=== PATIENT | female | born 1950 | race Caucasian/White ===

== ENCOUNTER 2018-01-18 18:12 | Inpatient (IN) | payer MEDICARE, OTHER, SELFPAY ==
[2018-01-18 18:14] VITALS: BP 164/97; PULSE 95; RESP 18; TEMP 37.1; O2SAT 92; BMI 37.3
--- NOTE | 2018-01-18 18:33 | RAD_ITS ---
STUDY: X-RAY - LEFT FOOT CLINICAL: Female, 67 years old. Infection TECHNIQUE: 3 view(s) of the foot. COMPARISON: None. FINDINGS: Normal talus, calcaneus, and tarsal bones. Flattening of the normal plantar arch. The mineralization of the osseous structures. There is degenerative arthrosis of the metatarsophalangeal joint of the hallux with a hallux valgus deformity. Normal tibial and fibular sesamoid bones. Normal interphalangeal joint of the great toe. Normal phalanges of the great toe. Hyperextension of the second third and fourth metatarsal phalangeal joints. Normal interphalangeal joints and phalanges of the lesser toes. The soft tissue structures are unremarkable. RAD/Foot min 3 Views IMPRESSION: Degenerative changes. Hallux valgus deformity. Demineralization. Pes planus deformity. Electronically Signed: Jayy Swanson DO at 19:32 EDT , Service support ,
--- NOTE | 2018-01-18 18:34 | ED.VISSUMM ---
- ER Visit Summary Date of Service: 01/18/18 Chief Complaint: Left foot infection History of Present Illness: The patient is a 67 F presenting with left foot infection. Patient states that she has had an ulcer on her foot for several months. She states over the last week or so it has worsened and become increasingly painful and now appears infected. She discussed with Dr. Chavez and he advised her to come to the ED for further evaluation. She denies fever. Denies recent injury. She states that it intermittently bleeds. Denies other complaints. Physical Examination: Vitals are stable. Patient is afebrile. Alert no acute distress. HEENT exam is unremarkable. Neck is supple. Lungs are clear and equal bilaterally. Heart is regular rate and rhythm. Extremities necrotic ulcer plantar surface of foot, proximal to the first proximal phalanx with foul odor. Normal DP pulse Skin is warm and dry. No focal neurologic deficit. Remainder of exam is unremarkable. Emergency Department Course and Treatment: CBC is unremarkable. Chemistries show BUN of 29. ESR 51, CRP 6.9. Blood cultures sent. X-ray left foot shows degenerative changes. She was given Ancef IV. Discussed with the hospitalist for admission. Disposition: Admission Impression: Left foot infection This note was generated with [employer] dictation software. It may contain incorrect words, spelling, and punctuation that were not noted in review of the chart prior to signing ED Disposition - Plan for ED Patient: Chief Complaint: Wound Referrals: Faraz Junior MD [Primary Care Provider] -
[2018-01-18 18:48] LABS: Absolute Lymphocyte Count 1.38 X10^3/ul (0.83-4.51); Basophil# 0.02 X10^3/uL; Basophil% 0.2 % (0-1); Eosinophil# 0.35 X10^3/uL; Eosinophils% 4.1 % (0-5); Hematocrit 42.2 % (37-47); Hemoglobin 13.6 g/dl (12.0-15.0); Lymphocyte # 1.38 X10^3/ul (4.0); Lymphocyte % 16.1 % (19-41); Mean Corp Hgb Conc 32.2 g/gl (32-36); Mean Corpuscular Hgb 28.5 pg (27.0-32.0); Mean Corpuscular Volume 88.5 fL (81-99); Mean Platelet Vol. 9.3 fl (6.2-12.0); Monocyte# 0.86 X10^3/uL; Neutrophil # 5.96 X10^3/uL (2.7-7.7); Neutrophil % 69.5 % (47-70); POSITIVE COUNT NO; POSITIVE DIFFERENTIAL NO; POSITIVE MORPHOLOGY NO; Platelet Count 323 K/mm3 (150-450); RBC Distribution Width SD 60.9 fl (35.1-43.9); Red Blood Count 4.77 M/mm3 (4.2-5.4); White Blood Count 8.6 K/mm3 (4.4-11.0)
[2018-01-18 18:57] LABS: Erythrocyte Sedimentation Rate 51 mm/hr (0-30)
[2018-01-18 19:07] LABS: Anion Gap 9 (5-15); BUN 29 mg/dL (7-18); CRP 6.92 mg/L (0.0-3.0); Calcium,Total 8.8 mg/dL (8.5-10.1); Chloride 109 mmol/L (98-107); Creatinine, Serum 0.62 mg/dL (0.55-1.02); EST Glomerular Filtration Rate 103 mL/min (>60); Est Glom Filt Rate - Afr Amer 124 mL/min (>60); Estimated Creatinine Clearance 59.84 ml/min; Glucose 99 mg/dL (74-106); Potassium 3.9 mmol/L (3.5-5.1); Sodium Level 143 mmol/L (136-145)
[2018-01-18 19:38] VITALS: BMI 37.3
[2018-01-18] MEDS: Cefazolin 1 GM/50 ML BAG IV (21:16)
--- NOTE | 2018-01-18 21:22 | ED.RN ---
TWO SETS OF BLOOD CULTURES SEND DOWN PRIOR TO STARTING ATB'S. THEY ARE NOT ORDERED YET.
[2018-01-18 21:25] VITALS: BP 154/72; PULSE 92; PULSE 95; RESP 22; TEMP 36.8; O2SAT 93; O2SAT 95
[2018-01-18 23:56] VITALS: BP 151/90; PULSE 83; RESP 16; TEMP 36.9; O2SAT 92; BMI 37.3
--- NOTE | 2018-01-18 23:59 | HP.PCM_ITS ---
Problem List (1) Left foot infection Status: Acute (2) Benign essential hypertension Status: Chronic History of Present Illness Date of Admission: 01/18/18 Chief Complaint: Left foot pain with bloody drainage The patient is a 67 year old F with a significant history of hypertension, atrial fibrillation arthritis and left foot ulcer who presented because of increasing pain and increasing bloody drainage from her left foot for 1 week. She has seen multiple podiatrists in the past. She was supposed to see Dr. Arvin Chavez [facility], for the first time. However because of her symptoms she was instructed by Dr. Chavez to come to the emergency department. Patient reports receiving frequent debridement of the left foot also from [facility]. In the past, merchant [facility] instructed her to weigh surgical boots but because of her arthritis she could know wear the surgical boots. The ulcer in the left feet started about 3 months ago. Past Medical History Past Medical History (Chronic Problems): Chronic Problems Obesity (Chronic) Depression (Chronic) Benign essential hypertension (Chronic) Allergies nifedipine [From Procardia] Adverse Reaction (Verified 01/18/18 18:14) Pain in joints Home Medications: Ambulatory Orders Medication Instructions Recorded Amlodipine [Norvasc] 5 mg PO DAILY 04/09/13 Carvedilol [Coreg (Beta [place])] 25 mg PO BID 04/09/13 Lisinopril [Zestril] 20 mg PO BID 04/09/13 Multivitamins,Therapeutic 1 tablet PO DAILY 04/09/13 [Multivitamin] Vitamin B Complex 1 each PO DAILY 04/09/13 Esomeprazole Mag Trihydrate 40 mg PO DAILY 02/06/14 [Nexium] Apixaban [Eliquis] 5 mg PO BID 01/18/18 Celecoxib [Celebrex] 200 mg PO BID 01/18/18 Duloxetine HCl 60 mg PO DAILY 01/18/18 Flecainide [Tambocor] 100 mg PO BID 01/18/18 Rosuvastatin Calcium [Rosuvastatin 5 mg PO DAILY 01/18/18 Calcium] Surgical History: appendectomy, hysterectomy, - - 2 surgeries to the foot Psychiatric History: No pertinent psych hx, Depression 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 Smoking Status: Never smoker Tobacco Use: Non-smoker Alcohol: None - *Family History Paternal History Items: No pertinent history Maternal History Items: No pertinent history Review of Systems Constitutional: Denies: Chills, Fever, Weight Change Eyes: Reports: Blurred vision, Pain HEENT: Denies: Head Aches, Sinus Congestion, Sinus Drainage Cardiovascular: Denies: Chest Pain, Palpitations Respiratory: Denies: Cough, Shortness of breath at rest, Sputum production Gastrointestinal: Denies: Abdominal Pain, Nausea, Vomiting Genitourinary: Denies: Dysuria Musculoskeletal: Reports: - - Left foot pain Skin: Denies: Rash, Wounds Neurological: Denies: Numbness, Tingling, Focal weakness Hematologic/ Lymphatic: Denies: Easy Bruising, Easy Bleeding VTE Information - Inpt Only VTE Present on Admission: No VTE Mechan Device Prophylaxis: None VTE Pharm Prophylaxis ordered?: No Reason prophylaxis not ordered:: Medical Contraindication Patient Problems: Active and Suspected Problems Left foot infection (Acute) - Physical Exam General: Alert, Oriented x3, Cooperative HEENT: Atraumatic, PERRLA, EOMI, Normocephalic Neck: Supple, No JVD, Negative Carotid Bruits Lungs: Clear to auscultation, Normal air movement Cardiovascular: Regular rate, No murmurs Abdomen: Bowel Sounds Present, Soft, Non Tender Extremities: - - Necrotic area of plantar side of the left foot. Pulses are intact in bilateral feet. Skin: - - Bilateral feet desquamation. Musculoskeletal: No Tenderness to Palpation of Joints or Extremities Lymphatic: No Cervical, Supraclavicular, or Inguinal Adenopathy Neurological: Cranial nerves II-XII grossly intact Psych/Mental Status: Normal Affect, Appropriate Vital Signs Temp Pulse Resp BP Pulse Ox 98.3 F 92 22 H 154/72 H 95 01/18/18 21:25 01/18/18 21:25 01/18/18 21:25 01/18/18 21:25 01/18/18 21:25 Assessment/Plan All Active Problems Left foot infection (Acute) Epistaxis (Acute) Hyperleukocytosis (Acute) Hyperlipemia (Acute) Atrial fibrillation (Acute) The patient is a 67 year old F with a significant history of hypertension, atrial fibrillation, arthritis and left foot ulcer who presented because of increasing pain and increasing bloody drainage from her left foot for 1 week and with elevated serum markers of inflammation concerning for infection of left foot ulcer. Infection of left foot ulcer Foot x-ray unremarkable ESR elevated at 51 CRP elevated at 6.92 The patient received Ancef at emergency department Because of risk of MRSA vancomycin ordered. Because of a risk of Pseudomonas with frequent debridement Zosyn ordered. MRI to rule out osteomyelitis. Morphine and oxycodone prn for pain Podiatry consult. History of A. fib Continue home Eliquis. Flecainade continued Hypertension Lisinopril and amlodipine continued DVT prophylaxis On therapeutic anticoagulation with Eliquis. Code Visit Inpatient E&M: 51288 Init Hosp L2
[2018-01-19 03:12] VITALS: BP 156/88; PULSE 87; RESP 16; TEMP 36.9; O2SAT 94
--- NOTE | 2018-01-19 03:19 | PCM.RX.CS ---
Consult Pharmacy has been consulted to manage selected antiobiotic: Vancomycin Type of Consult: New start Suspected Infection: Skin/Soft tissue Prior Doses of Antibiotics Received/Current Regimen: Medications Piperacillin Sod/Tazobactam Sod (Zosyn) 3.375 gm in 50 mls @ 12.5 mls/hr IV Q8 KORTNEY Discontinued Medications Vancomycin HCl 1,750 mg/ (Sodium Chloride) 535 mls @ 260 mls/hr IV X1 ONE Stop: 01/19/18 02:33 Last Admin: 01/19/18 00:39 Dose: 260 mls/hr Labs: Sodium 143 mmol/L (136-145) 01/18/18 18:41 Potassium 3.9 mmol/L (3.5-5.1) 01/18/18 18:41 Chloride 109 mmol/L (98-107) H 01/18/18 18:41 Carbon Dioxide 25.0 mmol/L (21.0-32.0) 01/18/18 18:41 Anion Gap 9 (5-15) 01/18/18 18:41 BUN 29 mg/dL (7-18) H 01/18/18 18:41 Creatinine 0.62 mg/dL (0.55-1.02) 01/18/18 18:41 Est GFR (MDRD) Af Amer 124 mL/min (>60) 01/18/18 18:41 Est GFR (MDRD) Non-Af 103 mL/min (>60) 01/18/18 18:41 BUN/Creatinine Ratio 47.0 RATIO (10-20) H 01/18/18 18:41 Glucose 99 mg/dL (74-106) 01/18/18 18:41 Weight used for dosin.9 kg Estimated Creatinine Clearance: 59.84 Goal Trough: 10-15 mcg/mL Pharmacy Plan for Drug Dosing: Pharmacy Service will continue to monitor and adjust dosing as required. Follow-Up Labs: Trough Vancomycin Labs to be done on [date and time ordered]: 11/20 @ 1230
[2018-01-19] MEDS: Nystatin Powder 15gm Bottle 1 APPLIC TOPICAL ×3 (05:35→21:50)
[2018-01-19] MEDS: Piperacil/Tazobactam 3.375 GM/50 ML ML IV (05:35)
--- NOTE | 2018-01-19 06:30 | MRI_ITS ---
STUDY: MRI LEFT FOREFOOT WITH AND WITHOUT CONTRAST REASON FOR EXAM: Open wound left foot, evaluate for osteomyelitis. TECHNIQUE: Standardized fat and water weighted pulse sequences were obtained in all 3 orthogonal planes, post contrast administration. 12 ml of Gadavist contrast material was administered intravenously for the contrast portion of the examination. COMPARISON: Radiographs 01/18/2018. FINDINGS: There is chondral thinning of the metatarsophalangeal joint of the hallux (T1 sagittal image 19) with a small subchondral cyst in the first metatarsal head. There is hallux valgus deformity. There is chondral thinning of the sesamoids-first metatarsal articulations (T2 coronal series 5 images 20, 21) and subchondral cystic change of the tibial sesamoid (inversion recovery sagittal image 20). Normal interphalangeal joint of the hallux. Normal proximal and distal phalanges of the great toe. There is chondral thinning and dorsal subluxations of the second and third metatarsophalangeal joint (T1 sagittal images 10-14). Normal interphalangeal joints of the second through fifth toes. Normal proximal, middle and distal phalanges of the second through fifth toes. Normal first through fourth intermetatarsal spaces. There is no bone edema of the metatarsals. There is chondral thinning and subchondral cystic change adjacent to the navicular-cuneiform articulations (inversion recovery sagittal images 20, 21). There is a small effusion of the talonavicular joint (inversion recovery sagittal image 19). There is a tibiotalar joint effusion (inversion recovery sagittal image 18). There is atrophy of the intrinsic muscles of the foot with fat replacement (T1 sagittal images 6-21). There is edema in the plantar/medial subcutis adipose space at the first metatarsophalangeal joint with contrast enhancement (postcontrast T1 sagittal images 18-23) suggestive of cellulitis. There is no discrete fluid collection to indicate soft tissue abscess. MRI/Lower Ext No Joint W/WO Cont IMPRESSION: Cellulitis adjacent to the first metatarsophalangeal joint without demonstrated osteomyelitis. Arthrosis of the first through third metatarsophalangeal joints with dorsal subluxations of the second and third metatarsophalangeal joints. Arthrosis of the first metatarsal-sesamoids articulations. Arthrosis of the navicular-cuneiform articulations. Tibiotalar and talonavicular joint effusions. Atrophy of the intrinsic muscles of the foot suggestive of peripheral neuropathy. Electronically Signed: Shahbaz Thomson MD at 12:30 EDT Tel , Service support ,
--- NOTE | 2018-01-19 06:30 | PCM.PROGNOTE ---
Patient Problems: Active and Suspected Problems Cellulitis of foot, left (Acute) Subjective: Mrs Wolff is a 67-year-old female with a past medical history of hypertension, atrial fibrillation, chronic anticoagulation with apixaban, hyperlipidemia, osteoarthritis and a chronic left foot ulcer (present for 3 months) who presented to the emergency department at [facility] on 01/18/2018 complaining of left foot pain with increased drainage. She has seen multiple podiatrists in the past and the wound remains unhealed. She has not been able to wear a off loading boot due to increased arthritic pain. Vital signs at presentation to the emergency room were temp 98.7, pulse rate 95, blood pressure 164/97, respiratory rate 18 and she was 92-94% saturated on room air. White blood cell count was 8.6 with an unremarkable differential. Hemoglobin and platelets were within normal limits. Electrolytes were unremarkable and the BUN was increased at 29 with a creatinine of 0.62. ESR was 51 and the CRP was 6.92. Plain x-ray of the foot showed no fractures, dislocations or bone destruction. She was admitted to the hospital and started on vancomycin and Zosyn. MRI was ordered to rule out osteomyelitis and Dr. Arvin Chavez was consulted for podiatric care. She has been afebrile since admission. Blood pressures are elevated and have ranged from 154/72-160 4/97. The heart rate is ranged from 83-95. - Physical Exam General: Alert, Oriented x3, Cooperative, No apparent distress HEENT: Atraumatic Oral: Moist Mucosa, No Gingival or Mucosal Lesions/ Ulcerations Neck: Supple, Trachea Midline Lungs: Clear to auscultation Cardiovascular: Regular rate, Regular Rhythm, Normal S1, Normal S2, No rub noted, No Gallop Abdomen: Bowel Sounds Present, Soft, Non Tender, Non-Distended, Obese Extremities: No clubbing, No cyanosis, Capillary Refill Less than 3 Seconds, No Calf Tenderness, Edema Skin: No rashes, Ulcer/ Wound - the ulcer is on the plantar surface of the left foot over the first metatarsal head. There is a thick eschar. No odor. no significant jason-wound erythema, no purulent discharge, no increased warmth to touch. Psych/Mental Status: Normal Affect Vital Signs Temp Pulse Resp BP Pulse Ox 98.4 F 87 16 156/88 H 94 01/19/18 03:12 01/19/18 03:12 01/19/18 03:12 01/19/18 03:12 01/19/18 03:12 Oxygen Delivery Method Room Air Weight: 259 lb 14.8 oz Body Mass Index (BMI) 37.3 Intake and Output for Last 24 Hours 01/17/18 01/18/18 01/19/18 23:59 23:59 23:59 Intake Total 1322 / 1322 Balance 1322 / 1322 Medical Necessity - Tobacco Use Smoking Status: Never smoker Tobacco Use: Non-smoker Assessment/Plan All Active Problems Cellulitis of foot, left (Acute) Atrial fibrillation (Resolved) Epistaxis (Resolved) Impressions 1. ulceration of the left foot - chronic. Await Dr. Tierney to determine the depth and if it tracks to fascia or bone. The MRI of the left foot shows no evidence of osteomyelitis but does show cellulitis adjacent to the first metatarsal phalangeal joint. 2. Left foot cellulitis 3. Onychomycosis 4. Hypertension 5. Proximal is more atrial fibrillation 6. Chronic anticoagulation with apixaban 7. Hyperlipidemia 8. Osteoarthritis 9. Obesity Change the antibiotics to Rocephin and Flagyl........ infection is present but it is mild and she has no history of a MRSA infection. She is afebrile with a normal white blood cell count and differential. Await consult by Dr. Tierney. Needs nail debridement on both feet all 10 toes Encouraged her to follow-up every 3 months with podiatry for nail debridement She is unable to tolerate offloading shoes or braces secondary to severe arthritis in her knees and hips. She is also unable to wash or moisturize her feet Will get [facility] [place] to help with wound dressing and foot care Code Visit Inpatient E&M: 56062 Subs Hosp L2
--- NOTE | 2018-01-19 06:39 | PN_ITS ---
Patient Problems: Active and Suspected Problems Cellulitis of foot, left (Acute) Subjective: Mrs Wolff is a 67-year-old female with a past medical history of hypertension, atrial fibrillation, chronic anticoagulation with apixaban, hyperlipidemia, osteoarthritis and a chronic left foot ulcer (present for 3 months) who presented to the emergency department at [facility] on 2017 complaining of left foot pain with increased drainage. She has seen multiple podiatrists in the past and the wound remains unhealed. She has not been able to wear a off loading boot due to increased arthritic pain. Vital signs at presentation to the emergency room were temp 98.7, pulse rate 95, blood pressure 164/97, respiratory rate 18 and she was 92-94% saturated on room air. White blood cell count was 8.6 with an unremarkable differential. Hemoglobin and platelets were within normal limits. Electrolytes were unremarkable and the BUN was increased at 29 with a creatinine of 0.62. ESR was 51 and the CRP was 6.92. Plain x-ray of the foot showed no fractures, dislocations or bone destruction. She was admitted to the hospital and started on vancomycin and Zosyn. MRI was ordered to rule out osteomyelitis and Dr. Arvin Chavez was consulted for podiatric care. She has been afebrile since admission. Blood pressures are elevated and have ranged from 154/72-160 4/97. The heart rate is ranged from 83-95. - Physical Exam General: Alert, Oriented x3, Cooperative, No apparent distress HEENT: Atraumatic Oral: Moist Mucosa, No Gingival or Mucosal Lesions/ Ulcerations Neck: Supple, Trachea Midline Lungs: Clear to auscultation Cardiovascular: Regular rate, Regular Rhythm, Normal S1, Normal S2, No rub noted , No Gallop Abdomen: Bowel Sounds Present, Soft, Non Tender, Non-Distended, Obese Extremities: No clubbing, No cyanosis, Capillary Refill Less than 3 Seconds, No Calf Tenderness, Edema Skin: No rashes, Ulcer/ Wound - the ulcer is on the plantar surface of the left foot over the first metatarsal head. There is a thick eschar. No odor. no significant jason-wound erythema, no purulent discharge, no increased warmth to touch. Psych/Mental Status: Normal Affect Vital Signs Temp Pulse Resp BP Pulse Ox 98.4 F 87 16 156/88 H 94 01/19/18 03:12 01/19/18 03:12 01/19/18 03:12 01/19/18 03:12 01/19/18 03:12 Oxygen Delivery Method Room Air Weight: 259 lb 14.8 oz Body Mass Index (BMI) 37.3 Intake and Output for Last 24 Hours 01/17/18 01/18/18 01/19/18 23:59 23:59 23:59 Intake Total 1322 / 1322 Balance 1322 / 1322 Medical Necessity - Tobacco Use Smoking Status: Never smoker Tobacco Use: Non-smoker Assessment/Plan All Active Problems Cellulitis of foot, left (Acute) Atrial fibrillation (Resolved) Epistaxis (Resolved) Impressions 1. ulceration of the left foot - chronic. Await Dr. Tierney to determine the depth and if it tracks to fascia or bone. The MRI of the left foot shows no evidence of osteomyelitis but does show cellulitis adjacent to the first metatarsal phalangeal joint. 2. Left foot cellulitis 3. Onychomycosis 4. Hypertension 5. Proximal is more atrial fibrillation 6. Chronic anticoagulation with apixaban 7. Hyperlipidemia 8. Osteoarthritis 9. Obesity Change the antibiotics to Rocephin and Flagyl........ infection is present but it is mild and she has no history of a MRSA infection. She is afebrile with a normal white blood cell count and differential. Await consult by Dr. Tierney. Needs nail debridement on both feet all 10 toes Encouraged her to follow-up every 3 months with podiatry for nail debridement She is unable to tolerate offloading shoes or braces secondary to severe arthritis in her knees and hips. She is also unable to wash or moisturize her feet Will get [facility] [place] to help with wound dressing and foot care Code Visit Inpatient E&M: 12920 Subs Hosp L2
[2018-01-19 06:57] LABS: Absolute Lymphocyte Count 1.58 X10^3/ul (0.83-4.51); Absolute Neutrophil Count 4.9 X10^3/uL (2.0-7.7); Basophil# 0.02 X10^3/uL; Basophil% 0.3 % (0-1); Eosinophil# 0.36 X10^3/uL; Eosinophils% 4.7 % (0-5); Hematocrit 41.9 % (37-47); Hemoglobin 13.5 g/dl (12.0-15.0); Lymphocyte # 1.58 X10^3/ul (4.0); Lymphocyte % 20.7 % (19-41); Mean Corp Hgb Conc 32.2 g/gl (32-36); Mean Corpuscular Hgb 28.8 pg (27.0-32.0); Mean Corpuscular Volume 89.5 fL (81-99); Mean Platelet Vol. 9.8 fl (6.2-12.0); Monocyte# 0.76 X10^3/uL; Monocyte% 9.9 % (0-10); Neutrophil # 4.92 X10^3/uL (2.7-7.7); Neutrophil % 64.3 % (47-70); Platelet Count 320 K/mm3 (150-450); RBC Distribution Width CV 18.9 % (11.6-14.6); RBC Distribution Width SD 61.3 fl (35.1-43.9); Red Blood Count 4.68 M/mm3 (4.2-5.4); White Blood Count 7.7 K/mm3 (4.4-11.0)
[2018-01-19 07:09] LABS: POSITIVE COUNT NO; POSITIVE DIFFERENTIAL NO; POSITIVE MORPHOLOGY NO
[2018-01-19 07:12] LABS: Anion Gap 9 (5-15); BUN 20 mg/dL (7-18); BUN/Creat Ratio 30.3 RATIO (10-20); Calcium,Total 8.7 mg/dL (8.5-10.1); Chloride 107 mmol/L (98-107); Creatinine, Serum 0.66 mg/dL (0.55-1.02); EST Glomerular Filtration Rate 95 mL/min (>60); Est Glom Filt Rate - Afr Amer 115 mL/min (>60); Estimated Creatinine Clearance 59.84 ml/min; Glucose 115 mg/dL (74-106); Potassium 3.9 mmol/L (3.5-5.1); Sodium Level 140 mmol/L (136-145)
[2018-01-19 07:38] VITALS: BP 153/83; PULSE 92; RESP 18; TEMP 36.8; O2SAT 92
--- NOTE | 2018-01-19 07:58 | NURSING ---
PT REFUSES ENSURE- THIS RN OFFERED CLEAR ENSURE PT STATES SHE DOES NOT WANT EITHER. ASKED IF SHE MIGHT WANT SOME LATER- SHE STATES, NO.
[2018-01-19] MEDS: DULoxetine Hcl 60 MG Capsule PO (09:05)
[2018-01-19] MEDS: Carvedilol 25 MG Tablet PO ×2 (09:05→21:50)
[2018-01-19] MEDS: Celecoxib 200 MG Capsule PO ×2 (09:05→21:50)
[2018-01-19] MEDS: Multivitamins,Therapeutic Tablet 1 TABLET PO (09:05)
[2018-01-19] MEDS: Vitamin B Comp W-C Capsule 1 CAP PO (09:05)
[2018-01-19 09:06] LABS: Bedside Glucose 111 mg/dL (70-110)
[2018-01-19] MEDS: Pantoprazole Sodium 40 MG Tablet PO (09:06)
[2018-01-19] MEDS: APIXABAN 5 MG TABLET PO ×2 (09:06→21:50)
[2018-01-19] MEDS: Lisinopril 20 MG Tablet PO ×2 (09:06→21:50)
[2018-01-19] MEDS: Flecainide 100 MG Tablet PO ×2 (09:06→21:49)
[2018-01-19] MEDS: amLODIPine 5 MG Tablet PO (09:06)
[2018-01-19 09:30] VITALS: O2SAT 93
--- NOTE | 2018-01-19 10:28 | NURSING ---
pt taken off unit for MRI at this time.
[2018-01-19] MEDS: oxyCODONE 5 MG Tablet PO ×2 (12:35→18:12)
[2018-01-19] MEDS: 0.9% NaCl Peripheral Flush Adult/Peds IV (12:35)
--- NOTE | 2018-01-19 12:35 | PCM.HP.STD ---
Problem List (1) Chronic ulcer of left foot with fat layer exposed Status: Chronic (2) Cellulitis of foot, left Status: Acute (3) Left foot infection Status: Acute History of Present Illness Date of Admission: 01/19/18 Chief Complaint: Left foot wound This 67-year-old female with significant past medical history of obesity, depression, hypercholesteremia, hypertension was seen bedside this morning for chronic left foot ulcer. She reports she saw Dr. Anderson for this condition this past June or July and it has continually drained and formed callus. She had increased drainage and odor noted and presented to the emergency room. She has been started on IV antibiotics and workup for deeper tissue infection has been initiated. She just returned from getting her MRI of the foot. She denies significant pain to the foot. She denies current fever, chill, nausea, vomiting. She denies recent trauma to this area. She tried to initially wear surgical shoe but was unable to tolerate it due to her chronic low back pain and other hip and knee pain. She did not return her medical records custodian for follow-up. She also asked for help trimming her long thick toenails that she does not feel safe performing on her own. She relates she does have a appointment scheduled with Dr. Chavez tomorrow at the [facility]. Past Medical History Past Medical History (Chronic Problems): Chronic Problems Chronic ulcer of left foot with fat layer exposed (Chronic) Obesity (Chronic) Depression (Chronic) Benign essential hypertension (Chronic) Allergies nifedipine [From Procardia] Adverse Reaction (Verified 01/18/18 18:14) Pain in joints Home Medications: Ambulatory Orders Medication Instructions Recorded Amlodipine [Norvasc] 5 mg PO DAILY 04/09/13 Carvedilol [Coreg (Beta [place])] 25 mg PO BID 04/09/13 Lisinopril [Zestril] 20 mg PO BID 04/09/13 Multivitamins,Therapeutic 1 tablet PO DAILY 04/09/13 [Multivitamin] Vitamin B Complex 1 each PO DAILY 04/09/13 Esomeprazole Mag Trihydrate 40 mg PO DAILY 02/06/14 [Nexium] Apixaban [Eliquis] 5 mg PO BID 01/18/18 Celecoxib [Celebrex] 200 mg PO BID 01/18/18 Duloxetine HCl 60 mg PO DAILY 01/18/18 Flecainide [Tambocor] 100 mg PO BID 01/18/18 Rosuvastatin Calcium [Rosuvastatin 5 mg PO DAILY 01/18/18 Calcium] Surgical History: appendectomy, hysterectomy, - - 2 surgeries to the foot Psychiatric History: No pertinent psych hx, 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 Denies: Claudication Gastrointestinal: Denies: Diarrhea, Nausea, Vomiting Musculoskeletal: Denies: Foot Pain, Leg Pain Skin: Reports: Skin Changes, Wounds Neurological: Denies: Numbness Psychiatric: Reports: Depression VTE Information - Inpt Only VTE Present on Admission: No Patient Problems: Active and Suspected Problems Left foot infection (Acute) Cellulitis of foot, left (Acute) - Physical Exam General: Alert, Oriented x3, Cooperative HEENT: Atraumatic Extremities: No cyanosis, Capillary Refill Less than 3 Seconds - Brisk to all digits of bilateral foot, No Calf Tenderness - Negative Ana and León sign bilateral, Peripheral Pulses Normal - 2 out of 4 PT and DP pulses left, - - Telangiectasias bilateral lower extremities Skin: Ulcer/ Wound - There is a large callus with dried hematogenous drainage located sub-first metatarsal head left foot. Upon debridement there is a granular base exposed stellate shaped wound that measures approximately 1.8 cm x 1.2 cm x 0.1 cm. There is spares fibrous tissue noted. There is no necrosis or positive probe to bone or capsule. There is a mild odor and biofilm is suspected., - - There is no interdigital maceration bilateral and bilateral foot skin is hairless and atrophic. Toenails are long thick dystrophic with subungual debris ?10 Musculoskeletal: No Tenderness to Palpation of Joints or Extremities, Muscle Wasting Neurological: Sensory exam intact to light touch and pain Psych/Mental Status: Normal Affect, Appropriate Vital Signs Temp Pulse Resp BP Pulse Ox 98.3 F 92 18 153/83 H 93 01/19/18 07:38 01/19/18 07:38 01/19/18 07:38 01/19/18 07:38 01/19/18 09:30 Oxygen Delivery Method Room Air Weight: 117.9 kg Body Mass Index (BMI) 37.3 Intake and Output for Last 24 Hours 01/17/18 01/18/18 01/19/18 23:59 23:59 23:59 Intake Total 1322 / 1322 Balance 1322 / 1322 Laboratory Tests Past 24 Hrs 01/19/18 01/19/18 06:35 06:35 WBC 7.7 RBC 4.68 Hgb 13.5 Hct 41.9 MCV 89.5 MCH 28.8 MCHC 32.2 RDW 18.9 H RDW Differential 61.3 H Plt Count 320 MPV 9.8 Immature Gran % (Auto) 0.100 Neut % (Auto) 64.3 Lymph % (Auto) 20.7 [place] % (Auto) 9.9 Eos % (Auto) 4.7 Baso % (Auto) 0.3 Absolute Neuts (auto) 4.9 Absolute Lymphs (auto) 1.58 Total Counted Not Reportable Sodium 140 Potassium 3.9 Chloride 107 Carbon Dioxide 24.0 Anion Gap 9 BUN 20 H Creatinine 0.66 Estim Creat Clear Calc 59.84 Est GFR (MDRD) Af Amer 115 Est GFR (MDRD) Non-Af 95 BUN/Creatinine Ratio 30.3 H Glucose 115 H Calcium 8.7 POC Glucose 01/19/18 07:46 POC Glucose 111 H Assessment/Plan All Active Problems Left foot infection (Acute) Cellulitis of foot, left (Acute) Epistaxis (Acute) Hyperleukocytosis (Acute) Hyperlipemia (Acute) Atrial fibrillation (Acute) Left foot ulcer with fat layer exposed chronic Delayed healing Mild cellulitis of left foot; osteomyelitis has been ruled out Malnutrition suspected Lower extremity edema Hammertoes and bunion foot deformities bilateral Onychomycosis versus onychauxis with discomfort I reviewed and discussed her case today. Her diagnostic data was reviewed. It is noted she does not have leukocytosis, her ESR is 51 C-reactive protein 6.2. Her foot x-rays on the left lower extremity were reviewed without acute fracture dislocation, soft tissue emphysema, foreign body, or osseous destruction. Her foot deformities are noted with bunion and dorsal contraction of lesser toes consistent with hammertoes. Her left foot MRI was also reviewed without abscess or evidence of osteomyelitis. She does have a faint odor and I do recommend treating her with oral antibiotic transition for mild foot cellulitis. A formal wound care plan will also be initiated at this time. A 15 blade was utilized to perform sharp excisional debridement with a post debridement measurement of 1.9 x 1.3 x 0.1 cm. Verbal consent was obtained and she tolerated this well without pain. Pressure was applied to maintain hemostasis. I recommend changing the wound dressing daily with Aquacel AG and gauze. Offloading importance was discussed. It is noted she is not able to tolerate wearing a surgical shoe due to back discomfort. We talked about several options and she is amenable to try to go nonweightbearing or heel touch with walker use. She reports she already has a walker at home. To optimize healing with nutritional supplement; I recommend Familia. I recommend she follows up at the foot and ankle center for toenail debridement as scheduled. She can also follow-up at the foot and ankle center or the wound care center for ongoing wound care within the next week with Dr. Tierney or Dr. Chavez. If she is still in house over the weekend I will bring the appropriate instrumentation to debride her nails. She understands she is at risk for limb loss and continued infection due to her chronic wound. I answered all of her questions. Thank you very much for the consultation. It is okay to discharge from a podiatric standpoint at this time. Medical management DVT prophylaxis per primary team is appreciated. Maria Ines Tierney DPM, [facility] [phone]
--- NOTE | 2018-01-19 13:00 | CASEMGMT ---
See ABBY BRAVO Assess link: ABBY BRAVO Face to Face with patient for initial transition planning/care coordination assessment. ABBY BRAVO introduced self and role at [facility]. Patient resting in bed, alert and oriented. Patient willing to participate in assessment and is able to answer all questions appropriately. Care providers, pharmacy, and demographics verified. Pt wishes to discharge home. HHC to be determined by course of treatment. Pt agreeable to [facility]HC upon discharge, if services needed. Pt states would like info on Advanced Directives and states having some difficulty with finances to pay for prescriptions. JUVENAL Rivers notified by ABBY BRAVO. CM to follow for discharge planning needs that may arise. Disposition Plan: Discharge Home with probable HHC. Pt agreeable to [facility]HC if services needed. Vidya RAYMUNDO RN, CM
[2018-01-19 13:40] VITALS: BP 120/69; PULSE 82; RESP 18; TEMP 37.1; O2SAT 92
[2018-01-19] MEDS: metroNIDAZOLE 500 MG Tablet PO ×2 (14:06→21:50)
[2018-01-19 14:21] LABS: Bedside Glucose 108 mg/dL (70-110)
--- NOTE | 2018-01-19 14:24 | DCINST_ITS ---
Weight Bearing Status: No weight bearing - walker use. Ok to heel touch if needed. Keep extremity elevated above heart level: Left Leg Call your doctor if your incision/area has: Continuous Slow Oozing, Sudden Increased Bleeding, Increased Pain/ Swelling, Increased Redness, Foul Smelling Discharge, Swelling at the incision site Call your doctor if you observe: Fever of 101 or Higher, Calf discomfort, Uncontrolled pain Cleanse incision/area with: Soap & Water, - - aquacel ag and gauze. Do not soak the foot Allergies/Adverse Reactions: Allergies nifedipine [From Procardia] Adverse Reaction (Verified 01/18/18 18:14) Pain in joints Medications to take at Discharge Amlodipine [Norvasc] 5 mg PO DAILY 04/09/13 Carvedilol [Coreg (Beta [place])] 25 mg PO BID 04/09/13 Lisinopril [Zestril] 20 mg PO BID 04/09/13 Multivitamins,Therapeutic [Multivitamin] 1 tablet PO DAILY 04/09/13 Vitamin B Complex 1 each PO DAILY 04/09/13 Esomeprazole Mag Trihydrate [Nexium] 40 mg PO DAILY 02/06/14 Apixaban [Eliquis] 5 mg PO BID 01/18/18 Celecoxib [Celebrex] 200 mg PO BID 01/18/18 Duloxetine HCl 60 mg PO DAILY 01/18/18 Flecainide [Tambocor] 100 mg PO BID 01/18/18 Rosuvastatin Calcium [Rosuvastatin Calcium] 5 mg PO DAILY 01/18/18 Primary Care Physician: Faraz Junior MD [Primary Care Provider] - Test Results: Test results from this visit will be discussed in further detail at your follow- up appointment, if applicable. Please Follow Up With: Arvin Chavez DPM When: [facility] as scheduled and if discharged today Please Follow Up With: Wound healing center - in one week Proposed Discharge Date: 01/19/18
--- NOTE | 2018-01-19 15:19 | NURSING ---
wound photo: left foot
--- NOTE | 2018-01-19 15:22 | CHAPLAIN ---
Type of Pastoral Visit _x__ Initial Visit ___ Follow-up Visit ___ On-call Visit ___ General Patient Visit ___ Spiritual Assessment ___ Family Conference ___ Bereavement ___ Rapid Response ___ Code Blue ___ Other (describe below) Pastoral Care Referral From _x__ Patient ___ Family ___ Nurse ___ Physician ___ Patternmaker Sample ___ Construction Driller ___ Other (describe below) Sacrament/Intervention _x__ Active listening ___ Anointing ___ Samaritan ___ Bereavement ___ Communion _x__ Elaina exploration ___ _x__ Life review _x__ Prayer ___ Reconciliation ___ Sacrament of Sick _x__ Supportive presence ___ Wedding ___ Other (describe below) Pastoral Comments nursing care is being completed as I come to see the patient; pt requests that client customer manager stays to make the visit as nurses are finishing; pt discloses that she is now glad that she came to hospital as need was larger than she expected; pt explains that she has more health issues and has had difficulty 'deciding which one to address first'; pt has no relatives in the area; pt has a twin brother in [place] that she talks to every day; pt also reports many friends in this area; pt has a evangelical connection locally; pt is recently retired and admits that this is also a 'real adjustment for me'; looked into where pt can have good consultation for decisions and role of elaina in her life;
--- NOTE | 2018-01-19 15:36 | NURSING ---
Spoke with Linda in micro. she states that mrsa culture will have to be recollected because the cultures have already taken place- they would have completed MRSA test first before culturing. Also, called Eli wound RN and notified her of new order and of changed in order to aquacel. This RN to collecte sample and do dressing changed at this time
--- NOTE | 2018-01-19 16:03 | CASEMGMT ---
Social Work Note RN SHELLY Burroughs updated this worker that pt would like prescription assistance and is interested in Advanced Directives. JUVENAL met with pt. SW introduced self and role at [facility]. Pt is alert and orientated x4. Pt confirms that she is interested in information about Advanced Directives. SW provided pt with Advanced Directives booklet and informed her that if she would like to completed Advanced Directives then the SW tomorrow on the floor can assist her with completing documents. SW asked pt about being able to afford prescriptions. Pt confirms that some of her prescriptions are expensive. SW asked pt if she has part D plan on her Medicare. Pt states that she has silver scripts. SW provided pt with prescription assistance resources and encouraged pt to look into prescription assistance resources to determine if she is eligible for assistance. Pt states understanding, denied additional needs or concerns at this time and thanked this SW. JUVENAL will update Care TONGUE LINING STITCHER-S. Plan: Pt to return home at discharge Jaimee Ricci PRODUCT SAFETY TESTER, MACHINIST WOOD
[2018-01-19 16:46] LABS: Bedside Glucose 142 mg/dL (70-110)
[2018-01-19 18:05] LABS: M R Staph aureus DNA By PCR Negative (Negative); Probe Check PASS; Specimen Processing Control PASS; Staph aureus DNA By PCR NEGATIVE (Negative)
[2018-01-19 19:40] VITALS: BP 167/79; PULSE 86; RESP 18; TEMP 36.7; O2SAT 93
[2018-01-19] MEDS: Atorvastatin Calcium 10 MG Tablet PO (21:50)
[2018-01-19 22:11] LABS: Bedside Glucose 121 mg/dL (70-110)
[2018-01-20] MEDS: Nystatin Powder 15gm Bottle 1 APPLIC TOPICAL ×2 (06:02→13:33)
[2018-01-20] MEDS: metroNIDAZOLE 500 MG Tablet PO ×2 (06:03→13:33)
[2018-01-20 06:08] VITALS: BP 156/85; PULSE 80; RESP 18; TEMP 36.4; O2SAT 95
[2018-01-20 07:26] VITALS: O2SAT 95
[2018-01-20 08:01] VITALS: BP 142/70; PULSE 75; RESP 18; TEMP 36.6; O2SAT 93
[2018-01-20] MEDS: Celecoxib 200 MG Capsule PO (08:04)
[2018-01-20] MEDS: Vitamin B Comp W-C Capsule 1 CAP PO (08:04)
[2018-01-20] MEDS: Multivitamins,Therapeutic Tablet 1 TABLET PO (08:04)
[2018-01-20] MEDS: Pantoprazole Sodium 40 MG Tablet PO (08:05)
[2018-01-20] MEDS: Carvedilol 25 MG Tablet PO (08:05)
[2018-01-20] MEDS: Lisinopril 20 MG Tablet PO (08:05)
[2018-01-20] MEDS: Flecainide 100 MG Tablet PO (08:05)
[2018-01-20] MEDS: amLODIPine 5 MG Tablet PO (08:05)
[2018-01-20] MEDS: DULoxetine Hcl 60 MG Capsule PO (08:05)
[2018-01-20] MEDS: APIXABAN 5 MG TABLET PO (09:28)
[2018-01-20] MEDS: 0.9% NaCl Peripheral Flush Adult/Peds IV (09:31)
--- NOTE | 2018-01-20 10:11 | CASEMGMT ---
SW and CM met w/pt in regard to scripts, SNF vs home care, and meals at home. Pt is agreeable to home health for dressing changes. CM explained to pt that the home care cannot come in daily. Pt does report has friends who can assist if daily dressing changes are needed. SW explained that home care will train her friend as to how to do the dressing changes, should daily changes be required. Pt states understanding. SNF was offered, pt declined. SW inquired about heel touch weight bearing, pt states she can maintain this and can manage at home. Also, As per admitting RN, pt came in w/unfilled paper scripts. CM asked pt about it, she states she had some duplicate scripts and only fills scripts when needed. 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 Pt states also that her Celexa had been on backorder. Otherwise, pt reports no issues w/scripts or getting coverage for scripts. SW also inquired about meals, as pt had reported to CM her friends make her meals. Pt reports she can make simple meals, her friends shop for her and will get her things from the grocery store that are easy to prepare. SW offered [facility], pt declined. No further social service needs, pt declined SNF, CM following for home health. HARMAN Benton, ALL AROUND GEAR MACHINE OPERATOR
--- NOTE | 2018-01-20 13:00 | CASEMGMT ---
RN CM NOTE: NIRANJAN Alfaro, @ [facility] notified of referral for [facility] for: RN & PT/OT and that pt will need dressing changes to foot. Also notified that plan for discharge is today with start of care being tomorrow 01/21/18. Vidya RAYMUNDO RN CM
[2018-01-20 13:29] VITALS: BP 146/78; PULSE 78; RESP 18; TEMP 36.8; O2SAT 94
--- NOTE | 2018-01-20 14:15 | DCINST_ITS ---
- Discharge Diagnoses Current Active Problems: Current Active and Chronic Problems Left foot infection (Acute) Chronic ulcer of left foot with fat layer exposed (Chronic) Cellulitis of foot, left (Acute) You will use the following diet at home:: Other - Resume previous diet Your food should be the consistency of: Regular Your liquids should be the consistency of: Regular/Thin Discharge Activity: - - non-weight bearing on the Left foot OR heel walking only on the Left foot Weight Bearing Status: No weight bearing - walker use. Ok to heel touch if needed. Keep extremity elevated above heart level: Left Leg Call your doctor if your incision/area has: Continuous Slow Oozing, Sudden Increased Bleeding, Increased Pain/ Swelling, Increased Redness, Foul Smelling Discharge, Swelling at the incision site Call your doctor if you observe: Fever of 101 or Higher, Calf discomfort, Uncontrolled pain Cleanse incision/area with: Soap & Water, - - aquacel ag and gauze. Do not soak the foot Additional Instructions: I have given you a prescription for a wlaker to help you to get around without putting any weight on the L forefoot. I am sending you home on 2 different antibiotics. Take both of them until they are all gone. If you develop diarrhea with more than 3 stools a day call your PCP. Pending Tests on Discharge: final wound culture Allergies/Adverse Reactions: Allergies nifedipine [From Procardia] Adverse Reaction (Verified 01/18/18 18:14) Pain in joints Medications to take at Discharge Amlodipine [Norvasc] 5 mg PO DAILY 04/09/13 Carvedilol [Coreg (Beta [place])] 25 mg PO BID 04/09/13 Lisinopril [Zestril] 20 mg PO BID 04/09/13 Multivitamins,Therapeutic [Multivitamin] 1 tablet PO DAILY 04/09/13 Vitamin B Complex 1 each PO DAILY 04/09/13 Esomeprazole Mag Trihydrate [Nexium] 40 mg PO DAILY 02/06/14 Apixaban [Eliquis] 5 mg PO BID 01/18/18 Celecoxib [Celebrex] 200 mg PO BID 01/18/18 Duloxetine HCl 60 mg PO DAILY 01/18/18 Flecainide [Tambocor] 100 mg PO BID 01/18/18 Rosuvastatin Calcium 5 mg PO DAILY 01/18/18 Levofloxacin [Levaquin] 500 mg PO DAILY #8 tab 01/20/18 Metronidazole [Flagyl] 500 mg PO TID #24 tab 01/20/18 The following prescriptions were given: Levofloxacin [Levaquin] 500 mg PO DAILY #8 tab Metronidazole [Flagyl] 500 mg PO TID #24 tab Primary Care Physician: Faraz Junior MD [Primary Care Provider] - Please follow up with your Primary Care Physician in: 10-14 days Test Results: Test results from this visit will be discussed in further detail at your follow- up appointment, if applicable. Please Follow Up With: Arvin Chavez DPM When: [facility] - next week Please Follow Up With: Wound healing center Proposed Discharge Date: 01/20/18
--- NOTE | 2018-01-20 14:25 | PCM.DC.SUM ---
Discharge Date and Diagnosis - Problem List Patient Problems: Active and Suspected Problems Cellulitis of foot, left (Acute) Date of Admission: 01/19/18 Date of Discharge: 01/20/18 - Primary Discharge Diagnosis Active and Suspected Problems Cellulitis of foot, left (Acute) Left foot ulcer with fat layer exposed - Secondary Discharge Diagnosis Chronic Problems Peripheral neuropathy (Chronic) Osteoarthritis (Chronic) Chronic anticoagulation (Chronic) PAF (paroxysmal atrial fibrillation) (Chronic) Chronic ulcer of left foot with fat layer exposed (Chronic) Hyperlipemia (Chronic) Obesity (Chronic) Depression (Chronic) Benign essential hypertension (Chronic) Hospital Course and Treatment Imaging Results: Clinical Impression(s) from Imaging Studies Foot X-Ray 01/18/18 18:33 IMPRESSION: Degenerative changes. Hallux valgus deformity. Demineralization. Pes planus deformity. Electronically Signed: Jayy Swanson DO at 19:32 EDT , Service support , Lower Extremity MRI 01/19/18 06:30 IMPRESSION: Cellulitis adjacent to the first metatarsophalangeal joint without demonstrated osteomyelitis. Arthrosis of the first through third metatarsophalangeal joints with dorsal subluxations of the second and third metatarsophalangeal joints. Arthrosis of the first metatarsal-sesamoids articulations. Arthrosis of the navicular-cuneiform articulations. Tibiotalar and talonavicular joint effusions. Atrophy of the intrinsic muscles of the foot suggestive of peripheral neuropathy. Electronically Signed: Shahbaz Thomson MD at 12:30 EDT Tel , Service support , Microbiology 01/19/18 12:35 Wound - Other Gram Stain - Final 01/19/18 12:35 Wound - Other Wound Culture - Preliminary Gram negative fredis Gram negative fredis#2 Laboratory Results - last 24 hr 01/19/18 01/19/18 01/19/18 15:59 16:00 21:45 S.aureus Protein A PCR NEGATIVE MRSA (PCR) Negative POC Glucose 142 H 121 H Consultations 01/18/18 23:45 Consult: Onc/Wound/monument stonecutter Routine Comment: Reason for Consult:: left foot infection Operations: None Procedures: - - excisional debridement of left foot ulcer by Dr. Tierney Summary of Care Provided: Mrs Wolff is a 67-year-old female with a past medical history of hypertension, atrial fibrillation, chronic anticoagulation with apixaban, hyperlipidemia, osteoarthritis and a chronic left foot ulcer (present for 3 months) who presented to the emergency department at [facility] on 01/18/2018 complaining of left foot pain with increased drainage. She had seen multiple podiatrists in the past but lost her insurance 1 year ago had not followed up in 1 year. She has not been able to wear an off loading boot due to increased arthritic pain. Vital signs at presentation to the emergency room were temp 98.7, pulse rate 95, blood pressure 164/97, respiratory rate 18 and she was 92-94% saturated on room air. White blood cell count was 8.6 with an unremarkable differential. Hemoglobin and platelets were within normal limits. Electrolytes were unremarkable and the BUN was increased at 29 with a creatinine of 0.62. ESR was 51 and the CRP was 6.92. Plain x-ray of the foot showed no fractures, dislocations or bone destruction. She was admitted to the hospital and started on vancomycin and Zosyn which was changed to Rocephin and Flagyl since she was afebrile with a normal white blood cell count and differential with no evidence of severe cellulitis on physical examination. He was seen in consultation by Dr. Tierney who performed bedside debridement of an ulcer on the plantar surface of the left foot. A PCR was sent and was negative for staph aureus and MRSA. The preliminary culture on the foot wound is 2 GM negative rods...there were no white blood cells on the GM stain. On 01/20/2018 she was afebrile with stable vital signs. She was discharged home with a prescription for Levaquin 500 mg daily for 8 days and Flagyl 500 mg 3 times daily ?8 days. She is going to follow-up with Dr. Arvin Chavez in the office next week for nail debridement and recheck on the ulcer. She was given a prescription for a front wheeled walker to assist her in nonweightbearing on the left foot with heel walking only. Home health care was arranged to assist with dressing changes. She will follow-up with Dr. Junior in 10-14 days. Discharge Activity: - - non-weight bearing on the Left foot OR heel walking only on the Left foot Weight Bearing Status: No weight bearing - walker use. Ok to heel touch if needed. Keep extremity elevated above heart level: Left Leg Call your doctor if your incision/area has: Continuous Slow Oozing, Sudden Increased Bleeding, Increased Pain/ Swelling, Increased Redness, Foul Smelling Discharge, Swelling at the incision site Call your doctor if you observe: Fever of 101 or Higher, Calf discomfort, Uncontrolled pain Cleanse incision/area with: Soap & Water, - - aquacel ag and gauze. Do not soak the foot Home Medications: Medications to take at Discharge Amlodipine [Norvasc] 5 mg PO DAILY 04/09/13 Carvedilol [Coreg (Beta [place])] 25 mg PO BID 04/09/13 Lisinopril [Zestril] 20 mg PO BID 04/09/13 Multivitamins,Therapeutic [Multivitamin] 1 tablet PO DAILY 04/09/13 Vitamin B Complex 1 each PO DAILY 04/09/13 Esomeprazole Mag Trihydrate [Nexium] 40 mg PO DAILY 02/06/14 Apixaban [Eliquis] 5 mg PO BID 01/18/18 Celecoxib [Celebrex] 200 mg PO BID 01/18/18 Duloxetine HCl 60 mg PO DAILY 01/18/18 Flecainide [Tambocor] 100 mg PO BID 01/18/18 Rosuvastatin Calcium 5 mg PO DAILY 01/18/18 Levofloxacin [Levaquin] 500 mg PO DAILY #8 tab 01/20/18 Metronidazole [Flagyl] 500 mg PO TID #24 tab 01/20/18 Following Prescrptions Were Given to Patient: Levofloxacin [Levaquin] 500 mg PO DAILY #8 tab Metronidazole [Flagyl] 500 mg PO TID #24 tab Primary Care Physician: Faraz Junior MD [Primary Care Provider] - Please follow up with your Primary Care Physician in: 10-14 days Please Follow Up With: Arvin Chavez DPM When: [facility] [place] - next week Please Follow Up With: [facility] Minutes spent on discharge:: 30 Patient Condition:: Good Medical Necessity - Tobacco Use Smoking Status: Never smoker Tobacco Use: Non-smoker Meaningful Use Info Meaningful Use Diagnoses (Choose all that apply): None applicable Code Visit Inpatient E&M: 57671 Disch Hosp
--- NOTE | 2018-01-20 14:34 | DS.PCM_ITS ---
Discharge Date and Diagnosis - Problem List Patient Problems: Active and Suspected Problems Cellulitis of foot, left (Acute) Date of Admission: 01/19/18 Date of Discharge: 01/20/18 - Primary Discharge Diagnosis Active and Suspected Problems Cellulitis of foot, left (Acute) Left foot ulcer with fat layer exposed - Secondary Discharge Diagnosis Chronic Problems Peripheral neuropathy (Chronic) Osteoarthritis (Chronic) Chronic anticoagulation (Chronic) PAF (paroxysmal atrial fibrillation) (Chronic) Chronic ulcer of left foot with fat layer exposed (Chronic) Hyperlipemia (Chronic) Obesity (Chronic) Depression (Chronic) Benign essential hypertension (Chronic) Hospital Course and Treatment Imaging Results: Clinical Impression(s) from Imaging Studies Foot X-Ray 01/18/18 18:33 IMPRESSION: Degenerative changes. Hallux valgus deformity. Demineralization. Pes planus deformity. Electronically Signed: Jayy Swanson DO at 19:32 EDT , Service support , Lower Extremity MRI 01/19/18 06:30 IMPRESSION: Cellulitis adjacent to the first metatarsophalangeal joint without demonstrated osteomyelitis. Arthrosis of the first through third metatarsophalangeal joints with dorsal subluxations of the second and third metatarsophalangeal joints. Arthrosis of the first metatarsal-sesamoids articulations. Arthrosis of the navicular-cuneiform articulations. Tibiotalar and talonavicular joint effusions. Atrophy of the intrinsic muscles of the foot suggestive of peripheral neuropathy. Electronically Signed: Shahbaz Thomson MD at 12:30 EDT Tel , Service support , Microbiology 01/19/18 12:35 Wound - Other Gram Stain - Final 01/19/18 12:35 Wound - Other Wound Culture - Preliminary Gram negative fredis Gram negative fredis#2 Laboratory Results - last 24 hr 01/19/18 01/19/18 01/19/18 15:59 16:00 21:45 S.aureus Protein A PCR NEGATIVE MRSA (PCR) Negative POC Glucose 142 H 121 H Consultations 01/18/18 23:45 Consult: Onc/Wound/marketing summer intern Routine Comment: Reason for Consult:: left foot infection Operations: None Procedures: - - excisional debridement of left foot ulcer by Dr. Tierney Summary of Care Provided: Mrs Wolff is a 67-year-old female with a past medical history of hypertension, atrial fibrillation, chronic anticoagulation with apixaban, hyperlipidemia, osteoarthritis and a chronic left foot ulcer (present for 3 months) who presented to the emergency department at [facility] on 01/18/2018 complaining of left foot pain with increased drainage. She had seen multiple podiatrists in the past but lost her insurance 1 year ago had not followed up in 1 year. She has not been able to wear an off loading boot due to increased arthritic pain. Vital signs at presentation to the emergency room were temp 98.7, pulse rate 95, blood pressure 164/97, respiratory rate 18 and she was 92-94% saturated on room air. White blood cell count was 8.6 with an unremarkable differential. Hemoglobin and platelets were within normal limits. Electrolytes were unremarkable and the BUN was increased at 29 with a creatinine of 0.62. ESR was 51 and the CRP was 6.92. Plain x-ray of the foot showed no fractures, dislocations or bone destruction. She was admitted to the hospital and started on vancomycin and Zosyn which was changed to Rocephin and Flagyl since she was afebrile with a normal white blood cell count and differential with no evidence of severe cellulitis on physical examination. He was seen in consultation by Dr. Tierney who performed bedside debridement of an ulcer on the plantar surface of the left foot. A PCR was sent and was negative for staph aureus and MRSA. The preliminary culture on the foot wound is 2 GM negative rods...there were no white blood cells on the GM stain. On she was afebrile with stable vital signs. She was discharged home with a prescription for Levaquin 500 mg daily for 8 days and Flagyl 500 mg 3 times daily ?8 days. She is going to follow-up with Dr. Arvin Chavez in the office next week for nail debridement and recheck on the ulcer. She was given a prescription for a front wheeled walker to assist her in nonweightbearing on the left foot with heel walking only. Home health care was arranged to assist with dressing changes. She will follow-up with Dr. Junior in 10-14 days. Discharge Activity: - - non-weight bearing on the Left foot OR heel walking only on the Left foot Weight Bearing Status: No weight bearing - walker use. Ok to heel touch if needed. Keep extremity elevated above heart level: Left Leg Call your doctor if your incision/area has: Continuous Slow Oozing, Sudden Increased Bleeding, Increased Pain/ Swelling, Increased Redness, Foul Smelling Discharge, Swelling at the incision site Call your doctor if you observe: Fever of 101 or Higher, Calf discomfort, Uncontrolled pain Cleanse incision/area with: Soap & Water, - - aquacel ag and gauze. Do not soak the foot Home Medications: Medications to take at Discharge Amlodipine [Norvasc] 5 mg PO DAILY 04/09/13 Carvedilol [Coreg (Beta [place])] 25 mg PO BID 04/09/13 Lisinopril [Zestril] 20 mg PO BID 04/09/13 Multivitamins,Therapeutic [Multivitamin] 1 tablet PO DAILY 04/09/13 Vitamin B Complex 1 each PO DAILY 04/09/13 Esomeprazole Mag Trihydrate [Nexium] 40 mg PO DAILY 02/06/14 Apixaban [Eliquis] 5 mg PO BID 01/18/18 Celecoxib [Celebrex] 200 mg PO BID 01/18/18 Duloxetine HCl 60 mg PO DAILY 01/18/18 Flecainide [Tambocor] 100 mg PO BID 01/18/18 Rosuvastatin Calcium 5 mg PO DAILY 01/18/18 Levofloxacin [Levaquin] 500 mg PO DAILY #8 tab 01/20/18 Metronidazole [Flagyl] 500 mg PO TID #24 tab 01/20/18 Following Prescrptions Were Given to Patient: Levofloxacin [Levaquin] 500 mg PO DAILY #8 tab Metronidazole [Flagyl] 500 mg PO TID #24 tab Primary Care Physician: Faraz Junior MD [Primary Care Provider] - Please follow up with your Primary Care Physician in: 10-14 days Please Follow Up With: Arvin Chavez DPM When: [facility] [place] - next week Please Follow Up With: [facility] Minutes spent on discharge:: 30 Patient Condition:: Good Medical Necessity - Tobacco Use Smoking Status: Never smoker Tobacco Use: Non-smoker Meaningful Use Info Meaningful Use Diagnoses (Choose all that apply): None applicable Code Visit Inpatient E&M: 95609 Disch Hosp
--- NOTE | 2018-01-23 18:07 | CASEMGMT ---
ABBY BRAVO Discharge Follow-Up Phone Call: SHAYNE ARAIZA 4 Discharge Date: 01-20-18 Admission Dx: Cellulitis left foot ABBY BRAVO spoke with pt re: how she has been feeling since she left the hospital. Pt reports she has been feeling really good, a lot better. She reports she was able to pick up man both of her prescriptions for antibiotics and that she has started taking them. Denies having any questions about these medications. Pt reports she has an [facility] and that she wanted to wait until after that appt before she schedules an appt [facility]. Pt also reports that [facility] has been out to see her Sat, Sun, and today and that PT will be out to see her tomorrow. Pt denies any needs at this time. ABBY BRAVO thanked pt for choosing [facility]. Vidya RAYMUNDO RN, CM
== END 2018-01-20 18:10 | disposition home health service (06) | DRG 623 ==
LOC: ED 19:01 → MS2 23:12
PROVIDERS: Podiatrist; Admitting Provider Hospitalist; Emergency Provider Emergency Medicine; Family Provider Family Medicine; PCP Family Medicine; Visit Provider Internal Medicine
DX: E11.621 Type 2 diabetes mellitus with foot ulcer (principal); L03.116 Cellulitis of left lower limb; L97.522 Non-pressure chronic ulcer of other part of left foot with fat layer exposed; E66.9 Obesity, unspecified; F32.9 Major depressive disorder, single episode, unspecified; I10 Essential (primary) hypertension; E78.00 Pure hypercholesterolemia, unspecified; M19.90 Unspecified osteoarthritis, unspecified site; M20.42 Other hammer toe(s) (acquired), left foot; M20.41 Other hammer toe(s) (acquired), right foot; M21.612 Bunion of left foot; M21.611 Bunion of right foot; Z79.01 Long term (current) use of anticoagulants; B35.1 Tinea unguium; E78.5 Hyperlipidemia, unspecified; I48.0 Paroxysmal atrial fibrillation; G62.9 Polyneuropathy, unspecified; Z68.37 Body mass index [BMI] 37.0-37.9, adult
CPT/HCPCS: 36415; 73630; 73720; 80048; 82962; 85025; 85652; 86140; 87040; 87070; 87075; 87077; 87186; 87205; 87640; 97110; 97116; 97162; 97165; 97530; 97802; 99282; A9585; J7040; J7050; A4216; J0696

== ENCOUNTER 2019-06-27 17:28 | Inpatient (IN) | payer MEDICARE, OTHER, SELFPAY ==
[2019-03-06 08:12] VITALS: BMI 40.1
[2019-06-27] VITALS (13 sets, daily range): BP systolic 150–164; BP diastolic 80–96; PULSE 87–111; RESP 16–30; TEMP 36.7–37.7; O2SAT 85–96; BMI 40.4; BMI 39.1
--- NOTE | 2019-06-27 18:08 | EKG12_ITS ---
Test Reason : SOB Blood Pressure : / mmHG Vent. Rate : 109 BPM Atrial Rate : 109 BPM P-R Int : 174 ms QRS Dur : 076 ms QT Int : 336 ms P-R-T Axes : 004 -36 -01 degrees QTc Int : 452 ms Sinus tachycardia Left axis deviation Moderate voltage criteria for LVH, may be normal variant Inferior infarct , age undetermined Anterolateral infarct , age undetermined Abnormal ECG Confirmed by NOVA FRANZ, FUAD ([id number]), book or script editor DANIEL FREITAS ([id number]) on 06/29/2019 10:31:33 AM Referred By: Shereen Lamb Confirmed By:LUTHER BHATT MD
--- NOTE | 2019-06-27 18:26 | ED.DCSUM_ITS ---
History of Present Illness Chief Complaint: Shortness of Breath Informant: Patient, Relative, EMS Onset: Yesterday - around 24 hrs ago Activity at onset: Unknown - grad onset Timing: Continuous Quality: Dyspnea on exertion, Wheezing Current Severity: Moderate Maximum Severity: Moderate Worsened by: Exertion, Lying flat Relieved by: Albuterol - by EMS MEDICAL RECORD TECHNICIAN Associated Symptoms: Chills, Fever - subjective. Negative for: Cough Chest Pain: None Narrative: Patient states she has a history of atrial fibrillation and nothing else. She later states she also takes medication for swelling in her legs. She was at the wound center 2 days ago having treatment on a chronic ulcer/callus on the bottom of her left foot, and that day she did not have any redness in her left lower extremity. Today upon arrival in the ER, when nursing pulled her pants up and noticed that her left leg was red, she states that she did not notice it before. She has been noticing no pain in that leg. Family member states that there is a little redness around the chronic plantar ulcer/callus that was not there 2 days ago as well. She does not have any history of lung problems and is on no oxygen at home. She denies any other heart problems. States she feels malaise but still has been getting around at home with little difficulty, although she states she has a chair lift at home. Apparently this is because of severe arthritis in her hips and knees. Recent Illness/Hospitalization: No - Past Medical History (1) Benign essential hypertension Status: Chronic (2) Chronic anticoagulation Status: Chronic (3) Chronic ulcer of left foot with fat layer exposed Status: Chronic (4) Depression Status: Chronic (5) Hyperlipemia Status: Chronic (6) Obesity Status: Chronic (7) Osteoarthritis Status: Chronic (8) PAF (paroxysmal atrial fibrillation) Status: Chronic (9) Peripheral neuropathy Status: Chronic Past Medical History - Allergies and Home Meds Allergies/Adverse Reactions: Allergies atorvastatin [From Lipitor] Adverse Reaction (Verified 06/27/19 17:35) Pain in joints nifedipine [From Procardia] Adverse Reaction (Verified 03/06/19 11:28) Pain in joints Primary Care Physician: Faraz Junior MD [Primary Care Provider] - Surgical History: appendectomy, hysterectomy, - - 2 surgeries to the foot Lives: Alone Smoking Status: Never smoker Drugs: None - Family History Paternal Family History: Family History (Last Reviewed 08/10/18 @ 13:50 by Lorene Anthony) Father Ruptured aortic aneurysm Mother Heart disease Brother Atrial fibrillation Family History: Reports: No pertinent history Maternal Family History: Family History (Last Reviewed 08/10/18 @ 13:50 by Lorene Anthony) Father Ruptured aortic aneurysm Mother Heart disease Brother Atrial fibrillation Family History: Reports: No pertinent history Review of Systems General: Reports: Chills, Fever, Malaise, Subjective. Denies: Sweats Eyes: Denies: Visual changes - bilaterally, Diplopia ENT: Reports: Bilateral ear pain. Denies: Rhinorrhea, Sore throat Cardiovascular: Denies: Chest pain, Palpitations Respiratory: Reports: Dyspnea, Dyspnea on exertion, Orthopnea. Denies: Cough, Sputum Gastrointestinal: Denies: Abdominal pain, Nausea, Vomiting, Diarrhea, Melena, Hematochezia Genitourinary: Denies: Dysuria, Hematuria, Frequency Musculoskeletal: Reports: Swelling. Denies: Neck pain, Back pain, Extremity Pain Skin: Denies: Rash, Wounds Neurological: Reports: Headache - mild. Denies: Weakness, Numbness Physical Exam Vital Signs/Narrative: Vital Signs Temp Pulse Resp BP Pulse Ox 06/27/19 18:09 93 06/27/19 17:29 99.9 F H 111 H 30 H 164/89 H 85 06/27/19 17:28 90 Inital Vital Signs reviewed: Yes General: Well nourished, Well developed, Obese, No Acute Distress Head: Normocephalic, Atraumatic Eyes: Perrl, EOMI ENT: Moist mucous membranes, No rhinorrhea, TM's clear. Negative for: Sinus tenderness Neck: Supple, Nontender, No lymphadenopathy, No JVD Cardiovascular: Regular rate, Regular rhythm, No murmurs, Tachycardia Respiratory: No distress, Chest nontender, Wheezing. Negative for: Rales Abdomen: Soft, Nontender, Nondistended, Normal bowel sounds Back: Nontender, Normal Inspection. Negative for: CVA tenderness Extremities: Tenderness - Throughout distribution of erythema left lower leg. This stops around the ankle. There is also a slight amount of erythema around what appears to be a chronic callus at the plantar aspect of the ball of her foot, none of this area is tender. There is no lymphangitis., Edema - 2+ BLE Skin: Rash - Erythema consistent with cellulitis left lower extremity. No palpable cords. No inguinal lymphadenopathy. Neurological: Alert, Oriented x3, Cranial nerves II-XII grossly intact, Normal Sensation. Negative for: Normal Strength - Patient has a nonlateralizing neurologic exam. She is generally weak and requires assistance from 2 of us to help her sit forward in bed in order to grab the rail and hold her self up. Psychological: Normal affect, Normal Mood Diagnostic/Tx/Re-eval Impressions Chest X-Ray 06/27/19 18:30 IMPRESSION: Right lower lobe infiltrate. Electronically Signed: Mario Mcadams, at 18:49 EST Tel , Service support , 06/27/19 18:30 Chest 1 View (Portable) [RAD] Stat Laboratory Results 06/27/19 06/27/19 06/27/19 18:05 18:05 18:05 WBC 12.9 H RBC 4.68 Hgb 12.5 Hct 40.0 MCV 85.5 MCH 26.7 L MCHC 31.3 L RDW Std Deviation 53.5 H RDW Coeff of [place] 17.4 H Plt Count 241 MPV 9.6 Immature Gran % (Auto) 0.300 Neut % (Auto) 86.4 H Lymph % (Auto) 6.6 L [place] % (Auto) 6.0 Eos % (Auto) 0.4 Baso % (Auto) 0.3 Absolute Neuts (auto) 11.2 H Absolute Lymphs (auto) 0.85 Nucleated RBC % 0 PT 15.0 H INR 1.2 APTT 37.5 H Sodium 139 Potassium 3.4 L Chloride 105 Carbon Dioxide 27.0 Anion Gap 7 BUN 21 H Creatinine 0.49 L Estim Creat Clear Calc 56.27 Est GFR (MDRD) Af Amer 163 Est GFR (MDRD) Non-Af 134 BUN/Creatinine Ratio 43.1 H Glucose 108 H Lactic Acid Calcium 8.9 Total Bilirubin 0.30 AST 31 ALT 27 Alkaline Phosphatase 108 Troponin I < 0.015 B-Natriuretic Peptide Total Protein 7.9 Albumin 2.9 L Globulin 5.0 H Albumin/Globulin Ratio 0.6 L Urine Color Urine Clarity Urine pH Ur Specific [place] Urine Protein Urine Glucose (UA) Urine Ketones Urine Occult Blood Urine Nitrite Urine Bilirubin Urine Urobilinogen Ur Leukocyte Esterase Urine RBC Urine WBC Ur Squamous Epith Cells Urine Bacteria Urine Mucus 06/27/19 06/27/19 06/27/19 18:05 18:05 19:30 WBC RBC Hgb Hct MCV MCH MCHC RDW Std Deviation RDW Coeff of [place] Plt Count MPV Immature Gran % (Auto) Neut % (Auto) Lymph % (Auto) [place] % (Auto) Eos % (Auto) Baso % (Auto) Absolute Neuts (auto) Absolute Lymphs (auto) Nucleated RBC % PT INR APTT Sodium Potassium Chloride Carbon Dioxide Anion Gap BUN Creatinine Estim Creat Clear Calc Est GFR (MDRD) Af Amer Est GFR (MDRD) Non-Af BUN/Creatinine Ratio Glucose Lactic Acid 1.0 Calcium Total Bilirubin AST ALT Alkaline Phosphatase Troponin I B-Natriuretic Peptide 69.2 Total Protein Albumin Globulin Albumin/Globulin Ratio Urine Color Yellow Urine Clarity Clear Urine pH 6.5 Ur Specific [place] 1.010 Urine Protein 15 H Urine Glucose (UA) Normal Urine Ketones 5 H Urine Occult Blood 10 H Urine Nitrite Negative Urine Bilirubin Negative Urine Urobilinogen Normal Ur Leukocyte Esterase Negative Urine RBC 0-5 SEEN Urine WBC 0 SEEN Ur Squamous Epith Cells 0-5 SEEN Urine Bacteria 0 SEEN Urine Mucus 0 SEEN - Rhythm Strip Rhythm Strip: Sinus Tach Rate: 110 Ectopy: None - EKG Initial EKG Interpretation: No Acute Injury Pattern, Sinus Tachycardia, Non-Specific ST Changes - inferiorly, - - left axis Prior: Unchanged Treatment - Dyspnea: Oxygen, Albuterol, Antibiotics Repeat Evaluation: Improved - Medical Decision Making Patient feeling better after some IV fluids, aerosol treatment. Labs show a mild leukocytosis, kidney function is within normal limits, her EKG is unchanged compared with her old and shows nothing acute, and her chest x-ray shows pneumonia which accounts for her hypoxemia which persists after breathing treatments. Antibiotics Zosyn and azithromycin started to cover both infections. She meets sepsis criteria, however she is not critically ill and her lactate is within normal limits and now that she is on oxygen her vital signs are improved. Will admit to PCU. ED Disposition - Plan for ED Patient: Disposition: [facility] Diagnosis: Sepsis, CAP (community acquired pneumonia), Cellulitis of left lower leg, Hypoxemia Referrals: Faraz Junior MD [Primary Care Provider] -
--- NOTE | 2019-06-27 18:30 | RAD_ITS ---
STUDY: X-RAY CHEST REASON FOR EXAM: Female, 69 years old. Shortness of breath TECHNIQUE: Frontal view of the chest COMPARISON: None. FINDINGS: There is airspace opacity in the right lower lobe. The lungs are otherwise clear. There are no pleural effusions. There is no pneumothorax. The heart is normal in size. The visualized osseous structures are within normal limits. RAD/Chest 1 View (Portable) IMPRESSION: Right lower lobe infiltrate. Electronically Signed: Mario Mcadams, at 18:49 EST Tel , Service support ,
[2019-06-27] MEDS: Ipratropium/Albuterol Sulfate 3 ML AMPUL.NEB INHALATION (18:40)
[2019-06-27 19:04] LABS: Absolute Lymphocyte Count 0.85 X10^3/uL (0.83-4.51); Absolute Neutrophil Count 11.2 X10^3/uL (2.0-7.7); Basophil# 0.04 X10^3/uL; Basophil% 0.3 % (0-1); Eosinophil# 0.05 X10^3/uL; Eosinophils% 0.4 % (0-5); Hemoglobin 12.5 g/dL (12.0-15.0); Lymphocyte # 0.85 X10^3/ul (4.0); Lymphocyte % 6.6 % (19-41); Mean Corp Hgb Conc 31.3 g/dL (32-36); Mean Corpuscular Hgb 26.7 pg (27.0-32.0); Mean Corpuscular Volume 85.5 fL (81-99); Mean Platelet Vol. 9.6 fl (6.2-12.0); Monocyte# 0.78 X10^3/uL; NRBC Flagged by Analyzer 0 % (0-5); Neutrophil # 11.18 X10^3/uL (2.7-7.7); Neutrophil % 86.4 % (47-70); Platelet Count 241 K/mm3 (150-450); RBC Distribution Width CV 17.4 % (11.6-14.6); RBC Distribution Width SD 53.5 fl (35.1-43.9); Red Blood Count 4.68 M/mm3 (4.2-5.4); White Blood Count 12.9 K/mm3 (4.4-11.0)
[2019-06-27 19:06] LABS: International Normalized Ratio 1.2
[2019-06-27 19:07] LABS: Partial Thromboplast Time 37.5 Seconds (24.1-36.2)
[2019-06-27 19:12] LABS: ALB/GLOB Ratio 0.6 RATIO (0.9-2.4); AST(SGOT) 31 U/L (15-37); Alanine Aminotransfer ALT/SGPT 27 U/L (13-56); Albumin, Serum 2.9 g/dL (3.2-5.0); Alkaline Phosphatase 108 U/L (45-117); Anion Gap 7 (5-15); BUN 21 mg/dL (7-18); BUN/Creat Ratio 43.1 RATIO (10-20); Calcium,Total 8.9 mg/dL (8.5-10.1); Chloride 105 mmol/L (98-107); Creatinine, Serum 0.49 mg/dL (0.55-1.02); EST Glomerular Filtration Rate 134 mL/min (>60); Est Glom Filt Rate - Afr Amer 163 mL/min (>60); Estimated Creatinine Clearance 56.27 ml/min; Glucose 108 mg/dL (74-106); Potassium 3.4 mmol/L (3.5-5.1); Protein, Total 7.9 g/dL (6.4-8.2); Sodium Level 139 mmol/L (136-145)
[2019-06-27] MEDS: Acetaminophen 500 MG Tablet 1000 MG PO (19:15)
[2019-06-27 19:36] LABS: Bacteria 0 SEEN /hpf (None Seen); Mucous, Urine 0 SEEN /hpf (<or=2+); White Blood Cells 0 SEEN /hpf (0-5)
[2019-06-27 19:38] LABS: BNP,B-Type NATRIURETIC PEPTIDE 69.2 pg/mL (0-100)
[2019-06-27 19:54] LABS: Color, Urine Yellow (Yellow); Glucose, Dipstick Normal (Normal); Ketone-Dipstick 5 mg/dl (Negative); Leukocyte Esterase-Dipstick Negative /ul (Negative); Nitrite-Dipstick Negative (Negative); Occult Blood-Urine 10 /ul (Negative); Protein-Dipstick 15 mg/dl (Negative); Urine Bilirubin Dipstick Negative (Negative); Urine Clarity Clear (Clear); Urine Urobilinogen Normal (Normal); Urine pH 6.5 (5.0 - 8.0)
[2019-06-27 19:57] LABS: Red Blood Cells-Urine 0-5 SEEN /hpf (0-5); Squamous Epithelial Cells - UA 0-5 SEEN /hpf (5-10)
--- NOTE | 2019-06-27 20:16 | ED.RN ---
LEFT LOWER LEG REDDENED AND WARM TO TOUCH, HAS HEALING ULCERON BOTTOM OF LEFT FOOT, DRESSING REMOVED, AREA DRY, SLIGHTLY REDDENED.
--- NOTE | 2019-06-27 21:06 | PCM.HP.STD ---
Problem List (1) Sepsis Status: Acute (2) CAP (community acquired pneumonia) Status: Acute (3) Cellulitis of left lower leg Status: Acute (4) Hypoxemia Status: Acute (5) Peripheral neuropathy Status: Chronic (6) Osteoarthritis Status: Chronic (7) PAF (paroxysmal atrial fibrillation) Status: Chronic (8) Hyperlipemia Status: Chronic Qualifiers: Hyperlipidemia type: unspecified Qualified Code(s): E78.5 - Hyperlipidemia, unspecified (9) Depression Status: Chronic (10) Benign essential hypertension Status: Chronic History of Present Illness Date of Admission: 06/27/19 Chief Complaint: Shortness of breath. The patient is a 69 year old F patient with past medical history as mentioned above presented to the emergency because of shortness of breath. Her illness started 2 to 3 days ago with shortness of breath, she gets short of breath even at rest, aggravated by any type of activity, associated with productive cough with yellow sputum as well as fatigue and without relieving factor. She denied associated fever or chills. She denied sick contacts at home. Her other complaint was swelling and erythema of the left leg. She mentioned that her left leg has been getting more red than usual in the last several days, has been having mild ache on the left leg and has been more swollen. In the emergency department, she had a low grade fever of 99.9 Fahrenheit, was tachycardic, tachypneic, blood pressure was elevated and pulse ox was 85% on room air, improved with 4 L of oxygen. Routine blood work was remarkable for leukocytosis with neutrophilia, potassium of 3.4, otherwise unremarkable. EKG revealed sinus tachycardia without evidence of acute changes, troponin was negative. LFT was unremarkable. Lactic acid was normal. Urinalysis showed no evidence of acute infection. Chest x-ray showed right basilar infiltrate and mild cardiomegaly. She is being admitted for sepsis secondary to community-acquired pneumonia as well as left lower leg cellulitis. Past Medical History Past Medical History (Chronic Problems): Chronic Problems (Last Updated 08/10/18 @ 09:51 by Lorene Anthony) Peripheral neuropathy (Chronic) Osteoarthritis (Chronic) Chronic anticoagulation (Chronic) PAF (paroxysmal atrial fibrillation) (Chronic) Chronic ulcer of left foot with fat layer exposed (Chronic) Hyperlipemia (Chronic) Obesity (Chronic) Depression (Chronic) Benign essential hypertension (Chronic) Medical History: Medical History (Last Updated 08/10/18 @ 09:51 by Lorene Anthony) Chronic anticoagulation (Chronic) Z79.01 PAF (paroxysmal atrial fibrillation) (Chronic) I48.0 Hyperlipemia (Chronic) E78.5 Benign essential hypertension (Chronic) I10 Cardiomyopathy I42.9 History of depression Z86.59 History of shingles Z86.19 Allergies atorvastatin [From Lipitor] Adverse Reaction (Verified 06/27/19 17:35) Pain in joints nifedipine [From Procardia] Adverse Reaction (Verified 03/06/19 11:28) Pain in joints Home Medications: Ambulatory Orders Medication Instructions Recorded Amlodipine [Norvasc] 5 mg PO DAILY 04/09/13 Multivitamins,Therapeutic 1 tab PO DAILY 04/09/13 [Multivitamin] Vitamin B Complex 1 ea PO DAILY 04/09/13 Celecoxib [Celebrex] 200 mg PO BID 01/18/18 Duloxetine HCl 60 mg PO DAILY 01/18/18 lisinopril 20 mg tablet 20 mg PO BID tab 08/10/18 prednisolone acetate 1 % eye OPHTHALMIC 30 Days #10 ml 08/10/18 drops,suspension carvedilol 25 mg tablet 25 mg PO BID #180 tab 02/16/19 flecainide 100 mg tablet 100 mg PO BID #180 tab 02/16/19 omeprazole 40 mg capsule,delayed 40 mg PO DAILY #90 cap 02/16/19 release oxybutynin chloride 5 mg tablet 5 mg PO BID 03/06/19 apixaban 5 mg tablet 5 mg PO BID #180 tab 05/09/19 Surgical History: Surgical History (Last Updated 08/10/18 @ 13:49 by Lorene Anthony) History of arthroscopic knee surgery Z98.890 bilateral History of cardioversion Onset Date: 07/05/12 Z98.890 History of cornea transplant Onset Date: 04/05/18 Z94.7 History of foot surgery Z98.890 left History of hysterectomy Z90.710 History of nasal cauterization Z98.890 History of sinus surgery Z98.890 History of tonsillectomy Z90.89 Surgical History: appendectomy, hysterectomy, - - 2 surgeries to the foot. Corneal transplant 3 weeks ago. Psychiatric History: No pertinent psych hx, Depression CARDIOLOGY PHYSICIAN ASSISTANT History: No pertinent CARDIOLOGY PHYSICIAN ASSISTANT history Lives: Alone Smoking Status: Never smoker Alcohol: None Drugs: None - *Family History Paternal Family History: Family History (Last Reviewed 08/10/18 @ 13:50 by Lorene Anthony) Father Ruptured aortic aneurysm Mother Heart disease Brother Atrial fibrillation History Items: No pertinent history Maternal Family History: Family History (Last Reviewed 08/10/18 @ 13:50 by Lorene Anthony) Father Ruptured aortic aneurysm Mother Heart disease Brother Atrial fibrillation History Items: No pertinent history Review of Systems Constitutional: Denies: Anorexia, Chills, Fever, Weakness Eyes: Denies: Blurred vision, Double vision, Drainage, Redness HEENT: Denies: Difficulty Hearing, Ear Pain, Eye Pain, Nasal Congestion, Sore Throat Cardiovascular: Reports: Edema. Denies: Chest Pain, Chest Pressure, Chest Tightness, Heaviness, Light Headedness, Palpitations, Syncope Respiratory: Reports: Cough, Shortness of breath at rest, Shortness of breath upon exertion, Sputum production. Denies: Hemoptysis, Pleuritic Pain, Wheezing Gastrointestinal: Denies: Abdominal Pain, Constipation, Diarrhea, Nausea, Vomiting Genitourinary: Denies: Dysuria, Frequency, Hematuria Musculoskeletal: Reports: Leg Pain. Denies: Arm Pain, Back Pain, Foot Pain Skin: Denies: Dryness, Rash Neurological: Denies: Balance problems, Double vision, Change in Speech, Slurred speech, Confusion, Headaches, Incoordination, Numbness Psychiatric: Reports: Depression. Denies: Anxiety Endocrine: Denies: Change in Body Habitus, Polydipsia, Polyuria VTE Information - Inpt Only VTE Present on Admission: No VTE Mechan Device Prophylaxis: None VTE Pharm Prophylaxis ordered?: No Patient Problems: Active and Suspected Problems (Last Updated 08/10/18 @ 09:51 by Lorene Anthony) Sepsis (Acute) CAP (community acquired pneumonia) (Acute) Cellulitis of left lower leg (Acute) Hypoxemia (Acute) - Physical Exam Vitals/I&O's: Vital Signs Temp Pulse Resp BP Pulse Ox 99.2 F H 90 24 H 157/84 H 92 06/27/19 20:03 06/27/19 20:03 06/27/19 20:03 06/27/19 20:03 06/27/19 20:03 Oxygen Flow Rate (L/min) 4 Oxygen Delivery Method Nasal Cannula Weight: 273 lb 13.026 oz Body Mass Index (BMI) 40.4 Intake and Output for Last 24 Hours 06/25/19 06/26/19 06/27/19 23:59 23:59 23:59 Intake Total 500 / 500 Balance 500 / 500 General: Alert, Oriented x3, Cooperative, - - Mildly short of breath. HEENT: Atraumatic, PERRLA, EOMI, Normocephalic Oral: Moist Mucosa, No Gingival or Mucosal Lesions/ Ulcerations Neck: Supple, No JVD, Negative Carotid Bruits, Trachea Midline, Thyroid Normal Size and Texture Lungs: Diminished, Rales, Rhonchi, Short of Breath, - - Decubitus sounds bilateral, coarse crackles in the right base, faint crackles in the right base. Cardiovascular: Regular rate, Regular Rhythm, Normal S1, Normal S2, PMI Normal, Tachycardic Abdomen: Bowel Sounds Present, Soft, Non Tender, Non-Distended, No Hepato-splenomegaly, Obese Extremities: No clubbing, No cyanosis, Edema - Nonpitting edema on the right leg. Left leg: Erythema and swelling involving left leg starting just below left knee down to the left ankle. She has healing ulcer on the plantar aspect of the forefoot. Skin: No rashes, No breakdown Lymphatic: No Cervical, Supraclavicular, or Inguinal Adenopathy Neurological: Cranial nerves II-XII grossly intact, Motor Exam 5/5 strength throughout Psych/Mental Status: Normal Affect, Appropriate, Alert and oriented to time, place, person, mood and affect Laboratory Results 06/27/19 18:05: Sodium 139, Potassium 3.4 L, Chloride 105, Carbon Dioxide 27.0, Anion Gap 7, BUN 21 H, Creatinine 0.49 L, Estim Creat Clear Calc 56.27, Est GFR (MDRD) Af Amer 163, Est GFR (MDRD) Non-Af 134, BUN/Creatinine Ratio 43.1 H, Glucose 108 H, Calcium 8.9, Total Bilirubin 0.30, AST 31, ALT 27, Alkaline Phosphatase 108, Troponin I < 0.015, Total Protein 7.9, Albumin 2.9 L, Globulin 5.0 H, Albumin/Globulin Ratio 0.6 L 06/27/19 18:05: WBC 12.9 H, RBC 4.68, Hgb 12.5, Hct 40.0, MCV 85.5, MCH 26.7 L, MCHC 31.3 L, RDW Std Deviation 53.5 H, RDW Coeff of Pawan 17.4 H, Plt Count 241, MPV 9.6, Immature Gran % (Auto) 0.300, Neut % (Auto) 86.4 H, Lymph % (Auto) 6.6 L, Ida % (Auto) 6.0, Eos % (Auto) 0.4, Baso % (Auto) 0.3, Absolute Neuts (auto) 11.2 H, Absolute Lymphs (auto) 0.85, Nucleated RBC % 0 06/27/19 18:05: PT 15.0 H, INR 1.2, APTT 37.5 H 06/27/19 18:05: Lactic Acid 1.0 06/27/19 18:05: B-Natriuretic Peptide 69.2 06/27/19 19:30: Urine Color Yellow, Urine Clarity Clear, Urine pH 6.5, Ur Specific [place] 1.010, Urine Protein 15 H, Urine Glucose (UA) Normal, Urine Ketones 5 H, Urine Occult Blood 10 H, Urine Nitrite Negative, Urine Bilirubin Negative, Urine Urobilinogen Normal, Ur Leukocyte Esterase Negative, Urine RBC 0-5 SEEN, Urine WBC 0 SEEN, Ur Squamous Epith Cells 0-5 SEEN, Urine Bacteria 0 SEEN, Urine Mucus 0 SEEN Clinical Impression(s) from Imaging Studies Chest X-Ray 06/27/19 18:30 IMPRESSION: Right lower lobe infiltrate. Electronically Signed: Mario Mcadams, at 18:49 EST Tel , Service support , Assessment/Plan All Active Problems (Last Updated 08/10/18 @ 09:51 by Lorene Anthony) Sepsis (Acute) CAP (community acquired pneumonia) (Acute) Cellulitis of left lower leg (Acute) Hypoxemia (Acute) This is a 69 years old female patient presented to the emergency room because of shortness of breath with productive cough as well as left leg swelling and erythema and she was found to have sepsis secondary to community-acquired pneumonia and acute cellulitis of the left lower leg and she is being admitted for treatment. #1 sepsis: Secondary to pneumonia and left leg cellulitis. Patient is tachypneic, tachycardic, having leukocytosis. Lactic acid was normal. Plan: Admit to PCU, cardiac monitoring, IV fluids, blood culture, urine culture, sputum culture, start IV Unasyn and Zithromax to cover both for pneumonia and cellulitis, IV fluids, Tylenol PRN, bronchodilators, repeat CBC and BMP tomorrow morning, PT OT evaluation and treatment. #2 acute right lower lobe community-acquired pneumonia: Chest x-ray reviewed. Plan: Start IV Unasyn and Zithromax, sputum culture, blood culture, urine culture, DuoNeb every 6 hours, Mucinex twice daily, Tylenol PRN. #3 acute left lower leg cellulitis: In context of history of chronic bilateral leg edema. She has healed ulcer on the plantar aspect of the left forefoot. Plan for IV Unasyn as above, no open wounds or drainage to culture. #4 acute hypoxic respiratory sufficiency: Secondary to pneumonia, pulse ox was 85% on room air and improved with oxygen of 4 L. Never smoked, never been oxygen at home. Plan for IV antibiotics as above, bronchodilators, wean off oxygen as tolerated. #5 paroxysmal atrial fibrillation: Initial heart rate was around 110, improved with IV fluids and now is down to 90s, blood pressure slightly better. EKG revealed sinus tachycardia, no acute changes. Troponin was negative. Plan to continue Coreg and flecainide for rate control, continue Eliquis for anticoagulation. #6 hypertension: Blood pressure slightly elevated, continue Norvasc and lisinopril as well as Coreg. #7 depression: Continue duloxetine. #8 DVT prophylaxis: Continue Eliquis. This note was generated with Hotreader dictation software. It may contain incorrect words, spelling, and punctuation that were not noted in checking the note before signing. Code Visit Inpatient E&M: 35605 Init Hosp L3
[2019-06-27] MEDS: 0.9% Normal Saline 1,000 ML 100 ML IV (22:41)
[2019-06-27] MEDS: guaiFENesin 1,200 MG Tablet 1200 MG PO (22:45)
[2019-06-27] MEDS: Oxybutynin 5 MG Tablet PO (22:46)
[2019-06-27] MEDS: Carvedilol 25 MG Tablet PO (22:46)
[2019-06-27] MEDS: APIXABAN 5 MG TABLET PO (22:47)
[2019-06-27] MEDS: Lisinopril 20 MG Tablet PO (22:47)
[2019-06-27] MEDS: Flecainide 100 MG Tablet PO (22:47)
[2019-06-28] VITALS (15 sets, daily range): BP systolic 113–153; BP diastolic 61–81; PULSE 76–95; RESP 16–26; TEMP 36.6–37.3; O2SAT 93–96
[2019-06-28] MEDS: Ipratropium/Albuterol Sulfate 3 ML AMPUL.NEB INHALATION ×4 (01:25→19:31)
[2019-06-28 05:25] LABS: Absolute Lymphocyte Count 0.97 X10^3/uL (0.83-4.51); Absolute Neutrophil Count 6.4 X10^3/uL (2.0-7.7); Basophil# 0.02 X10^3/uL; Basophil% 0.2 % (0-1); Eosinophil# 0.06 X10^3/uL; Eosinophils% 0.7 % (0-5); Hematocrit 36.4 % (37-47); Hemoglobin 11.2 g/dL (12.0-15.0); Lymphocyte # 0.97 X10^3/ul (4.0); Lymphocyte % 11.6 % (19-41); Mean Corp Hgb Conc 30.8 g/dL (32-36); Mean Corpuscular Volume 87.7 fL (81-99); Mean Platelet Vol. 9.4 fl (6.2-12.0); Monocyte# 0.93 X10^3/uL; Monocyte% 11.1 % (0-10); NRBC Flagged by Analyzer 0 % (0-5); Neutrophil # 6.36 X10^3/uL (2.7-7.7); Platelet Count 209 K/mm3 (150-450); RBC Distribution Width CV 17.7 % (11.6-14.6); RBC Distribution Width SD 55.8 fl (35.1-43.9); Red Blood Count 4.15 M/mm3 (4.2-5.4); White Blood Count 8.4 K/mm3 (4.4-11.0)
[2019-06-28 05:53] LABS: Anion Gap 6 (5-15); BUN 16 mg/dL (7-18); BUN/Creat Ratio 34.6 RATIO (10-20); Calcium,Total 8.2 mg/dL (8.5-10.1); Chloride 107 mmol/L (98-107); Creatinine, Serum 0.46 mg/dL (0.55-1.02); EST Glomerular Filtration Rate 142 mL/min (>60); Est Glom Filt Rate - Afr Amer 172 mL/min (>60); Estimated Creatinine Clearance 58.23 ml/min; Glucose 116 mg/dL (74-106); Sodium Level 140 mmol/L (136-145)
[2019-06-28] MEDS: Acetaminophen 325 MG Tablet 650 MG PO ×2 (08:10→21:22)
[2019-06-28] MEDS: 0.9% Saline Lock 10 ML Syringe IV (08:12)
[2019-06-28] MEDS: guaiFENesin 1,200 MG Tablet 1200 MG PO ×2 (09:19→21:24)
[2019-06-28] MEDS: Lisinopril 20 MG Tablet PO ×2 (09:19→21:24)
[2019-06-28] MEDS: Carvedilol 25 MG Tablet PO ×2 (09:20→21:24)
[2019-06-28] MEDS: APIXABAN 5 MG TABLET PO ×2 (09:20→21:24)
[2019-06-28] MEDS: Pantoprazole Sodium 40 MG Tablet PO (09:20)
[2019-06-28] MEDS: DULoxetine Hcl 60 MG Capsule PO (09:20)
[2019-06-28] MEDS: Oxybutynin 5 MG Tablet PO ×2 (09:20→21:24)
[2019-06-28] MEDS: amLODIPine 5 MG Tablet PO (09:20)
[2019-06-28] MEDS: Flecainide 100 MG Tablet PO ×2 (09:20→21:24)
[2019-06-28] MEDS: Furosemide 20 MG/2 ML VIAL IV ×2 (10:11→18:07)
[2019-06-28] MEDS: 0.9% Normal Saline 1,000 ML 100 ML IV ×2 (10:11→21:21)
--- NOTE | 2019-06-28 10:38 | NURSING ---
wound photo: left medial/plantar foot
--- NOTE | 2019-06-28 10:41 | CASEMGMT ---
ABBY BRAVO assessment: Face to Face with patient for initial transition planning/care coordination assessment. ABBY BRAVO introduced self and role at [facility], pt voices understanding and consents to assessment at this time. Pt is sitting up in bed in no distress at this time. Pt is A/Ox4 at this time and answers all questions appropriately at this time. Care providers, pharmacy, and demographics verified/updated at this time. Presentation: SOB since last night, improved w/ breathing treatment per EMS. Admitting dx: CAP, sepsis, hypoxia, acute left leg cellulitis PCP: [facility] Specialists: Niall, podiatry; Faraz Ewing, cornea transplant specialist Preferred Pharmacy: [facility] Insurance: MCR A/B, [employer] Prescription Benefit: [employer] Living Will/HPOA: Pt states has LW/HPOA and is aware that they are not on file at [facility] at this time. Pt encouraged to bring AD's in when able, voices understanding. Pt states that brother, David Wolff, is HPOA. LNOK: David Wolff, brother; Keyana Marrero, friend Living Arrangements: Pt states lives alone on main level of 2 story and states no concerns at home at this time. Pt states is independent with ADL's. Transportation: Pt states friend drives and states no transportation concerns at this time. DME/HHC: Pt states has the following DME: cane, walker, grab bars, and shower chair. Pt states if she needs home oxygen then she has no preference for DME company. Pt is currently on 4liters at this time. Pt states has had [facility] in the past and has been to [facility] earlier this year s/p hip replacement. Pt states no concerns with going home at time of discharge. Pt states is retired. Pt states does not smoke or drink ETOH. Pt states no further concerns/needs at this time. CM to follow for home oxygen and for any further discharge planning/needs. Advised pt to ask for CM if any further questions/concerns/needs arise, voices understanding. Pt Goal: Home Plan: [place] ABBY BRAVO
--- NOTE | 2019-06-28 10:58 | PCM.PROGNOTE ---
Patient Problems: Active and Suspected Problems (Last Updated 08/10/18 @ 09:51 by Lorene Anthony) Sepsis (Acute) CAP (community acquired pneumonia) (Acute) Cellulitis of left lower leg (Acute) Hypoxemia (Acute) Subjective: Patient was seen and examined today, she was admitted for a right lower lobe community-acquired pneumonia yesterday and possible cellulitis of the left lower leg. Patient's white blood cell count is normal today, she is afebrile. I talked to her briefly about taking Lasix today because of chronic edema in both of her lower legs, she does not want a Chance catheter, I decided to place her on IV Lasix today to see if I could reduce her edema. It appears to me that she has stasis dermatitis changes over both lower legs-left lower leg is more edematous than the right lower leg-it is warm but this may be due to more distention in the left lower leg. I talked with pharmacy today and I think it is appropriate that the patient could be treated with Unasyn alone and not Unasyn and Zithromax so I stopped her Zithromax today. - Physical Exam Vitals/I&O's: Vital Signs Temp Pulse Resp BP Pulse Ox 99.1 F 83 20 H 113/71 94 06/28/19 07:59 06/28/19 10:19 06/28/19 07:59 06/28/19 10:19 06/28/19 07:59 Oxygen Flow Rate (L/min) 4 Oxygen Delivery Method Nasal Cannula Weight: 123.7 kg Body Mass Index (BMI) 39.1 Intake and Output for Last 24 Hours 06/26/19 06/27/19 06/28/19 23:59 23:59 23:59 Intake Total 855 / 1095 1542.33 / 1542.33 Balance 855 / 1095 1542.33 / 1542.33 General: Alert, Oriented x3, Cooperative, No apparent distress, Well developed HEENT: Atraumatic, PERRLA, EOMI, Normocephalic Oral: Moist Mucosa Neck: Supple, Trachea Midline, Thyroid Normal Size and Texture Lungs: Clear to auscultation, Normal air movement, No rhonchi, No wheeze Cardiovascular: Regular rate, Regular Rhythm, Normal S1, Normal S2, No murmurs Abdomen: Bowel Sounds Present, Soft, Non Tender, Non-Distended, Obese Extremities: No clubbing, No cyanosis, Capillary Refill Less than 3 Seconds, Edema - Marked edema is noted over the lower legs bilaterally worse on the left, there are stasis dermatitis changes over both lower legs Skin: Rash Present - There is stasis dermatitis changes noted over both lower legs worse on the left Neurological: Cranial nerves II-XII grossly intact, Neuro grossly intact, Sensory exam intact to light touch and pain Psych/Mental Status: Normal Affect, Appropriate, Alert and oriented to time, place, person, mood and affect Laboratory Results 06/27/19 18:05: Sodium 139, Potassium 3.4 L, Chloride 105, Carbon Dioxide 27.0, Anion Gap 7, BUN 21 H, Creatinine 0.49 L, Estim Creat Clear Calc 56.27, Est GFR (MDRD) Af Amer 163, Est GFR (MDRD) Non-Af 134, BUN/Creatinine Ratio 43.1 H, Glucose 108 H, Calcium 8.9, Total Bilirubin 0.30, AST 31, ALT 27, Alkaline Phosphatase 108, Troponin I < 0.015, Total Protein 7.9, Albumin 2.9 L, Globulin 5.0 H, Albumin/Globulin Ratio 0.6 L 06/27/19 18:05: WBC 12.9 H, RBC 4.68, Hgb 12.5, Hct 40.0, MCV 85.5, MCH 26.7 L, MCHC 31.3 L, RDW Std Deviation 53.5 H, RDW Coeff of Pawan 17.4 H, Plt Count 241, MPV 9.6, Immature Gran % (Auto) 0.300, Neut % (Auto) 86.4 H, Lymph % (Auto) 6.6 L, [place] % (Auto) 6.0, Eos % (Auto) 0.4, Baso % (Auto) 0.3, Absolute Neuts (auto) 11.2 H, Absolute Lymphs (auto) 0.85, Nucleated RBC % 0 06/27/19 18:05: PT 15.0 H, INR 1.2, APTT 37.5 H 06/27/19 18:05: Lactic Acid 1.0 06/27/19 18:05: B-Natriuretic Peptide 69.2 06/27/19 19:30: Urine Color Yellow, Urine Clarity Clear, Urine pH 6.5, Ur Specific [place] 1.010, Urine Protein 15 H, Urine Glucose (UA) Normal, Urine Ketones 5 H, Urine Occult Blood 10 H, Urine Nitrite Negative, Urine Bilirubin Negative, Urine Urobilinogen Normal, Ur Leukocyte Esterase Negative, Urine RBC 0-5 SEEN, Urine WBC 0 SEEN, Ur Squamous Epith Cells 0-5 SEEN, Urine Bacteria 0 SEEN, Urine Mucus 0 SEEN 06/28/19 05:15: WBC 8.4, RBC 4.15 L, Hgb 11.2 L, Hct 36.4 L, MCV 87.7, MCH 27.0, MCHC 30.8 L, RDW Std Deviation 55.8 H, RDW Coeff of Pawan 17.7 H, Plt Count 209, MPV 9.4, Immature Gran % (Auto) 0.400, Neut % (Auto) 76.0 H, Lymph % (Auto) 11.6 L, [place] % (Auto) 11.1 H, Eos % (Auto) 0.7, Baso % (Auto) 0.2, Absolute Neuts (auto) 6.4, Absolute Lymphs (auto) 0.97, Nucleated RBC % 0 06/28/19 05:15: Sodium 140, Potassium 4.0, Chloride 107, Carbon Dioxide 27.0, Anion Gap 6, BUN 16, Creatinine 0.46 L, Estim Creat Clear Calc 58.23, Est GFR (MDRD) Af Amer 172, Est GFR (MDRD) Non-Af 142, BUN/Creatinine Ratio 34.6 H, Glucose 116 H, Calcium 8.2 L Current Medications Acetaminophen (Tylenol) 650 mg PO Q6H PRN PRN PRN Reason: Pain Score 1-10/Temp > 100.7 F Last Admin: 06/28/19 08:10 Dose: 650 mg Documented by: Albuterol/Ipratropium (Duoneb) 3 ml INHALATION Q6H.RT [facility] Last Admin: 06/28/19 07:14 Dose: 3 ml Documented by: Amlodipine Besylate (Norvasc) 5 mg PO DAILY [facility] Last Admin: 06/28/19 09:20 Dose: 5 mg Documented by: Apixaban (Eliquis) 5 mg PO BID [facility] Last Admin: 06/28/19 09:20 Dose: 5 mg Documented by: Carvedilol (Coreg) 25 mg PO BID [facility] Last Admin: 06/28/19 09:20 Dose: 25 mg Documented by: Duloxetine HCl (Cymbalta) 60 mg PO DAILY [facility] Last Admin: 06/28/19 09:20 Dose: 60 mg Documented by: Flecainide Acetate (Tambocor) 100 mg PO BID [facility] Last Admin: 06/28/19 09:20 Dose: 100 mg Documented by: Furosemide (Lasix) 20 mg IV BID@1000,1800 [facility] Last Admin: 06/28/19 10:11 Dose: 20 mg Documented by: Guaifenesin (Mucinex) 1,200 mg PO BID [facility] Last Admin: 06/28/19 09:19 Dose: 1,200 mg Documented by: Sodium Chloride () 1,000 mls @ 100 mls/hr IV .Q10H [facility] Last Admin: 06/28/19 10:11 Dose: 100 mls/hr Documented by: Ampicillin Sodium/Sulbactam (Sodium 3 gm/ Sodium Chloride) 112 mls @ 150 mls/hr IV Q6 [facility] Stop: 07/05/19 00:01 Last Infusion: 06/28/19 06:20 Dose: Infused Documented by: Lisinopril (Zestril) 20 mg PO BID [facility] Last Admin: 06/28/19 09:19 Dose: 20 mg Documented by: Ondansetron HCl (Zofran) 4 mg IV Q8H PRN PRN PRN Reason: NAUSEA/VOMITING Oxybutynin Chloride (Ditropan) 5 mg PO BID [facility] Last Admin: 06/28/19 09:20 Dose: 5 mg Documented by: Pantoprazole Sodium (Protonix) 40 mg PO DAILY [facility] Last Admin: 06/28/19 09:20 Dose: 40 mg Documented by: Senna/Docusate Sodium (Senokot-S, Caryn-Colace) 2 tablet PO BID PRN PRN PRN Reason: Constipation Sodium Chloride () 10 - 40 ml IV UD PRN PRN Reason: SALINE FLUSH Last Admin: 06/28/19 08:12 Dose: 10 ml Documented by: Medical Necessity - Tobacco Use Smoking Status: Never smoker Assessment/Plan All Active Problems (Last Updated 08/10/18 @ 09:51 by Lorene Anthony) Sepsis (Acute) CAP (community acquired pneumonia) (Acute) Cellulitis of left lower leg (Acute) Hypoxemia (Acute) #1 right lower lobe community-acquired pneumonia-organism unknown at this time, continue Unasyn, repeat chest x-ray tomorrow #2 sepsis secondary to community acquired pneumonia and left lower leg cellulitis #3 left lower leg cellulitis-again continue patient on Unasyn, IV diuresis was ordered, left leg will be wrapped #4 obesity #5 essential hypertension #6 paroxysmal atrial fibrillation #7 hypoxia secondary to #1 #8 depression Code Visit Inpatient E&M: 88533 Subs Hosp L2
--- NOTE | 2019-06-28 18:49 | NURSING ---
Reviewed and agreed on all charting with Vicky Bermudez RN
[2019-06-29] VITALS (14 sets, daily range): BP systolic 122–158; BP diastolic 65–93; PULSE 76–89; RESP 16–20; TEMP 36.6; O2SAT 94–97
[2019-06-29] MEDS: Ipratropium/Albuterol Sulfate 3 ML AMPUL.NEB INHALATION ×4 (01:26→19:27)
[2019-06-29] MEDS: Acetaminophen 325 MG Tablet 650 MG PO ×2 (07:36→21:12)
[2019-06-29] MEDS: 0.9% Saline Lock 10 ML Syringe IV (07:50)
[2019-06-29] MEDS: 0.9% Normal Saline 1,000 ML 100 ML IV ×2 (09:08→19:57)
[2019-06-29] MEDS: Oxybutynin 5 MG Tablet PO ×2 (10:05→21:18)
[2019-06-29] MEDS: APIXABAN 5 MG TABLET PO ×2 (10:05→21:18)
[2019-06-29] MEDS: Flecainide 100 MG Tablet PO ×2 (10:05→21:18)
[2019-06-29] MEDS: Pantoprazole Sodium 40 MG Tablet PO (10:05)
[2019-06-29] MEDS: DULoxetine Hcl 60 MG Capsule PO (10:05)
[2019-06-29] MEDS: Lisinopril 20 MG Tablet PO ×2 (10:05→21:18)
[2019-06-29] MEDS: amLODIPine 5 MG Tablet PO (10:05)
[2019-06-29] MEDS: guaiFENesin 1,200 MG Tablet 1200 MG PO ×2 (10:05→21:18)
[2019-06-29] MEDS: Carvedilol 25 MG Tablet PO ×2 (10:05→21:18)
[2019-06-29] MEDS: Furosemide 20 MG/2 ML VIAL IV ×2 (10:05→17:50)
--- NOTE | 2019-06-29 10:10 | CASEMGMT ---
Per Nancy MORA, pt is weak this am. This RN CM to room and pt declines need for SNF/HHC/OP therapy at this time. Pt states 'I did much better today' and states no concerns with going home at time of discharge. Pt is still currently on 4 liters of oxygen at this time. Karely MORA CM
--- NOTE | 2019-06-29 11:12 | CASEMGMT ---
Physician spoke with patient and she would like to go to [facility]. SW confirmed this with patient. SW called [facility] with referral and also faxed referral. Green sheet will be placed on the chart. Plan: [facility] under skilled level of care. Alisa SCHAEFER MSW
--- NOTE | 2019-06-29 11:42 | CASEMGMT ---
Hospital exemption completed in the [facility] system as well as green sheet and transport forms, all will be placed on the front of chart in anticipation of pt's discharge tomorrow to [place]. HARMAN Benton
--- NOTE | 2019-06-29 12:06 | NURSING ---
the small blood blister to the left plantar/medial foot remains stable. the blood blister is intact. no drainage. the surrounding erythema has improved as well as the redness to the LLE. applied dry dressing and reapplied the GURJIT wraps from the base of the toes to just below the knees. the edema to bilateral lower legs slightly improved. legs elevated up in the recliner chair.
--- NOTE | 2019-06-29 13:17 | CASEMGMT ---
JUVENAL received a call from Marisa at [facility] and they can accept patient. JUVENAL asked if they would be able to transport patient. She called SW back and said they could pick her up at 9am tomorrow. JUVENAL notified patient and front office secretary of this information. Physician was also notified. Convalescent was completed on . Plan: d/c to [facility] [place] under skilled level of care on a convalescent stay. [facility] will pick patient up at 9a. Alisa SCHAEFER MSW
--- NOTE | 2019-06-29 13:24 | RAD_ITS ---
STUDY: X-RAY CHEST REASON FOR EXAM: Female, 69 years old. SOB, hypoxia -- pneumonia TECHNIQUE: Single AP portable view of the chest. COMPARISON: 06/27/2019. FINDINGS: The lungs are underexpanded with vascular crowding. There is mild bilateral perihilar and right basilar atelectasis, remainder of the lung [place] are clear. There is no demonstrated pleural abnormality. There is borderline cardiomegaly. Normal mediastinum and armida. Normal visualized pulmonary arteries. There is atherosclerotic calcification of the aortic arch with tortuosity. There is demineralization of the osseous structures. There is degenerative osteoarthritis of the bilateral shoulders and spine. There is no demonstrated abnormality of the visualized soft tissue structures of the upper abdomen. RAD/Chest 1 View (Portable) IMPRESSION: Bilateral perihilar and right basilar atelectasis, otherwise no acute process identified. Electronically Signed: Nancy Luna MD at 0:47 EST , Service support ,
[2019-06-29] MEDS: Cefdinir 300 MG Capsule 600 MG PO (14:54)
--- NOTE | 2019-06-29 16:36 | PN_ITS ---
Patient Problems: Active and Suspected Problems (Last Updated 08/10/18 @ 09:51 by Lorene Anthony) Sepsis (Acute) CAP (community acquired pneumonia) (Acute) Cellulitis of left lower leg (Acute) Hypoxemia (Acute) Subjective: Patient was seen and examined today, she remains on supplemental oxygen, I repeated her chest x-ray today, the official read out as not yet charted but on examination by myself, it looks like the right lower lobe infiltrate is improved. Patient has agreed to go for short-term skilled services into a longterm, I think it is best for her at this time because I think she is too weak to go home and her medications need to be adjusted. Patient's urine was positive for E. coli which was not sensitive to Unasyn, I stopped her Unasyn today and placed her on Omnicef. Patient has remained afebrile, I talked to the wound care nurse today who stated that her left lower leg area is improving with treatment. - Physical Exam Vitals/I&O's: Vital Signs Temp Pulse Resp BP Pulse Ox 98 F 88 20 H 124/76 H 94 06/29/19 12:48 06/29/19 12:59 06/29/19 12:59 06/29/19 12:48 06/29/19 12:48 Oxygen Flow Rate (L/min) 4 Oxygen Delivery Method Nasal Cannula Weight: 123.7 kg Body Mass Index (BMI) 39.1 Intake and Output for Last 24 Hours 06/27/19 06/28/19 06/29/19 23:59 23:59 23:59 Intake Total 855 / 1095 3981.33 / 3981.33 2407.66 / 2407.66 Output Total 1000 / 1000 1250 / 1250 Balance 855 / 1095 2981.33 / 2981.33 1157.66 / 1157.66 General: Alert, Oriented x3, Cooperative, No apparent distress, Well developed, Well nourished HEENT: Atraumatic, PERRLA, EOMI, Normocephalic Oral: Moist Mucosa Neck: Supple, Trachea Midline, Thyroid Normal Size and Texture Lungs: Clear to auscultation, Normal air movement, No rhonchi, No wheeze, No rales Cardiovascular: Regular rate, Regular Rhythm, Normal S1, Normal S2, No murmurs Abdomen: Bowel Sounds Present, Soft, Non Tender, Non-Distended, No hernias noted Extremities: No clubbing, No cyanosis, Capillary Refill Less than 3 Seconds, Edema - Generalized edema is noted over the patient's lower legs bilaterally Skin: No rashes, No breakdown Musculoskeletal: No Tenderness to Palpation of Joints or Extremities Neurological: Cranial nerves II-XII grossly intact, Neuro grossly intact, Sensory exam intact to light touch and pain Psych/Mental Status: Normal Affect, Appropriate, Alert and oriented to time, place, person, mood and affect Microbiology Past 72 Hours 06/27/19 19:30 Urine Catheter - Catheter Urine Culture - Final Presumptive E. coli Current Medications Acetaminophen (Tylenol) 650 mg PO Q6H PRN PRN PRN Reason: Pain Score 1-10/Temp > 100.7 F Last Admin: 06/29/19 07:36 Dose: 650 mg Documented by: Albuterol/Ipratropium (Duoneb) 3 ml INHALATION Q6H.RT [facility] Last Admin: 06/29/19 12:59 Dose: 3 ml Documented by: Amlodipine Besylate (Norvasc) 5 mg PO DAILY [facility] Last Admin: 06/29/19 10:05 Dose: 5 mg Documented by: Apixaban (Eliquis) 5 mg PO BID [facility] Last Admin: 06/29/19 10:05 Dose: 5 mg Documented by: Carvedilol (Coreg) 25 mg PO BID [facility] Last Admin: 06/29/19 10:05 Dose: 25 mg Documented by: Cefdinir (Omnicef [Equiv]) 300 mg PO Q12 [facility] Duloxetine HCl (Cymbalta) 60 mg PO DAILY [facility] Last Admin: 06/29/19 10:05 Dose: 60 mg Documented by: Flecainide Acetate (Tambocor) 100 mg PO BID [facility] Last Admin: 06/29/19 10:05 Dose: 100 mg Documented by: Furosemide (Lasix) 20 mg IV BID@1000,1800 [facility] Last Admin: 06/29/19 10:05 Dose: 20 mg Documented by: Guaifenesin (Mucinex) 1,200 mg PO BID [facility] Last Admin: 06/29/19 10:05 Dose: 1,200 mg Documented by: Sodium Chloride () 1,000 mls @ 100 mls/hr IV .Q10H [facility] Last Infusion: 06/29/19 13:25 Dose: 100 mls/hr Documented by: Lisinopril (Zestril) 20 mg PO BID [facility] Last Admin: 06/29/19 10:05 Dose: 20 mg Documented by: Ondansetron HCl (Zofran) 4 mg IV Q8H PRN PRN PRN Reason: NAUSEA/VOMITING Oxybutynin Chloride (Ditropan) 5 mg PO BID [facility] Last Admin: 06/29/19 10:05 Dose: 5 mg Documented by: Pantoprazole Sodium (Protonix) 40 mg PO DAILY [facility] Last Admin: 06/29/19 10:05 Dose: 40 mg Documented by: Senna/Docusate Sodium (Senokot-S, Cayrn-Colace) 2 tablet PO BID PRN PRN PRN Reason: Constipation Sodium Chloride () 10 - 40 ml IV UD PRN PRN Reason: SALINE FLUSH Last Admin: 06/29/19 07:50 Dose: 10 ml Documented by: Medical Necessity - Tobacco Use Smoking Status: Never smoker Assessment/Plan All Active Problems (Last Updated 08/10/18 @ 09:51 by Lorene Anthony) Sepsis (Acute) CAP (community acquired pneumonia) (Acute) Cellulitis of left lower leg (Acute) Hypoxemia (Acute) #1 right lower lobe community-acquired pneumonia-organism unknown at this time, patient is now on Omnicef #2 sepsis secondary to community acquired pneumonia and left lower leg cellulitis-again patient is on Omnicef #3 left lower leg cellulitis-continue Omnicef, continue IV Lasix #4 obesity #5 essential hypertension #6 paroxysmal atrial fibrillation #7 hypoxia secondary to #1-continue to wean O2 if possible #8 depression #9 generalized debility-again patient is consented to go to a senior care facility for short-term rehab, she will be reevaluated tomorrow for possible discharge to a senior care facility. #10 acute cystitis-secondary to E. coli, present on admission-continue Omnicef Code Visit Inpatient E&M: 65482 Subs Hosp L2
--- NOTE | 2019-06-29 18:05 | NURSING ---
Reviewed and agreed on all charting with Vicky Bermudez RN
[2019-06-30] VITALS (10 sets, daily range): BP systolic 131–155; BP diastolic 76–82; PULSE 74–85; RESP 16–24; TEMP 36–36.5; O2SAT 95–98
[2019-06-30] MEDS: Ipratropium/Albuterol Sulfate 3 ML AMPUL.NEB INHALATION ×3 (00:41→13:11)
[2019-06-30] MEDS: Cefdinir 300 MG Capsule PO (05:31)
--- NOTE | 2019-06-30 08:18 | CT_ITS ---
STUDY: CTA CHEST REASON FOR EXAM: Female, 69 years old. HYPOXIA RADIATION DOSAGE (If Supplied By Facility): CTDIvol = ( 12.66 ) mGy, DLP = ( 463.76 ) mGycm TECHNIQUE: The examination was performed with the intravenous administration of 75 CC ISOVUE 370. Post-processing of the angiographic images was performed, with multiplanar reformation and 3D reconstruction. Individualized dose optimization techniques were used for this CT. COMPARISON: Chest CTA dated June 30, 2012 FINDINGS: There is limited enhancement of the main pulmonary artery and right and left pulmonary arteries. There is suboptimal/inadequate enhancement of the bilateral peripheral pulmonary arteries. There is no demonstrated pulmonary embolism of the main pulmonary arteries. There is atherosclerotic calcification of the aortic arch with tortuosity. There is no demonstrated aortic dissection. Normal heart size and pericardium. Normal mediastinum. Normal hilar regions. Normal visualized trachea and bronchi. Mild interstitial fibrotic scarring is present in the bilateral lung bases. No consolidation. No pleural effusion. Normal pleura. Normal chest wall structures. There are degenerative changes of thoracic spine. A small hiatal hernia is present. A splenic calcification is present. Several colonic diverticula are present. CT/CTA Chest W/WO Contrast IMPRESSION: 1. There is limited enhancement of the main pulmonary artery and right and left pulmonary arteries. 2. There is suboptimal/inadequate enhancement of the bilateral peripheral pulmonary arteries-pulmonary emboli cannot be excluded in these regions. 3. There is no demonstrated pulmonary embolism of the main pulmonary arteries. 4. Mild fibrotic changes of the lung bases. Electronically Signed: Jb Marroquin MD at 9:32 EST , Service support ,
[2019-06-30] MEDS: Furosemide 20 MG/2 ML VIAL IV (09:33)
[2019-06-30] MEDS: Carvedilol 25 MG Tablet PO (09:34)
[2019-06-30] MEDS: APIXABAN 5 MG TABLET PO (09:34)
[2019-06-30] MEDS: Oxybutynin 5 MG Tablet PO (09:34)
[2019-06-30] MEDS: DULoxetine Hcl 60 MG Capsule PO (09:34)
[2019-06-30] MEDS: Flecainide 100 MG Tablet PO (09:35)
[2019-06-30] MEDS: Pantoprazole Sodium 40 MG Tablet PO (09:35)
[2019-06-30] MEDS: Lisinopril 20 MG Tablet PO (09:35)
[2019-06-30] MEDS: guaiFENesin 1,200 MG Tablet 1200 MG PO (09:35)
[2019-06-30] MEDS: 0.9% Saline Lock 10 ML Syringe IV (09:36)
[2019-06-30] MEDS: amLODIPine 5 MG Tablet PO (09:36)
[2019-06-30] MEDS: Acetaminophen 325 MG Tablet 650 MG PO (09:36)
--- NOTE | 2019-06-30 10:29 | ECHOCS_ITS ---
Reason For Study: PHTN Procedure This was a 2D Doppler, Color Flow transthoracic echocardiogram. The study was technically difficult. Exam performed portable in patient room. Left Ventricle Normal size and thickness. The estimated ejection fraction is 65 %. Septal motion consistent with IVCD. Stage 1 diastolic dysfunction. No regional wall motion abnormalities noted. Right Ventricle Normal size and thickness. A moderator band is seen in the right ventricle. Normal systolic function. Atria Normal left atrium. Normal right atrium. Normal atrial septum. Mitral Valve The mitral valve is structurally normal. No prolapse or stenosis seen. Trivial mitral valve insufficiency. Tricuspid Valve Normal tricuspid valve. Trivial tricuspid valve insufficiency. Right ventricular systolic pressure estimated to be 26 mmHg. Aortic Valve Normal aortic valve. Trisinus/trileaflet aortic valve. Pulmonic Valve Normal pulmonic valve. Great Vessels Normal aortic root. Normal arch. Normal inferior vena cava. Inferior vena cava collapse with sniff. Pericardium/Pleural No pericardial effusion. Medication Diluted definity 3ml given slow IV push to enhance endocardial definition. MMode/2D Measurements & Calculations LVIDd: 4.9 cm IVSd: 1.2 cm Ao root diam: 3.8 cm LVIDs: 3.2 cm LVPWd: 1.1 cm FS: 34.6 % LAV(MOD-bp): 69.9 ml LA A4 area: 19.6 cm2 LA dimension(2D): 3.8 cm LAV(MOD-bp) Indexed: 29.4 ml/m2 LAV(MOD-sp2): 90.7 ml LAV(MOD-sp4): 56.5 ml Doppler Measurements & Calculations MV E max salazar: 80.8 cm/sec Lat Peak E' Salazar: 9.4 cm/sec Med Peak E' Salazar: 6.7 cm/sec MV A max salazar: 106.5 cm/sec E/E' lat: 8.6 E/E' med: 12.0 MV E/A: 0.76 Ao V2 max: 185.7 cm/sec LV V1 max: 129.0 cm/sec PA V2 max: 104.8 cm/sec Ao max P.8 mmHg LV V1 max P.7 mmHg TR max salazar: 230.6 cm/sec TR max P.3 mmHg Interpretation Summary The estimated ejection fraction is 65 %. Stage 1 diastolic dysfunction. Trivial mitral valve insufficiency. Trivial tricuspid valve insufficiency. Right ventricular systolic pressure estimated to be 26 mmHg. Compared to echo result dated 08/20/2013, no appreciable changes noted. The study was technically difficult. Contrast injection was performed. Ordering Physician: Baron Ko Referring Physician: Shereen Lamb Performed By: Marlys James RDCS
--- NOTE | 2019-06-30 10:29 | PCM.CONS.PUL ---
Problem List (1) Cellulitis of left lower leg Status: Acute (2) Hypoxemia Status: Acute (3) Peripheral neuropathy Status: Chronic (4) Osteoarthritis Status: Chronic (5) Chronic anticoagulation Status: Chronic (6) PAF (paroxysmal atrial fibrillation) Status: Chronic (7) Hyperlipemia Status: Chronic Qualifiers: Hyperlipidemia type: unspecified Qualified Code(s): E78.5 - Hyperlipidemia, unspecified (8) Depression Status: Chronic (9) Benign essential hypertension Status: Chronic Reason for Consult Date of Consultation: 06/30/19 Reason for Consultation: Hypoxia History of Present Illness: The patient is a 69 year old F, with past medical history listed below, who presented to [facility] on 06/27/2019 secondary to concerns for cellulitis. Patient does have a history of lower extremity wounds and had noted to have significant erythema of the left lower extremity. Patient reportedly is not on supplemental oxygen at home, but does have an extensive cardiac history including A. fib requiring flecainide. Patient is in normal sinus rhythm at this time. Patient does have severe arthritis of the hips and knees limiting her mobility. On evaluation in the ER, patient was noted to be hypoxic. Patient was given some IV fluids and aerosol therapy. Chest x-ray was thought to indicate pneumonia, so patient was placed on Zosyn and azithromycin and admitted to the PCU for further evaluation. Over the course of the hospitalization, patient reports she is subjectively improved. However, patient continues to require supplemental oxygen, so a pulmonary consult was obtained. Patient denies any history of smoking in the past. Patient has never been told of a history of asthma or COPD. Patient does report that she has had issues with her oxygen dropping with exertion, but since it improved with deep breathing she thought it was okay. Patient has noted some increased lower extremity edema recently, but was placed on Lasix by her primary care physician. Patient does follow with the heart group at baseline and has been in normal sinus rhythm. Patient did recently undergo a hip replacement and has plans to undergo another hip and knee replacement. Patient denies any toxic environmental or occupational exposures in the past. Patient does state that she tends to get bronchitis a lot. Patient was given a dose of Lasix this morning and has had significant urine output with improvement in oxygen saturations. Patient is currently requiring 2 L nasal cannula to maintain appropriate saturations. Review of systems otherwise negative from a constitutional, HEENT, respiratory, cardiovascular, GI, genitourinary, musculoskeletal, skin, neurologic, psychiatric and hematologic system unless stated above. Past Medical History Past Medical History (Chronic Problems): Chronic Problems (Last Updated 08/10/18 @ 09:51 by Lorene Anthony) Peripheral neuropathy (Chronic) Osteoarthritis (Chronic) Chronic anticoagulation (Chronic) PAF (paroxysmal atrial fibrillation) (Chronic) Chronic ulcer of left foot with fat layer exposed (Chronic) Hyperlipemia (Chronic) Obesity (Chronic) Depression (Chronic) Benign essential hypertension (Chronic) Medical History: Medical History (Last Updated 08/10/18 @ 09:51 by Lorene Anthony) Chronic anticoagulation (Chronic) Z79.01 PAF (paroxysmal atrial fibrillation) (Chronic) I48.0 Hyperlipemia (Chronic) E78.5 Benign essential hypertension (Chronic) I10 Cardiomyopathy I42.9 History of depression Z86.59 History of shingles Z86.19 Allergies atorvastatin [From Lipitor] Adverse Reaction (Verified 06/27/19 17:35) Pain in joints nifedipine [From Procardia] Adverse Reaction (Verified 03/06/19 11:28) Pain in joints Home Medications: Ambulatory Orders Medication Instructions Recorded Amlodipine [Norvasc] 5 mg PO DAILY 04/09/13 Multivitamins,Therapeutic 1 tab PO DAILY 04/09/13 [Multivitamin] Vitamin B Complex 1 ea PO DAILY 04/09/13 Celecoxib [Celebrex] 200 mg PO BID 01/18/18 Duloxetine HCl 60 mg PO DAILY 01/18/18 lisinopril 20 mg tablet 20 mg PO BID tab 08/10/18 prednisolone acetate 1 % eye 1 drop OPHTHALMIC 4X/DAY 30 Days 08/10/18 drops,suspension #10 ml carvedilol 25 mg tablet 25 mg PO BID #180 tab 02/16/19 flecainide 100 mg tablet 100 mg PO BID #180 tab 02/16/19 omeprazole 40 mg capsule,delayed 40 mg PO DAILY #90 cap 02/16/19 release oxybutynin chloride 5 mg tablet 5 mg PO BID 03/06/19 apixaban 5 mg tablet 5 mg PO BID #180 tab 05/09/19 Surgical History: Surgical History (Last Updated 08/10/18 @ 13:49 by Lorene Anthony) History of arthroscopic knee surgery Z98.890 bilateral History of cardioversion Onset Date: 07/05/12 Z98.890 History of cornea transplant Onset Date: 04/05/18 Z94.7 History of foot surgery Z98.890 left History of hysterectomy Z90.710 History of nasal cauterization Z98.890 History of sinus surgery Z98.890 History of tonsillectomy Z90.89 Surgical History: appendectomy, hysterectomy, - - 2 surgeries to the foot. Corneal transplant 3 weeks ago. 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 Lives: Alone Smoking Status: Never smoker Alcohol: None Drugs: None - *Family History Paternal Family History: Family History (Last Reviewed 08/10/18 @ 13:50 by Lorene Anthony) Father Ruptured aortic aneurysm Mother Heart disease Brother Atrial fibrillation History Items: No pertinent history Maternal Family History: Family History (Last Reviewed 08/10/18 @ 13:50 by Lorene Anthony) Father Ruptured aortic aneurysm Mother Heart disease Brother Atrial fibrillation History Items: No pertinent history Review of Systems Comment: See HPI Patient Problems: Active and Suspected Problems (Last Updated 08/10/18 @ 09:51 by Lorene Anthony) Sepsis (Acute) CAP (community acquired pneumonia) (Acute) Cellulitis of left lower leg (Acute) Hypoxemia (Acute) Objective: All imaging was personally reviewed. CTA of the chest shows no acute PE, but patient does have what appears to be bronchiectasis bilaterally. No significant emphysematous changes or mediastinal lymphadenopathy is appreciated. There are no acute infiltrates noted. Patient does have some dilated pulmonary vasculature suggestive of pulmonary hypertension. Patient's last echocardiogram was in 2013. Patient has never had a pulmonary function test. - Physical Exam Vitals/I&O's: Vital Signs Temp Pulse Resp BP Pulse Ox 36.5 C L 78 24 H 155/78 H 95 06/30/19 03:15 06/30/19 07:23 06/30/19 07:23 06/30/19 03:15 06/30/19 03:15 Oxygen Flow Rate (L/min) 4 Oxygen Delivery Method Nasal Cannula Weight: 123.7 kg Body Mass Index (BMI) 39.1 Intake and Output for Last 24 Hours 06/28/19 06/29/19 06/30/19 23:59 23:59 23:59 Intake Total 3981.33 / 3981.33 5127.66 / 5127.66 443.33 / 443.33 Output Total 1000 / 1000 3900 / 3900 200 / 200 Balance 2981.33 / 2981.33 1227.66 / 1227.66 243.33 / 243.33 General: Alert, Oriented x3, Cooperative, No apparent distress, Well developed, Well nourished, - - Morbidly obese. No conversational dyspnea. HEENT: Atraumatic, PERRLA, EOMI, Normocephalic, - - No scleral icterus or injection noted Oral: Moist Mucosa, No Gingival or Mucosal Lesions/ Ulcerations Neck: Supple, No JVD, No Nodes, Trachea Midline Lungs: No rhonchi, No wheeze, Diminished, Rales - Right base posteriorly, - - Symmetric expansion Cardiovascular: Regular rate, Regular Rhythm, Normal S1, Normal S2, Murmur - Grade 2 out of 6 systolic ejection murmur at the right sternal border, No rub noted, No Gallop Abdomen: Bowel Sounds Present, Soft, Non Tender, Non-Distended, Obese Extremities: No clubbing, No cyanosis, Edema - Left greater than right lower extremity Skin: No rashes, - - Venous stasis changes of bilateral lower extremities Musculoskeletal: Tenderness - Palpation bilateral lower extremities Lymphatic: No Cervical, Supraclavicular, or Inguinal Adenopathy Neurological: Cranial nerves II-XII grossly intact, Neuro grossly intact, Motor Exam 5/5 strength throughout Psych/Mental Status: Alert and oriented to time, place, person, mood and affect Microbiology Past 72 Hours 06/27/19 19:10 Blood Culture (Wb) - Right Forearm Blood Culture - Preliminary No growth in 48 hours. 06/27/19 18:05 Blood Culture (Wb) - Left Forearm Blood Culture - Preliminary No growth in 48 hours. 06/27/19 19:30 Urine Catheter - Catheter Urine Culture - Final Presumptive E. coli Current Medications Acetaminophen (Tylenol) 650 mg PO Q6H PRN PRN PRN Reason: Pain Score 1-10/Temp > 100.7 F Last Admin: 06/30/19 09:36 Dose: 650 mg Documented by: Albuterol/Ipratropium (Duoneb) 3 ml INHALATION Q6H.RT KORTNEY Last Admin: 06/30/19 07:23 Dose: 3 ml Documented by: Amlodipine Besylate (Norvasc) 5 mg PO DAILY KORTNEY Last Admin: 06/30/19 09:36 Dose: 5 mg Documented by: Apixaban (Eliquis) 5 mg PO BID [facility] Last Admin: 06/30/19 09:34 Dose: 5 mg Documented by: Carvedilol (Coreg) 25 mg PO BID [facility] Last Admin: 06/30/19 09:34 Dose: 25 mg Documented by: Cefdinir (Omnicef [Equiv]) 300 mg PO Q12 [facility] Last Admin: 06/30/19 05:31 Dose: 300 mg Documented by: Duloxetine HCl (Cymbalta) 60 mg PO DAILY [facility] Last Admin: 06/30/19 09:34 Dose: 60 mg Documented by: Flecainide Acetate (Tambocor) 100 mg PO BID [facility] Last Admin: 06/30/19 09:35 Dose: 100 mg Documented by: Furosemide (Lasix) 20 mg IV BID@1000,1800 [facility] Last Admin: 06/30/19 09:33 Dose: 20 mg Documented by: Guaifenesin (Mucinex) 1,200 mg PO BID [facility] Last Admin: 06/30/19 09:35 Dose: 1,200 mg Documented by: Lisinopril (Zestril) 20 mg PO BID [facility] Last Admin: 06/30/19 09:35 Dose: 20 mg Documented by: Ondansetron HCl (Zofran) 4 mg IV Q8H PRN PRN PRN Reason: NAUSEA/VOMITING Oxybutynin Chloride (Ditropan) 5 mg PO BID [facility] Last Admin: 06/30/19 09:34 Dose: 5 mg Documented by: Pantoprazole Sodium (Protonix) 40 mg PO DAILY [facility] Last Admin: 06/30/19 09:35 Dose: 40 mg Documented by: Senna/Docusate Sodium (Senokot-S, Caryn-Colace) 2 tablet PO BID PRN PRN PRN Reason: Constipation Sodium Chloride () 10 - 40 ml IV UD PRN PRN Reason: SALINE FLUSH Last Admin: 06/30/19 09:36 Dose: 10 ml Documented by: Clinical Impression(s) from Imaging Studies Chest X-Ray 06/27/19 18:30 IMPRESSION: Right lower lobe infiltrate. Electronically Signed: Mario Mcadams, at 18:49 EST Tel , Service support , Chest X-Ray 06/29/19 13:24 IMPRESSION: Bilateral perihilar and right basilar atelectasis, otherwise no acute process identified. Electronically Signed: Nancy Luna MD at 0:47 EST , Service support , Chest CTA 06/30/19 08:18 IMPRESSION: 1. There is limited enhancement of the main pulmonary artery and right and left pulmonary arteries. 2. There is suboptimal/inadequate enhancement of the bilateral peripheral pulmonary arteries-pulmonary emboli cannot be excluded in these regions. 3. There is no demonstrated pulmonary embolism of the main pulmonary arteries. 4. Mild fibrotic changes of the lung bases. Electronically Signed: Jb Marroquin MD at 9:32 EST , Service support , Assessment/Plan All Active Problems (Last Updated 08/10/18 @ 09:51 by Lorene Anthony) Sepsis (Acute) CAP (community acquired pneumonia) (Acute) Cellulitis of left lower leg (Acute) Hypoxemia (Acute) RECOMMENDATIONS: 1. Continue diuresis 2. Obtain echocardiogram for evaluation of pulmonary artery pressures and valvular function 3. Wean oxygen as tolerated 4. Walking oximetry prior to discharge 5. Outpatient complete PFT 6. Sleep work-up when patient is agreeable IMPRESSIONS: 1. Hypoxia Clinical suspicion for an element of congestive heart failure leading to current symptomatology. Patient did receive some IV fluids for volume resuscitation on presentation. Patient now appears to be responding to diuretic therapy. Will obtain an echocardiogram for evaluation of pulmonary hypertension and possible valvular abnormalities. Patient likely has an element of untreated sleep apnea, which can complicate overall situation. Patient does have bronchiectasis on CT scan of the chest, which is a new diagnosis, but does not appear to have significant mucus plugging that would account for current symptomatology. This can be worked up as an outpatient. 2. Probable obstructive sleep apnea Patient would be at high risk for obstructive sleep apnea, which would complicate multiple comorbidities. If patient is having significant desaturations during sleep, this would add to elevated pulmonary artery pressures. Echocardiogram has been ordered. Patient does not have significant polycythemia on CBC on admission to indicate significant desaturation for majority of the time. Patient is refusing any work-up at this time. 3. New diagnosis of bronchiectasis Unclear etiology. Patient is not reporting any asthma or noxious exposure. Patient has had pneumonia in the past, but bronchiectatic changes appear to involve multiple lobes. Patient can have a complete pulmonary function test as an outpatient. Patient would benefit from pulmonary toileting measures for conservative response. This likely does not account for patient's hypoxia. 4. Essential hypertension/paroxysmal A. fib/depression/morbid obesity/cellulitis/generalized debility/osteoarthritis Complicates care, management, recovery and prognosis. Defer antibiotics to primary service. Would not recommend fluid resuscitation as patient appears to be volume overloaded. Code Visit Inpatient E&M: 21999 Init Hosp L3
--- NOTE | 2019-06-30 13:47 | PCM.TXEXTCAR ---
- Diet 06/27/19 21:57 Diet: Cardiac/Low Cholesterol Food consistency:: Regular Liquid Consistency:: Regular/Thin - Wound(s) left medial/plantar foot Wound Type: calloused area with small blood blister Dressing Change: Dry Sterile Dressing - Therapies Weight Bearing: Full weight bearing Physical Therapy: Eval and Treat Occupational Therapy: Eval and Treat - Problem/Diagnosis (1) Cystitis Status: Acute Comment: E.COLI Current Visit: Yes (2) Sepsis Status: Acute Current Visit: Yes (3) CAP (community acquired pneumonia) Status: Acute Current Visit: Yes (4) PAF (paroxysmal atrial fibrillation) Status: Chronic Current Visit: No (5) Obesity Status: Chronic Current Visit: No (6) Hypoxia Status: Acute Comment: SECONDARY TO DIASTOLIC CHF, PNEUMONIA Current Visit: Yes (7) Bronchiectasis Status: Chronic Current Visit: Yes (8) Cellulitis of left lower leg Status: Acute Current Visit: Yes (9) Stasis dermatitis of both legs Status: Chronic Current Visit: Yes - Allergies/Procedures Done in Hospital Allergies/Adverse Reactions: Allergies atorvastatin [From Lipitor] Adverse Reaction (Verified 06/27/19 17:35) Pain in joints nifedipine [From Procardia] Adverse Reaction (Verified 03/06/19 11:28) Pain in joints Procedures: 2-D Echocardiogram - Type of Care/Length of Stay Estimated LOS: Convalescent Care Less Than 30 days Type of Care Needed: Skilled Rehab Potential: Good Prognosis: Good - Additional Orders/Day of Discharge H&P will serve as current which was dated: 06/27/19 Day of Discharge: 06/30/19 - Follow Up Care Primary Care Physician: Faraz Junior MD [Primary Care Provider] - Please Follow Up With: Faraz Junior MD
--- NOTE | 2019-06-30 14:20 | NURSING ---
Report given to Kay[facility] at [facility]
--- NOTE | 2019-06-30 16:59 | DS.PCM_ITS ---
Discharge Date and Diagnosis Date of Admission: 06/27/19 Date of Discharge: 06/30/19 - Primary Discharge Diagnosis 1 right lower lobe community-acquired pneumonia-organism unknown #2 sepsis secondary to community acquired pneumonia and left lower leg cellulitis #3 left lower leg cellulitis #4 acute diastolic congestive heart failure #5 obesity #6 essential hypertension #7 paroxysmal atrial fibrillation #8 hypoxia secondary to #1 #9 depression #10 generalized debility #11 acute cystitis-secondary to E. coli - Secondary Discharge Diagnosis Chronic Problems (Last Updated 08/10/18 @ 09:51 by Lorene Anthony) Bronchiectasis (Chronic) Stasis dermatitis of both legs (Chronic) Peripheral neuropathy (Chronic) Osteoarthritis (Chronic) Chronic anticoagulation (Chronic) PAF (paroxysmal atrial fibrillation) (Chronic) Chronic ulcer of left foot with fat layer exposed (Chronic) Hyperlipemia (Chronic) Obesity (Chronic) Depression (Chronic) Benign essential hypertension (Chronic) Hospital Course and Treatment Imaging Results: 06/30/19 08:18 CTA Chest W/WO Contrast [CT] Stat 06/30/19 10:29 Echo Complete W/ Contrast [ECHO] Routine Consultations 06/27/19 21:55 Consult: Onc/Wound/graphics edit technician Routine Comment: Operations: None Procedures: 2-D Echocardiogram Summary of Care Provided: The patient is a 69 year old F who was seen in the emergency room at [facility] with chief complaint of cough and shortness of breath. Patient also complained of a reddened swollen area over her left lower leg that she noted in the emergency room. Work-up in the emergency room included labs which showed a mild leukocytosis, kidney function was within normal limits, chest x-ray showed a right lower lobe infiltrate, patient required supplemental oxygen via nasal cannula to maintain her pulse ox above 90%. Examination of the left lower leg revealed it to be reddened and swollen compared with her right lower leg. Patient was given IV Zosyn and Zithromax, she was admitted for sepsis and community-acquired pneumonia as well as cellulitis of the left lower leg. Patient was seen by wound care, she was placed on IV diuretics due to lower leg edema, she remained on supplemental oxygen and was seen by PT and OT. It was felt that she would benefit from inpatient short-term PT and OT and the patient agreed. Patient's urine culture resulted positive for E. coli, her antibiotics were adjusted, due to the fact that she was unable to be weaned completely from supplemental oxygen, I had pulmonary medicine see the patient- echocardiogram was obtained which showed a normal EF, pulmonary medicine felt that the patient had a component of diastolic congestive heart failure. On 06/30/2019, patient was seen and examined: On examination she appeared in good health and spirits. Vital signs as documented. Skin warm and dry and without overt rashes. Neck without JVD. Lungs clear. Heart exam notable for regular rhythm, normal sounds and absence of murmurs, rubs or gallops. Abdomen unremarkable and without evidence of organomegaly, masses, or abdominal aortic enlargement. Extremities-bilateral lower leg edema is noted, there is stasis dermatitis changes noted over both lower legs. Neuro: Cranial nerves II through XII are grossly intact, no focal motor deficits were noted, sensation to light touch and pinprick is intact. Psych: Patient is alert and oriented x3, she does not appear anxious or depressed On 06/30/2019, patient was seen and examined and felt to be in stable condition for transfer to a detention facility for short-term detention services. - Physical Exam Vitals/I&O's: Vital Signs Temp Pulse Resp BP Pulse Ox 97.5 F L 78 16 137/82 H 95 06/30/19 14:00 06/30/19 14:00 06/30/19 14:00 06/30/19 14:00 06/30/19 14:00 Oxygen Flow Rate (L/min) 2 Oxygen Delivery Method Nasal Cannula Weight: 123.7 kg Body Mass Index (BMI) 39.1 Intake and Output for Last 24 Hours 06/28/19 06/29/19 06/30/19 23:59 23:59 23:59 Intake Total 3981.33 / 3981.33 5127.66 / 5127.66 843.33 / 843.33 Output Total 1000 / 1000 3900 / 3900 2200 / 2200 Balance 2981.33 / 2981.33 1227.66 / 1227.66 -1356.67 / -1356.67 Microbiology Past 72 Hours 06/29/19 18:00 Sputum, Expectorated/Coughed Gram Stain - Final 06/27/19 19:10 Blood Culture (Wb) - Right Forearm Blood Culture - Preliminary No growth in 48 hours. 06/27/19 18:05 Blood Culture (Wb) - Left Forearm Blood Culture - Preliminary No growth in 48 hours. 06/27/19 19:30 Urine Catheter - Catheter Urine Culture - Final Presumptive E. coli Home Medications: Medications to take at Discharge Amlodipine [Norvasc] 5 mg PO DAILY 04/09/13 Duloxetine HCl 60 mg PO DAILY 01/18/18 lisinopril 20 mg tablet 20 mg PO BID tab 08/10/18 prednisolone acetate 1 % eye drops,suspension 1 drop OPHTHALMIC 4X/DAY 30 Days #10 ml 08/10/18 carvedilol 25 mg tablet 25 mg PO BID #180 tab 02/16/19 flecainide 100 mg tablet 100 mg PO BID #180 tab 02/16/19 omeprazole 40 mg capsule,delayed release 40 mg PO DAILY #90 cap 02/16/19 oxybutynin chloride 5 mg tablet 5 mg PO BID 03/06/19 apixaban 5 mg tablet 5 mg PO BID #180 tab 05/09/19 Acetaminophen [Tylenol Tablet] 650 mg PO Q6H PRN PRN tab 06/30/19 Cefdinir [Omnicef [equiv]] 300 mg PO Q12 #10 cap 06/30/19 Furosemide [Lasix] 40 mg PO DAILY #1 tab 06/30/19 Potassium Chloride 20 meq PO DAILY #1 tablet.er 06/30/19 Senna/Docusate Sodium [Senokot-S] 2 tab PO BID PRN PRN tab 06/30/19 Following Prescrptions Were Given to Patient: Furosemide [Lasix] 40 mg PO DAILY #1 tab Cefdinir [Omnicef [equiv]] 300 mg PO Q12 #10 cap Potassium Chloride 20 meq PO DAILY #1 tablet.er Primary Care Physician: Faraz Junior MD [Primary Care Provider] - Please Follow Up With: Faraz Junior MD Disposition: Assisted facility Minutes spent on discharge:: 35 Patient Condition:: Stable Medical Necessity - Tobacco Use Smoking Status: Never smoker Meaningful Use Info Meaningful Use Diagnoses (Choose all that apply): CHF - CHF GURJIT/ARB ordered at discharge?: Yes Documented LVEF (%): 65 Code Visit Inpatient E&M: 76815 Disch Hosp
== END 2019-06-30 14:43 | disposition skilled nursing facility (03) | DRG 871 ==
LOC: ED 20:43 → PCU 21:16
PROVIDERS: Admitting Provider Hospitalist; Emergency Provider Emergency Medicine; Family Provider Family Medicine; PCP Family Medicine; Referring Provider Hospitalist; Visit Provider Internal Medicine
DX: A41.9 Sepsis, unspecified organism (principal); J18.9 Pneumonia, unspecified organism; I50.31 Acute diastolic (congestive) heart failure; L03.116 Cellulitis of left lower limb; N30.00 Acute cystitis without hematuria; J47.0 Bronchiectasis with acute lower respiratory infection; R09.02 Hypoxemia; I48.0 Paroxysmal atrial fibrillation; F32.9 Major depressive disorder, single episode, unspecified; I11.0 Hypertensive heart disease with heart failure; R53.81 Other malaise; I87.2 Venous insufficiency (chronic) (peripheral); L97.522 Non-pressure chronic ulcer of other part of left foot with fat layer exposed; E78.5 Hyperlipidemia, unspecified; G62.9 Polyneuropathy, unspecified; B96.20 Unspecified Escherichia coli [E. coli] as the cause of diseases classified elsewhere; Z79.01 Long term (current) use of anticoagulants; E66.9 Obesity, unspecified; Z68.39 Body mass index [BMI] 39.0-39.9, adult
CPT/HCPCS: 36415; 71045; 71275; 80048; 80053; 81001; 83605; 83880; 84484; 85025; 85610; 85730; 87040; 87070; 87086; 87088; 87186; 87205; 93005; 93306; 94640; 97110; 97116; 97162; 97166; 97530; 97535; 97802; 99251; 99285; J7030; J7040; J7050; Q9957; Q9967; A4216; C8929; G0463; J0295; J1940

== ENCOUNTER → 2019-08-14 18:01 | Outpatient (CLI) | payer SELFPAY ==
[2019-06-27 22:04] VITALS: BMI 39.1
[2019-08-14 19:49] LABS: M R Staph aureus DNA By PCR POSITIVE (Negative); Probe Check PASS; Staph aureus DNA By PCR POSITIVE (Negative)
== END ==
PROVIDERS: PCP Family Medicine; Referring Provider Podiatrist; Visit Provider Podiatrist
DX: L97.522 Non-pressure chronic ulcer of other part of left foot with fat layer exposed (principal); L03.119 Cellulitis of unspecified part of limb
CPT/HCPCS: 87070; 87075; 87077; 87186; 87205; 87640

== ENCOUNTER → 2019-09-11 11:37 | Outpatient (CLI) | payer SELFPAY ==
[2019-06-27 22:04] VITALS: BMI 39.1
== END ==
PROVIDERS: PCP Family Medicine; Referring Provider Nurse Practitioner Adult Health; Visit Provider Nurse Practitioner Adult Health
DX: R50.9 Fever, unspecified (principal); R05 Cough
CPT/HCPCS: 87633

== ENCOUNTER 2020-04-17 14:23 | Inpatient (IN) ==
[2019-06-27 22:04] VITALS: BMI 39.1
[2020-04-17 14:37] VITALS: BP 91/54; PULSE 77; RESP 18; TEMP 36.7; O2SAT 91; BMI 41.0
[2020-04-17] MEDS: Docusate Sodium 100 MG Capsule PO (17:16)
[2020-04-17] MEDS: Celecoxib 200 MG Capsule PO (17:18)
[2020-04-17] MEDS: Carvedilol 25 MG Tablet PO (17:19)
[2020-04-17] MEDS: Oxybutynin 5 MG Tablet PO (17:19)
[2020-04-17] MEDS: Flecainide 100 MG Tablet PO (17:19)
[2020-04-17] MEDS: Lisinopril 20 MG Tablet PO (17:19)
[2020-04-17] MEDS: Nystatin Powder 15gm Bottle 1 APPLIC TOPICAL (17:24)
[2020-04-17] MEDS: Menthol/Lanolin/Calamine/Znox 113 GM Tube 1 APPLIC TOPICAL (17:24)
[2020-04-17] MEDS: APIXABAN 5 MG TABLET PO (18:42)
[2020-04-17] MEDS: HYDROcodone Bitartrate/Apap 5/325 Tablet PO (18:47)
--- NOTE | 2020-04-17 20:01 | PCM.HP.STD ---
Problem List (1) Debility Status: Acute (2) Osteoarthritis of left hip Status: Chronic (3) Hypertension Status: Chronic (4) Atrial fibrillation Status: Chronic (5) GERD (gastroesophageal reflux disease) Status: Chronic (6) Overactive bladder Status: Chronic (7) Osteoarthritis Status: Chronic (8) Depression Status: Chronic History of Present Illness Date of Admission: 04/17/20 Chief Complaint: Here for rehabilitation, strengthening, prior to discharge home alone. 04/16/20 The patient is a 70 year old Female with below past medical history admitted to [facility]. 04/16/20 Dr. Ortiz performed left total hip arthroplasty. Post-operative course uncomplicated. 04/17/20 Admit to TCU with debility, here for rehabilitation, strengthening, prior to discharge home alone. Past Medical History Past Medical History (Chronic Problems): Chronic Problems (Last Updated 08/10/18 @ 09:51 by Lorene Anthony) Bronchiectasis (Chronic) Stasis dermatitis of both legs (Chronic) Osteoarthritis of left hip (Chronic) Hypertension (Chronic) Atrial fibrillation (Chronic) GERD (gastroesophageal reflux disease) (Chronic) Overactive bladder (Chronic) Peripheral neuropathy (Chronic) Osteoarthritis (Chronic) Chronic anticoagulation (Chronic) PAF (paroxysmal atrial fibrillation) (Chronic) Chronic ulcer of left foot with fat layer exposed (Chronic) Hyperlipemia (Chronic) Obesity (Chronic) Depression (Chronic) Benign essential hypertension (Chronic) Medical History: Medical History (Last Updated 08/10/18 @ 09:51 by Lorene Anthony) Chronic anticoagulation (Chronic) Z79.01 PAF (paroxysmal atrial fibrillation) (Chronic) I48.0 Hyperlipemia (Chronic) E78.5 Benign essential hypertension (Chronic) I10 Cardiomyopathy I42.9 History of depression Z86.59 History of shingles Z86.19 Allergies atorvastatin [From Lipitor] Adverse Reaction (Verified 06/27/19 17:35) Pain in joints nifedipine [From Procardia] Adverse Reaction (Verified 03/06/19 11:28) Pain in joints tramadol Adverse Reaction (Verified 04/17/20 19:52) Upset Stomach Home Medications: Ambulatory Orders Medication Instructions Recorded Amlodipine [Norvasc] 5 mg PO DAILY 04/09/13 Duloxetine HCl 60 mg PO DAILY 01/18/18 lisinopril 20 mg tablet 20 mg PO BID tab 08/10/18 prednisolone acetate 1 % eye 1 drop OPHTHALMIC 4X/DAY 30 Days 08/10/18 drops,suspension #10 ml carvedilol 25 mg tablet 25 mg PO BID #180 tab 02/16/19 oxybutynin chloride 5 mg tablet 5 mg PO BID 03/06/19 apixaban 5 mg tablet 5 mg PO BID #180 tab 05/09/19 Acetaminophen [Tylenol Tablet] 650 mg PO Q6H PRN PRN tab 06/30/19 Cefdinir [Omnicef [equiv]] 300 mg PO Q12 #10 cap 06/30/19 Potassium Chloride 20 meq PO DAILY #1 tablet.er 06/30/19 Senna/Docusate Sodium [Senokot-S] 2 tab PO BID PRN PRN tab 06/30/19 flecainide 100 mg tablet 100 mg PO BID #180 tab 03/31/20 Furosemide [Lasix] 20 mg PO DAILY 04/17/20 Omeprazole 40 mg PO DAILY 04/17/20 Surgical History: Surgical History (Last Updated 08/10/18 @ 13:49 by Lorene Anthony) History of arthroscopic knee surgery Z98.890 bilateral History of cardioversion Onset Date: 07/05/12 Z98.890 History of cornea transplant Onset Date: 04/05/18 Z94.7 History of foot surgery Z98.890 left History of hysterectomy Z90.710 History of nasal cauterization Z98.890 History of sinus surgery Z98.890 History of tonsillectomy Z90.89 Surgical History: appendectomy, hysterectomy, - - Bilateral arthroscopic knee surgeries, cardioversion, corneal transplant, Left foot surgery, Nasal cauterization, sinus surgery. Psychiatric History: Depression PLASTIC SURGERY COORDINATOR History: No pertinent PLASTIC SURGERY COORDINATOR history Lives: Alone Smoking Status: Never smoker Tobacco Use: Non-smoker Alcohol: None Drugs: None - *Family History Paternal Family History: Family History (Last Reviewed 08/10/18 @ 13:50 by Lorene Anthony) Father Ruptured aortic aneurysm Mother Heart disease Brother Atrial fibrillation History Items: No pertinent history Maternal Family History: Family History (Last Reviewed 08/10/18 @ 13:50 by Lorene Anthony) Father Ruptured aortic aneurysm Mother Heart disease Brother Atrial fibrillation History Items: No pertinent history Review of Systems Constitutional: Denies: Chills, Fever, Weight Change HEENT: Denies: Head Aches, Sinus Congestion, Sinus Drainage Cardiovascular: Denies: Chest Pain, Palpitations Respiratory: Denies: Cough, Shortness of breath at rest, Sputum production Gastrointestinal: Denies: Abdominal Pain, Nausea, Vomiting Genitourinary: Denies: Dysuria Musculoskeletal: Reports: Joint Pain - Left hip pain.. Denies: Joint Tenderness Skin: Denies: Rash, Wounds Neurological: Denies: Numbness, Tingling, Focal weakness Psychiatric: Denies: Anxiety, Depression, Homicidal Ideations, Suicidal Ideations Hematologic/ Lymphatic: Denies: Easy Bruising, Easy Bleeding VTE Information - Inpt Only VTE Present on Admission: No VTE Mechan Device Prophylaxis: Knee High EMMA Hose VTE Pharm Prophylaxis ordered?: No Reason prophylaxis not ordered:: Treatment Not Indicated Patient Problems: Active and Suspected Problems (Last Updated 08/10/18 @ 09:51 by Lorene Anthony) Debility (Acute) - Physical Exam Vitals/I&O's: Vital Signs Temp Pulse Resp BP Pulse Ox 98.1 F 77 18 91/54 L 91 04/17/20 14:37 04/17/20 14:37 04/17/20 14:37 04/17/20 14:37 04/17/20 14:37 Oxygen Flow Rate (L/min) 4 Oxygen Delivery Method Nasal Cannula Weight: 129.727 kg Body Mass Index (BMI) 41.0 General: Alert, Oriented x3, Cooperative HEENT: Atraumatic, PERRLA, EOMI, Normocephalic Neck: Supple, No JVD, Negative Carotid Bruits Lungs: Clear to auscultation, Normal air movement Cardiovascular: Regular rate, No murmurs Abdomen: Bowel Sounds Present, Soft, Non Tender Extremities: No edema, Capillary Refill Less than 3 Seconds Skin: No rashes, No breakdown, Incision - Left hip clean, dry, intact. Musculoskeletal: No Tenderness to Palpation of Joints or Extremities Neurological: Cranial nerves II-XII grossly intact Psych/Mental Status: Normal Affect, Appropriate Current Medications Hydrocodone Bitart/Acetaminophen (Hydrocodone Bitartrate/Apap 5/325 Tablet) 1 - 2 tablet PO Q4H PRN PRN PRN Reason: PAIN 1-10 Stop: 04/24/20 16:33 Last Admin: 04/17/20 18:47 Dose: 2 tablet Documented by: Amlodipine Besylate (Amlodipine 5 Mg Tablet) 5 mg PO DAILY [facility] Apixaban (Apixaban 5 Mg Tablet) 5 mg PO BID [facility] Last Admin: 04/17/20 18:42 Dose: 5 mg Documented by: Atorvastatin Calcium (Atorvastatin Calcium 10 Mg Tablet) 10 mg PO 2000 [facility] Calamine/Phenol (Menthol/Lanolin/Calamine/Znox 113 Gm Tube) 1 applic TOPICAL BID [facility]; Protocol Last Admin: 04/17/20 17:24 Dose: 1 applicatio Documented by: [facility]vedilol ([facility] 25 Mg Tablet) [facility] Last Admin: 04/17/20 17:19 Dose: 25 mg Documented by: Celecoxib (Celecoxib 200 Mg Capsule) 200 mg PO BID [facility] Last Admin: 04/17/20 17:18 Dose: 200 mg Documented by: Docusate Sodium (Docusate Sodium 100 Mg Capsule) 100 mg PO BID [facility] Last Admin: 04/17/20 17:16 Dose: 100 mg Documented by: Duloxetine HCl (Duloxetine Hcl 60 Mg Capsule) 60 mg PO DAILY [facility] Flecainide Acetate (Flecainide 100 Mg Tablet) 100 mg PO BID [facility] Last Admin: 04/17/20 17:19 Dose: 100 mg Documented by: Furosemide (Furosemide 20 Mg Tablet) 20 mg PO DAILY [facility] Hydrochlorothiazide (Hydrochlorothiazide 25 Mg Tablet) 25 mg PO DAILY [facility] Lisinopril (Lisinopril 20 Mg Tablet) 20 mg PO BID [facility] Last Admin: 04/17/20 17:19 Dose: 20 mg Documented by: Meclizine HCl (Meclizine Hcl 25 Mg Tablet) 25 mg PO 4X/DAY PRN PRN PRN Reason: DIZZINESS Multi-Ingredient Cream (Mineral Oil/Petrolatum,White Jar) 1 applic TOPICAL BID PRN PRN; Protocol PRN Reason: Dry skin Multivitamins (Multivitamins,Therapeutic Tablet) [facility] Multivitamins (Vitamin B Comp W-C Capsule) [facility] Nystatin (Nystatin Powder 15gm Bottle) 1 applic TOPICAL BID [facility]; Protocol Last Admin: 04/17/20 17:24 Dose: 1 applicatio Documented by: Oxybutynin Chloride (Oxybutynin 5 Mg Tablet) [facility] Last Admin: 04/17/20 17:19 Dose: 5 mg Documented by: Pantoprazole Sodium (Pantoprazole Sodium 40 Mg Tablet) 40 mg PO DAILY [facility] Polyethylene Glycol (Polyethylene Glycol 3350 17 Gm Packet) 17 gm PO DAILY [facility] Stop: 05/01/20 06:01 Tuberculin PPD (Tuberculin,Purif.Prot.Deriv. 50 Tu/Ml Vial) 5 tu ID X1 ONE Stop: 04/18/20 10:01 Tuberculin PPD (Tuberculin,Purif.Prot.Deriv. 50 Tu/Ml Vial) 5 tu ID X1 ONE Stop: 04/25/20 10:01 Assessment/Plan All Active Problems (Last Updated 08/10/18 @ 09:51 by Lorene Anthony) Cystitis (Acute) Hypoxia (Acute) Debility (Acute) Sepsis (Acute) CAP (community acquired pneumonia) (Acute) Cellulitis of left lower leg (Acute) Hypoxemia (Acute) 70 year old female with below past medical history hospitalized for left total hip replacement 04/16/[address] Ortiz, admitted to TCU with debility, here for rehabilitation, strengthening, prior to discharge home alone. Debility - PT/OT. Pain - Tylenol 1000MG Q8H, Oxycodone 10MG Q4H PRN pain (4-10). Bowel - Miralax 17GM daily, Senna/colace 2 tablets BID, Dulcolax 10MG ID daily PRN. Adult immunization - Administer Prevnar 13, Pneumovax 23, Fluzone as appropriate. DVT prophylaxis - Not necessary, already on Eliquis. Hypertension - Coreg 25MG BID, Lisinopril 20MG BID, HCTZ 25MG daily, Amlodipine 5MG daily. Atrial Fibrillation - Coreg 25MG BID, Flecainide 100MG BID, Eliquis 5MG BID. Hyperlipidemia - Atorvastatin 10MG QHS. Osteoarthritis - Celebrex 200MG BID. Depression - Duloxetine 60MG daily. Edema - Lasix 20MG daily. Dizziness - Meclizine 25MG 4x/day PRN. Skin irritation - Calmoseptine BID, Eucerin BID PRN. Nutrition - MVI daily. Tinea Corporis - Nystatin powder BID. Overactive bladder - Oxybutynin 5MG BID. GERD - Pantoprazole 40MG daily. Vitamin B deficiency - Vitamin B complex 1 daily.
[2020-04-17] MEDS: Atorvastatin Calcium 10 MG Tablet PO (22:31)
[2020-04-17] MEDS: Acetaminophen 500 MG Tablet 1000 MG PO (22:31)
[2020-04-18 05:50] LABS: Absolute Lymphocyte Count 1.25 X10^3/uL (0.83-4.51); Absolute Neutrophil Count 6.4 X10^3/uL (2.0-7.7); Basophil# 0.02 X10^3/uL; Basophil% 0.2 % (0-1); Eosinophil# 0.57 X10^3/uL; Hematocrit 31.9 % (37-47); Hemoglobin 9.1 g/dL (12.0-15.0); Lymphocyte # 1.25 X10^3/ul (4.0); Lymphocyte % 13.2 % (19-41); Mean Corp Hgb Conc 28.5 g/dL (32-36); Mean Corpuscular Hgb 26.9 pg (27.0-32.0); Mean Corpuscular Volume 94.4 fL (81-99); Mean Platelet Vol. 10.3 fl (6.2-12.0); Monocyte# 1.18 X10^3/uL; Monocyte% 12.4 % (0-10); NRBC Flagged by Analyzer 0 % (0-5); Neutrophil # 6.42 X10^3/uL (2.7-7.7); Neutrophil % 67.7 % (47-70); Platelet Count 275 K/mm3 (150-450); RBC Distribution Width CV 16.6 % (11.6-14.6); RBC Distribution Width SD 56.8 fl (35.1-43.9); Red Blood Count 3.38 M/mm3 (4.2-5.4); White Blood Count 9.5 K/mm3 (4.4-11.0)
[2020-04-18 06:09] LABS: Anion Gap 4 (5-15); BUN 26 mg/dL (7-18); BUN/Creat Ratio 42.2 RATIO (10-20); Calcium,Total 7.9 mg/dL (8.5-10.1); Chloride 106 mmol/L (98-107); Creatinine, Serum 0.62 mg/dL (0.55-1.02); EST Glomerular Filtration Rate 102 mL/min (>60); Est Glom Filt Rate - Afr Amer 124 mL/min (>60); Estimated Creatinine Clearance 57.42 ml/min; Glucose 114 mg/dL (74-106); Potassium 3.9 mmol/L (3.5-5.1); Sodium Level 138 mmol/L (136-145)
[2020-04-18 06:37] VITALS: BP 111/67; PULSE 73; RESP 18; TEMP 36.7; O2SAT 92
[2020-04-18] MEDS: amLODIPine 5 MG Tablet PO (06:39)
[2020-04-18] MEDS: Lisinopril 20 MG Tablet PO ×2 (06:39→18:18)
[2020-04-18] MEDS: Flecainide 100 MG Tablet PO ×2 (06:39→18:18)
[2020-04-18] MEDS: Furosemide 20 MG Tablet PO (06:39)
[2020-04-18] MEDS: hydroCHLOROthiazide 25 MG Tablet PO (06:39)
[2020-04-18] MEDS: Pantoprazole Sodium 40 MG Tablet PO (06:39)
[2020-04-18] MEDS: Celecoxib 200 MG Capsule PO ×2 (06:39→18:16)
[2020-04-18] MEDS: APIXABAN 5 MG TABLET PO ×2 (06:40→18:17)
[2020-04-18] MEDS: Acetaminophen 500 MG Tablet 1000 MG PO ×3 (06:40→20:58)
[2020-04-18] MEDS: Senna/Docusate Sodium 1 Tablet 2 TABLET PO ×2 (06:40→18:15)
[2020-04-18] MEDS: DULoxetine Hcl 60 MG Capsule PO (06:40)
[2020-04-18] MEDS: Polyethylene Glycol 3350 17 GM PACKET PO (06:40)
[2020-04-18] MEDS: Menthol/Lanolin/Calamine/Znox 113 GM Tube 1 APPLIC TOPICAL ×2 (06:41→18:16)
[2020-04-18] MEDS: Nystatin Powder 15gm Bottle 1 APPLIC TOPICAL ×2 (06:42→18:19)
[2020-04-18 06:45] VITALS: O2SAT 90
--- NOTE | 2020-04-18 08:00 | RAD_ITS ---
STUDY: X-RAY CHEST REASON FOR EXAM: Female, 70 years old. HYPOXIA TECHNIQUE: AP and lateral views of the chest. COMPARISON: Comparison is made with prior study dated 06/29/2019. FINDINGS: Stable mild degree of vascular congestion. Blunting of the costophrenic angles posteriorly. There is moderate cardiac enlargement. Normal mediastinum and armida. Normal visualized pulmonary arteries. There is atherosclerotic tortuosity of the aortic arch and descending thoracic aorta. Normal visualized thoracic spine. Normal visualized ribs, clavicles, and shoulders. There is no demonstrated abnormality of the visualized soft tissue structures of the upper abdomen. RAD/Chest PA and Lateral IMPRESSION: Stable vascular congestion and cardiomegaly. Electronically Signed: Vinay Arriaza, at 14:17 EDT , Service support ,
[2020-04-18] MEDS: Vitamin B Comp W-C Capsule 1 CAP PO (09:06)
[2020-04-18] MEDS: Carvedilol 25 MG Tablet PO ×2 (09:06→18:23)
[2020-04-18] MEDS: Oxybutynin 5 MG Tablet PO ×2 (09:07→18:15)
[2020-04-18] MEDS: Multivitamins,Therapeutic Tablet 1 TABLET PO (09:07)
[2020-04-18] MEDS: Iron Polysaccharide Complex 150 MG CAPSULE PO (09:10)
[2020-04-18] MEDS: Tuberculin,Purif.prot.deriv. 50 TU/ML Vial 5 ML ID (09:11)
[2020-04-18 10:00] VITALS: PULSE 86; RESP 16; O2SAT 95
[2020-04-18 14:02] VITALS: BP 117/55; PULSE 78; RESP 18; TEMP 36.2; O2SAT 94
--- NOTE | 2020-04-18 14:33 | NURSING ---
DR. Holbrook updated on chest X-ray Vascular congestion and cardiomegaly. Lasix, Potassium increased, and repeat BMP on Tuesday ordered.
--- NOTE | 2020-04-18 14:37 | NURSING ---
hgb 9.1, dr loco aware, started iron, new order overnigh pulse ox d/t hypoxia.
[2020-04-18] MEDS: Furosemide 40 MG Tablet PO (18:17)
[2020-04-18] MEDS: oxyCODONE 5 MG Tablet PO (18:22)
[2020-04-19] MEDS: Flecainide 100 MG Tablet PO ×2 (07:07→17:23)
[2020-04-19] MEDS: amLODIPine 5 MG Tablet PO (07:07)
[2020-04-19] MEDS: Senna/Docusate Sodium 1 Tablet 2 TABLET PO ×2 (07:07→17:22)
[2020-04-19] MEDS: Lisinopril 20 MG Tablet PO ×2 (07:07→17:22)
[2020-04-19] MEDS: hydroCHLOROthiazide 25 MG Tablet PO (07:07)
[2020-04-19] MEDS: APIXABAN 5 MG TABLET PO ×2 (07:08→17:21)
[2020-04-19] MEDS: Furosemide 40 MG Tablet PO ×2 (07:08→17:21)
[2020-04-19] MEDS: Pantoprazole Sodium 40 MG Tablet PO (07:08)
[2020-04-19] MEDS: DULoxetine Hcl 60 MG Capsule PO (07:09)
[2020-04-19] MEDS: Acetaminophen 500 MG Tablet 1000 MG PO ×3 (07:09→21:23)
[2020-04-19] MEDS: Celecoxib 200 MG Capsule PO ×2 (07:10→17:21)
[2020-04-19] MEDS: Nystatin Powder 15gm Bottle 1 APPLIC TOPICAL ×2 (07:10→17:25)
[2020-04-19] MEDS: Polyethylene Glycol 3350 17 GM PACKET PO (07:11)
[2020-04-19] MEDS: Menthol/Lanolin/Calamine/Znox 113 GM Tube 1 APPLIC TOPICAL ×2 (07:12→17:27)
[2020-04-19] MEDS: Carvedilol 25 MG Tablet PO ×2 (08:09→17:20)
[2020-04-19] MEDS: Oxybutynin 5 MG Tablet PO ×2 (08:09→17:20)
[2020-04-19] MEDS: Multivitamins,Therapeutic Tablet 1 TABLET PO (08:09)
[2020-04-19] MEDS: Vitamin B Comp W-C Capsule 1 CAP PO (08:09)
[2020-04-19] MEDS: Iron Polysaccharide Complex 150 MG CAPSULE PO (08:10)
[2020-04-19 14:07] VITALS: BP 109/55; PULSE 82; RESP 18; TEMP 36.7; O2SAT 92
[2020-04-19] MEDS: oxyCODONE 5 MG Tablet PO (21:22)
[2020-04-20 06:20] LABS: Anion Gap 4 (5-15); BUN 25 mg/dL (7-18); BUN/Creat Ratio 38.6 RATIO (10-20); Calcium,Total 8.3 mg/dL (8.5-10.1); Chloride 101 mmol/L (98-107); Creatinine, Serum 0.65 mg/dL (0.55-1.02); EST Glomerular Filtration Rate 97 mL/min (>60); Est Glom Filt Rate - Afr Amer 117 mL/min (>60); Estimated Creatinine Clearance 57.42 ml/min; Glucose 103 mg/dL (74-106); Sodium Level 140 mmol/L (136-145)
[2020-04-20] MEDS: Polyethylene Glycol 3350 17 GM PACKET PO (06:52)
[2020-04-20] MEDS: Senna/Docusate Sodium 1 Tablet 2 TABLET PO (06:53)
[2020-04-20] MEDS: Lisinopril 20 MG Tablet PO ×2 (06:53→18:05)
[2020-04-20] MEDS: hydroCHLOROthiazide 25 MG Tablet PO (06:53)
[2020-04-20] MEDS: Flecainide 100 MG Tablet PO ×2 (06:53→18:07)
[2020-04-20] MEDS: APIXABAN 5 MG TABLET PO ×2 (06:53→18:05)
[2020-04-20] MEDS: Celecoxib 200 MG Capsule PO ×2 (06:54→18:07)
[2020-04-20] MEDS: DULoxetine Hcl 60 MG Capsule PO (06:54)
[2020-04-20] MEDS: Furosemide 40 MG Tablet PO ×2 (06:54→18:06)
[2020-04-20] MEDS: Nystatin Powder 15gm Bottle 1 APPLIC TOPICAL ×2 (06:54→18:09)
[2020-04-20] MEDS: Pantoprazole Sodium 40 MG Tablet PO (06:54)
[2020-04-20] MEDS: amLODIPine 5 MG Tablet PO (06:54)
[2020-04-20] MEDS: prednisoLONE eye drops (5 mL) 1 DROP OPTH.BTL 1 DRP EACH EYE (06:55)
[2020-04-20] MEDS: Menthol/Lanolin/Calamine/Znox 113 GM Tube 1 APPLIC TOPICAL ×2 (06:56→18:09)
[2020-04-20] MEDS: Acetaminophen 500 MG Tablet 1000 MG PO ×3 (06:56→19:57)
[2020-04-20 06:57] VITALS: BP 155/88; PULSE 83; RESP 18; TEMP 36.6; O2SAT 92
[2020-04-20] MEDS: Vitamin B Comp W-C Capsule 1 CAP PO (07:39)
[2020-04-20] MEDS: Oxybutynin 5 MG Tablet PO ×2 (07:39→18:05)
[2020-04-20] MEDS: Carvedilol 25 MG Tablet PO ×2 (07:39→18:06)
[2020-04-20] MEDS: Iron Polysaccharide Complex 150 MG CAPSULE PO (07:41)
[2020-04-20] MEDS: Multivitamins,Therapeutic Tablet 1 TABLET PO (07:42)
[2020-04-20 09:12] VITALS: PULSE 84; RESP 16; O2SAT 90
[2020-04-20 14:17] VITALS: BP 123/65; PULSE 64; RESP 20; TEMP 36.1; O2SAT 92
[2020-04-20] MEDS: oxyCODONE 5 MG Tablet PO (19:59)
[2020-04-21 02:00] VITALS: BP 139/70; PULSE 88; RESP 18; TEMP 36.6; O2SAT 92
[2020-04-21] MEDS: Lisinopril 20 MG Tablet PO ×2 (06:23→17:06)
[2020-04-21] MEDS: Flecainide 100 MG Tablet PO ×2 (06:23→17:06)
[2020-04-21] MEDS: Acetaminophen 500 MG Tablet 1000 MG PO ×3 (06:23→21:13)
[2020-04-21] MEDS: Celecoxib 200 MG Capsule PO ×2 (06:24→17:05)
[2020-04-21] MEDS: hydroCHLOROthiazide 25 MG Tablet PO (06:24)
[2020-04-21] MEDS: DULoxetine Hcl 60 MG Capsule PO (06:24)
[2020-04-21] MEDS: amLODIPine 5 MG Tablet PO (06:24)
[2020-04-21] MEDS: Pantoprazole Sodium 40 MG Tablet PO (06:24)
[2020-04-21] MEDS: APIXABAN 5 MG TABLET PO ×2 (06:24→17:05)
[2020-04-21] MEDS: Furosemide 40 MG Tablet PO ×2 (06:25→17:05)
[2020-04-21] MEDS: Menthol/Lanolin/Calamine/Znox 113 GM Tube 1 APPLIC TOPICAL ×2 (06:27→17:11)
[2020-04-21] MEDS: Nystatin Powder 15gm Bottle 1 APPLIC TOPICAL ×2 (06:28→17:11)
[2020-04-21] MEDS: prednisoLONE eye drops (5 mL) 1 DROP OPTH.BTL 1 DRP EACH EYE (06:28)
[2020-04-21 06:48] VITALS: O2SAT 91
[2020-04-21] MEDS: Vitamin B Comp W-C Capsule 1 CAP PO (08:19)
[2020-04-21] MEDS: Iron Polysaccharide Complex 150 MG CAPSULE PO (08:19)
[2020-04-21] MEDS: Oxybutynin 5 MG Tablet PO ×2 (08:19→17:05)
[2020-04-21] MEDS: Carvedilol 25 MG Tablet PO ×2 (08:19→17:04)
[2020-04-21] MEDS: Multivitamins,Therapeutic Tablet 1 TABLET PO (08:19)
[2020-04-21 08:22] VITALS: BP 113/65; PULSE 85; O2SAT 93
[2020-04-21] MEDS: oxyCODONE 5 MG Tablet PO ×2 (11:45→20:04)
[2020-04-21 13:45] VITALS: BP 110/70; PULSE 97; RESP 22; TEMP 36.4; O2SAT 91
--- NOTE | 2020-04-21 14:35 | PHA.CONS_ITS ---
<Velvet Grider - Last Filed: 04/21/20 14:35> Progress Note - Pharmacy Subjective: TCU Admission Objective: Allergies atorvastatin [From Lipitor] Adverse Reaction (Verified 06/27/19 17:35) Pain in joints nifedipine [From Procardia] Adverse Reaction (Verified 03/06/19 11:28) Pain in joints tramadol Adverse Reaction (Verified 04/17/20 19:52) Upset Stomach Current Medications Generic Name Dose Route Start Last Admin Trade Name Freq PRN Reason Stop Dose Admin Acetaminophen 1,000 mg 04/17/20 22:00 04/21/20 13:32 Acetaminophen 500 Mg Tablet PO 1,000 mg Q8 [facility] Administration Amlodipine Besylate 5 mg 04/18/20 06:00 04/21/20 06:24 Amlodipine 5 Mg Tablet PO 5 mg DAILY [facility] Administration Apixaban 5 mg 04/17/20 18:00 04/21/20 06:24 Apixaban 5 Mg Tablet PO 5 mg BID [facility] Administration Bisacodyl 10 mg 04/17/20 20:18 Bisacodyl 10 Mg Suppository RECTAL DAILY PRN Constipation Calamine/Phenol 1 applic 04/17/20 18:00 04/21/20 06:27 Menthol/Lanolin/Calamine/Znox 113 Gm Tube TOPICAL 1 applicatio BID [facility] Administration Protocol Carvedilol 25 mg 04/17/20 17:00 04/21/20 08:19 Carvedilol 25 Mg Tablet PO 25 mg BIDCM [facility] Administration Celecoxib 200 mg 04/17/20 18:00 04/21/20 06:24 Celecoxib 200 Mg Capsule PO 200 mg BID [facility] Administration Duloxetine HCl 60 mg 04/18/20 06:00 04/21/20 06:24 Duloxetine Hcl 60 Mg Capsule PO 60 mg DAILY [facility] Administration Flecainide Acetate 100 mg 04/17/20 18:00 04/21/20 06:23 Flecainide 100 Mg Tablet PO 100 mg BID [facility] Administration Furosemide 40 mg 04/18/20 18:00 04/21/20 06:25 Furosemide 40 Mg Tablet PO 40 mg BID [facility] Administration Hydrochlorothiazide 25 mg 04/18/20 06:00 04/21/20 06:24 Hydrochlorothiazide 25 Mg Tablet PO 25 mg DAILY [facility] Administration Lisinopril 20 mg 04/17/20 18:00 10/19/20 06:23 Lisinopril 20 Mg Tablet PO 20 mg BID [facility] Administration Meclizine HCl 25 mg 04/17/20 16:09 Meclizine Hcl 25 Mg Tablet PO 4X/DAY PRN PRN DIZZINESS Multi-Ingredient Cream 1 applic 04/17/20 16:18 Mineral Oil/Petrolatum,White Jar TOPICAL BID PRN PRN Dry skin Protocol Multivitamins 1 tablet 04/18/20 08:00 04/21/20 08:19 Multivitamins,Therapeutic Tablet PO 1 tablet DAILYCM [facility] Administration Multivitamins 1 capsule 04/18/20 08:00 04/21/20 08:19 Vitamin B Comp [facility] Nystatin 1 applic 04/17/20 18:00 04/21/20 06:28 Nystatin Powder 15gm Bottle TOPICAL 1 applicatio BID [facility] Administration Protocol Oxybutynin Chloride 5 mg 04/17/20 17:00 04/21/20 08:19 [facility] Administration Oxycodone HCl 5 mg 04/17/20 20:17 04/21/20 11:45 Oxycodone 5 Mg Tablet PO 5 mg Q4H PRN PRN Administration Pain Score 4-10 Pantoprazole Sodium 40 mg 04/18/20 06:00 04/21/20 06:24 Pantoprazole Sodium 40 Mg Tablet PO 40 mg DAILY [facility] Administration Polyethylene Glycol 17 gm 04/18/20 06:00 04/21/20 06:24 Polyethylene Glycol 3350 17 Gm Packet PO Not Given DAILY [facility] Polysaccharide Iron Complex 150 mg 04/18/20 08:00 04/21/20 08:19 Iron Polysaccharide Complex 150 Mg [facility]apsule [facility] Administration Potassium Chloride 20 meq 04/18/20 17:00 04/21/20 08:19 Potassium Chloride 20 Meq [facility] Administration Prednisolone Acetate 1 drop 04/20/20 06:00 04/21/20 06:28 Prednisolone Eye Drops (5 Ml) 1 Drop Opth.Btl EACH EYE 1 drop DAILY [facility] Administration Senna/Docusate Sodium 2 tablet 04/18/20 06:00 04/21/20 06:26 Senna/Docusate Sodium 1 Tablet PO Not Given BID [facility] Tuberculin PPD 5 tu 04/25/20 10:00 Tuberculin,Purif.Prot.Deriv. 50 Tu/Ml Vial ID 04/25/20 10:01 X1 ONE Problem List (Last Updated 08/10/18 @ 09:51 by Lorene Anthony) Debility (Acute) Osteoarthritis of left hip (Chronic) Hypertension (Chronic) Atrial fibrillation (Chronic) GERD (gastroesophageal reflux disease) (Chronic) Overactive bladder (Chronic) Osteoarthritis (Chronic) Depression (Chronic) Vital Signs Temp Pulse Resp BP Pulse Ox 97.5 F L 97 22 H 110/70 91 04/21/20 13:45 04/21/20 13:45 04/21/20 13:45 04/21/20 13:45 04/21/20 13:45 Oxygen Flow Rate (L/min) 3 Oxygen Delivery Method Nasal Cannula Weight: 129.727 kg Body Mass Index (BMI) 41.0 Sodium 140 mmol/L (136-145) 04/20/20 05:54 Potassium 4.0 mmol/L (3.5-5.1) 04/20/20 05:54 Chloride 101 mmol/L (98-107) 04/20/20 05:54 Carbon Dioxide 35.0 mmol/L (21.0-32.0) H 04/20/20 05:54 Anion Gap 4 (5-15) L 04/20/20 05:54 BUN 25 mg/dL (7-18) H 04/20/20 05:54 Creatinine 0.65 mg/dL (0.55-1.02) 04/20/20 05:54 Est GFR (MDRD) Af Amer 117 mL/min (>60) 04/20/20 05:54 Est GFR (MDRD) Non-Af 97 mL/min (>60) 04/20/20 05:54 BUN/Creatinine Ratio 38.6 RATIO (10-20) H 04/20/20 05:54 Glucose 103 mg/dL (74-106) 04/20/20 05:54 Assessment/Plan: 1. Pain: acetaminophen 1000mg PO Q8H, oxycodone 5mg PO Q4H PRN pain score 4- 10/10. Please continue to monitor for S/S of pain and PRN usage. 2. Hypertension/Atrial Fibrillation: amlodipine 5mg PO daily, apixaban 5mg PO BID, carvedilol 25mg PO bid , flecainide 100mg PO BID, hydrochlorothiazide 25mg PO daily, lisinopril 20mg PO BID. Please continue to monitor BP daily (last 113/65), swelling, S/S of bleeding, hemoglobin (last 9.1g/dL), heart rate (last 97), renal function, ECG, electrolytes and dry cough. *3. Osteoarthritis: celecoxib 200mg PO BID. Please consider D/C since there is an interaction with Eliquis. Thanks. Please continue to monitor kidney function and S/S of arthritis/bleeding. 4. Edema: furosemide 40mg PO BID and potassium chloride 20meq PO BID. Please continue to monitor for weight loss/gain, swelling, and potassium levels (last 4mmol/L). 5. Dizziness: meclizine 25mg PO QID PRN dizziness. Please continue to monitor for improvement/worsening of dizziness and PRN use. 6. Overactive bladder: oxybutynin 5mg PO BID. Please continue to monitor for overactive bladder and anticholinergic side effects. 7. GERD: pantoprazole 40mg PO daily. Please continue to monitor for S/S of GERD. 8. Iron Deficiency: Ferrex 150mg 1 capsule PO daily. Please continue to monitor H/H (Latest value:04/18/20 Hgb - 9.1 g/dL Hct -31.9% ) and for dark stools. *9. Overall Health: Multivitamin 1T PO daily and Vitamin B Complex 1 capsule PO daily. Please continue to monitor. Patient does not have a vitamin B level in chart. Please consider ordering one now and then annually as clinically appropriate. Thanks. Psychotropic Medications: 1. Depression: duloxetine 60mg PO daily. Please monitor for improvement/worsening of depression. Please consider GDR by October 2020. *Unnecessary Medications: Please provide indication for Prednisolone eye drops 1 drop in each eye daily. Thanks. Bowel Regimen: Miralax 17gm PO daily, senna/docusate 2T PO BID, and bisacodyl 10mg OR daily PRN constipation. Please continue to monitor for S/S of constipation/diarrhea and PRN usage. Date of Note:: 04/21/20 - Provider Comments Provider responsibility: Provider responsible to enter orders to implement recommendations <Elio Holbrook Chi - Last Filed: 04/21/20 16:46> Progress Note - Pharmacy Subjective: [] Objective: Allergies atorvastatin [From Lipitor] Adverse Reaction (Verified 06/27/19 17:35) Pain in joints nifedipine [From Procardia] Adverse Reaction (Verified 03/06/19 11:28) Pain in joints tramadol Adverse Reaction (Verified 04/17/20 19:52) Upset Stomach Current Medications Generic Name Dose Route Start Last Admin Trade Name Freq PRN Reason Stop Dose Admin Acetaminophen 1,000 mg 04/17/20 22:00 04/21/20 13:32 Acetaminophen 500 Mg Tablet PO 1,000 mg Q8 [facility] Administration Amlodipine Besylate 5 mg 04/18/20 06:00 04/21/20 06:24 Amlodipine 5 Mg Tablet PO 5 mg DAILY [facility] Administration Apixaban 5 mg 04/17/20 18:00 04/21/20 06:24 Apixaban 5 Mg Tablet PO 5 mg BID [facility] Administration Bisacodyl 10 mg 04/17/20 20:18 Bisacodyl 10 Mg Suppository RECTAL DAILY PRN Constipation Calamine/Phenol 1 applic 04/17/20 18:00 04/21/20 06:27 Menthol/Lanolin/Calamine/Znox 113 Gm Tube TOPICAL 1 applicatio BID [facility] Administration Protocol Carvedilol 25 mg 04/17/20 17:00 04/21/20 08:19 Carvedilol 25 Mg Tablet PO 25 mg BIDCM [facility] Administration Celecoxib 200 mg 04/17/20 18:00 04/21/20 06:24 Celecoxib 200 Mg Capsule PO 200 mg BID [facility] Administration Duloxetine HCl 60 mg 04/18/20 06:00 04/21/20 06:24 Duloxetine Hcl 60 Mg Capsule PO 60 mg DAILY [facility] Administration Flecainide Acetate 100 mg 04/17/20 18:00 04/21/20 06:23 Flecainide 100 Mg Tablet PO 100 mg BID [facility] Administration Furosemide 40 mg 04/18/20 18:00 04/21/20 06:25 Furosemide 40 Mg Tablet PO 40 mg BID [facility] Administration Hydrochlorothiazide 25 mg 04/18/20 06:00 04/21/20 06:24 Hydrochlorothiazide 25 Mg Tablet PO 25 mg DAILY [facility] Administration Lisinopril 20 mg 04/17/20 18:00 04/21/20 06:23 Lisinopril 20 Mg Tablet PO 20 mg BID [facility] Administration Meclizine HCl 25 mg 04/17/20 16:09 Meclizine Hcl 25 Mg Tablet PO 4X/DAY PRN PRN DIZZINESS Multi-Ingredient Cream 1 applic 04/17/20 16:18 Mineral Oil/Petrolatum,White Jar TOPICAL BID PRN PRN Dry skin Protocol Multivitamins 1 tablet 04/18/20 08:00 04/21/20 08:19 Multivitamins,Therapeutic Tablet PO 1 tablet DAILYCM [facility] Administration Multivitamins 1 capsule 04/18/20 08:00 04/21/20 08:19 Vitamin B Comp W-C Capsule PO 1 capsule DAILYCM [facility] Administration Nystatin 1 applic 04/17/20 18:00 04/21/20 06:28 Nystatin Powder 15gm Bottle TOPICAL 1 applicatio BID [facility] Administration Protocol Oxybutynin Chloride 5 mg 04/17/20 17:00 04/21/20 08:19 Oxybutynin 5 Mg Tablet PO 5 mg BIDCM [facility] Administration Oxycodone HCl 5 mg 04/17/20 20:17 04/21/20 11:45 Oxycodone 5 Mg Tablet PO 5 mg Q4H PRN PRN Administration Pain Score 4-10 Pantoprazole Sodium 40 mg 04/18/20 06:00 04/21/20 06:24 Pantoprazole Sodium 40 Mg Tablet PO 40 mg DAILY [facility] Administration Polyethylene Glycol 17 gm 04/18/20 06:00 04/21/20 06:24 Polyethylene Glycol 3350 17 Gm Packet PO Not Given DAILY [facility] Polysaccharide Iron Complex 150 mg 04/18/20 08:00 04/21/20 08:19 Iron Polysaccharide Complex 150 Mg Capsule PO 150 mg DAILY [facility] Administration Potassium Chloride 20 meq 04/18/20 17:00 04/21/20 08:19 Potassium Chloride 20 Meq Tablet PO 20 meq BIDCM [facility] Administration Prednisolone Acetate 1 drop 04/20/20 06:00 04/21/20 06:28 Prednisolone Eye Drops (5 Ml) 1 Drop Opth.Btl EACH EYE 1 drop DAILY [facility] Administration Senna/Docusate Sodium 2 tablet 04/18/20 06:00 04/21/20 06:26 Senna/Docusate Sodium 1 Tablet PO Not Given BID [facility] Tuberculin PPD 5 tu 04/25/20 10:00 Tuberculin,Purif.Prot.Deriv. 50 Tu/Ml Vial ID 04/25/20 10:01 X1 ONE Problem List (Last Updated 02/07/19 @ 09:51 by Lorene Anthony) Debility (Acute) Osteoarthritis of left hip (Chronic) Hypertension (Chronic) Atrial fibrillation (Chronic) GERD (gastroesophageal reflux disease) (Chronic) Overactive bladder (Chronic) Osteoarthritis (Chronic) Depression (Chronic) Vital Signs Temp Pulse Resp BP Pulse Ox 97.5 F L 97 22 H 110/70 91 04/21/20 13:45 04/21/20 13:45 04/21/20 13:45 04/21/20 13:45 04/21/20 13:45 Oxygen Flow Rate (L/min) 3 Oxygen Delivery Method Nasal Cannula Weight: 129.727 kg Body Mass Index (BMI) 41.0 Sodium 140 mmol/L (136-145) 04/20/20 05:54 Potassium 4.0 mmol/L (3.5-5.1) 04/20/20 05:54 Chloride 101 mmol/L (98-107) 04/20/20 05:54 Carbon Dioxide 35.0 mmol/L (21.0-32.0) H 04/20/20 05:54 Anion Gap 4 (5-15) L 04/20/20 05:54 BUN 25 mg/dL (7-18) H 04/20/20 05:54 Creatinine 0.65 mg/dL (0.55-1.02) 04/20/20 05:54 Est GFR (MDRD) Af Amer 117 mL/min (>60) 04/20/20 05:54 Est GFR (MDRD) Non-Af 97 mL/min (>60) 04/20/20 05:54 BUN/Creatinine Ratio 38.6 RATIO (10-20) H 04/20/20 05:54 Glucose 103 mg/dL (74-106) 04/20/20 05:54 Assessment/Plan: Psychotropic Medications: Unnecessary Medications: Bowel Regimen: - Provider Comments Provider responsibility: Provider responsible to enter orders to implement recommendations Provider Comments to Recommendations by Pharmacy: Agree
--- NOTE | 2020-04-21 15:59 | CASEMGMT ---
Social Work Discussed code status with pt. Pt confirmed full code. MOLST form reviewed with pt and placed in chart. Marisela Hill MSW INTERNAL COMBUSTION ENGINEER
[2020-04-21] MEDS: Senna/Docusate Sodium 1 Tablet 2 TABLET PO (17:05)
[2020-04-21 19:43] VITALS: PULSE 91; RESP 18; O2SAT 94
[2020-04-22] MEDS: amLODIPine 5 MG Tablet PO (06:04)
[2020-04-22] MEDS: prednisoLONE eye drops (5 mL) 1 DROP OPTH.BTL 1 DRP EACH EYE (06:04)
[2020-04-22] MEDS: Pantoprazole Sodium 40 MG Tablet PO (06:04)
[2020-04-22] MEDS: Lisinopril 20 MG Tablet PO ×2 (06:04→17:32)
[2020-04-22] MEDS: Flecainide 100 MG Tablet PO ×2 (06:04→17:33)
[2020-04-22] MEDS: Celecoxib 200 MG Capsule PO ×2 (06:04→17:31)
[2020-04-22] MEDS: Furosemide 40 MG Tablet PO ×2 (06:04→17:31)
[2020-04-22] MEDS: DULoxetine Hcl 60 MG Capsule PO (06:04)
[2020-04-22] MEDS: oxyCODONE 5 MG Tablet PO ×2 (06:05→19:50)
[2020-04-22] MEDS: APIXABAN 5 MG TABLET PO ×2 (06:05→17:30)
[2020-04-22] MEDS: hydroCHLOROthiazide 25 MG Tablet PO (06:06)
[2020-04-22] MEDS: Nystatin Powder 15gm Bottle 1 APPLIC TOPICAL ×2 (06:07→17:31)
[2020-04-22] MEDS: Menthol/Lanolin/Calamine/Znox 113 GM Tube 1 APPLIC TOPICAL ×2 (06:07→17:27)
[2020-04-22] MEDS: Acetaminophen 500 MG Tablet 1000 MG PO ×3 (06:07→19:48)
[2020-04-22 06:09] VITALS: BP 145/72; PULSE 80; RESP 16; TEMP 36.9; O2SAT 95
[2020-04-22] MEDS: Vitamin B Comp W-C Capsule 1 CAP PO (08:14)
[2020-04-22] MEDS: Multivitamins,Therapeutic Tablet 1 TABLET PO (08:14)
[2020-04-22] MEDS: Carvedilol 25 MG Tablet PO ×2 (08:14→17:31)
[2020-04-22] MEDS: Iron Polysaccharide Complex 150 MG CAPSULE PO (08:14)
[2020-04-22] MEDS: Oxybutynin 5 MG Tablet PO ×2 (08:14→17:31)
[2020-04-22 08:17] VITALS: BP 127/76; PULSE 102; O2SAT 91
[2020-04-22 08:20] VITALS: O2SAT 92
[2020-04-22 10:15] VITALS: PULSE 96; RESP 18; O2SAT 93
[2020-04-22 13:31] VITALS: BP 114/72; PULSE 84; RESP 16; TEMP 36.6; O2SAT 95
[2020-04-22] MEDS: Senna/Docusate Sodium 1 Tablet 2 TABLET PO (17:32)
--- NOTE | 2020-04-22 19:24 | CON.PCM_ITS ---
Problem List (1) Tinea unguium Status: Acute (2) Peripheral neuropathy Status: Chronic Reason for Consult Date of Consultation: 04/22/20 Reason for Consultation: elongated toenails History of Present Illness: The patient is a 70 year old F who presents to TCU for recovery after left hip surgery. Patient is a patient of Dr Seaman and states she missed her routine foot care appointment due to the surgery. Podiatry was consulted for help in managing her nails. Patient states she has neuropathy with paresthesia and burning and some swelling with slight increase after the surgery. Patient denies any N/F/V/C/CP/SOB/calf pain. Patient asks for help with her nails today as they are getting too long in her shoes.[] Past Medical History Past Medical History (Chronic Problems): Chronic Problems (Last Updated 08/10/18 @ 09:51 by Lorene Anthony) Bronchiectasis (Chronic) Stasis dermatitis of both legs (Chronic) Osteoarthritis of left hip (Chronic) Hypertension (Chronic) Atrial fibrillation (Chronic) GERD (gastroesophageal reflux disease) (Chronic) Overactive bladder (Chronic) Peripheral neuropathy (Chronic) Osteoarthritis (Chronic) Chronic anticoagulation (Chronic) PAF (paroxysmal atrial fibrillation) (Chronic) Chronic ulcer of left foot with fat layer exposed (Chronic) Hyperlipemia (Chronic) Obesity (Chronic) Depression (Chronic) Benign essential hypertension (Chronic) Medical History: Medical History (Last Updated 08/10/18 @ 09:51 by Lorene Anthony) Chronic anticoagulation (Chronic) Z79.01 PAF (paroxysmal atrial fibrillation) (Chronic) I48.0 Hyperlipemia (Chronic) E78.5 Benign essential hypertension (Chronic) I10 Cardiomyopathy I42.9 History of depression Z86.59 History of shingles Z86.19 Allergies atorvastatin [From Lipitor] Adverse Reaction (Verified 06/27/19 17:35) Pain in joints nifedipine [From Procardia] Adverse Reaction (Verified 03/06/19 11:28) Pain in joints tramadol Adverse Reaction (Verified 04/17/20 19:52) Upset Stomach Home Medications: Ambulatory Orders Medication Instructions Recorded Amlodipine [Norvasc] 5 mg PO DAILY 04/09/13 Duloxetine HCl 60 mg PO DAILY 01/18/18 lisinopril 20 mg tablet 20 mg PO BID tab 08/10/18 prednisolone acetate 1 % eye 1 drop OPHTHALMIC 4X/DAY 30 Days 08/10/18 drops,suspension #10 ml carvedilol 25 mg tablet 25 mg PO BID #180 tab 02/16/19 oxybutynin chloride 5 mg tablet 5 mg PO BID 03/06/19 apixaban 5 mg tablet 5 mg PO BID #180 tab 05/09/19 Acetaminophen [Tylenol Tablet] 650 mg PO Q6H PRN PRN tab 06/30/19 Cefdinir [Omnicef [equiv]] 300 mg PO Q12 #10 cap 06/30/19 Potassium Chloride 20 meq PO DAILY #1 tablet.er 06/30/19 Senna/Docusate Sodium [Senokot-S] 2 tab PO BID PRN PRN tab 06/30/19 flecainide 100 mg tablet 100 mg PO BID #180 tab 03/31/20 Furosemide [Lasix] 20 mg PO DAILY 04/17/20 Omeprazole 40 mg PO DAILY 04/17/20 Surgical History: Surgical History (Last Updated 08/10/18 @ 13:49 by Lorene Anthony) History of arthroscopic knee surgery Z98.890 bilateral History of cardioversion Onset Date: 07/05/12 Z98.890 History of cornea transplant Onset Date: 04/05/18 Z94.7 History of foot surgery Z98.890 left History of hysterectomy Z90.710 History of nasal cauterization Z98.890 History of sinus surgery Z98.890 History of tonsillectomy Z90.89 Surgical History: appendectomy, hysterectomy, - - Bilateral arthroscopic knee surgeries, cardioversion, corneal transplant, Left foot surgery, Nasal cauterization, sinus surgery. 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 pertinent DOCUMENT PROCESSOR history Lives: Alone Smoking Status: Never smoker Tobacco Use: Non-smoker Alcohol: None Drugs: None - *Family History Paternal Family History: Family History (Last Reviewed 08/10/18 @ 13:50 by Lorene Anthony) Father Ruptured aortic aneurysm Mother Heart disease Brother Atrial fibrillation History Items: No pertinent history Maternal Family History: Family History (Last Reviewed 08/10/18 @ 13:50 by Lorene Anthony) Father Ruptured aortic aneurysm Mother Heart disease Brother Atrial fibrillation History Items: No pertinent history Review of Systems Constitutional: Denies: Chills, Fever Cardiovascular: Reports: Edema. Denies: Chest Pain Respiratory: Denies: Shortness of Breath Gastrointestinal: Denies: Nausea, Vomiting Skin: Reports: Wounds - Hx left foot ulcer, now healed Neurological: Reports: Numbness, Tingling - burning Patient Problems: Active and Suspected Problems (Last Updated 08/10/18 @ 09:51 by Lorene Anthony) Debility (Acute) Tinea unguium (Acute) - Physical Exam Vitals/I&O's: Vital Signs Temp Pulse Resp BP Pulse Ox 97.8 F 84 16 114/72 95 04/22/20 13:31 04/22/20 13:31 04/22/20 13:31 04/22/20 13:31 04/22/20 13:31 Oxygen Flow Rate (L/min) 4 Oxygen Delivery Method Nasal Cannula Weight: 129.727 kg Body Mass Index (BMI) 41.0 Intake and Output for Last 24 Hours 04/20/20 04/21/20 04/22/20 23:59 23:59 23:59 Intake Total 1080 / 1080 600 / 600 660 / 660 Balance 1080 / 1080 600 / 600 660 / 660 General: Alert, Oriented x3 HEENT: Atraumatic Extremities: No clubbing, No cyanosis, Diminished Peripheral Pulses - 2/4 DP bilateral, 1/4 left PT, nonpalable right PT, Edema - mild left lower extremity, Peripheral Pulses Normal, Tenderness - nails 1,2,3,4,5 bilateral pain to palpation, thickened, elongated, dystrophic, yellow, discolored, crumbly Skin: - - callus left plantar 1st MPJ at site of previous ulceration, no current ulceration Musculoskeletal: - - painful hallux nails Neurological: - - absent protective sensation Psych/Mental Status: Normal Affect, Appropriate Current Medications Acetaminophen (Acetaminophen 500 Mg Tablet) 1,000 mg PO Q8 [facility] Last Admin: 04/22/20 13:01 Dose: 1,000 mg Documented by: Amlodipine Besylate (Amlodipine 5 Mg Tablet) 5 mg PO DAILY [facility] Last Admin: 04/22/20 06:04 Dose: 5 mg Documented by: Apixaban (Apixaban 5 Mg Tablet) 5 mg PO BID [facility] Last Admin: 04/22/20 17:30 Dose: 5 mg Documented by: Bisacodyl (Bisacodyl 10 Mg Suppository) 10 mg RECTAL DAILY PRN PRN Reason: Constipation Calamine/Phenol (Menthol/Lanolin/Calamine/Znox 113 Gm Tube) 1 applic TOPICAL BID [facility]; Protocol Last Admin: 04/22/20 17:27 Dose: 1 applicatio Documented by: [facility]il[facility] ([facility] 25 Mg Tablet) [facility] Admin: 04/22/20 17:31 Dose: 25 mg Documented by: Celecoxib (Celecoxib 200 Mg Capsule) 200 mg PO BID [facility] Last Admin: 04/22/20 17:31 Dose: 200 mg Documented by: Duloxetine HCl (Duloxetine Hcl 60 Mg Capsule) 60 mg PO DAILY [facility] Last Admin: 04/22/20 06:04 Dose: 60 mg Documented by: Flecainide Acetate (Flecainide 100 Mg Tablet) 100 mg PO BID [facility] Last Admin: 04/22/20 17:33 Dose: 100 mg Documented by: Furosemide (Furosemide 40 Mg Tablet) 40 mg PO BID [facility] Last Admin: 04/22/20 17:31 Dose: 40 mg Documented by: Hydrochlorothiazide (Hydrochlorothiazide 25 Mg Tablet) 25 mg PO DAILY [facility] Last Admin: 04/22/20 06:06 Dose: 25 mg Documented by: Lisinopril (Lisinopril 20 Mg Tablet) 20 mg PO BID [facility] Last Admin: 04/22/20 17:32 Dose: 20 mg Documented by: Meclizine HCl (Meclizine Hcl 25 Mg Tablet) 25 mg PO 4X/DAY PRN PRN PRN Reason: DIZZINESS Multi-Ingredient Cream (Mineral Oil/Petrolatum,White Jar) 1 applic TOPICAL BID [facility]; Protocol Multivitamins (Multivitamins,Therapeutic Tablet) [facility] Last Admin: 04/22/20 08:14 Dose: 1 tablet Documented by: Multivitamins (Vitamin B Comp W-C Capsule) [facility] Last Admin: 04/22/20 08:14 Dose: 1 capsule Documented by: Nystatin (Nystatin Powder 15gm Bottle) 1 applic TOPICAL BID [facility]; Protocol Last Admin: 04/22/20 17:31 Dose: 1 applicatio Documented by: Oxybutynin Chloride (Oxybutynin 5 Mg Tablet) [facility] Last Admin: 04/22/20 17:31 Dose: 5 mg Documented by: Oxycodone HCl (Oxycodone 5 Mg Tablet) 5 mg PO Q4H PRN PRN PRN Reason: Pain Score 4-10 Last Admin: 04/22/20 06:05 Dose: 5 mg Documented by: Pantoprazole Sodium (Pantoprazole Sodium 40 Mg Tablet) 40 mg PO DAILY [facility] Last Admin: 04/22/20 06:04 Dose: 40 mg Documented by: Polyethylene Glycol (Polyethylene Glycol 3350 17 Gm Packet) 17 gm PO DAILY [facility] Last Admin: 04/22/20 06:03 Dose: Not Given Documented by: Polysaccharide Iron Complex (Iron Polysaccharide Complex 150 Mg Capsule) [facility] Last Admin: 04/22/20 08:14 Dose: 150 mg Documented by: Potassium Chloride (Potassium Chloride 20 Meq Tablet) [facility] Last Admin: 04/22/20 17:31 Dose: 20 meq Documented by: Prednisolone Acetate (Prednisolone Eye Drops (5 Ml) 1 Drop Opth.Btl) 1 drop EACH EYE DAILY [facility] Last Admin: 04/22/20 06:04 Dose: 1 drop Documented by: Senna/Docusate Sodium (Senna/Docusate Sodium 1 Tablet) 2 tablet PO BID [facility] Last Admin: 04/22/20 17:32 Dose: 2 tablet Documented by: Tuberculin PPD (Tuberculin,Purif.Prot.Deriv. 50 Tu/Ml Vial) 5 tu ID [id number] ONE Stop: 04/25/20 10:01 Assessment/Plan All Active Problems (Last Updated 08/10/18 @ 09:51 by Lorene Anthony) Cystitis (Acute) Hypoxia (Acute) Debility (Acute) Tinea unguium (Acute) Sepsis (Acute) CAP (community acquired pneumonia) (Acute) Cellulitis of left lower leg (Acute) Hypoxemia (Acute) neuropathy tinea unginum left hip replacement Patient seen and examined. Nails 1,2,3,4,5 bilateral nails were debrided with nail nippers both in length and thickness by angling the nippers without incident. This was necessary due to patient's neuropathy. Patient to follow up in office for continued care in 2-3 months Thank you for the consult Please contact if any questions.
[2020-04-23 05:00] VITALS: BP 140/68; PULSE 95; RESP 18; TEMP 36.5; O2SAT 89
[2020-04-23] MEDS: Acetaminophen 500 MG Tablet 1000 MG PO ×3 (06:33→20:18)
[2020-04-23] MEDS: DULoxetine Hcl 60 MG Capsule PO (06:34)
[2020-04-23] MEDS: Pantoprazole Sodium 40 MG Tablet PO (06:34)
[2020-04-23] MEDS: Lisinopril 20 MG Tablet PO ×2 (06:34→17:29)
[2020-04-23] MEDS: Celecoxib 200 MG Capsule PO ×2 (06:34→17:30)
[2020-04-23] MEDS: amLODIPine 5 MG Tablet PO (06:34)
[2020-04-23] MEDS: Flecainide 100 MG Tablet PO ×2 (06:34→17:29)
[2020-04-23] MEDS: Menthol/Lanolin/Calamine/Znox 113 GM Tube 1 APPLIC TOPICAL ×2 (06:35→17:32)
[2020-04-23] MEDS: hydroCHLOROthiazide 25 MG Tablet PO (06:35)
[2020-04-23] MEDS: Senna/Docusate Sodium 1 Tablet 2 TABLET PO ×2 (06:35→17:31)
[2020-04-23] MEDS: Furosemide 40 MG Tablet PO (06:35)
[2020-04-23] MEDS: APIXABAN 5 MG TABLET PO ×2 (06:35→17:30)
[2020-04-23] MEDS: Nystatin Powder 15gm Bottle 1 APPLIC TOPICAL ×2 (06:36→17:32)
[2020-04-23] MEDS: prednisoLONE eye drops (5 mL) 1 DROP OPTH.BTL 1 DRP EACH EYE (06:37)
[2020-04-23 07:38] VITALS: O2SAT 90
[2020-04-23] MEDS: Vitamin B Comp W-C Capsule 1 CAP PO (08:46)
[2020-04-23] MEDS: Iron Polysaccharide Complex 150 MG CAPSULE PO (08:46)
[2020-04-23] MEDS: Oxybutynin 5 MG Tablet PO ×2 (08:46→17:30)
[2020-04-23] MEDS: Multivitamins,Therapeutic Tablet 1 TABLET PO (08:46)
[2020-04-23] MEDS: Carvedilol 25 MG Tablet PO ×2 (08:46→17:31)
[2020-04-23] MEDS: oxyCODONE 5 MG Tablet PO (08:50)
[2020-04-23 13:36] VITALS: BP 129/72; PULSE 91; RESP 18; TEMP 36.3; O2SAT 95
--- NOTE | 2020-04-23 14:32 | CASEMGMT ---
Social Work IDT met with patient and brother via conference call for care plan meeting. Discussed patient's progress in therapy. Pt is modA x2 for bed mobility and transfers, ambulating 5 ft with FWW Leida x2. Pt is using elevated toilet seat transferring modx2, dependent for clothing/pericare, min-CGA for UE ADLS, maxA for LE ADLs. Pt is on a regular diet, 75-100% intake, weight is stable. pt is out of isolation 05/01. Explained Medicare benefit. The goal is for pt to return home alone successfully. Brother will be coming from [place] to assist pt at home at [place]. Will continue to follow. JESUS HannaW
[2020-04-23] MEDS: Benzonatate 100 MG Capsule PO (20:18)
[2020-04-23 20:24] VITALS: PULSE 88; RESP 18; O2SAT 95
[2020-04-24 05:00] VITALS: BP 152/83; PULSE 88; RESP 18; TEMP 36.8; O2SAT 94
[2020-04-24] MEDS: Menthol/Lanolin/Calamine/Znox 113 GM Tube 1 APPLIC TOPICAL ×2 (06:02→17:28)
[2020-04-24] MEDS: amLODIPine 5 MG Tablet PO (06:03)
[2020-04-24] MEDS: Pantoprazole Sodium 40 MG Tablet PO (06:03)
[2020-04-24] MEDS: Senna/Docusate Sodium 1 Tablet 2 TABLET PO ×2 (06:03→17:29)
[2020-04-24] MEDS: Acetaminophen 500 MG Tablet 1000 MG PO ×3 (06:03→20:15)
[2020-04-24] MEDS: Benzonatate 100 MG Capsule PO ×3 (06:03→20:15)
[2020-04-24] MEDS: DULoxetine Hcl 60 MG Capsule PO (06:04)
[2020-04-24] MEDS: Flecainide 100 MG Tablet PO ×2 (06:04→17:29)
[2020-04-24] MEDS: Celecoxib 200 MG Capsule PO ×2 (06:04→17:29)
[2020-04-24] MEDS: hydroCHLOROthiazide 25 MG Tablet PO (06:04)
[2020-04-24] MEDS: Lisinopril 20 MG Tablet PO ×2 (06:04→17:29)
[2020-04-24] MEDS: Nystatin Powder 15gm Bottle 1 APPLIC TOPICAL ×2 (06:05→17:28)
[2020-04-24] MEDS: Furosemide 20 MG Tablet PO (06:06)
[2020-04-24] MEDS: prednisoLONE eye drops (5 mL) 1 DROP OPTH.BTL 1 DRP EACH EYE (06:09)
[2020-04-24] MEDS: APIXABAN 5 MG TABLET PO ×2 (06:14→17:29)
[2020-04-24 06:30] VITALS: O2SAT 90
[2020-04-24] MEDS: Oxybutynin 5 MG Tablet PO ×2 (09:45→17:29)
[2020-04-24] MEDS: Iron Polysaccharide Complex 150 MG CAPSULE PO (09:45)
[2020-04-24] MEDS: Carvedilol 25 MG Tablet PO ×2 (09:45→17:29)
[2020-04-24] MEDS: Vitamin B Comp W-C Capsule 1 CAP PO (09:46)
[2020-04-24] MEDS: Multivitamins,Therapeutic Tablet 1 TABLET PO (09:46)
[2020-04-24 09:50] VITALS: BP 103/63; PULSE 89
[2020-04-24] MEDS: oxyCODONE 5 MG Tablet PO ×2 (11:46→17:30)
[2020-04-24 13:20] VITALS: BP 117/61; PULSE 92; RESP 17; TEMP 36.6; O2SAT 90
--- NOTE | 2020-04-24 14:00 | NURSING ---
no new updates at this time.
[2020-04-24 14:10] VITALS: PULSE 81; RESP 18
[2020-04-25 05:00] VITALS: BP 146/72; PULSE 85; RESP 18; TEMP 36.9; O2SAT 94
[2020-04-25 05:47] LABS: Absolute Lymphocyte Count 1.48 X10^3/uL (0.83-4.51); Absolute Neutrophil Count 5.6 X10^3/uL (2.0-7.7); Basophil# 0.03 X10^3/uL; Basophil% 0.3 % (0-1); Eosinophil# 0.87 X10^3/uL; Eosinophils% 9.7 % (0-5); Hematocrit 32.8 % (37-47); Hemoglobin 9.4 g/dL (12.0-15.0); Lymphocyte # 1.48 X10^3/ul (4.0); Lymphocyte % 16.5 % (19-41); Mean Corp Hgb Conc 28.7 g/dL (32-36); Mean Corpuscular Hgb 26.6 pg (27.0-32.0); Mean Corpuscular Volume 92.9 fL (81-99); Mean Platelet Vol. 9.3 fl (6.2-12.0); Monocyte# 0.91 X10^3/uL; Monocyte% 10.2 % (0-10); NRBC Flagged by Analyzer 0 % (0-5); Neutrophil # 5.58 X10^3/uL (2.7-7.7); Neutrophil % 62.3 % (47-70); Platelet Count 457 K/mm3 (150-450); RBC Distribution Width CV 17.2 % (11.6-14.6); RBC Distribution Width SD 58.4 fl (35.1-43.9); Red Blood Count 3.53 M/mm3 (4.2-5.4)
[2020-04-25 05:59] LABS: Anion Gap 7 (5-15); BUN 40 mg/dL (7-18); BUN/Creat Ratio 42.6 RATIO (10-20); Calcium,Total 8.6 mg/dL (8.5-10.1); Chloride 101 mmol/L (98-107); Creatinine, Serum 0.94 mg/dL (0.55-1.02); EST Glomerular Filtration Rate 63 mL/min (>60); Est Glom Filt Rate - Afr Amer 76 mL/min (>60); Estimated Creatinine Clearance 61.08 ml/min; Glucose 110 mg/dL (74-106); Potassium 4.2 mmol/L (3.5-5.1); Sodium Level 140 mmol/L (136-145)
[2020-04-25 06:30] VITALS: O2SAT 92
[2020-04-25] MEDS: Menthol/Lanolin/Calamine/Znox 113 GM Tube 1 APPLIC TOPICAL ×2 (06:40→17:19)
[2020-04-25] MEDS: Senna/Docusate Sodium 1 Tablet 2 TABLET PO (06:41)
[2020-04-25] MEDS: Lisinopril 20 MG Tablet PO ×2 (06:41→17:20)
[2020-04-25] MEDS: Benzonatate 100 MG Capsule PO ×3 (06:41→23:39)
[2020-04-25] MEDS: hydroCHLOROthiazide 25 MG Tablet PO (06:41)
[2020-04-25] MEDS: Flecainide 100 MG Tablet PO ×2 (06:42→17:21)
[2020-04-25] MEDS: Nystatin Powder 15gm Bottle 1 APPLIC TOPICAL ×2 (06:42→17:21)
[2020-04-25] MEDS: Acetaminophen 500 MG Tablet 1000 MG PO ×3 (06:42→23:39)
[2020-04-25] MEDS: DULoxetine Hcl 60 MG Capsule PO (06:42)
[2020-04-25] MEDS: Pantoprazole Sodium 40 MG Tablet PO (06:42)
[2020-04-25] MEDS: amLODIPine 5 MG Tablet PO (06:42)
[2020-04-25] MEDS: Furosemide 20 MG Tablet PO (06:42)
[2020-04-25] MEDS: APIXABAN 5 MG TABLET PO (06:42)
[2020-04-25] MEDS: prednisoLONE eye drops (5 mL) 1 DROP OPTH.BTL 1 DRP EACH EYE (06:43)
[2020-04-25] MEDS: Celecoxib 200 MG Capsule PO (06:44)
[2020-04-25] MEDS: Carvedilol 25 MG Tablet PO ×2 (08:00→16:20)
[2020-04-25] MEDS: Vitamin B Comp W-C Capsule 1 CAP PO (08:00)
[2020-04-25] MEDS: Oxybutynin 5 MG Tablet PO ×2 (08:00→16:19)
[2020-04-25] MEDS: Multivitamins,Therapeutic Tablet 1 TABLET PO (08:00)
[2020-04-25] MEDS: Iron Polysaccharide Complex 150 MG CAPSULE PO (08:01)
[2020-04-25] MEDS: Tuberculin,Purif.prot.deriv. 50 TU/ML Vial 5 ML ID (10:23)
[2020-04-25] MEDS: oxyCODONE 5 MG Tablet PO ×2 (12:53→23:39)
--- NOTE | 2020-04-25 14:21 | NURSING ---
Mepilex applied to L hip for drainage last night, at approx 2pm drsg was saturated with a lot of serosanguineous fluid, Dr. Holbrook examined incision and new orders to hold Eliquis until 05/02 and CBC on 04/26
[2020-04-25 14:24] VITALS: BP 124/64; PULSE 84; RESP 16; TEMP 36.8; O2SAT 94
[2020-04-26 05:00] VITALS: BP 134/82; PULSE 83; RESP 18; TEMP 36.6; O2SAT 91
[2020-04-26] MEDS: Lisinopril 20 MG Tablet PO ×2 (06:58→17:55)
[2020-04-26] MEDS: Flecainide 100 MG Tablet PO ×2 (06:58→17:55)
[2020-04-26] MEDS: DULoxetine Hcl 60 MG Capsule PO (06:58)
[2020-04-26] MEDS: Furosemide 20 MG Tablet PO (06:59)
[2020-04-26] MEDS: hydroCHLOROthiazide 25 MG Tablet PO (06:59)
[2020-04-26] MEDS: amLODIPine 5 MG Tablet PO (06:59)
[2020-04-26] MEDS: Benzonatate 100 MG Capsule PO ×3 (06:59→21:21)
[2020-04-26] MEDS: Acetaminophen 500 MG Tablet 1000 MG PO ×3 (06:59→21:21)
[2020-04-26] MEDS: Pantoprazole Sodium 40 MG Tablet PO (06:59)
[2020-04-26] MEDS: Nystatin Powder 15gm Bottle 1 APPLIC TOPICAL ×2 (07:00→17:57)
[2020-04-26] MEDS: prednisoLONE eye drops (5 mL) 1 DROP OPTH.BTL 1 DRP EACH EYE (07:00)
[2020-04-26] MEDS: Menthol/Lanolin/Calamine/Znox 113 GM Tube 1 APPLIC TOPICAL ×2 (07:01→17:57)
[2020-04-26] MEDS: oxyCODONE 5 MG Tablet PO ×2 (07:07→17:54)
[2020-04-26 07:21] VITALS: O2SAT 91
[2020-04-26 08:38] LABS: Absolute Lymphocyte Count 1.76 X10^3/uL (0.83-4.51); Absolute Neutrophil Count 5.6 X10^3/uL (2.0-7.7); Basophil# 0.05 X10^3/uL; Basophil% 0.5 % (0-1); Eosinophil# 1.07 X10^3/uL; Eosinophils% 11.3 % (0-5); Hematocrit 35.4 % (37-47); Hemoglobin 10.1 g/dL (12.0-15.0); Lymphocyte # 1.76 X10^3/ul (4.0); Lymphocyte % 18.6 % (19-41); Mean Corp Hgb Conc 28.5 g/dL (32-36); Mean Corpuscular Hgb 26.1 pg (27.0-32.0); Mean Corpuscular Volume 91.5 fL (81-99); Mean Platelet Vol. 9.2 fl (6.2-12.0); Monocyte% 9.5 % (0-10); NRBC Flagged by Analyzer 0 % (0-5); Neutrophil # 5.58 X10^3/uL (2.7-7.7); Platelet Count 523 K/mm3 (150-450); RBC Distribution Width CV 17.2 % (11.6-14.6); RBC Distribution Width SD 57.5 fl (35.1-43.9); Red Blood Count 3.87 M/mm3 (4.2-5.4); White Blood Count 9.5 K/mm3 (4.4-11.0)
[2020-04-26] MEDS: Oxybutynin 5 MG Tablet PO ×2 (08:53→17:55)
[2020-04-26] MEDS: Carvedilol 25 MG Tablet PO ×2 (08:53→17:55)
[2020-04-26] MEDS: Iron Polysaccharide Complex 150 MG CAPSULE PO (08:53)
[2020-04-26] MEDS: Vitamin B Comp W-C Capsule 1 CAP PO (08:53)
[2020-04-26] MEDS: Multivitamins,Therapeutic Tablet 1 TABLET PO (08:54)
[2020-04-26 10:00] VITALS: PULSE 88; RESP 18
--- NOTE | 2020-04-26 11:51 | NURSING ---
Resident notifed of COVID Outbreak status. Also notified friend, Keyana. Message left for brother, David, to call.
--- NOTE | 2020-04-26 12:02 | NURSING ---
Left a message with brother, David, regarding COVID Outbreak status.
[2020-04-26 14:23] VITALS: BP 125/69; PULSE 95; RESP 18; TEMP 36.6; O2SAT 91
[2020-04-26] MEDS: Senna/Docusate Sodium 1 Tablet 2 TABLET PO (17:55)
[2020-04-27] MEDS: oxyCODONE 5 MG Tablet PO ×3 (01:12→13:04)
[2020-04-27 05:00] VITALS: BP 140/70; PULSE 88; RESP 18; TEMP 36.6; O2SAT 93
[2020-04-27] MEDS: prednisoLONE eye drops (5 mL) 1 DROP OPTH.BTL 1 DRP EACH EYE (05:10)
[2020-04-27] MEDS: Lisinopril 20 MG Tablet PO ×2 (05:12→17:18)
[2020-04-27] MEDS: Furosemide 20 MG Tablet PO (05:12)
[2020-04-27] MEDS: Acetaminophen 500 MG Tablet 1000 MG PO ×3 (05:12→21:29)
[2020-04-27] MEDS: Pantoprazole Sodium 40 MG Tablet PO (05:12)
[2020-04-27] MEDS: hydroCHLOROthiazide 25 MG Tablet PO (05:12)
[2020-04-27] MEDS: Senna/Docusate Sodium 1 Tablet 2 TABLET PO ×2 (05:12→17:18)
[2020-04-27] MEDS: DULoxetine Hcl 60 MG Capsule PO (05:12)
[2020-04-27] MEDS: amLODIPine 5 MG Tablet PO (05:12)
[2020-04-27] MEDS: Benzonatate 100 MG Capsule PO ×3 (05:12→21:29)
[2020-04-27] MEDS: Flecainide 100 MG Tablet PO ×2 (05:12→17:18)
[2020-04-27] MEDS: Menthol/Lanolin/Calamine/Znox 113 GM Tube 1 APPLIC TOPICAL ×2 (05:14→17:20)
[2020-04-27] MEDS: Nystatin Powder 15gm Bottle 1 APPLIC TOPICAL ×2 (05:15→17:20)
[2020-04-27] MEDS: Vitamin B Comp W-C Capsule 1 CAP PO (07:57)
[2020-04-27] MEDS: Carvedilol 25 MG Tablet PO ×2 (07:57→17:18)
[2020-04-27] MEDS: Oxybutynin 5 MG Tablet PO ×2 (07:57→17:18)
[2020-04-27] MEDS: Iron Polysaccharide Complex 150 MG CAPSULE PO (07:57)
[2020-04-27] MEDS: Multivitamins,Therapeutic Tablet 1 TABLET PO (07:57)
[2020-04-27 13:26] VITALS: BP 122/72; PULSE 82; RESP 18; TEMP 36.3; O2SAT 90
--- NOTE | 2020-04-27 13:33 | NURSING ---
DSG to left hip changed, cleansed with NS and new DSD applied. Pt had moderate amount of serosanguineous drainage to old Dsg.
[2020-04-27 19:42] VITALS: PULSE 84; RESP 18; O2SAT 94
[2020-04-28] MEDS: Pantoprazole Sodium 40 MG Tablet PO (05:59)
[2020-04-28] MEDS: Furosemide 20 MG Tablet PO (05:59)
[2020-04-28] MEDS: hydroCHLOROthiazide 25 MG Tablet PO (05:59)
[2020-04-28] MEDS: Lisinopril 20 MG Tablet PO ×2 (05:59→17:36)
[2020-04-28] MEDS: amLODIPine 5 MG Tablet PO (05:59)
[2020-04-28] MEDS: prednisoLONE eye drops (5 mL) 1 DROP OPTH.BTL 1 DRP EACH EYE (05:59)
[2020-04-28] MEDS: Benzonatate 100 MG Capsule PO ×3 (05:59→20:29)
[2020-04-28] MEDS: Flecainide 100 MG Tablet PO ×2 (05:59→17:36)
[2020-04-28] MEDS: Acetaminophen 500 MG Tablet 1000 MG PO ×3 (05:59→20:29)
[2020-04-28] MEDS: DULoxetine Hcl 60 MG Capsule PO (05:59)
[2020-04-28] MEDS: Senna/Docusate Sodium 1 Tablet 2 TABLET PO ×2 (06:00→17:35)
[2020-04-28] MEDS: Nystatin Powder 15gm Bottle 1 APPLIC TOPICAL ×2 (06:02→18:56)
[2020-04-28] MEDS: Menthol/Lanolin/Calamine/Znox 113 GM Tube 1 APPLIC TOPICAL ×2 (06:02→17:44)
[2020-04-28 06:04] VITALS: BP 121/55; PULSE 84; RESP 18; TEMP 36.6; O2SAT 93
[2020-04-28] MEDS: Iron Polysaccharide Complex 150 MG CAPSULE PO (08:05)
[2020-04-28] MEDS: Carvedilol 25 MG Tablet PO ×2 (08:05→17:35)
[2020-04-28] MEDS: Vitamin B Comp W-C Capsule 1 CAP PO (08:05)
[2020-04-28] MEDS: Multivitamins,Therapeutic Tablet 1 TABLET PO (08:05)
[2020-04-28] MEDS: Oxybutynin 5 MG Tablet PO ×2 (08:05→17:35)
[2020-04-28 11:00] VITALS: PULSE 91; RESP 18; O2SAT 98
[2020-04-28 11:01] VITALS: O2SAT 97
[2020-04-28 14:06] VITALS: BP 136/66; PULSE 93; RESP 20; TEMP 36.5; O2SAT 91
--- NOTE | 2020-04-28 14:32 | NURSING ---
PT STATED SHE FELT NAUSEATED AND WEAK TODAY. RN AWARE.
--- NOTE | 2020-04-28 17:04 | NURSING ---
Left a message for brother, David, to call.
--- NOTE | 2020-04-28 17:10 | NURSING ---
BrotherDavid, notified of negative COVID results.
[2020-04-28] MEDS: oxyCODONE 5 MG Tablet PO ×2 (17:42→21:53)
--- NOTE | 2020-04-28 18:31 | NURSING ---
Addendum entered by Linette Lundy 04/28/20 18:39: pt also c/o burning with urination. Original Note: pt with increased incontinence, history of UTIs per pt. requesting urine be checked. pt using purewick d/t incontinence. dr beronica conklin, new order for UA
--- NOTE | 2020-04-28 21:52 | NURSING ---
Addendum entered by Nanci Ewing 04/29/20 07:12: Dr. Holbrook notified of U/A results, new orders given. Original Note: Clean catch urine collected at this time and sent to lab.
[2020-04-29 01:46] LABS: Mucous, Urine 0 SEEN /hpf (<or=2+); Red Blood Cells-Urine 0 SEEN /hpf (0-5)
[2020-04-29 01:47] LABS: Color, Urine Yellow (Yellow); Glucose, Dipstick Normal (Normal); Ketone-Dipstick Negative (Negative); Leukocyte Esterase-Dipstick 100 /ul (Negative); Nitrite-Dipstick Positive (Negative); Occult Blood-Urine Negative /ul (Negative); Protein-Dipstick 15 mg/dl (Negative); Urine Bilirubin Dipstick Negative (Negative); Urine Clarity Clear (Clear); Urine Urobilinogen Normal (Normal)
[2020-04-29 01:55] LABS: Bacteria 3+ /hpf (None Seen); Hyaline Cast 0-5 SEEN /lpf (0-5); Squamous Epithelial Cells - UA 0-5 SEEN /hpf (5-10); White Blood Cells 5-10 SEEN /hpf (0-5)
[2020-04-29] MEDS: Acetaminophen 500 MG Tablet 1000 MG PO ×3 (06:24→21:10)
[2020-04-29] MEDS: Flecainide 100 MG Tablet PO ×2 (06:24→16:45)
[2020-04-29] MEDS: Senna/Docusate Sodium 1 Tablet 2 TABLET PO ×2 (06:24→16:38)
[2020-04-29] MEDS: amLODIPine 5 MG Tablet PO (06:24)
[2020-04-29] MEDS: Furosemide 20 MG Tablet PO (06:24)
[2020-04-29] MEDS: Benzonatate 100 MG Capsule PO ×3 (06:24→21:10)
[2020-04-29] MEDS: hydroCHLOROthiazide 25 MG Tablet PO (06:24)
[2020-04-29] MEDS: Pantoprazole Sodium 40 MG Tablet PO (06:24)
[2020-04-29] MEDS: DULoxetine Hcl 60 MG Capsule PO (06:24)
[2020-04-29] MEDS: Lisinopril 20 MG Tablet PO ×2 (06:24→16:45)
[2020-04-29] MEDS: Menthol/Lanolin/Calamine/Znox 113 GM Tube 1 APPLIC TOPICAL ×2 (06:25→16:38)
[2020-04-29] MEDS: Nystatin Powder 15gm Bottle 1 APPLIC TOPICAL ×2 (06:25→21:05)
[2020-04-29] MEDS: prednisoLONE eye drops (5 mL) 1 DROP OPTH.BTL 1 DRP EACH EYE (06:26)
[2020-04-29 06:28] VITALS: BP 154/80; PULSE 85; RESP 16; TEMP 36.3; O2SAT 93
[2020-04-29 07:13] VITALS: O2SAT 94
[2020-04-29] MEDS: Oxybutynin 5 MG Tablet PO ×2 (08:22→16:38)
[2020-04-29] MEDS: oxyCODONE 5 MG Tablet PO ×3 (08:22→21:02)
[2020-04-29] MEDS: Vitamin B Comp W-C Capsule 1 CAP PO (08:22)
[2020-04-29] MEDS: Iron Polysaccharide Complex 150 MG CAPSULE PO (08:22)
[2020-04-29] MEDS: Multivitamins,Therapeutic Tablet 1 TABLET PO (08:22)
[2020-04-29] MEDS: Carvedilol 25 MG Tablet PO ×2 (08:22→16:42)
[2020-04-29 08:29] VITALS: BP 123/55; PULSE 85
[2020-04-29] MEDS: Ciprofloxacin 500 MG Tablet PO ×2 (10:45→16:38)
[2020-04-29 14:19] VITALS: BP 94/49; PULSE 66; RESP 16; TEMP 36.3; O2SAT 90
--- NOTE | 2020-04-29 15:32 | NURSING ---
Resident and friend, Keyana, notified of staff member positive for COVID-19.
[2020-04-29 16:46] VITALS: BP 112/63; PULSE 95
[2020-04-29] MEDS: MELATONIN 10 MG TABLET PO (21:10)
[2020-04-30 05:00] VITALS: BP 118/58; PULSE 90; RESP 18; TEMP 36.5; O2SAT 95
[2020-04-30] MEDS: prednisoLONE eye drops (5 mL) 1 DROP OPTH.BTL 1 DRP EACH EYE (05:42)
[2020-04-30] MEDS: hydroCHLOROthiazide 25 MG Tablet PO (05:43)
[2020-04-30] MEDS: Acetaminophen 500 MG Tablet 1000 MG PO ×3 (05:43→20:47)
[2020-04-30] MEDS: amLODIPine 5 MG Tablet PO (05:43)
[2020-04-30] MEDS: Lisinopril 20 MG Tablet PO ×2 (05:43→17:52)
[2020-04-30] MEDS: Pantoprazole Sodium 40 MG Tablet PO (05:43)
[2020-04-30] MEDS: Ciprofloxacin 500 MG Tablet PO ×2 (05:43→17:44)
[2020-04-30] MEDS: Senna/Docusate Sodium 1 Tablet 2 TABLET PO (05:43)
[2020-04-30] MEDS: DULoxetine Hcl 60 MG Capsule PO (05:43)
[2020-04-30] MEDS: Furosemide 20 MG Tablet PO (05:43)
[2020-04-30] MEDS: Benzonatate 100 MG Capsule PO ×3 (05:43→20:47)
[2020-04-30] MEDS: Flecainide 100 MG Tablet PO ×2 (05:43→17:44)
[2020-04-30] MEDS: Menthol/Lanolin/Calamine/Znox 113 GM Tube 1 APPLIC TOPICAL ×2 (05:44→17:45)
[2020-04-30] MEDS: Nystatin Powder 15gm Bottle 1 APPLIC TOPICAL ×2 (05:44→17:45)
[2020-04-30] MEDS: oxyCODONE 5 MG Tablet PO ×4 (08:00→23:11)
[2020-04-30] MEDS: Multivitamins,Therapeutic Tablet 1 TABLET PO (08:01)
[2020-04-30] MEDS: Iron Polysaccharide Complex 150 MG CAPSULE PO (08:02)
[2020-04-30] MEDS: Vitamin B Comp W-C Capsule 1 CAP PO (08:02)
[2020-04-30] MEDS: Carvedilol 25 MG Tablet PO ×2 (08:02→17:52)
[2020-04-30] MEDS: Oxybutynin 5 MG Tablet PO ×2 (08:02→17:44)
[2020-04-30 10:00] VITALS: PULSE 87; RESP 22; O2SAT 90
--- NOTE | 2020-04-30 10:32 | MDS.RN ---
Information for the mds was obtained from review of the clinical record, interview of resident, staff, and direct observation of resident's care.
[2020-04-30 11:50] LABS: Bedside Glucose 138 mg/dL (70-110)
[2020-04-30 14:20] VITALS: BP 120/65; PULSE 89; RESP 18; TEMP 36.6; O2SAT 90
--- NOTE | 2020-04-30 16:00 | PCA ---
Addendum entered by Anne Sanford 04/30/20 16:40: N.N.O, F/u in 6 months Original Note: Patient returned from appointment with at 11:30am.
[2020-04-30] MEDS: MELATONIN 10 MG TABLET PO (20:48)
[2020-05-01 05:00] VITALS: BP 124/74; PULSE 87; RESP 18; TEMP 36.9
[2020-05-01] MEDS: prednisoLONE eye drops (5 mL) 1 DROP OPTH.BTL 1 DRP EACH EYE (06:02)
[2020-05-01] MEDS: Senna/Docusate Sodium 1 Tablet 2 TABLET PO (06:03)
[2020-05-01] MEDS: Ciprofloxacin 500 MG Tablet PO ×2 (06:03→17:02)
[2020-05-01] MEDS: Pantoprazole Sodium 40 MG Tablet PO (06:03)
[2020-05-01] MEDS: Furosemide 20 MG Tablet PO (06:03)
[2020-05-01] MEDS: hydroCHLOROthiazide 25 MG Tablet PO (06:03)
[2020-05-01] MEDS: DULoxetine Hcl 60 MG Capsule PO (06:03)
[2020-05-01] MEDS: Benzonatate 100 MG Capsule PO ×3 (06:03→22:26)
[2020-05-01] MEDS: Acetaminophen 500 MG Tablet 1000 MG PO ×3 (06:03→22:25)
[2020-05-01] MEDS: Lisinopril 20 MG Tablet PO ×2 (06:05→17:07)
[2020-05-01] MEDS: Flecainide 100 MG Tablet PO ×2 (06:05→17:07)
[2020-05-01] MEDS: Nystatin Powder 15gm Bottle 1 APPLIC TOPICAL ×2 (06:19→17:08)
[2020-05-01] MEDS: Menthol/Lanolin/Calamine/Znox 113 GM Tube 1 APPLIC TOPICAL ×2 (06:20→17:07)
[2020-05-01] MEDS: amLODIPine 5 MG Tablet PO (06:22)
[2020-05-01 06:54] VITALS: O2SAT 96
[2020-05-01] MEDS: Multivitamins,Therapeutic Tablet 1 TABLET PO (08:04)
[2020-05-01] MEDS: Oxybutynin 5 MG Tablet PO ×2 (08:04→17:07)
[2020-05-01] MEDS: Iron Polysaccharide Complex 150 MG CAPSULE PO (08:04)
[2020-05-01] MEDS: Vitamin B Comp W-C Capsule 1 CAP PO (08:05)
[2020-05-01] MEDS: Carvedilol 25 MG Tablet PO ×2 (08:05→17:02)
[2020-05-01] MEDS: oxyCODONE 5 MG Tablet PO ×2 (12:56→22:25)
[2020-05-01 16:40] VITALS: BP 105/55; PULSE 58; RESP 17; TEMP 36.4; O2SAT 95
[2020-05-01 22:30] VITALS: PULSE 88; RESP 16; O2SAT 92
[2020-05-02 05:00] VITALS: BP 143/84; PULSE 85; RESP 18; TEMP 36.8; O2SAT 95
[2020-05-02] MEDS: Furosemide 20 MG Tablet PO (05:35)
[2020-05-02] MEDS: Ciprofloxacin 500 MG Tablet PO ×2 (05:35→17:17)
[2020-05-02] MEDS: DULoxetine Hcl 60 MG Capsule PO (05:35)
[2020-05-02] MEDS: Pantoprazole Sodium 40 MG Tablet PO (05:35)
[2020-05-02] MEDS: Acetaminophen 500 MG Tablet 1000 MG PO ×3 (05:35→19:51)
[2020-05-02] MEDS: Flecainide 100 MG Tablet PO ×2 (05:35→17:18)
[2020-05-02] MEDS: Senna/Docusate Sodium 1 Tablet 2 TABLET PO (05:35)
[2020-05-02] MEDS: prednisoLONE eye drops (5 mL) 1 DROP OPTH.BTL 1 DRP EACH EYE (05:35)
[2020-05-02] MEDS: Lisinopril 20 MG Tablet PO ×2 (05:36→17:18)
[2020-05-02] MEDS: Benzonatate 100 MG Capsule PO ×3 (05:36→19:54)
[2020-05-02] MEDS: hydroCHLOROthiazide 25 MG Tablet PO (05:36)
[2020-05-02] MEDS: amLODIPine 5 MG Tablet PO (05:36)
[2020-05-02] MEDS: Menthol/Lanolin/Calamine/Znox 113 GM Tube 1 APPLIC TOPICAL ×2 (05:39→17:20)
[2020-05-02] MEDS: Nystatin Powder 15gm Bottle 1 APPLIC TOPICAL ×2 (05:39→17:19)
[2020-05-02] MEDS: oxyCODONE 5 MG Tablet PO ×2 (05:42→14:34)
[2020-05-02 05:52] LABS: Absolute Lymphocyte Count 1.61 X10^3/uL (0.83-4.51); Basophil# 0.04 X10^3/uL; Basophil% 0.5 % (0-1); Eosinophil# 0.92 X10^3/uL; Eosinophils% 10.8 % (0-5); Hematocrit 32.6 % (37-47); Hemoglobin 9.5 g/dL (12.0-15.0); Lymphocyte # 1.61 X10^3/ul (4.0); Mean Corp Hgb Conc 29.1 g/dL (32-36); Mean Corpuscular Hgb 26.7 pg (27.0-32.0); Mean Corpuscular Volume 91.6 fL (81-99); Mean Platelet Vol. 9.3 fl (6.2-12.0); Monocyte% 10.6 % (0-10); NRBC Flagged by Analyzer 0 % (0-5); Neutrophil # 4.97 X10^3/uL (2.7-7.7); Neutrophil % 58.6 % (47-70); Platelet Count 583 K/mm3 (150-450); RBC Distribution Width CV 17.2 % (11.6-14.6); RBC Distribution Width SD 58.5 fl (35.1-43.9); Red Blood Count 3.56 M/mm3 (4.2-5.4); White Blood Count 8.5 K/mm3 (4.4-11.0)
[2020-05-02 06:03] LABS: Anion Gap 7 (5-15); BUN 33 mg/dL (7-18); BUN/Creat Ratio 44.4 RATIO (10-20); Calcium,Total 8.7 mg/dL (8.5-10.1); Chloride 103 mmol/L (98-107); Creatinine, Serum 0.74 mg/dL (0.55-1.02); EST Glomerular Filtration Rate 82 mL/min (>60); Est Glom Filt Rate - Afr Amer 99 mL/min (>60); Estimated Creatinine Clearance 57.42 ml/min; Glucose 110 mg/dL (74-106); Potassium 4.4 mmol/L (3.5-5.1); Sodium Level 139 mmol/L (136-145)
[2020-05-02 07:29] VITALS: O2SAT 94
[2020-05-02] MEDS: Iron Polysaccharide Complex 150 MG CAPSULE PO (08:32)
[2020-05-02] MEDS: Vitamin B Comp W-C Capsule 1 CAP PO (08:32)
[2020-05-02] MEDS: Multivitamins,Therapeutic Tablet 1 TABLET PO (08:32)
[2020-05-02] MEDS: Oxybutynin 5 MG Tablet PO ×2 (08:33→16:45)
[2020-05-02] MEDS: Carvedilol 25 MG Tablet PO ×2 (08:33→16:46)
[2020-05-02 10:00] VITALS: PULSE 96; RESP 20; O2SAT 90
[2020-05-02 14:11] VITALS: BP 100/61; PULSE 70; RESP 16; TEMP 36.4; O2SAT 90
[2020-05-02] MEDS: APIXABAN 5 MG TABLET PO (17:17)
[2020-05-03 05:00] VITALS: BP 128/78; PULSE 88; RESP 18; TEMP 36.9; O2SAT 94
[2020-05-03] MEDS: Senna/Docusate Sodium 1 Tablet 2 TABLET PO (05:54)
[2020-05-03] MEDS: Menthol/Lanolin/Calamine/Znox 113 GM Tube 1 APPLIC TOPICAL ×2 (05:54→17:08)
[2020-05-03] MEDS: hydroCHLOROthiazide 25 MG Tablet PO (05:55)
[2020-05-03] MEDS: Pantoprazole Sodium 40 MG Tablet PO (05:55)
[2020-05-03] MEDS: DULoxetine Hcl 60 MG Capsule PO (05:55)
[2020-05-03] MEDS: amLODIPine 5 MG Tablet PO (05:55)
[2020-05-03] MEDS: Furosemide 20 MG Tablet PO (05:55)
[2020-05-03] MEDS: Ciprofloxacin 500 MG Tablet PO ×2 (05:55→17:02)
[2020-05-03] MEDS: Acetaminophen 500 MG Tablet 1000 MG PO ×3 (05:55→22:27)
[2020-05-03] MEDS: Benzonatate 100 MG Capsule PO ×3 (05:55→22:34)
[2020-05-03] MEDS: Lisinopril 20 MG Tablet PO ×2 (05:55→17:03)
[2020-05-03] MEDS: Flecainide 100 MG Tablet PO ×2 (05:55→17:03)
[2020-05-03] MEDS: APIXABAN 5 MG TABLET PO ×2 (05:56→17:02)
[2020-05-03] MEDS: oxyCODONE 5 MG Tablet PO ×3 (05:56→22:28)
[2020-05-03] MEDS: prednisoLONE eye drops (5 mL) 1 DROP OPTH.BTL 1 DRP EACH EYE (05:56)
[2020-05-03] MEDS: Nystatin Powder 15gm Bottle 1 APPLIC TOPICAL ×2 (05:59→19:20)
[2020-05-03 08:12] VITALS: O2SAT 93
[2020-05-03] MEDS: Multivitamins,Therapeutic Tablet 1 TABLET PO (08:46)
[2020-05-03] MEDS: Carvedilol 25 MG Tablet PO ×2 (08:47→17:02)
[2020-05-03] MEDS: Iron Polysaccharide Complex 150 MG CAPSULE PO (08:47)
[2020-05-03] MEDS: Oxybutynin 5 MG Tablet PO ×2 (08:48→17:02)
[2020-05-03] MEDS: Vitamin B Comp W-C Capsule 1 CAP PO (08:48)
[2020-05-03 08:51] VITALS: BP 129/79; PULSE 96
--- NOTE | 2020-05-03 09:23 | NURSING ---
Dr Holbrook made aware of plt count. Reordered CBC w/diff for Tuesday.
[2020-05-03 14:47] VITALS: BP 112/55; PULSE 91; RESP 20; TEMP 37.1; O2SAT 98
[2020-05-04 05:00] VITALS: BP 178/95; PULSE 96; RESP 18; TEMP 36.6; O2SAT 93
[2020-05-04] MEDS: Menthol/Lanolin/Calamine/Znox 113 GM Tube 1 APPLIC TOPICAL ×2 (06:12→16:45)
[2020-05-04] MEDS: APIXABAN 5 MG TABLET PO ×2 (06:13→16:43)
[2020-05-04] MEDS: Furosemide 20 MG Tablet PO (06:13)
[2020-05-04] MEDS: Senna/Docusate Sodium 1 Tablet 2 TABLET PO (06:13)
[2020-05-04] MEDS: Pantoprazole Sodium 40 MG Tablet PO (06:13)
[2020-05-04] MEDS: hydroCHLOROthiazide 25 MG Tablet PO (06:13)
[2020-05-04] MEDS: amLODIPine 5 MG Tablet PO (06:13)
[2020-05-04] MEDS: DULoxetine Hcl 60 MG Capsule PO (06:13)
[2020-05-04] MEDS: Flecainide 100 MG Tablet PO ×2 (06:13→16:44)
[2020-05-04] MEDS: Ciprofloxacin 500 MG Tablet PO ×2 (06:13→16:42)
[2020-05-04] MEDS: Nystatin Powder 15gm Bottle 1 APPLIC TOPICAL ×2 (06:14→16:43)
[2020-05-04] MEDS: prednisoLONE eye drops (5 mL) 1 DROP OPTH.BTL 1 DRP EACH EYE (06:14)
[2020-05-04] MEDS: Acetaminophen 500 MG Tablet 1000 MG PO ×3 (06:15→20:56)
[2020-05-04] MEDS: Lisinopril 20 MG Tablet PO ×2 (06:15→16:44)
[2020-05-04 07:46] VITALS: BP 124/78; PULSE 87
[2020-05-04] MEDS: Oxybutynin 5 MG Tablet PO ×2 (07:47→16:41)
[2020-05-04] MEDS: Carvedilol 25 MG Tablet PO ×2 (07:48→16:41)
[2020-05-04] MEDS: Multivitamins,Therapeutic Tablet 1 TABLET PO (07:48)
[2020-05-04] MEDS: Vitamin B Comp W-C Capsule 1 CAP PO (07:48)
[2020-05-04] MEDS: Iron Polysaccharide Complex 150 MG CAPSULE PO (07:48)
[2020-05-04 07:50] VITALS: O2SAT 93
[2020-05-04 10:45] VITALS: PULSE 79; RESP 18; O2SAT 93
[2020-05-04 13:35] VITALS: BP 106/62; PULSE 84; RESP 16; TEMP 36.7; O2SAT 95
--- NOTE | 2020-05-04 14:04 | NURSING ---
PT STATED SHE DID NOT HAVE ANY ONE SHE WANTED CALLED.
[2020-05-04] MEDS: oxyCODONE 5 MG Tablet PO (20:56)
[2020-05-05 05:00] VITALS: BP 143/57; PULSE 82; RESP 18; TEMP 36.6; O2SAT 92
[2020-05-05] MEDS: oxyCODONE 5 MG Tablet PO ×3 (05:44→21:12)
[2020-05-05] MEDS: Benzonatate 100 MG Capsule PO ×2 (05:44→21:12)
[2020-05-05] MEDS: prednisoLONE eye drops (5 mL) 1 DROP OPTH.BTL 1 DRP EACH EYE (05:44)
[2020-05-05] MEDS: Furosemide 20 MG Tablet PO (05:45)
[2020-05-05] MEDS: DULoxetine Hcl 60 MG Capsule PO (05:45)
[2020-05-05] MEDS: APIXABAN 5 MG TABLET PO ×2 (05:45→17:24)
[2020-05-05] MEDS: Flecainide 100 MG Tablet PO ×2 (05:45→17:24)
[2020-05-05] MEDS: amLODIPine 5 MG Tablet PO (05:45)
[2020-05-05] MEDS: Lisinopril 20 MG Tablet PO ×2 (05:45→17:24)
[2020-05-05] MEDS: hydroCHLOROthiazide 25 MG Tablet PO (05:45)
[2020-05-05] MEDS: Ciprofloxacin 500 MG Tablet PO ×2 (05:45→17:24)
[2020-05-05] MEDS: Senna/Docusate Sodium 1 Tablet 2 TABLET PO ×2 (05:45→17:24)
[2020-05-05] MEDS: Pantoprazole Sodium 40 MG Tablet PO (05:46)
[2020-05-05] MEDS: Nystatin Powder 15gm Bottle 1 APPLIC TOPICAL ×2 (05:49→17:25)
[2020-05-05] MEDS: Acetaminophen 500 MG Tablet 1000 MG PO ×3 (05:50→21:12)
[2020-05-05] MEDS: Menthol/Lanolin/Calamine/Znox 113 GM Tube 1 APPLIC TOPICAL ×2 (05:50→17:26)
[2020-05-05 06:59] VITALS: O2SAT 93
[2020-05-05 07:01] VITALS: O2SAT 93
[2020-05-05 07:29] LABS: Absolute Lymphocyte Count 1.21 X10^3/uL (0.83-4.51); Basophil# 0.03 X10^3/uL; Basophil% 0.4 % (0-1); Eosinophil# 0.76 X10^3/uL; Eosinophils% 9.7 % (0-5); Hematocrit 36.1 % (37-47); Hemoglobin 10.4 g/dL (12.0-15.0); Lymphocyte # 1.21 X10^3/ul (4.0); Lymphocyte % 15.5 % (19-41); Mean Corp Hgb Conc 28.8 g/dL (32-36); Mean Corpuscular Hgb 26.4 pg (27.0-32.0); Mean Corpuscular Volume 91.6 fL (81-99); Monocyte# 0.77 X10^3/uL; Monocyte% 9.9 % (0-10); NRBC Flagged by Analyzer 0 % (0-5); Neutrophil # 5.02 X10^3/uL (2.7-7.7); Neutrophil % 64.2 % (47-70); Platelet Count 552 K/mm3 (150-450); RBC Distribution Width CV 16.9 % (11.6-14.6); RBC Distribution Width SD 57.3 fl (35.1-43.9); Red Blood Count 3.94 M/mm3 (4.2-5.4); White Blood Count 7.8 K/mm3 (4.4-11.0)
[2020-05-05] MEDS: Vitamin B Comp W-C Capsule 1 CAP PO (08:40)
[2020-05-05] MEDS: Carvedilol 25 MG Tablet PO ×2 (08:40→16:08)
[2020-05-05] MEDS: Multivitamins,Therapeutic Tablet 1 TABLET PO (08:40)
[2020-05-05] MEDS: Iron Polysaccharide Complex 150 MG CAPSULE PO (08:40)
[2020-05-05] MEDS: Oxybutynin 5 MG Tablet PO ×2 (08:40→16:10)
[2020-05-05 13:33] VITALS: BP 114/61; PULSE 88; RESP 18; TEMP 36.6; O2SAT 90
[2020-05-06 04:43] VITALS: BP 125/91; PULSE 82; RESP 18; TEMP 36.5; O2SAT 93
[2020-05-06] MEDS: APIXABAN 5 MG TABLET PO ×2 (04:45→17:55)
[2020-05-06] MEDS: Furosemide 20 MG Tablet PO (04:45)
[2020-05-06] MEDS: Pantoprazole Sodium 40 MG Tablet PO (04:45)
[2020-05-06] MEDS: Ciprofloxacin 500 MG Tablet PO (04:45)
[2020-05-06] MEDS: Acetaminophen 500 MG Tablet 1000 MG PO ×3 (04:45→20:43)
[2020-05-06] MEDS: prednisoLONE eye drops (5 mL) 1 DROP OPTH.BTL 1 DRP EACH EYE (04:45)
[2020-05-06] MEDS: Flecainide 100 MG Tablet PO ×2 (04:46→17:54)
[2020-05-06] MEDS: DULoxetine Hcl 60 MG Capsule PO (04:46)
[2020-05-06] MEDS: Senna/Docusate Sodium 1 Tablet 2 TABLET PO (04:46)
[2020-05-06] MEDS: hydroCHLOROthiazide 25 MG Tablet PO (04:46)
[2020-05-06] MEDS: amLODIPine 5 MG Tablet PO (04:46)
[2020-05-06] MEDS: Lisinopril 20 MG Tablet PO ×2 (04:46→17:54)
[2020-05-06] MEDS: Menthol/Lanolin/Calamine/Znox 113 GM Tube 1 APPLIC TOPICAL ×2 (04:48→17:55)
[2020-05-06] MEDS: Nystatin Powder 15gm Bottle 1 APPLIC TOPICAL ×2 (04:48→18:07)
[2020-05-06 06:54] VITALS: O2SAT 91
[2020-05-06] MEDS: Multivitamins,Therapeutic Tablet 1 TABLET PO (09:16)
[2020-05-06] MEDS: Vitamin B Comp W-C Capsule 1 CAP PO (09:17)
[2020-05-06] MEDS: Oxybutynin 5 MG Tablet PO ×2 (09:17→17:55)
[2020-05-06] MEDS: Iron Polysaccharide Complex 150 MG CAPSULE PO (09:17)
[2020-05-06] MEDS: Carvedilol 25 MG Tablet PO ×2 (09:17→17:54)
[2020-05-06 09:22] VITALS: BP 124/74; PULSE 90
[2020-05-06] MEDS: oxyCODONE 5 MG Tablet PO ×2 (11:37→20:43)
[2020-05-06 12:45] VITALS: PULSE 93; RESP 18; O2SAT 91
[2020-05-06 13:50] VITALS: BP 113/69; PULSE 91; RESP 14; TEMP 36.8; O2SAT 92
--- NOTE | 2020-05-06 14:52 | CASEMGMT ---
Social Work Spoke with pt about progress in therapy and concerns about pt getting in and out of home. Recommending to build a ramp or it will not be safe for pt to DC home. Pt stated she just spoke with her brother about building a ramp and he is looking into it'. Offered SW can provided contact information for people to build ramps. Provided SW contact information to pt to provide to brother if needed. Explained pt is progressing well but may be close to new baseline at this time. Pt understood. Will continue to follow. JESUS HannaW
--- NOTE | 2020-05-06 15:35 | NURSING ---
pt stated she did not need any one called
[2020-05-06 17:50] VITALS: BP 115/87; PULSE 99
[2020-05-06] MEDS: Benzonatate 100 MG Capsule PO (20:48)
[2020-05-07 05:00] VITALS: BP 109/65; PULSE 79; RESP 20; TEMP 36.3; O2SAT 93
[2020-05-07] MEDS: Pantoprazole Sodium 40 MG Tablet PO (05:18)
[2020-05-07] MEDS: hydroCHLOROthiazide 25 MG Tablet PO (05:18)
[2020-05-07] MEDS: Lisinopril 20 MG Tablet PO ×2 (05:18→17:08)
[2020-05-07] MEDS: Furosemide 20 MG Tablet PO (05:18)
[2020-05-07] MEDS: amLODIPine 5 MG Tablet PO (05:18)
[2020-05-07] MEDS: DULoxetine Hcl 60 MG Capsule PO (05:18)
[2020-05-07] MEDS: Flecainide 100 MG Tablet PO ×2 (05:18→17:08)
[2020-05-07] MEDS: Senna/Docusate Sodium 1 Tablet 2 TABLET PO (05:18)
[2020-05-07] MEDS: APIXABAN 5 MG TABLET PO ×2 (05:18→17:08)
[2020-05-07] MEDS: Acetaminophen 500 MG Tablet 1000 MG PO ×3 (05:19→20:29)
[2020-05-07] MEDS: prednisoLONE eye drops (5 mL) 1 DROP OPTH.BTL 1 DRP EACH EYE (05:19)
[2020-05-07] MEDS: Nystatin Powder 15gm Bottle 1 APPLIC TOPICAL ×2 (05:21→17:09)
[2020-05-07] MEDS: Menthol/Lanolin/Calamine/Znox 113 GM Tube 1 APPLIC TOPICAL ×2 (05:22→17:09)
[2020-05-07 07:57] VITALS: O2SAT 92
[2020-05-07] MEDS: Multivitamins,Therapeutic Tablet 1 TABLET PO (08:26)
[2020-05-07] MEDS: Iron Polysaccharide Complex 150 MG CAPSULE PO (08:26)
[2020-05-07] MEDS: Oxybutynin 5 MG Tablet PO ×2 (08:26→17:08)
[2020-05-07] MEDS: Vitamin B Comp W-C Capsule 1 CAP PO (08:26)
[2020-05-07] MEDS: Carvedilol 25 MG Tablet PO ×2 (08:26→17:08)
[2020-05-07] MEDS: oxyCODONE 5 MG Tablet PO ×2 (11:49→20:29)
--- NOTE | 2020-05-07 13:40 | NURSING ---
Pt notified of 2 COVID-19 positive staff members. Explained to Pt that all staff will be retested tomorrow 05/08/20. Pt to be tested 05/12/20.
[2020-05-07 14:06] VITALS: BP 108/49; PULSE 84; RESP 18; TEMP 36.6
--- NOTE | 2020-05-07 16:18 | NURSING ---
Resident and friend, Keyana, notified of staff member testing positive for COVID.
[2020-05-07] MEDS: Benzonatate 100 MG Capsule PO (20:29)
[2020-05-07 22:16] VITALS: PULSE 83; RESP 18; O2SAT 92
[2020-05-08 05:47] VITALS: BP 138/65; PULSE 85; RESP 19; TEMP 36.4; O2SAT 92
[2020-05-08] MEDS: Pantoprazole Sodium 40 MG Tablet PO (05:49)
[2020-05-08] MEDS: amLODIPine 5 MG Tablet PO (05:49)
[2020-05-08] MEDS: APIXABAN 5 MG TABLET PO ×2 (05:49→17:19)
[2020-05-08] MEDS: Lisinopril 20 MG Tablet PO ×2 (05:49→17:19)
[2020-05-08] MEDS: hydroCHLOROthiazide 25 MG Tablet PO (05:49)
[2020-05-08] MEDS: Flecainide 100 MG Tablet PO ×2 (05:49→17:19)
[2020-05-08] MEDS: DULoxetine Hcl 60 MG Capsule PO (05:49)
[2020-05-08] MEDS: prednisoLONE eye drops (5 mL) 1 DROP OPTH.BTL 1 DRP EACH EYE (05:50)
[2020-05-08] MEDS: Acetaminophen 500 MG Tablet 1000 MG PO ×3 (05:50→20:36)
[2020-05-08] MEDS: Menthol/Lanolin/Calamine/Znox 113 GM Tube 1 APPLIC TOPICAL ×2 (05:54→17:21)
[2020-05-08] MEDS: Nystatin Powder 15gm Bottle 1 APPLIC TOPICAL ×2 (05:54→17:20)
[2020-05-08 07:26] VITALS: O2SAT 93
[2020-05-08] MEDS: oxyCODONE 5 MG Tablet PO ×3 (07:58→20:37)
[2020-05-08] MEDS: Vitamin B Comp W-C Capsule 1 CAP PO (07:59)
[2020-05-08] MEDS: Carvedilol 25 MG Tablet PO ×2 (07:59→16:14)
[2020-05-08] MEDS: Iron Polysaccharide Complex 150 MG CAPSULE PO (08:00)
[2020-05-08] MEDS: Multivitamins,Therapeutic Tablet 1 TABLET PO (08:00)
[2020-05-08] MEDS: Oxybutynin 5 MG Tablet PO ×2 (08:00→16:15)
[2020-05-08 10:00] VITALS: PULSE 91; RESP 16; O2SAT 92
--- NOTE | 2020-05-08 13:33 | NURSING ---
pt returned from surgeon appt, new order pt can be WBAT on Left with dislocation precautions until 05/28/20. starting keflex 4x day x7days
[2020-05-08 14:02] VITALS: BP 123/57; PULSE 91; RESP 20; TEMP 36.2; O2SAT 96
[2020-05-08] MEDS: Cephalexin 500 MG Capsule PO (17:19)
[2020-05-08] MEDS: Benzonatate 100 MG Capsule PO (20:37)
[2020-05-09] MEDS: Cephalexin 500 MG Capsule PO ×4 (01:18→17:19)
[2020-05-09 05:00] VITALS: BP 122/68; PULSE 90; RESP 18; TEMP 36.6; O2SAT 91
[2020-05-09 05:45] LABS: Absolute Lymphocyte Count 1.67 X10^3/uL (0.83-4.51); Absolute Neutrophil Count 4.7 X10^3/uL (2.0-7.7); Basophil# 0.05 X10^3/uL; Basophil% 0.6 % (0-1); Hematocrit 34.1 % (37-47); Hemoglobin 9.9 g/dL (12.0-15.0); Lymphocyte # 1.67 X10^3/ul (4.0); Lymphocyte % 20.4 % (19-41); Mean Corpuscular Hgb 26.5 pg (27.0-32.0); Mean Corpuscular Volume 91.4 fL (81-99); Mean Platelet Vol. 9.8 fl (6.2-12.0); Monocyte# 0.91 X10^3/uL; Monocyte% 11.1 % (0-10); NRBC Flagged by Analyzer 0 % (0-5); Neutrophil # 4.65 X10^3/uL (2.7-7.7); Neutrophil % 56.7 % (47-70); Platelet Count 443 K/mm3 (150-450); RBC Distribution Width CV 17.2 % (11.6-14.6); RBC Distribution Width SD 57.8 fl (35.1-43.9); Red Blood Count 3.73 M/mm3 (4.2-5.4); White Blood Count 8.2 K/mm3 (4.4-11.0)
[2020-05-09 06:05] LABS: Anion Gap 6 (5-15); BUN 39 mg/dL (7-18); BUN/Creat Ratio 48.4 RATIO (10-20); Calcium,Total 8.8 mg/dL (8.5-10.1); Chloride 104 mmol/L (98-107); EST Glomerular Filtration Rate 75 mL/min (>60); Est Glom Filt Rate - Afr Amer 91 mL/min (>60); Estimated Creatinine Clearance 71.77 ml/min; Glucose 106 mg/dL (74-106); Potassium 4.4 mmol/L (3.5-5.1); Sodium Level 139 mmol/L (136-145)
[2020-05-09] MEDS: APIXABAN 5 MG TABLET PO ×2 (06:29→17:20)
[2020-05-09] MEDS: Acetaminophen 500 MG Tablet 1000 MG PO ×3 (06:29→20:45)
[2020-05-09] MEDS: DULoxetine Hcl 60 MG Capsule PO (06:30)
[2020-05-09] MEDS: hydroCHLOROthiazide 25 MG Tablet PO (06:30)
[2020-05-09] MEDS: amLODIPine 5 MG Tablet PO (06:30)
[2020-05-09] MEDS: Furosemide 20 MG Tablet PO (06:30)
[2020-05-09] MEDS: Flecainide 100 MG Tablet PO ×2 (06:30→17:20)
[2020-05-09] MEDS: Pantoprazole Sodium 40 MG Tablet PO (06:30)
[2020-05-09] MEDS: Lisinopril 20 MG Tablet PO ×2 (06:30→17:21)
[2020-05-09] MEDS: Nystatin Powder 15gm Bottle 1 APPLIC TOPICAL ×2 (06:31→20:44)
[2020-05-09] MEDS: prednisoLONE eye drops (5 mL) 1 DROP OPTH.BTL 1 DRP EACH EYE (06:32)
[2020-05-09] MEDS: Menthol/Lanolin/Calamine/Znox 113 GM Tube 1 APPLIC TOPICAL ×2 (06:32→17:25)
[2020-05-09] MEDS: Vitamin B Comp W-C Capsule 1 CAP PO (09:09)
[2020-05-09] MEDS: Iron Polysaccharide Complex 150 MG CAPSULE PO (09:09)
[2020-05-09] MEDS: Oxybutynin 5 MG Tablet PO ×2 (09:09→17:19)
[2020-05-09] MEDS: Carvedilol 25 MG Tablet PO ×2 (09:09→17:20)
[2020-05-09] MEDS: Multivitamins,Therapeutic Tablet 1 TABLET PO (09:09)
[2020-05-09] MEDS: oxyCODONE 5 MG Tablet PO (09:11)
[2020-05-09 09:16] VITALS: BP 124/63; PULSE 96
[2020-05-09 10:56] VITALS: O2SAT 92
--- NOTE | 2020-05-09 11:47 | NURSING ---
pt stated she did not need any one up dated at this time.
[2020-05-09 15:36] VITALS: BP 117/58; PULSE 87; RESP 17; TEMP 36.6; O2SAT 90
[2020-05-09 20:40] VITALS: RESP 17
[2020-05-10 04:07] VITALS: BP 127/62; PULSE 86; RESP 17; TEMP 36.6; O2SAT 93
[2020-05-10] MEDS: DULoxetine Hcl 60 MG Capsule PO (04:13)
[2020-05-10] MEDS: oxyCODONE 5 MG Tablet PO ×3 (04:13→20:56)
[2020-05-10] MEDS: Acetaminophen 500 MG Tablet 1000 MG PO ×3 (04:13→20:56)
[2020-05-10] MEDS: APIXABAN 5 MG TABLET PO ×2 (04:14→18:06)
[2020-05-10] MEDS: hydroCHLOROthiazide 25 MG Tablet PO (04:14)
[2020-05-10] MEDS: Cephalexin 500 MG Capsule PO ×4 (04:14→18:06)
[2020-05-10] MEDS: amLODIPine 5 MG Tablet PO (04:14)
[2020-05-10] MEDS: Lisinopril 20 MG Tablet PO ×2 (04:14→18:05)
[2020-05-10] MEDS: Pantoprazole Sodium 40 MG Tablet PO (04:14)
[2020-05-10] MEDS: Senna/Docusate Sodium 1 Tablet 2 TABLET PO (04:14)
[2020-05-10] MEDS: Menthol/Lanolin/Calamine/Znox 113 GM Tube 1 APPLIC TOPICAL ×2 (04:15→18:07)
[2020-05-10] MEDS: prednisoLONE eye drops (5 mL) 1 DROP OPTH.BTL 1 DRP EACH EYE (04:16)
[2020-05-10] MEDS: Nystatin Powder 15gm Bottle 1 APPLIC TOPICAL ×2 (04:16→18:07)
[2020-05-10] MEDS: Flecainide 100 MG Tablet PO ×2 (04:17→18:06)
[2020-05-10] MEDS: Oxybutynin 5 MG Tablet PO ×2 (08:01→18:06)
[2020-05-10] MEDS: Iron Polysaccharide Complex 150 MG CAPSULE PO (08:01)
[2020-05-10] MEDS: Carvedilol 25 MG Tablet PO ×2 (08:02→18:06)
[2020-05-10] MEDS: Vitamin B Comp W-C Capsule 1 CAP PO (08:02)
[2020-05-10] MEDS: Multivitamins,Therapeutic Tablet 1 TABLET PO (08:04)
[2020-05-10 10:00] VITALS: PULSE 84; RESP 18; O2SAT 91
[2020-05-10 14:02] VITALS: BP 95/54; PULSE 86; RESP 18; TEMP 36.2; O2SAT 91
[2020-05-11 05:00] VITALS: BP 104/58; PULSE 93; RESP 18; TEMP 36.6; O2SAT 90
[2020-05-11] MEDS: APIXABAN 5 MG TABLET PO ×2 (05:08→17:15)
[2020-05-11] MEDS: Flecainide 100 MG Tablet PO ×2 (05:08→17:14)
[2020-05-11] MEDS: Acetaminophen 500 MG Tablet 1000 MG PO ×3 (05:08→19:53)
[2020-05-11] MEDS: Pantoprazole Sodium 40 MG Tablet PO (05:09)
[2020-05-11] MEDS: amLODIPine 5 MG Tablet PO (05:09)
[2020-05-11] MEDS: hydroCHLOROthiazide 25 MG Tablet PO (05:09)
[2020-05-11] MEDS: DULoxetine Hcl 60 MG Capsule PO (05:09)
[2020-05-11] MEDS: Menthol/Lanolin/Calamine/Znox 113 GM Tube 1 APPLIC TOPICAL ×2 (05:09→17:15)
[2020-05-11] MEDS: Lisinopril 20 MG Tablet PO ×2 (05:09→17:15)
[2020-05-11] MEDS: Nystatin Powder 15gm Bottle 1 APPLIC TOPICAL ×2 (05:10→17:16)
[2020-05-11] MEDS: Cephalexin 500 MG Capsule PO ×5 (05:10→23:56)
[2020-05-11] MEDS: prednisoLONE eye drops (5 mL) 1 DROP OPTH.BTL 1 DRP EACH EYE (05:13)
[2020-05-11] MEDS: oxyCODONE 5 MG Tablet PO ×2 (05:18→19:53)
[2020-05-11] MEDS: Carvedilol 25 MG Tablet PO ×2 (07:39→16:03)
[2020-05-11] MEDS: Oxybutynin 5 MG Tablet PO ×2 (07:40→16:04)
[2020-05-11] MEDS: Iron Polysaccharide Complex 150 MG CAPSULE PO (07:41)
[2020-05-11] MEDS: Vitamin B Comp W-C Capsule 1 CAP PO (07:41)
[2020-05-11] MEDS: Multivitamins,Therapeutic Tablet 1 TABLET PO (07:42)
[2020-05-11 13:49] VITALS: BP 112/62; PULSE 82; RESP 18; TEMP 36.1; O2SAT 92
--- NOTE | 2020-05-11 22:20 | NURSING ---
Pt has large thick dark colored callous to bottom of foot, state is painful to bear wt, note left for dr to request podiatry
[2020-05-12 05:26] VITALS: BP 129/70; PULSE 82; RESP 18; TEMP 36.5; O2SAT 94
[2020-05-12] MEDS: DULoxetine Hcl 60 MG Capsule PO (05:28)
[2020-05-12] MEDS: amLODIPine 5 MG Tablet PO (05:28)
[2020-05-12] MEDS: Cephalexin 500 MG Capsule PO ×3 (05:28→17:25)
[2020-05-12] MEDS: Acetaminophen 500 MG Tablet 1000 MG PO ×3 (05:28→21:39)
[2020-05-12] MEDS: Flecainide 100 MG Tablet PO ×2 (05:29→17:29)
[2020-05-12] MEDS: hydroCHLOROthiazide 25 MG Tablet PO (05:29)
[2020-05-12] MEDS: Pantoprazole Sodium 40 MG Tablet PO (05:29)
[2020-05-12] MEDS: APIXABAN 5 MG TABLET PO ×2 (05:29→17:25)
[2020-05-12] MEDS: prednisoLONE eye drops (5 mL) 1 DROP OPTH.BTL 1 DRP EACH EYE (05:30)
[2020-05-12] MEDS: Lisinopril 20 MG Tablet PO ×2 (05:30→17:30)
[2020-05-12] MEDS: Menthol/Lanolin/Calamine/Znox 113 GM Tube 1 APPLIC TOPICAL ×2 (05:32→17:25)
[2020-05-12] MEDS: Nystatin Powder 15gm Bottle 1 APPLIC TOPICAL ×2 (05:33→17:28)
[2020-05-12] MEDS: Iron Polysaccharide Complex 150 MG CAPSULE PO (08:34)
[2020-05-12] MEDS: Oxybutynin 5 MG Tablet PO ×2 (08:34→17:25)
[2020-05-12] MEDS: Carvedilol 25 MG Tablet PO ×2 (08:34→17:25)
[2020-05-12] MEDS: Multivitamins,Therapeutic Tablet 1 TABLET PO (08:35)
[2020-05-12] MEDS: Vitamin B Comp W-C Capsule 1 CAP PO (08:35)
[2020-05-12 08:37] VITALS: BP 118/77; PULSE 86
[2020-05-12 08:45] VITALS: PULSE 84; RESP 18; O2SAT 94
[2020-05-12] MEDS: oxyCODONE 5 MG Tablet PO ×3 (08:50→21:40)
--- NOTE | 2020-05-12 08:54 | NURSING ---
pt left bottom foot is worse then tuesday. more black in areas and callus is bigger and harder. pt stated it hurts to walk and is affecting her therapy. RN aware.
--- NOTE | 2020-05-12 10:27 | NURSING ---
Contacted Dr. Flores's office to ask if pt is allowed to shower. Waiting for return call.
[2020-05-12 12:30] VITALS: BP 99/58; PULSE 87; RESP 17; TEMP 36.3; O2SAT 93
[2020-05-12 17:34] VITALS: BP 115/69; PULSE 92
--- NOTE | 2020-05-12 19:02 | PCM.TCUNOT ---
Subjective: Resident has hard thick callous on plantar surface left foot, under first metatarsal, will consult podiatry. She is being treated for incisional cellulitis with Keflex, the erythema is receding, non tender. Vitals/I&O's: Vital Signs Temp Pulse Resp BP Pulse Ox 97.4 F L 92 17 115/69 93 05/12/20 12:30 05/12/20 17:34 05/12/20 12:30 05/12/20 17:34 05/12/20 12:30 Oxygen Flow Rate (L/min) 3 Oxygen Delivery Method Nasal Cannula Weight: 119.862 kg Body Mass Index (BMI) 41.0 Intake and Output for Last 24 Hours 05/10/20 05/11/20 05/12/20 23:59 23:59 23:59 Intake Total 840 / 840 660 / 660 840 / 840 Output Total 900 / 900 Balance 840 / 840 660 / 660 -60 / -60 Microbiology Past 72 Hours 05/12/20 Unknown Mucosa - Nose Respiratory Syncytial Virus Ag Scrn - Final Past Medical History Past Medical History (Chronic Problems): Chronic Problems (Last Reviewed 04/30/20 @ 10:49 by Sindhu Richter) Bronchiectasis (Chronic) Stasis dermatitis of both legs (Chronic) Osteoarthritis of left hip (Chronic) Hypertension (Chronic) Atrial fibrillation (Chronic) GERD (gastroesophageal reflux disease) (Chronic) Overactive bladder (Chronic) Peripheral neuropathy (Chronic) Osteoarthritis (Chronic) Chronic anticoagulation (Chronic) PAF (paroxysmal atrial fibrillation) (Chronic) Chronic ulcer of left foot with fat layer exposed (Chronic) Hyperlipemia (Chronic) Obesity (Chronic) Depression (Chronic) Benign essential hypertension (Chronic) Medical History: Medical History (Last Reviewed 04/30/20 @ 10:49 by Sindhu Richter) Chronic anticoagulation (Chronic) Z79.01 PAF (paroxysmal atrial fibrillation) (Chronic) I48.0 Hyperlipemia (Chronic) E78.5 Benign essential hypertension (Chronic) I10 Cardiomyopathy I42.9 History of depression Z86.59 History of shingles Z86.19 Allergies atorvastatin [From Lipitor] Adverse Reaction (Verified 04/30/20 10:38) Pain in joints nifedipine [From Procardia] Adverse Reaction (Verified 04/30/20 10:38) Pain in joints tramadol Adverse Reaction (Verified 04/30/20 10:38) Upset Stomach Home Medications: Ambulatory Orders Medication Instructions Recorded Amlodipine [Norvasc] 5 mg PO DAILY 04/09/13 Duloxetine HCl 60 mg PO DAILY 01/18/18 lisinopril 20 mg tablet 20 mg PO BID tab 08/10/18 prednisolone acetate 1 % eye 1 drp OPHTHALMIC 4X/DAY 30 Days 08/10/18 drops,suspension #10 ml carvedilol 25 mg tablet 25 mg PO BID #180 tab 02/16/19 oxybutynin chloride 5 mg tablet 5 mg PO BID 03/06/19 Acetaminophen [Tylenol Tablet] 650 mg PO Q6H PRN PRN tab 06/30/19 Senna/Docusate Sodium [Senokot-S] 2 tab PO BID PRN PRN tab 06/30/19 flecainide 100 mg tablet 100 mg PO BID #180 tab 03/31/20 Furosemide [Lasix] 20 mg PO DAILY 04/17/20 B-complex with vitamin C 1 tab PO DAILY 04/30/20 benzonatate 100 mg capsule 100 mg PO BID PRN 04/30/20 ciprofloxacin HCl 500 mg tablet 500 mg PO Q12H 04/30/20 hydrochlorothiazide 25 mg tablet 25 mg PO DAILY 04/30/20 meclizine 25 mg tablet 25 mg PO Q6H PRN tab 04/30/20 melatonin 10 mg tablet 10 mg PO HS PRN 04/30/20 multivitamin 1 tab PO DAILY 04/30/20 pantoprazole 40 mg tablet,delayed 40 mg PO DAILY 04/30/20 release polyethylene glycol 3350 17 17 g PO DAILY 04/30/20 gram/dose oral powder polysaccharide iron complex 150 mg 150 mg PO DAILY 04/30/20 iron capsule potassium chloride 10 mEq 20 meq PO BID tab 04/30/20 tablet,extended release Surgical History: Surgical History (Last Reviewed 04/30/20 @ 10:49 by Sindhu Richter) History of arthroscopic knee surgery Z98.890 bilateral History of cardioversion Onset Date: 07/05/12 Z98.890 History of cornea transplant Onset Date: 04/05/18 Z94.7 Lt Eye 04/05/18, Rt Eye 2019 History of foot surgery Z98.890 left History of hysterectomy Z90.710 History of nasal cauterization Z98.890 History of sinus surgery Z98.890 History of tonsillectomy Z90.89 History of total left hip replacement Onset Date: ~04/2020 Z96.642 History of total right hip replacement Onset Date: ~2018 Z96.641 Surgical History: appendectomy, hysterectomy, - - Bilateral arthroscopic knee surgeries, cardioversion, corneal transplant, Left foot surgery, Nasal cauterization, sinus surgery. Psychiatric History: Depression WEB COORDINATOR History: No pertinent WEB COORDINATOR history Lives: Alone Smoking Status: Never smoker Tobacco Use: Non-smoker Alcohol: None Drugs: None - *Family History Paternal Family History: Family History (Last Reviewed 04/30/20 @ 10:49 by Sindhu Richter) Father Ruptured aortic aneurysm Mother Heart disease Brother Atrial fibrillation History Items: No pertinent history Maternal Family History: Family History (Last Reviewed 04/30/20 @ 10:49 by Sindhu Richter) Father Ruptured aortic aneurysm Mother Heart disease Brother Atrial fibrillation History Items: No pertinent history Capacity - Capacity Assessment Tool Can the patient make a choice & communicate that choice?: Yes Can the patient understand benefits, risks and alternatives?: Yes Can the patient make a logical, rational choice?: Yes Is the choice the patient makes consistent w/ their values?: Yes Is there an impending, emergent risk to the patient?: No Does the patient have an Advance Directive?: No Is there a Surrogate Available?: Yes i.e. HCPOA: Yes i.e. close relative (spouse, child, parent, sibling)?: Yes Review of Systems Constitutional: Denies: Chills, Fever, Weight Change HEENT: Denies: Head Aches, Sinus Congestion, Sinus Drainage Cardiovascular: Denies: Chest Pain, Palpitations Respiratory: Denies: Cough, Shortness of breath at rest, Sputum production Gastrointestinal: Denies: Abdominal Pain, Nausea, Vomiting Genitourinary: Denies: Dysuria Musculoskeletal: Denies: Joint Pain, Joint Tenderness Skin: Denies: Rash, Wounds Neurological: Denies: Numbness, Tingling, Focal weakness Psychiatric: Denies: Anxiety, Depression, Homicidal Ideations, Suicidal Ideations Hematologic/ Lymphatic: Denies: Easy Bruising, Easy Bleeding Patient Problems: Active and Suspected Problems (Last Reviewed 04/30/20 @ 10:49 by Sindhu Richter) Debility (Acute) Tinea unguium (Acute) - Physical Exam Vitals/I&O's: Vital Signs Temp Pulse Resp BP Pulse Ox 97.4 F L 92 17 115/69 93 05/12/20 12:30 05/12/20 17:34 05/12/20 12:30 05/12/20 17:34 05/12/20 12:30 Oxygen Flow Rate (L/min) 3 Oxygen Delivery Method Nasal Cannula Weight: 119.862 kg Body Mass Index (BMI) 41.0 Intake and Output for Last 24 Hours 05/10/20 05/11/20 05/12/20 23:59 23:59 23:59 Intake Total 840 / 840 660 / 660 840 / 840 Output Total 900 / 900 Balance 840 / 840 660 / 660 -60 / -60 General: Alert, Oriented x3, Cooperative HEENT: Atraumatic, PERRLA, EOMI, Normocephalic Neck: Supple, No JVD, Negative Carotid Bruits Lungs: Clear to auscultation, Normal air movement Cardiovascular: Regular rate, No murmurs Abdomen: Bowel Sounds Present, Soft, Non Tender Extremities: No edema, Capillary Refill Less than 3 Seconds Skin: No rashes, No breakdown Musculoskeletal: No Tenderness to Palpation of Joints or Extremities Neurological: Cranial nerves II-XII grossly intact Psych/Mental Status: Normal Affect, Appropriate Microbiology Past 72 Hours 05/12/20 Unknown Mucosa - Nose Respiratory Syncytial Virus Ag Scrn - Final Current Medications Acetaminophen (Acetaminophen 500 Mg Tablet) 1,000 mg PO Q8 [facility] Last Admin: 05/12/20 13:22 Dose: 1,000 mg Documented by: Amlodipine Besylate (Amlodipine 5 Mg Tablet) 5 mg PO DAILY [facility] Last Admin: 05/12/20 05:28 Dose: 5 mg Documented by: Apixaban (Apixaban 5 Mg Tablet) 5 mg PO BID [facility] Last Admin: 05/12/20 17:25 Dose: 5 mg Documented by: Benzonatate (Benzonatate 100 Mg Capsule) 100 mg PO TID PRN PRN PRN Reason: COUGH Last Admin: 05/08/20 20:37 Dose: 100 mg Documented by: Bisacodyl (Bisacodyl 10 Mg Suppository) 10 mg RECTAL DAILY PRN PRN Reason: Constipation Calamine/Phenol (Menthol/Lanolin/Calamine/Znox 113 Gm Tube) 1 applic TOPICAL BID [facility]; Protocol Last Admin: 05/12/20 17:25 Dose: 1 applicatio Documented by: [facility] Admin: 05/12/20 17:25 Dose: 25 mg Documented by: Cephalexin (Cephalexin 500 Mg Capsule) 500 mg PO Q6 [facility] Stop: 05/15/20 18:01 Last Admin: 05/12/20 17:25 Dose: 500 mg Documented by: Duloxetine HCl (Duloxetine Hcl 60 Mg Capsule) 60 mg PO DAILY [facility] Last Admin: 05/12/20 05:28 Dose: 60 mg Documented by: Flecainide Acetate (Flecainide 100 Mg Tablet) 100 mg PO BID [facility] Last Admin: 05/12/20 17:29 Dose: 100 mg Documented by: Furosemide (Furosemide 20 Mg Tablet) 20 mg PO DAILY [facility] Last Admin: 05/12/20 05:31 Dose: Not Given Documented by: Hydrochlorothiazide (Hydrochlorothiazide 25 Mg Tablet) 25 mg PO DAILY [facility] Last Admin: 05/12/20 05:29 Dose: 25 mg Documented by: Lisinopril (Lisinopril 20 Mg Tablet) 20 mg PO BID [facility] Last Admin: 05/12/20 17:30 Dose: 20 mg Documented by: Meclizine HCl (Meclizine Hcl 25 Mg Tablet) 25 mg PO 4X/DAY PRN PRN PRN Reason: DIZZINESS Multi-Ingredient Cream (Mineral Oil/Petrolatum,White Jar) 1 applic TOPICAL BID [facility]; Protocol Last Admin: 05/12/20 18:38 Dose: 1 applicatio Documented by: Multivitamins (Multivitamins,Therapeutic Tablet) [facility] Last Admin: 05/12/20 08:35 Dose: 1 tablet Documented by: Multivitamins (Vitamin B Comp W-C Capsule) [facility] Last Admin: 05/12/20 08:35 Dose: 1 capsule Documented by: Nystatin (Nystatin Powder 15gm Bottle) 1 applic TOPICAL BID [facility]; Protocol Last Admin: 05/12/20 17:28 Dose: 1 applicatio Documented by: Oxybutynin Chloride (Oxybutynin 5 Mg Tablet) [facility] Last Admin: 05/12/20 17:25 Dose: 5 mg Documented by: Oxycodone HCl (Oxycodone 5 Mg Tablet) 5 mg PO Q4H PRN PRN PRN Reason: Pain Score 4-10 Last Admin: 05/12/20 14:31 Dose: 5 mg Documented by: Pantoprazole Sodium (Pantoprazole Sodium 40 Mg Tablet) 40 mg PO DAILY [facility] Last Admin: 05/12/20 05:29 Dose: 40 mg Documented by: Polyethylene Glycol (Polyethylene Glycol 3350 17 Gm Packet) 17 gm PO DAILY [facility] Last Admin: 05/12/20 05:29 Dose: Not Given Documented by: Polysaccharide Iron Complex (Iron Polysaccharide Complex 150 Mg Capsule) [facility] Last Admin: 05/12/20 08:34 Dose: 150 mg Documented by: Potassium Chloride (Potassium Chloride 20 Meq Tablet) [facility] Last Admin: 05/12/20 17:26 Dose: 20 meq Documented by: Prednisolone Acetate (Prednisolone Eye Drops (5 Ml) 1 Drop Opth.Btl) 1 drop EACH EYE DAILY [facility] Last Admin: 05/12/20 05:30 Dose: 1 drop Documented by: Senna/Docusate Sodium (Senna/Docusate Sodium 1 Tablet) 2 tablet PO BID [facility] Last Admin: 05/12/20 17:29 Dose: Not Given Documented by: Assessment/Plan All Active Problems (Last Reviewed 04/30/20 @ 10:49 by Sindhu Richter) Cystitis (Acute) Hypoxia (Acute) Debility (Acute) Tinea unguium (Acute) Sepsis (Acute) CAP (community acquired pneumonia) (Acute) Cellulitis of left lower leg (Acute) Hypoxemia (Acute) 70 year old female with below past medical history hospitalized for left total hip replacement 04/16/[address] Ortiz, admitted to TCU with debility, here for rehabilitation, strengthening, prior to discharge home alone. Debility - PT/OT. Pain - Tylenol 1000MG Q8H, Oxycodone 5MG Q4H PRN pain (4-10). Bowel - Miralax 17GM daily, Senna/colace 2 tablets BID, Dulcolax 10MG TN daily PRN. Adult immunization - Administer Prevnar 13, Pneumovax 23, Fluzone as appropriate. DVT prophylaxis - Not necessary, already on Eliquis. Hypertension - Coreg 25MG BID, Lisinopril 20MG BID, HCTZ 25MG daily, Amlodipine 5MG daily. Atrial Fibrillation - Coreg 25MG BID, Flecainide 100MG BID, Eliquis 5MG BID. Depression - Duloxetine 60MG daily. Edema - Lasix 20MG daily. Dizziness - Meclizine 25MG 4x/day PRN. Skin irritation - Calmoseptine BID, Eucerin BID PRN. Nutrition - MVI daily. Tinea Corporis - Nystatin powder BID. Overactive bladder - Oxybutynin 5MG BID. GERD - Pantoprazole 40MG daily. Vitamin B deficiency - Vitamin B complex 1 daily. Cough - Tessalon Perle 100MG TID PRN. Left hip incision cellulitis - Keflex 500MG Q6H thru 05/15/20. Iron deficiency anemia - Ferrex 150MG daily. Hypokalemia - K-Dur 20MEQ BID. Eye disorder - Pred Forte 1GTT OU daily. Left foot callus - Consult Podiatry.
[2020-05-12] MEDS: Benzonatate 100 MG Capsule PO (21:40)
[2020-05-13] MEDS: Cephalexin 500 MG Capsule PO ×5 (00:08→22:51)
[2020-05-13] MEDS: DULoxetine Hcl 60 MG Capsule PO (05:13)
[2020-05-13] MEDS: Flecainide 100 MG Tablet PO ×2 (05:13→16:59)
[2020-05-13] MEDS: Acetaminophen 500 MG Tablet 1000 MG PO ×3 (05:13→20:02)
[2020-05-13] MEDS: Pantoprazole Sodium 40 MG Tablet PO (05:14)
[2020-05-13] MEDS: amLODIPine 5 MG Tablet PO (05:14)
[2020-05-13] MEDS: prednisoLONE eye drops (5 mL) 1 DROP OPTH.BTL 1 DRP EACH EYE (05:14)
[2020-05-13] MEDS: hydroCHLOROthiazide 25 MG Tablet PO (05:14)
[2020-05-13] MEDS: APIXABAN 5 MG TABLET PO ×2 (05:14→16:59)
[2020-05-13] MEDS: Lisinopril 20 MG Tablet PO ×2 (05:14→16:59)
[2020-05-13] MEDS: Furosemide 20 MG Tablet PO (05:14)
[2020-05-13] MEDS: Menthol/Lanolin/Calamine/Znox 113 GM Tube 1 APPLIC TOPICAL ×2 (05:17→16:59)
[2020-05-13] MEDS: Nystatin Powder 15gm Bottle 1 APPLIC TOPICAL (05:17)
[2020-05-13 05:35] VITALS: BP 128/82; PULSE 84; RESP 16; TEMP 36.3; O2SAT 94
[2020-05-13] MEDS: Oxybutynin 5 MG Tablet PO ×2 (08:50→16:59)
[2020-05-13] MEDS: Carvedilol 25 MG Tablet PO ×2 (08:50→17:01)
[2020-05-13] MEDS: Iron Polysaccharide Complex 150 MG CAPSULE PO (08:50)
[2020-05-13] MEDS: Multivitamins,Therapeutic Tablet 1 TABLET PO (08:50)
[2020-05-13] MEDS: Vitamin B Comp W-C Capsule 1 CAP PO (08:50)
[2020-05-13] MEDS: oxyCODONE 5 MG Tablet PO ×2 (08:54→22:50)
[2020-05-13 08:56] VITALS: BP 138/79; PULSE 91
--- NOTE | 2020-05-13 11:06 | NURSING ---
SMALL AMOUNT OF BLOOD ON PT LEFT BOTTOM FOOT FROM HARD CALLUS AREA WITH 2 SMALL BLOOD POCKETS. PT STATED IT DOES THIS OFF AND ON AND THATS WHY I SEE THE BARBER STYLIST. CONSULT HAS BEEN PUT IN. RN AWARE.
--- NOTE | 2020-05-13 11:10 | NURSING ---
THIS NURSE APPLIED DRY DRESSING TO LEFT FOOT. RN AWARE.
[2020-05-13 12:35] VITALS: BP 111/67; PULSE 85; RESP 18; TEMP 36.4; O2SAT 93
[2020-05-14 05:00] VITALS: BP 144/77; PULSE 77; RESP 18; TEMP 36.5; O2SAT 94
[2020-05-14] MEDS: APIXABAN 5 MG TABLET PO ×2 (06:19→17:16)
[2020-05-14] MEDS: amLODIPine 5 MG Tablet PO (06:19)
[2020-05-14] MEDS: Acetaminophen 500 MG Tablet 1000 MG PO ×3 (06:19→21:30)
[2020-05-14] MEDS: oxyCODONE 5 MG Tablet PO ×3 (06:20→21:29)
[2020-05-14] MEDS: Cephalexin 500 MG Capsule PO ×3 (06:20→17:15)
[2020-05-14] MEDS: hydroCHLOROthiazide 25 MG Tablet PO (06:21)
[2020-05-14] MEDS: Lisinopril 20 MG Tablet PO ×2 (06:21→17:15)
[2020-05-14] MEDS: Flecainide 100 MG Tablet PO ×2 (06:21→17:15)
[2020-05-14] MEDS: DULoxetine Hcl 60 MG Capsule PO (06:21)
[2020-05-14] MEDS: Pantoprazole Sodium 40 MG Tablet PO (06:21)
[2020-05-14] MEDS: prednisoLONE eye drops (5 mL) 1 DROP OPTH.BTL 1 DRP EACH EYE (06:21)
[2020-05-14] MEDS: Furosemide 20 MG Tablet PO (06:21)
[2020-05-14] MEDS: Menthol/Lanolin/Calamine/Znox 113 GM Tube 1 APPLIC TOPICAL ×2 (06:22→17:17)
[2020-05-14] MEDS: Nystatin Powder 15gm Bottle 1 APPLIC TOPICAL ×2 (06:22→17:15)
[2020-05-14] MEDS: Vitamin B Comp W-C Capsule 1 CAP PO (07:58)
[2020-05-14] MEDS: Iron Polysaccharide Complex 150 MG CAPSULE PO (07:58)
[2020-05-14] MEDS: Carvedilol 25 MG Tablet PO ×2 (07:58→16:26)
[2020-05-14] MEDS: Oxybutynin 5 MG Tablet PO ×2 (07:58→16:25)
[2020-05-14] MEDS: Multivitamins,Therapeutic Tablet 1 TABLET PO (07:58)
[2020-05-14 10:00] VITALS: PULSE 87; O2SAT 91
[2020-05-14 11:49] VITALS: BP 100/60; PULSE 80; RESP 16; TEMP 36.4; O2SAT 91
--- NOTE | 2020-05-14 12:20 | NURSING ---
Pt stated Dr. Tierney sees pt as an outpatient and she had seen her for this current issue in the past. Dr. Tierney was paged for consult, and came to see pt today.
--- NOTE | 2020-05-14 12:52 | CON.PCM_ITS ---
Problem List (1) Hallux valgus (acquired), left foot Status: Chronic (2) Callus of foot Status: Chronic Reason for Consult Date of Consultation: 05/14/20 Reason for Consultation: Potential wound on left foot History of Present Illness: The patient is a 70 year old F who was seen bedside this afternoon for a discolored callus to the bottom surface of her left foot. She relates this ca llus has been present for years however since she has been increasing her rehab program she has discoloration over the past week. She denies known drainage or odor. She is in the transitional care unit recovering from a left hip replacement. She reports during her rehabilitation sessions she does not wear shoes. Past Medical History Past Medical History (Chronic Problems): Chronic Problems (Last Reviewed 04/30/20 @ 10:49 by Sindhu Richter) Hallux valgus (acquired), left foot (Chronic) Callus of foot (Chronic) Bronchiectasis (Chronic) Stasis dermatitis of both legs (Chronic) Osteoarthritis of left hip (Chronic) Hypertension (Chronic) Atrial fibrillation (Chronic) GERD (gastroesophageal reflux disease) (Chronic) Overactive bladder (Chronic) Peripheral neuropathy (Chronic) Osteoarthritis (Chronic) Chronic anticoagulation (Chronic) PAF (paroxysmal atrial fibrillation) (Chronic) Chronic ulcer of left foot with fat layer exposed (Chronic) Hyperlipemia (Chronic) Obesity (Chronic) Depression (Chronic) Benign essential hypertension (Chronic) Medical History: Medical History (Last Reviewed 04/30/20 @ 10:49 by Sindhu Richter) Chronic anticoagulation (Chronic) Z79.01 PAF (paroxysmal atrial fibrillation) (Chronic) I48.0 Hyperlipemia (Chronic) E78.5 Benign essential hypertension (Chronic) I10 Cardiomyopathy I42.9 History of depression Z86.59 History of shingles Z86.19 Allergies atorvastatin [From Lipitor] Adverse Reaction (Verified 04/30/20 10:38) Pain in joints nifedipine [From Procardia] Adverse Reaction (Verified 04/30/20 10:38) Pain in joints tramadol Adverse Reaction (Verified 04/30/20 10:38) Upset Stomach Home Medications: Ambulatory Orders Medication Instructions Recorded Amlodipine [Norvasc] 5 mg PO DAILY 04/09/13 Duloxetine HCl 60 mg PO DAILY 01/18/18 lisinopril 20 mg tablet 20 mg PO BID tab 08/10/18 prednisolone acetate 1 % eye 1 drp OPHTHALMIC 4X/DAY 30 Days 08/10/18 drops,suspension #10 ml carvedilol 25 mg tablet 25 mg PO BID #180 tab 02/16/19 oxybutynin chloride 5 mg tablet 5 mg PO BID 03/06/19 Acetaminophen [Tylenol Tablet] 650 mg PO Q6H PRN PRN tab 06/30/19 Senna/Docusate Sodium [Senokot-S] 2 tab PO BID PRN PRN tab 06/30/19 flecainide 100 mg tablet 100 mg PO BID #180 tab 03/31/20 Furosemide [Lasix] 20 mg PO DAILY 04/17/20 B-complex with vitamin C 1 tab PO DAILY 04/30/20 benzonatate 100 mg capsule 100 mg PO BID PRN 04/30/20 ciprofloxacin HCl 500 mg tablet 500 mg PO Q12H 04/30/20 hydrochlorothiazide 25 mg tablet 25 mg PO DAILY 04/30/20 meclizine 25 mg tablet 25 mg PO Q6H PRN tab 04/30/20 melatonin 10 mg tablet 10 mg PO HS PRN 04/30/20 multivitamin 1 tab PO DAILY 04/30/20 pantoprazole 40 mg tablet,delayed 40 mg PO DAILY 04/30/20 release polyethylene glycol 3350 17 17 g PO DAILY 04/30/20 gram/dose oral powder polysaccharide iron complex 150 mg 150 mg PO DAILY 04/30/20 iron capsule potassium chloride 10 mEq 20 meq PO BID tab 04/30/20 tablet,extended release Surgical History: Surgical History (Last Reviewed 04/30/20 @ 10:49 by Sindhu Richter) History of arthroscopic knee surgery Z98.890 bilateral History of cardioversion Onset Date: 07/05/12 Z98.890 History of cornea transplant Onset Date: 04/05/18 Z94.7 Lt Eye 04/05/18, Rt Eye 2019 History of foot surgery Z98.890 left History of hysterectomy Z90.710 History of nasal cauterization Z98.890 History of sinus surgery Z98.890 History of tonsillectomy Z90.89 History of total left hip replacement Onset Date: ~04/2020 Z96.642 History of total right hip replacement Onset Date: ~2018 Z96.641 Surgical History: appendectomy, hysterectomy, - - Bilateral arthroscopic knee surgeries, cardioversion, corneal transplant, Left foot surgery, Nasal cauterization, sinus surgery. 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 Lives: Alone Smoking Status: Never smoker Tobacco Use: Non-smoker Alcohol: None Drugs: None - *Family History Paternal Family History: Family History (Last Reviewed 04/30/20 @ 10:49 by Sindhu Richter) Father Ruptured aortic aneurysm Mother Heart disease Brother Atrial fibrillation History Items: No pertinent history Maternal Family History: Family History (Last Reviewed 04/30/20 @ 10:49 by Sindhu Richter) Father Ruptured aortic aneurysm Mother Heart disease Brother Atrial fibrillation History Items: No pertinent history Review of Systems Constitutional: Denies: Chills, Fever Cardiovascular: Denies: Claudication Respiratory: Denies: Cough Gastrointestinal: Denies: Nausea, Vomiting Musculoskeletal: Reports: Foot Pain, - - Foot deformities. Denies: Leg Pain Skin: Reports: Skin Changes Neurological: Reports: Balance problems, Numbness Patient Problems: Active and Suspected Problems (Last Reviewed 04/30/20 @ 10:49 by Sindhu Richter) Debility (Acute) Tinea unguium (Acute) - Physical Exam Vitals/I&O's: Vital Signs Temp Pulse Resp BP Pulse Ox 97.5 F L 80 16 100/60 91 05/14/20 11:49 05/14/20 11:49 05/14/20 11:49 05/14/20 11:49 05/14/20 11:49 Oxygen Flow Rate (L/min) 3 Oxygen Delivery Method Nasal Cannula Weight: 119.437 kg Body Mass Index (BMI) 41.0 Intake and Output for Last 24 Hours 05/12/20 05/13/20 05/14/20 23:59 23:59 23:59 Intake Total 1080 / 1080 980 / 980 360 / 360 Output Total 900 / 900 Balance 180 / 180 980 / 980 360 / 360 General: Alert, Oriented x3, Cooperative Extremities: No cyanosis, No edema, Capillary Refill Less than 3 Seconds, No Calf Tenderness, Diminished Peripheral Pulses - 2 out of 4 PT and DP pulses bilateral Skin: - - She has black discolored callus change without adjacent erythema or streaking. Upon debridement there is dried blood without subhemorrhagic or subcutaneous tissue exposed. There is full epithelialization noted. There is no maceration. Her skin is atrophic and thin Musculoskeletal: No Tenderness to Palpation of Joints or Extremities, Muscle Wasting, - - Lateral hallux deviation left with prominent first metatarsal head at callus site. Does contracture lesser digits. Hallux abuts second toe. No bogginess or fluctuance on palpation. Compartments of the left lower extremity remain soft Neurological: Sensory exam intact to light touch and pain Psych/Mental Status: Normal Affect, Appropriate Microbiology Past 72 Hours 05/12/20 Unknown Mucosa - Nose Respiratory Syncytial Virus Ag Scrn - Final Current Medications Acetaminophen (Acetaminophen 500 Mg Tablet) 1,000 mg PO Q8 [facility] Last Admin: 05/14/20 06:19 Dose: 1,000 mg Documented by: Amlodipine Besylate (Amlodipine 5 Mg Tablet) 5 mg PO DAILY [facility] Last Admin: 05/14/20 06:19 Dose: 5 mg Documented by: Apixaban (Apixaban 5 Mg Tablet) 5 mg PO BID [facility] Last Admin: 05/14/20 06:19 Dose: 5 mg Documented by: Benzonatate (Benzonatate 100 Mg Capsule) 100 mg PO TID PRN PRN PRN Reason: COUGH Last Admin: 05/12/20 21:40 Dose: 100 mg Documented by: Bisacodyl (Bisacodyl 10 Mg Suppository) 10 mg RECTAL DAILY PRN PRN Reason: Constipation Calamine/Phenol (Menthol/Lanolin/Calamine/Znox 113 Gm Tube) 1 applic TOPICAL BID [facility]; Protocol Last Admin: 05/14/20 06:22 Dose: 1 applicatio Documented by: Carvedilol (Carvedilol 25 Mg Tablet) 25 mg PO BIDCM [facility] Last Admin: 05/14/20 07:58 Dose: 25 mg Documented by: Cephalexin (Cephalexin 500 Mg Capsule) 500 mg PO Q6 [facility] Stop: 05/15/20 18:01 Last Admin: 05/14/20 11:01 Dose: 500 mg Documented by: Duloxetine HCl (Duloxetine Hcl 60 Mg Capsule) 60 mg PO DAILY [facility] Last Admin: 05/14/20 06:21 Dose: 60 mg Documented by: Flecainide Acetate (Flecainide 100 Mg Tablet) 100 mg PO BID [facility] Last Admin: 05/14/20 06:21 Dose: 100 mg Documented by: Furosemide (Furosemide 20 Mg Tablet) 20 mg PO DAILY [facility] Last Admin: 05/14/20 06:21 Dose: 20 mg Documented by: Hydrochlorothiazide (Hydrochlorothiazide 25 Mg Tablet) 25 mg PO DAILY [facility] Last Admin: 05/14/20 06:21 Dose: 25 mg Documented by: Lisinopril (Lisinopril 20 Mg Tablet) 20 mg PO BID [facility] Last Admin: 05/14/20 06:21 Dose: 20 mg Documented by: Meclizine HCl (Meclizine Hcl 25 Mg Tablet) 25 mg PO 4X/DAY PRN PRN PRN Reason: DIZZINESS Multi-Ingredient Cream (Mineral Oil/Petrolatum,White Jar) 1 applic TOPICAL BID [facility]; Protocol Last Admin: 05/14/20 06:23 Dose: 1 applicatio Documented by: Multivitamins (Multivitamins,Therapeutic Tablet) [facility] Admin: 05/14/20 07:58 Dose: 1 tablet Documented by: Multivitamins (Vitamin B Comp W-C Capsule) [facility] Last Admin: 05/14/20 07:58 Dose: 1 capsule Documented by: Nystatin (Nystatin Powder 15gm Bottle) 1 applic TOPICAL BID [facility]; Protocol Last Admin: 05/14/20 06:22 Dose: 1 applicatio Documented by: Oxybutynin Chloride (Oxybutynin 5 Mg Tablet) [facility] Last Admin: 05/14/20 07:58 Dose: 5 mg Documented by: Oxycodone HCl (Oxycodone 5 Mg Tablet) 5 mg PO Q4H PRN PRN PRN Reason: Pain Score 4-10 Last Admin: 05/14/20 06:20 Dose: 5 mg Documented by: Pantoprazole Sodium (Pantoprazole Sodium 40 Mg Tablet) 40 mg PO DAILY [facility] Last Admin: 05/14/20 06:21 Dose: 40 mg Documented by: Polyethylene Glycol (Polyethylene Glycol 3350 17 Gm Packet) 17 gm PO DAILY [facility] Last Admin: 05/14/20 06:22 Dose: Not Given Documented by: Polysaccharide Iron Complex (Iron Polysaccharide Complex 150 Mg Capsule) [facility] Last Admin: 05/14/20 07:58 Dose: 150 mg Documented by: Potassium Chloride (Potassium Chloride 20 Meq Tablet) 20 meq [facility] Last Admin: 05/14/20 07:58 Dose: 20 meq Documented by: Prednisolone Acetate (Prednisolone Eye Drops (5 Ml) 1 Drop Opth.Btl) 1 drop EACH EYE DAILY [facility] Last Admin: 05/14/20 06:21 Dose: 1 drop Documented by: Senna/Docusate Sodium (Senna/Docusate Sodium 1 Tablet) 2 tablet PO BID [facility] Last Admin: 05/14/20 06:23 Dose: Not Given Documented by: Assessment/Plan All Active Problems (Last Reviewed 04/30/20 @ 10:49 by Sindhu Richter) Cystitis (Acute) Hypoxia (Acute) Debility (Acute) Tinea unguium (Acute) Sepsis (Acute) CAP (community acquired pneumonia) (Acute) Cellulitis of left lower leg (Acute) Hypoxemia (Acute) Preulcerative lesion left foot, no ulcer noted after debridement Foot deformities including hallux valgus and hammertoe deformity Gait impairment now status post left hip surgery Walking difficulty I reviewed and discussed her case. She is afebrile and her vital signs remained stable. She was reassured she does not have any signs of infection or any open wound noted after the callus was debrided. The callus was debrided with a 15 blade scalpel after verbal consent was obtained. No bleeding was noted and she tolerated this well. I recommended she wear shoes during rehab. She is concerned about walking on even with a shoe in place and I advised her to wear shoe on both limbs. She is amendable to do this after her family member brings her shoes. To check feet daily. She understands insole adjustment may also be required to take pressure off of this bony prominence site. To continue with rehabilitation as tolerated. Thank you for the consultation. I will continue to follow her on an as-needed basis while in the transitional care unit. She can follow-up at the foot and ankle center after discharge. Maria Ines Tierney DPM, FACF[facility] [phone]
--- NOTE | 2020-05-14 13:40 | CASEMGMT ---
Social Work Spoke with pt and answered questions about DC planning. Explained pt would receive skilled HHC services and the extent of those services. Offered to get any DME pt would need - pt denied. Pt expressed she feels like she is making good progress and could look at going home in about two weeks. Pt stated her only issues are getting up from surfaces but has recliner lift chair at home. Inquired about ramp progress. Pt stated her brother is working on it but that she doesn't anticipate going in and out of her house until her ortho f/u appt 07/10. Explained therapy has stressed since admission the importance of getting a ramp built to safely get in and out of the home before pt would DC. Also explained there could be other reasons to get in and out of home prior to that appt, and that is not safe to stay stuck inside her home. Encouraged to get ramp built before DC. Pt expressed understanding and will make sure brother gets that secured. Will continue to follow. Marisela Hill, MANAGER URGENT CARE SWITCHBOARD INSTALLER
--- NOTE | 2020-05-14 14:41 | NURSING ---
Addendum entered by Anne Sanford 05/14/20 15:11: pt unable to drink warm prune juice said she could not get over the taste but is still refusing the suppository, stated she will call the kitchen and order prunes to eat. Original Note: Spoke with pt regarding not having bm since 05/10. Pt has prn suppository available but refused it at this time. Pt did agree to try warm prune juice with butter. will monitor effectiveness
[2020-05-14] MEDS: Senna/Docusate Sodium 1 Tablet 2 TABLET PO (17:15)
[2020-05-15] MEDS: Cephalexin 500 MG Capsule PO ×4 (01:57→16:59)
[2020-05-15 05:00] VITALS: BP 113/66; PULSE 83; RESP 18; TEMP 36.5; O2SAT 96
[2020-05-15] MEDS: DULoxetine Hcl 60 MG Capsule PO (05:11)
[2020-05-15] MEDS: APIXABAN 5 MG TABLET PO ×2 (05:11→16:59)
[2020-05-15] MEDS: amLODIPine 5 MG Tablet PO (05:12)
[2020-05-15] MEDS: Senna/Docusate Sodium 1 Tablet 2 TABLET PO ×2 (05:12→16:59)
[2020-05-15] MEDS: Pantoprazole Sodium 40 MG Tablet PO (05:12)
[2020-05-15] MEDS: hydroCHLOROthiazide 25 MG Tablet PO (05:12)
[2020-05-15] MEDS: Menthol/Lanolin/Calamine/Znox 113 GM Tube 1 APPLIC TOPICAL ×2 (05:12→17:00)
[2020-05-15] MEDS: Flecainide 100 MG Tablet PO ×2 (05:12→16:59)
[2020-05-15] MEDS: Lisinopril 20 MG Tablet PO ×2 (05:12→16:59)
[2020-05-15] MEDS: Furosemide 20 MG Tablet PO (05:12)
[2020-05-15] MEDS: Acetaminophen 500 MG Tablet 1000 MG PO ×3 (05:12→21:27)
[2020-05-15] MEDS: Nystatin Powder 15gm Bottle 1 APPLIC TOPICAL ×2 (05:13→17:01)
[2020-05-15] MEDS: prednisoLONE eye drops (5 mL) 1 DROP OPTH.BTL 1 DRP EACH EYE (05:13)
[2020-05-15] MEDS: Oxybutynin 5 MG Tablet PO ×2 (08:26→16:05)
[2020-05-15] MEDS: Vitamin B Comp W-C Capsule 1 CAP PO (08:26)
[2020-05-15] MEDS: Carvedilol 25 MG Tablet PO ×2 (08:26→16:05)
[2020-05-15] MEDS: Iron Polysaccharide Complex 150 MG CAPSULE PO (08:26)
[2020-05-15] MEDS: Multivitamins,Therapeutic Tablet 1 TABLET PO (08:27)
[2020-05-15] MEDS: oxyCODONE 5 MG Tablet PO ×2 (11:33→22:54)
[2020-05-15 13:36] VITALS: BP 105/58; PULSE 91; RESP 16; TEMP 36.7; O2SAT 91
[2020-05-15 20:00] VITALS: PULSE 80; RESP 18; O2SAT 94
[2020-05-16 05:00] VITALS: BP 135/60; PULSE 81; RESP 15; TEMP 36.8; O2SAT 97
[2020-05-16] MEDS: Menthol/Lanolin/Calamine/Znox 113 GM Tube 1 APPLIC TOPICAL ×2 (06:14→17:09)
[2020-05-16] MEDS: Nystatin Powder 15gm Bottle 1 APPLIC TOPICAL (06:14)
[2020-05-16] MEDS: Acetaminophen 500 MG Tablet 1000 MG PO ×3 (06:15→20:49)
[2020-05-16] MEDS: APIXABAN 5 MG TABLET PO ×2 (06:15→17:07)
[2020-05-16] MEDS: Furosemide 20 MG Tablet PO (06:16)
[2020-05-16] MEDS: Senna/Docusate Sodium 1 Tablet 2 TABLET PO ×2 (06:16→17:08)
[2020-05-16] MEDS: hydroCHLOROthiazide 25 MG Tablet PO (06:16)
[2020-05-16] MEDS: Lisinopril 20 MG Tablet PO ×2 (06:16→17:13)
[2020-05-16] MEDS: DULoxetine Hcl 60 MG Capsule PO (06:17)
[2020-05-16] MEDS: amLODIPine 5 MG Tablet PO (06:17)
[2020-05-16] MEDS: Pantoprazole Sodium 40 MG Tablet PO (06:17)
[2020-05-16] MEDS: Flecainide 100 MG Tablet PO ×2 (06:17→17:06)
[2020-05-16] MEDS: prednisoLONE eye drops (5 mL) 1 DROP OPTH.BTL 1 DRP EACH EYE (06:19)
[2020-05-16 08:00] LABS: Basophil# 0.05 X10^3/uL; Basophil% 0.6 % (0-1); Eosinophil# 1.21 X10^3/uL; Eosinophils% 14.6 % (0-5); Hematocrit 37.5 % (37-47); Hemoglobin 10.8 g/dL (12.0-15.0); Lymphocyte % 15.6 % (19-41); Mean Corp Hgb Conc 28.8 g/dL (32-36); Mean Corpuscular Hgb 26.5 pg (27.0-32.0); Mean Corpuscular Volume 91.9 fL (81-99); Mean Platelet Vol. 9.6 fl (6.2-12.0); Monocyte# 0.76 X10^3/uL; Monocyte% 9.1 % (0-10); NRBC Flagged by Analyzer 0 % (0-5); Neutrophil # 4.96 X10^3/uL (2.7-7.7); Neutrophil % 59.7 % (47-70); Platelet Count 345 K/mm3 (150-450); RBC Distribution Width CV 17.4 % (11.6-14.6); RBC Distribution Width SD 58.9 fl (35.1-43.9); Red Blood Count 4.08 M/mm3 (4.2-5.4); White Blood Count 8.3 K/mm3 (4.4-11.0)
[2020-05-16 08:14] LABS: Anion Gap 5 (5-15); BUN 29 mg/dL (7-18); Calcium,Total 9.2 mg/dL (8.5-10.1); Chloride 103 mmol/L (98-107); Creatinine, Serum 0.76 mg/dL (0.55-1.02); EST Glomerular Filtration Rate 80 mL/min (>60); Est Glom Filt Rate - Afr Amer 97 mL/min (>60); Estimated Creatinine Clearance 57.42 ml/min; Glucose 120 mg/dL (74-106); Potassium 4.1 mmol/L (3.5-5.1); Sodium Level 136 mmol/L (136-145)
[2020-05-16] MEDS: oxyCODONE 5 MG Tablet PO ×3 (08:22→20:51)
[2020-05-16] MEDS: Multivitamins,Therapeutic Tablet 1 TABLET PO (08:26)
[2020-05-16] MEDS: Vitamin B Comp W-C Capsule 1 CAP PO (08:26)
[2020-05-16] MEDS: Iron Polysaccharide Complex 150 MG CAPSULE PO (08:26)
[2020-05-16] MEDS: Carvedilol 25 MG Tablet PO ×2 (08:26→17:13)
[2020-05-16 08:30] VITALS: BP 132/71; PULSE 87
[2020-05-16] MEDS: Oxybutynin 5 MG Tablet PO ×2 (09:33→17:06)
[2020-05-16 10:00] VITALS: PULSE 82; RESP 18; O2SAT 93
[2020-05-16 14:09] VITALS: BP 98/60; PULSE 89; RESP 16; TEMP 36.2; O2SAT 94
--- NOTE | 2020-05-16 15:35 | NURSING ---
Resident and friend, Keyana, notified of staff testing positive for COVID.
[2020-05-16 17:14] VITALS: BP 113/50; PULSE 91
[2020-05-17 05:58] VITALS: BP 119/70; PULSE 83; RESP 16; TEMP 36.3; O2SAT 98
[2020-05-17] MEDS: Acetaminophen 500 MG Tablet 1000 MG PO ×3 (06:00→20:18)
[2020-05-17] MEDS: DULoxetine Hcl 60 MG Capsule PO (06:00)
[2020-05-17] MEDS: Pantoprazole Sodium 40 MG Tablet PO (06:01)
[2020-05-17] MEDS: Furosemide 20 MG Tablet PO (06:01)
[2020-05-17] MEDS: Flecainide 100 MG Tablet PO ×2 (06:01→16:41)
[2020-05-17] MEDS: hydroCHLOROthiazide 25 MG Tablet PO (06:01)
[2020-05-17] MEDS: Lisinopril 20 MG Tablet PO ×2 (06:01→16:41)
[2020-05-17] MEDS: Menthol/Lanolin/Calamine/Znox 113 GM Tube 1 APPLIC TOPICAL ×2 (06:01→16:42)
[2020-05-17] MEDS: APIXABAN 5 MG TABLET PO ×2 (06:01→16:40)
[2020-05-17] MEDS: amLODIPine 5 MG Tablet PO (06:01)
[2020-05-17] MEDS: Nystatin Powder 15gm Bottle 1 APPLIC TOPICAL ×2 (06:01→16:42)
[2020-05-17] MEDS: prednisoLONE eye drops (5 mL) 1 DROP OPTH.BTL 1 DRP EACH EYE (06:03)
[2020-05-17] MEDS: oxyCODONE 5 MG Tablet PO (08:40)
[2020-05-17] MEDS: Oxybutynin 5 MG Tablet PO ×2 (08:41→16:40)
[2020-05-17] MEDS: Vitamin B Comp W-C Capsule 1 CAP PO (08:41)
[2020-05-17] MEDS: Carvedilol 25 MG Tablet PO ×2 (08:41→16:40)
[2020-05-17] MEDS: Iron Polysaccharide Complex 150 MG CAPSULE PO (08:41)
[2020-05-17] MEDS: Multivitamins,Therapeutic Tablet 1 TABLET PO (08:42)
[2020-05-17 11:59] VITALS: BP 133/67; PULSE 91; RESP 18; TEMP 36.2; O2SAT 90
[2020-05-17] MEDS: Senna/Docusate Sodium 1 Tablet 2 TABLET PO (16:41)
[2020-05-17 20:15] VITALS: PULSE 82; RESP 18; O2SAT 93
[2020-05-18 05:00] VITALS: BP 144/93; PULSE 84; RESP 18; TEMP 36.6; O2SAT 94
[2020-05-18] MEDS: hydroCHLOROthiazide 25 MG Tablet PO (05:47)
[2020-05-18] MEDS: amLODIPine 5 MG Tablet PO (05:47)
[2020-05-18] MEDS: Senna/Docusate Sodium 1 Tablet 2 TABLET PO ×2 (05:47→16:08)
[2020-05-18] MEDS: Acetaminophen 500 MG Tablet 1000 MG PO ×3 (05:47→21:25)
[2020-05-18] MEDS: Flecainide 100 MG Tablet PO ×2 (05:47→16:09)
[2020-05-18] MEDS: Pantoprazole Sodium 40 MG Tablet PO (05:47)
[2020-05-18] MEDS: Lisinopril 20 MG Tablet PO ×2 (05:47→16:09)
[2020-05-18] MEDS: APIXABAN 5 MG TABLET PO ×2 (05:47→16:08)
[2020-05-18] MEDS: Furosemide 20 MG Tablet PO (05:47)
[2020-05-18] MEDS: DULoxetine Hcl 60 MG Capsule PO (05:50)
[2020-05-18] MEDS: prednisoLONE eye drops (5 mL) 1 DROP OPTH.BTL 1 DRP EACH EYE (05:50)
[2020-05-18] MEDS: Menthol/Lanolin/Calamine/Znox 113 GM Tube 1 APPLIC TOPICAL ×2 (05:52→16:12)
[2020-05-18] MEDS: Nystatin Powder 15gm Bottle 1 APPLIC TOPICAL ×2 (05:53→16:12)
[2020-05-18 06:54] VITALS: O2SAT 91
[2020-05-18] MEDS: Oxybutynin 5 MG Tablet PO ×2 (08:37→16:07)
[2020-05-18] MEDS: Carvedilol 25 MG Tablet PO ×2 (08:37→16:07)
[2020-05-18] MEDS: Iron Polysaccharide Complex 150 MG CAPSULE PO (08:37)
[2020-05-18] MEDS: Vitamin B Comp W-C Capsule 1 CAP PO (08:37)
[2020-05-18] MEDS: Multivitamins,Therapeutic Tablet 1 TABLET PO (08:38)
[2020-05-18] MEDS: oxyCODONE 5 MG Tablet PO ×2 (08:39→21:26)
[2020-05-18 10:00] VITALS: PULSE 84; RESP 18; O2SAT 93
[2020-05-18 13:16] VITALS: BP 153/77; PULSE 85; RESP 2; TEMP 36.5; O2SAT 93
[2020-05-18] MEDS: Benzonatate 100 MG Capsule PO (21:26)
[2020-05-19 05:00] VITALS: BP 119/72; PULSE 77; RESP 16; TEMP 36.2; O2SAT 93
[2020-05-19] MEDS: prednisoLONE eye drops (5 mL) 1 DROP OPTH.BTL 1 DRP EACH EYE (05:26)
[2020-05-19] MEDS: Lisinopril 20 MG Tablet PO ×2 (05:26→17:01)
[2020-05-19] MEDS: Furosemide 20 MG Tablet PO (05:26)
[2020-05-19] MEDS: Acetaminophen 500 MG Tablet 1000 MG PO ×3 (05:26→22:08)
[2020-05-19] MEDS: Pantoprazole Sodium 40 MG Tablet PO (05:26)
[2020-05-19] MEDS: APIXABAN 5 MG TABLET PO ×2 (05:26→17:01)
[2020-05-19] MEDS: DULoxetine Hcl 60 MG Capsule PO (05:26)
[2020-05-19] MEDS: amLODIPine 5 MG Tablet PO (05:26)
[2020-05-19] MEDS: Flecainide 100 MG Tablet PO ×2 (05:26→17:01)
[2020-05-19] MEDS: hydroCHLOROthiazide 25 MG Tablet PO (05:26)
[2020-05-19] MEDS: Nystatin Powder 15gm Bottle 1 APPLIC TOPICAL ×2 (05:29→17:01)
[2020-05-19] MEDS: Menthol/Lanolin/Calamine/Znox 113 GM Tube 1 APPLIC TOPICAL ×2 (05:29→17:02)
[2020-05-19 06:44] VITALS: O2SAT 92
[2020-05-19] MEDS: Multivitamins,Therapeutic Tablet 1 TABLET PO (07:58)
[2020-05-19] MEDS: Carvedilol 25 MG Tablet PO ×2 (07:58→16:17)
[2020-05-19] MEDS: Vitamin B Comp W-C Capsule 1 CAP PO (07:58)
[2020-05-19] MEDS: Oxybutynin 5 MG Tablet PO (07:58)
[2020-05-19] MEDS: Iron Polysaccharide Complex 150 MG CAPSULE PO (08:26)
[2020-05-19 12:56] VITALS: BP 104/67; PULSE 92; RESP 16; TEMP 36.1; O2SAT 92
[2020-05-19] MEDS: oxyCODONE 5 MG Tablet PO (22:08)
[2020-05-19] MEDS: Benzonatate 100 MG Capsule PO (22:08)
[2020-05-19 22:09] VITALS: PULSE 86; RESP 18; O2SAT 92
[2020-05-20 05:24] VITALS: BP 139/77; PULSE 86; RESP 18; TEMP 36.4; O2SAT 94
[2020-05-20] MEDS: prednisoLONE eye drops (5 mL) 1 DROP OPTH.BTL 1 DRP EACH EYE (05:25)
[2020-05-20] MEDS: Lisinopril 20 MG Tablet PO ×2 (05:26→17:58)
[2020-05-20] MEDS: Flecainide 100 MG Tablet PO ×2 (05:26→17:59)
[2020-05-20] MEDS: Pantoprazole Sodium 40 MG Tablet PO (05:26)
[2020-05-20] MEDS: amLODIPine 5 MG Tablet PO (05:26)
[2020-05-20] MEDS: DULoxetine Hcl 60 MG Capsule PO (05:26)
[2020-05-20] MEDS: Acetaminophen 500 MG Tablet 1000 MG PO ×3 (05:26→20:24)
[2020-05-20] MEDS: APIXABAN 5 MG TABLET PO ×2 (05:26→17:59)
[2020-05-20] MEDS: Furosemide 20 MG Tablet PO (05:26)
[2020-05-20] MEDS: hydroCHLOROthiazide 25 MG Tablet PO (05:26)
[2020-05-20] MEDS: Senna/Docusate Sodium 1 Tablet 2 TABLET PO ×2 (05:27→17:59)
[2020-05-20] MEDS: Nystatin Powder 15gm Bottle 1 APPLIC TOPICAL ×2 (05:28→18:03)
[2020-05-20] MEDS: Menthol/Lanolin/Calamine/Znox 113 GM Tube 1 APPLIC TOPICAL ×2 (05:29→18:03)
[2020-05-20] MEDS: Iron Polysaccharide Complex 150 MG CAPSULE PO (08:38)
[2020-05-20] MEDS: Vitamin B Comp W-C Capsule 1 CAP PO (08:39)
[2020-05-20] MEDS: Multivitamins,Therapeutic Tablet 1 TABLET PO (08:39)
[2020-05-20] MEDS: Carvedilol 25 MG Tablet PO ×2 (08:39→17:59)
[2020-05-20] MEDS: oxyCODONE 5 MG Tablet PO ×2 (08:48→20:23)
[2020-05-20 10:00] VITALS: PULSE 92; RESP 20; O2SAT 91
[2020-05-20 13:09] VITALS: BP 123/67; PULSE 91; RESP 18; TEMP 36.7; O2SAT 90
--- NOTE | 2020-05-20 14:30 | CASEMGMT ---
Social Work Spoke with pt's brother whom is coordinating ramp for pt. Provided ramp resources and explained once the ramp is scheduled to be built or done, notify SW and a discharge date will be set. Brother understandable. Will continue to follow. Marisela Hill, ROTARY DRILL OPERATOR TECHNICAL AGRONOMIST
[2020-05-20] MEDS: Oxybutynin 5 MG Tablet PO (18:25)
[2020-05-21 05:53] VITALS: BP 134/73; PULSE 86; RESP 18; TEMP 36.6; O2SAT 96
[2020-05-21] MEDS: Acetaminophen 500 MG Tablet 1000 MG PO ×3 (05:56→19:55)
[2020-05-21] MEDS: APIXABAN 5 MG TABLET PO ×2 (05:56→17:52)
[2020-05-21] MEDS: DULoxetine Hcl 60 MG Capsule PO (05:57)
[2020-05-21] MEDS: Pantoprazole Sodium 40 MG Tablet PO (05:57)
[2020-05-21] MEDS: Senna/Docusate Sodium 1 Tablet 2 TABLET PO ×2 (05:57→17:53)
[2020-05-21] MEDS: prednisoLONE eye drops (5 mL) 1 DROP OPTH.BTL 1 DRP EACH EYE (05:57)
[2020-05-21] MEDS: Flecainide 100 MG Tablet PO ×2 (05:57→17:54)
[2020-05-21] MEDS: hydroCHLOROthiazide 25 MG Tablet PO (05:57)
[2020-05-21] MEDS: Lisinopril 20 MG Tablet PO ×2 (05:57→17:50)
[2020-05-21] MEDS: amLODIPine 5 MG Tablet PO (06:01)
[2020-05-21] MEDS: oxyCODONE 5 MG Tablet PO ×2 (06:01→10:12)
[2020-05-21] MEDS: Nystatin Powder 15gm Bottle 1 APPLIC TOPICAL (06:03)
[2020-05-21] MEDS: Menthol/Lanolin/Calamine/Znox 113 GM Tube 1 APPLIC TOPICAL ×2 (06:03→17:53)
[2020-05-21] MEDS: Oxybutynin 5 MG Tablet PO ×2 (08:24→17:50)
[2020-05-21] MEDS: Vitamin B Comp W-C Capsule 1 CAP PO (08:24)
[2020-05-21] MEDS: Carvedilol 25 MG Tablet PO ×2 (08:24→17:50)
[2020-05-21] MEDS: Iron Polysaccharide Complex 150 MG CAPSULE PO (08:25)
[2020-05-21] MEDS: Multivitamins,Therapeutic Tablet 1 TABLET PO (08:26)
[2020-05-21 08:29] VITALS: BP 136/64; PULSE 83
[2020-05-21 13:48] VITALS: BP 126/58; PULSE 93; RESP 18; TEMP 36.1; O2SAT 90
[2020-05-21 19:59] VITALS: PULSE 83; RESP 18; O2SAT 92
[2020-05-22] MEDS: oxyCODONE 5 MG Tablet PO ×2 (02:20→15:39)
[2020-05-22 04:58] VITALS: BP 144/75; PULSE 80; RESP 18; TEMP 37; O2SAT 93
[2020-05-22] MEDS: Senna/Docusate Sodium 1 Tablet 2 TABLET PO (05:01)
[2020-05-22] MEDS: hydroCHLOROthiazide 25 MG Tablet PO (05:01)
[2020-05-22] MEDS: Pantoprazole Sodium 40 MG Tablet PO (05:01)
[2020-05-22] MEDS: DULoxetine Hcl 60 MG Capsule PO (05:01)
[2020-05-22] MEDS: Acetaminophen 500 MG Tablet 1000 MG PO ×3 (05:01→21:33)
[2020-05-22] MEDS: APIXABAN 5 MG TABLET PO ×2 (05:01→17:51)
[2020-05-22] MEDS: Flecainide 100 MG Tablet PO ×2 (05:02→17:52)
[2020-05-22] MEDS: Lisinopril 20 MG Tablet PO ×2 (05:02→17:53)
[2020-05-22] MEDS: amLODIPine 5 MG Tablet PO (05:02)
[2020-05-22] MEDS: prednisoLONE eye drops (5 mL) 1 DROP OPTH.BTL 1 DRP EACH EYE (05:04)
[2020-05-22] MEDS: Menthol/Lanolin/Calamine/Znox 113 GM Tube 1 APPLIC TOPICAL ×2 (05:06→17:54)
[2020-05-22] MEDS: Nystatin Powder 15gm Bottle 1 APPLIC TOPICAL ×2 (05:06→17:53)
[2020-05-22 08:32] VITALS: BP 118/69; PULSE 88
[2020-05-22] MEDS: Vitamin B Comp W-C Capsule 1 CAP PO (08:33)
[2020-05-22] MEDS: Oxybutynin 5 MG Tablet PO ×2 (08:33→17:50)
[2020-05-22] MEDS: Carvedilol 25 MG Tablet PO ×2 (08:33→17:51)
[2020-05-22] MEDS: Multivitamins,Therapeutic Tablet 1 TABLET PO (08:34)
[2020-05-22] MEDS: Iron Polysaccharide Complex 150 MG CAPSULE PO (08:34)
[2020-05-22 12:30] VITALS: BP 101/58; PULSE 93; RESP 18; TEMP 36.1; O2SAT 91
--- NOTE | 2020-05-22 15:50 | NURSING ---
LEFT HIP AREA RED AND WARM.REPORTED TO RN.
--- NOTE | 2020-05-22 15:58 | CASEMGMT ---
Social Work Spoke with pt's brother whom stated the ramp will be built for pt by Tuesday and requesting DC 05/26. IDT agreeable. Spoke with pt and pt agreeable. Brother will be at pt's home to assist pt. Referred to [facility] PT/OT/SN and [facility] for increase to 3LPM of O2. No other DME needs. Plan: DC home with brother support 05/26, [facility] PT/OT/SN, [facility] - 3LPM O2 JESUS HannaW
[2020-05-22] MEDS: Furosemide 20 MG Tablet PO (17:52)
[2020-05-22 18:00] VITALS: BP 115/71; PULSE 96
--- NOTE | 2020-05-22 19:56 | DCINST_ITS ---
- Discharge Diagnoses Current Active Problems: Current Active and Chronic Problems (Last Reviewed 04/30/20 @ 10:49 by Sindhu Richter) Hallux valgus (acquired), left foot (Chronic) Callus of foot (Chronic) Debility (Acute) Osteoarthritis of left hip (Chronic) Hypertension (Chronic) Atrial fibrillation (Chronic) GERD (gastroesophageal reflux disease) (Chronic) Overactive bladder (Chronic) Tinea unguium (Acute) Peripheral neuropathy (Chronic) Osteoarthritis (Chronic) Depression (Chronic) You will use the following diet at home:: No restrictions, Regular Your food should be the consistency of: Regular Your liquids should be the consistency of: Regular/Thin Discharge Activity: Return to Normal Activity, May Shower, Use Walker Weight Bearing Status: Weight bearing as tolerated Call your doctor if you observe: Fever of 101 or Higher, Inability to urinate, Inability to have a bowel movement, Shortness of breath, Chest pain, Uncontrolled pain Allergies/Adverse Reactions: Allergies atorvastatin [From Lipitor] Adverse Reaction (Verified 04/30/20 10:38) Pain in joints nifedipine [From Procardia] Adverse Reaction (Verified 04/30/20 10:38) Pain in joints tramadol Adverse Reaction (Verified 04/30/20 10:38) Upset Stomach Medications to take at Discharge Amlodipine [Norvasc] 5 mg PO DAILY 04/09/13 Duloxetine HCl 60 mg PO DAILY 01/18/18 lisinopril 20 mg tablet 20 mg PO BID tab 08/10/18 prednisolone acetate 1 % eye drops,suspension 1 drp OPHTHALMIC 4X/DAY 30 Days #10 ml 08/10/18 carvedilol 25 mg tablet 25 mg PO BID #180 tab 02/16/19 oxybutynin chloride 5 mg tablet 5 mg PO BID 03/06/19 flecainide 100 mg tablet 100 mg PO BID #180 tab 03/31/20 Furosemide [Lasix] 20 mg PO DAILY 04/17/20 hydrochlorothiazide 25 mg tablet 25 mg PO DAILY 04/30/20 multivitamin 1 tab PO DAILY 04/30/20 pantoprazole 40 mg tablet,delayed release 40 mg PO DAILY 04/30/20 polysaccharide iron complex 150 mg iron capsule 150 mg PO DAILY 04/30/20 potassium chloride 10 mEq tablet,extended release 20 meq PO BID tab 04/30/20 Acetaminophen [Tylenol] 1,000 mg PO Q8 tablet 05/22/20 Apixaban [Eliquis] 5 mg PO BID tablet 05/22/20 Hydrochlorothiazide [Hctz] 25 mg PO DAILY tablet 05/22/20 Iron Polysaccharide Complex [Ferrex 150] 150 mg PO DAILYCM #30 cap 05/22/20 Menthol/Lanolin/Calamine/Znox [Calmoseptine Ointment] 1 applic TOPICAL BID tube 05/22/20 Mineral Oil/Petrolatum,White [Eucerin] 1 applic TOPICAL BID jar 05/22/20 Multivitamins,Therapeutic [Multivitamin] 1 tablet PO DAILYCM tablet 05/22/20 Nystatin Powder [Mycostatin Powder] 1 applic TOPICAL BID bottle 05/22/20 Oxybutynin [Ditropan] 5 mg PO BIDCM tablet 05/22/20 Pantoprazole Sodium [Protonix] 40 mg PO DAILY tablet 05/22/20 Potassium Chloride [K-Dur] 20 meq PO BIDCM tablet 05/22/20 Vitamin B Comp W-C [Allbee W/C Caplet, Thera B Comp/C] 1 capsule PO DAILYCM capsule 05/22/20 prednisoLONE eye drops (5 mL) [Pred Forte eye drops (5 mL)] 1 drop EACH EYE KAMILA LY opth.btl 05/22/20 The following prescriptions were given: Iron Polysaccharide Complex [Ferrex 150] 150 mg PO DAILYCM #30 cap Transmission Status: Pending to [facility]/pharmacy #[id number] Primary Care Physician: Faraz Junior MD [Primary Care Provider] - Please follow up with your Primary Care Physician in: 1 week. Test Results: Test results from this visit will be discussed in further detail at your follow- up appointment, if applicable. Please Follow Up With: Dr. Karri Ortiz When: arrive at 2:55pm, appt at 3p Please Follow Up With: [facility] When: f/u this week AFIB Proposed Discharge Date: 05/26/20
--- NOTE | 2020-05-22 19:58 | PCM.DC.SUM ---
Discharge Date and Diagnosis - Problem List Patient Problems: Active and Suspected Problems (Last Reviewed 04/30/20 @ 10:49 by Sindhu Richter) Debility (Acute) Tinea unguium (Acute) Date of Admission: 04/17/20 Date of Discharge: 05/26/20 - Primary Discharge Diagnosis Acute Problems: Active Problems (Last Reviewed 04/30/20 @ 10:49 by Sindhu Richter) Debility (Acute) Tinea unguium (Acute) - Secondary Discharge Diagnosis Chronic Problems: Chronic Problems (Last Reviewed 04/30/20 @ 10:49 by Sindhu Richter) Hallux valgus (acquired), left foot (Chronic) Callus of foot (Chronic) Bronchiectasis (Chronic) Stasis dermatitis of both legs (Chronic) Osteoarthritis of left hip (Chronic) Hypertension (Chronic) Atrial fibrillation (Chronic) GERD (gastroesophageal reflux disease) (Chronic) Overactive bladder (Chronic) Peripheral neuropathy (Chronic) Osteoarthritis (Chronic) Chronic anticoagulation (Chronic) PAF (paroxysmal atrial fibrillation) (Chronic) Chronic ulcer of left foot with fat layer exposed (Chronic) Hyperlipemia (Chronic) Obesity (Chronic) Depression (Chronic) Benign essential hypertension (Chronic) Hospital Course and Treatment Imaging Results: 04/17/20 17:24 Diet: Regular - General Is pt able to select menu?: Yes Clinical Impression(s) from Imaging Studies Chest X-Ray 04/18/20 08:00 IMPRESSION: Stable vascular congestion and cardiomegaly. Electronically Signed: Vinay Arriaza, at 14:17 EDT , Service support , Operations: None Procedures: None Summary of Care Provided: The patient is a 70 year old Female with below past medical history hospitalized for left total hip replacement 04/16/[address] Ortiz, admitted to TCU with debility, here for rehabilitation, strengthening, prior to discharge home alone. Discharge home with brother support, [facility] PT/OT/SN, [facility]. Patient Problems: Active and Suspected Problems (Last Reviewed 04/30/20 @ 10:49 by Sindhu Richter) Debility (Acute) Tinea unguium (Acute) - Physical Exam Vitals/I&O's: Vital Signs Temp Pulse Resp BP Pulse Ox 97.0 F L 96 18 115/71 91 05/22/20 12:30 05/22/20 18:00 05/22/20 12:30 05/22/20 18:00 05/22/20 12:30 Oxygen Flow Rate (L/min) 3 Oxygen Delivery Method Nasal Cannula Weight: 118.796 kg Body Mass Index (BMI) 41.0 Intake and Output for Last 24 Hours 05/20/20 05/21/20 05/22/20 23:59 23:59 23:59 Intake Total 720 / 720 920 / 920 960 / 960 Output Total 900 / 900 850 / 850 Balance 720 / 720 110 / 110 Current Medications Acetaminophen (Acetaminophen 500 Mg Tablet) 1,000 mg PO Q8 [facility] Last Admin: 05/22/20 13:04 Dose: 1,000 mg Documented by: Amlodipine Besylate (Amlodipine 5 Mg Tablet) 5 mg PO DAILY [facility] Last Admin: 05/22/20 05:02 Dose: 5 mg Documented by: Apixaban (Apixaban 5 Mg Tablet) 5 mg PO BID [facility] Last Admin: 05/22/20 17:51 Dose: 5 mg Documented by: Benzonatate (Benzonatate 100 Mg Capsule) 100 mg PO TID PRN PRN PRN Reason: COUGH Last Admin: 05/19/20 22:08 Dose: 100 mg Documented by: Bisacodyl (Bisacodyl 10 Mg Suppository) 10 mg RECTAL DAILY PRN PRN Reason: Constipation Calamine/Phenol (Menthol/Lanolin/Calamine/Znox 113 Gm Tube) 1 applic TOPICAL BID [facility]; Protocol Last Admin: 05/22/20 17:54 Dose: 1 applicatio Documented by: [facility]il[facility] ([facility] Mg [facility]) [facility] Admin: 05/22/20 17:51 Dose: 25 mg Documented by: Duloxetine HCl (Duloxetine Hcl 60 Mg Capsule) 60 mg PO DAILY [facility] Last Admin: 05/22/20 05:01 Dose: 60 mg Documented by: Flecainide Acetate (Flecainide 100 Mg Tablet) 100 mg PO BID [facility] Last Admin: 05/22/20 17:52 Dose: 100 mg Documented by: Furosemide (Furosemide 20 Mg Tablet) 20 mg PO DAILY@1800 [facility] Last Admin: 05/22/20 17:52 Dose: 20 mg Documented by: Hydrochlorothiazide (Hydrochlorothiazide 25 Mg Tablet) 25 mg PO DAILY [facility] Last Admin: 05/22/20 05:01 Dose: 25 mg Documented by: Lisinopril (Lisinopril 20 Mg Tablet) 20 mg PO BID [facility] Last Admin: 05/22/20 17:53 Dose: 20 mg Documented by: Meclizine HCl (Meclizine Hcl 25 Mg Tablet) 25 mg PO 4X/DAY PRN PRN PRN Reason: DIZZINESS Multi-Ingredient Cream (Mineral Oil/Petrolatum,White Jar) 1 applic TOPICAL BID [facility]; Protocol Last Admin: 05/22/20 17:59 Dose: 1 applicatio Documented by: Multivitamins (Multivitamins,Therapeutic Tablet) [facility] Last Admin: 05/22/20 08:34 Dose: 1 tablet Documented by: Multivitamins (Vitamin B Comp W-C Capsule) [facility] Last Admin: 05/22/20 08:33 Dose: 1 capsule Documented by: Nystatin (Nystatin Powder 15gm Bottle) 1 applic TOPICAL BID [facility]; Protocol Last Admin: 05/22/20 17:53 Dose: 1 applicatio Documented by: Oxybutynin Chloride (Oxybutynin 5 Mg Tablet) [facility] Last Admin: 05/22/20 17:50 Dose: 5 mg Documented by: Oxycodone HCl (Oxycodone 5 Mg Tablet) 5 mg PO Q4H PRN PRN PRN Reason: Pain Score 4-10 Last Admin: 05/22/20 15:39 Dose: 5 mg Documented by: Pantoprazole Sodium (Pantoprazole Sodium 40 Mg Tablet) 40 mg PO DAILY [facility] Last Admin: 05/22/20 05:01 Dose: 40 mg Documented by: Polyethylene Glycol (Polyethylene Glycol 3350 17 Gm Packet) 17 gm PO DAILY [facility] Last Admin: 05/22/20 05:03 Dose: Not Given Documented by: Polysaccharide Iron Complex (Iron Polysaccharide Complex 150 Mg Capsule) [facility] Last Admin: 05/22/20 08:34 Dose: 150 mg Documented by: Potassium Chloride (Potassium Chloride 20 Meq Tablet) [facility] Last Admin: 05/22/20 17:50 Dose: 20 meq Documented by: Prednisolone Acetate (Prednisolone Eye Drops (5 Ml) 1 Drop Opth.Btl) 1 drop EACH EYE DAILY [facility] Last Admin: 05/22/20 05:04 Dose: 1 drop Documented by: Senna/Docusate Sodium (Senna/Docusate Sodium 1 Tablet) 1 tablet PO DAILY [facility] Discharge Diet: No Restrictions Discharge Activity: Return to Normal Activity, May Shower, Use Walker Weight Bearing Status: Weight bearing as tolerated Call your doctor if you observe: Fever of 101 or Higher, Inability to urinate, Inability to have a bowel movement, Shortness of breath, Chest pain, Uncontrolled pain Home Medications: Medications to take at Discharge Amlodipine [Norvasc] 5 mg PO DAILY 04/09/13 Duloxetine HCl 60 mg PO DAILY 01/18/18 lisinopril 20 mg tablet 20 mg PO BID tab 08/10/18 prednisolone acetate 1 % eye drops,suspension 1 drp OPHTHALMIC 4X/DAY 30 Days #10 ml 08/10/18 carvedilol 25 mg tablet 25 mg PO BID #180 tab 02/16/19 oxybutynin chloride 5 mg tablet 5 mg PO BID 03/06/19 flecainide 100 mg tablet 100 mg PO BID #180 tab 03/31/20 Furosemide [Lasix] 20 mg PO DAILY 04/17/20 hydrochlorothiazide 25 mg tablet 25 mg PO DAILY 04/30/20 multivitamin 1 tab PO DAILY 04/30/20 pantoprazole 40 mg tablet,delayed release 40 mg PO DAILY 04/30/20 polysaccharide iron complex 150 mg iron capsule 150 mg PO DAILY 04/30/20 potassium chloride 10 mEq tablet,extended release 20 meq PO BID tab 04/30/20 Acetaminophen [Tylenol] 1,000 mg PO Q8 tablet 05/22/20 Apixaban [Eliquis] 5 mg PO BID tablet 05/22/20 Hydrochlorothiazide [Hctz] 25 mg PO DAILY tablet 05/22/20 Iron Polysaccharide Complex [Ferrex 150] 150 mg PO DAILYCM #30 cap 05/22/20 Menthol/Lanolin/Calamine/Znox [Calmoseptine Ointment] 1 applic TOPICAL BID tube 05/22/20 Mineral Oil/Petrolatum,White [Eucerin] 1 applic TOPICAL BID jar 05/22/20 Multivitamins,Therapeutic [Multivitamin] 1 tablet PO DAILYCM tablet 05/22/20 Nystatin Powder [Mycostatin Powder] 1 applic TOPICAL BID bottle 05/22/20 Oxybutynin [Ditropan] 5 mg PO BIDCM tablet 05/22/20 Pantoprazole Sodium [Protonix] 40 mg PO DAILY tablet 05/22/20 Potassium Chloride [K-Dur] 20 meq PO BIDCM tablet 05/22/20 Vitamin B Comp W-C [Allbee W/C Caplet, Thera B Comp/C] 1 capsule PO DAILYCM capsule 05/22/20 prednisoLONE eye drops (5 mL) [Pred Forte eye drops (5 mL)] 1 drop EACH EYE DAILY opth.btl 05/22/20 Following Prescriptions Were Given to Patient: Iron Polysaccharide Complex [Ferrex 150] 150 mg PO DAILYCM #30 cap Transmission Status: Pending to [id number] Primary Care Physician: Faraz Junior MD [Primary Care Provider] - Please follow up with your Primary Care Physician in: 1 week. Please Follow Up With: Dr. Karri Ortiz When: arrive at 2:55pm, appt at 3p Please Follow Up With: [facility] When: f/u this week AFIB Disposition: Home with Home Health Minutes spent on discharge:: 35 Patient Condition:: Stable Medical Necessity - Tobacco Use Smoking Status: Never smoker Tobacco Use: Non-smoker Meaningful Use Info Meaningful Use Diagnoses (Choose all that apply): None applicable
[2020-05-22 21:35] VITALS: PULSE 88; RESP 18; O2SAT 93
[2020-05-23 05:00] VITALS: BP 144/79; PULSE 89; RESP 18; TEMP 36.7; O2SAT 93
[2020-05-23] MEDS: DULoxetine Hcl 60 MG Capsule PO (05:38)
[2020-05-23] MEDS: hydroCHLOROthiazide 25 MG Tablet PO (05:38)
[2020-05-23] MEDS: Senna/Docusate Sodium 1 Tablet PO (05:38)
[2020-05-23] MEDS: APIXABAN 5 MG TABLET PO ×2 (05:38→17:00)
[2020-05-23] MEDS: amLODIPine 5 MG Tablet PO (05:39)
[2020-05-23] MEDS: Lisinopril 20 MG Tablet PO ×2 (05:39→16:59)
[2020-05-23] MEDS: Flecainide 100 MG Tablet PO ×2 (05:39→16:59)
[2020-05-23] MEDS: Pantoprazole Sodium 40 MG Tablet PO (05:39)
[2020-05-23] MEDS: prednisoLONE eye drops (5 mL) 1 DROP OPTH.BTL 1 DRP EACH EYE (05:39)
[2020-05-23] MEDS: Acetaminophen 500 MG Tablet 1000 MG PO ×3 (05:39→20:16)
[2020-05-23] MEDS: Nystatin Powder 15gm Bottle 1 APPLIC TOPICAL ×2 (05:40→17:00)
[2020-05-23] MEDS: Menthol/Lanolin/Calamine/Znox 113 GM Tube 1 APPLIC TOPICAL ×2 (05:41→17:01)
[2020-05-23] MEDS: oxyCODONE 5 MG Tablet PO ×2 (05:53→15:12)
[2020-05-23 06:14] LABS: Absolute Lymphocyte Count 1.35 X10^3/uL (0.83-4.51); Absolute Neutrophil Count 5.1 X10^3/uL (2.0-7.7); Basophil# 0.04 X10^3/uL; Basophil% 0.5 % (0-1); Eosinophil# 1.04 X10^3/uL; Eosinophils% 12.5 % (0-5); Hematocrit 35.7 % (37-47); Hemoglobin 10.5 g/dL (12.0-15.0); Lymphocyte # 1.35 X10^3/ul (4.0); Lymphocyte % 16.2 % (19-41); Mean Corp Hgb Conc 29.4 g/dL (32-36); Mean Corpuscular Hgb 26.9 pg (27.0-32.0); Mean Corpuscular Volume 91.5 fL (81-99); Mean Platelet Vol. 9.9 fl (6.2-12.0); Monocyte# 0.75 X10^3/uL; NRBC Flagged by Analyzer 0 % (0-5); Neutrophil % 61.4 % (47-70); Platelet Count 319 K/mm3 (150-450); RBC Distribution Width CV 17.6 % (11.6-14.6); RBC Distribution Width SD 59.1 fl (35.1-43.9); White Blood Count 8.3 K/mm3 (4.4-11.0)
[2020-05-23 06:38] LABS: Anion Gap 3 (5-15); BUN 24 mg/dL (7-18); BUN/Creat Ratio 36.3 RATIO (10-20); Calcium,Total 9.3 mg/dL (8.5-10.1); Chloride 105 mmol/L (98-107); Creatinine, Serum 0.66 mg/dL (0.55-1.02); EST Glomerular Filtration Rate 94 mL/min (>60); Est Glom Filt Rate - Afr Amer 114 mL/min (>60); Estimated Creatinine Clearance 57.42 ml/min; Glucose 108 mg/dL (74-106); Potassium 4.3 mmol/L (3.5-5.1); Sodium Level 138 mmol/L (136-145)
[2020-05-23] MEDS: Multivitamins,Therapeutic Tablet 1 TABLET PO (08:22)
[2020-05-23] MEDS: Vitamin B Comp W-C Capsule 1 CAP PO (08:22)
[2020-05-23] MEDS: Iron Polysaccharide Complex 150 MG CAPSULE PO (08:22)
[2020-05-23] MEDS: Carvedilol 25 MG Tablet PO ×2 (08:22→16:57)
[2020-05-23] MEDS: Oxybutynin 5 MG Tablet PO ×2 (08:22→16:58)
[2020-05-23 10:00] VITALS: PULSE 86; RESP 20; O2SAT 93
[2020-05-23 14:00] VITALS: BP 107/59; PULSE 88; RESP 18; TEMP 36.3; O2SAT 92
[2020-05-24 05:00] VITALS: BP 158/92; PULSE 92; RESP 18; TEMP 36.6; O2SAT 95
[2020-05-24] MEDS: Acetaminophen 500 MG Tablet 1000 MG PO ×3 (05:43→21:32)
[2020-05-24] MEDS: prednisoLONE eye drops (5 mL) 1 DROP OPTH.BTL 1 DRP EACH EYE (05:43)
[2020-05-24] MEDS: Lisinopril 20 MG Tablet PO ×2 (05:43→17:41)
[2020-05-24] MEDS: Pantoprazole Sodium 40 MG Tablet PO (05:43)
[2020-05-24] MEDS: hydroCHLOROthiazide 25 MG Tablet PO (05:43)
[2020-05-24] MEDS: amLODIPine 5 MG Tablet PO (05:44)
[2020-05-24] MEDS: Flecainide 100 MG Tablet PO ×2 (05:44→17:40)
[2020-05-24] MEDS: DULoxetine Hcl 60 MG Capsule PO (05:44)
[2020-05-24] MEDS: Senna/Docusate Sodium 1 Tablet PO (05:44)
[2020-05-24] MEDS: APIXABAN 5 MG TABLET PO ×2 (05:44→17:40)
[2020-05-24] MEDS: Nystatin Powder 15gm Bottle 1 APPLIC TOPICAL (05:47)
[2020-05-24] MEDS: Menthol/Lanolin/Calamine/Znox 113 GM Tube 1 APPLIC TOPICAL ×2 (05:48→17:41)
[2020-05-24] MEDS: Oxybutynin 5 MG Tablet PO ×2 (08:29→17:40)
[2020-05-24] MEDS: Vitamin B Comp W-C Capsule 1 CAP PO (08:29)
[2020-05-24] MEDS: Multivitamins,Therapeutic Tablet 1 TABLET PO (08:29)
[2020-05-24] MEDS: Carvedilol 25 MG Tablet PO ×2 (08:29→17:39)
[2020-05-24] MEDS: Iron Polysaccharide Complex 150 MG CAPSULE PO (08:29)
[2020-05-24] MEDS: oxyCODONE 5 MG Tablet PO ×3 (08:31→21:33)
[2020-05-24 08:47] VITALS: BP 139/75; PULSE 92
[2020-05-24 14:08] VITALS: BP 125/69; PULSE 92; RESP 18; TEMP 36.5; O2SAT 94
[2020-05-24 16:16] VITALS: O2SAT 94
[2020-05-24] MEDS: Furosemide 20 MG Tablet PO (17:38)
[2020-05-25 05:00] VITALS: BP 150/84; PULSE 90; RESP 18; TEMP 36.1; O2SAT 93
[2020-05-25] MEDS: Acetaminophen 500 MG Tablet 1000 MG PO ×3 (06:27→20:45)
[2020-05-25] MEDS: oxyCODONE 5 MG Tablet PO ×2 (06:27→23:13)
[2020-05-25] MEDS: hydroCHLOROthiazide 25 MG Tablet PO (06:28)
[2020-05-25] MEDS: amLODIPine 5 MG Tablet PO (06:28)
[2020-05-25] MEDS: Lisinopril 20 MG Tablet PO ×2 (06:28→17:13)
[2020-05-25] MEDS: Flecainide 100 MG Tablet PO ×2 (06:28→17:14)
[2020-05-25] MEDS: APIXABAN 5 MG TABLET PO ×2 (06:28→17:14)
[2020-05-25] MEDS: Senna/Docusate Sodium 1 Tablet PO (06:28)
[2020-05-25] MEDS: Nystatin Powder 15gm Bottle 1 APPLIC TOPICAL (06:29)
[2020-05-25] MEDS: prednisoLONE eye drops (5 mL) 1 DROP OPTH.BTL 1 DRP EACH EYE (06:30)
[2020-05-25] MEDS: DULoxetine Hcl 60 MG Capsule PO (06:30)
[2020-05-25] MEDS: Menthol/Lanolin/Calamine/Znox 113 GM Tube 1 APPLIC TOPICAL ×2 (06:30→17:12)
[2020-05-25] MEDS: Pantoprazole Sodium 40 MG Tablet PO (06:30)
[2020-05-25] MEDS: Multivitamins,Therapeutic Tablet 1 TABLET PO (08:04)
[2020-05-25] MEDS: Vitamin B Comp W-C Capsule 1 CAP PO (08:04)
[2020-05-25] MEDS: Iron Polysaccharide Complex 150 MG CAPSULE PO (08:04)
[2020-05-25] MEDS: Oxybutynin 5 MG Tablet PO ×2 (08:04→17:13)
[2020-05-25] MEDS: Carvedilol 25 MG Tablet PO ×2 (08:07→17:13)
[2020-05-25 08:09] VITALS: BP 143/80; PULSE 86
[2020-05-25 11:20] VITALS: PULSE 87; RESP 18; O2SAT 92
[2020-05-25 13:27] VITALS: O2SAT 93
[2020-05-25 14:24] VITALS: BP 137/76; PULSE 91; RESP 18; TEMP 36.8; O2SAT 90
[2020-05-25] MEDS: Furosemide 20 MG Tablet PO (17:13)
[2020-05-26 05:00] VITALS: BP 155/72; PULSE 89; RESP 18; TEMP 36.8; O2SAT 96
[2020-05-26] MEDS: APIXABAN 5 MG TABLET PO (06:11)
[2020-05-26] MEDS: Lisinopril 20 MG Tablet PO (06:11)
[2020-05-26] MEDS: Flecainide 100 MG Tablet PO (06:11)
[2020-05-26] MEDS: Senna/Docusate Sodium 1 Tablet PO (06:12)
[2020-05-26] MEDS: amLODIPine 5 MG Tablet PO (06:12)
[2020-05-26] MEDS: Nystatin Powder 15gm Bottle 1 APPLIC TOPICAL (06:12)
[2020-05-26] MEDS: hydroCHLOROthiazide 25 MG Tablet PO (06:12)
[2020-05-26] MEDS: Acetaminophen 500 MG Tablet 1000 MG PO (06:12)
[2020-05-26] MEDS: prednisoLONE eye drops (5 mL) 1 DROP OPTH.BTL 1 DRP EACH EYE (06:12)
[2020-05-26] MEDS: Menthol/Lanolin/Calamine/Znox 113 GM Tube 1 APPLIC TOPICAL (06:13)
[2020-05-26] MEDS: oxyCODONE 5 MG Tablet PO (06:16)
[2020-05-26] MEDS: Pantoprazole Sodium 40 MG Tablet PO (06:16)
[2020-05-26] MEDS: DULoxetine Hcl 60 MG Capsule PO (06:18)
[2020-05-26 06:48] VITALS: O2SAT 92
[2020-05-26] MEDS: Oxybutynin 5 MG Tablet PO (08:05)
[2020-05-26] MEDS: Carvedilol 25 MG Tablet PO (08:05)
[2020-05-26] MEDS: Iron Polysaccharide Complex 150 MG CAPSULE PO (08:05)
[2020-05-26] MEDS: Multivitamins,Therapeutic Tablet 1 TABLET PO (08:05)
[2020-05-26] MEDS: Vitamin B Comp W-C Capsule 1 CAP PO (08:05)
[2020-05-26 10:00] VITALS: PULSE 89; RESP 18; O2SAT 92
[2020-05-26 10:56] VITALS: BP 118/79; PULSE 89; RESP 18; TEMP 36.7; O2SAT 92
== END 2020-05-26 10:30 | disposition home health service (06) | DRG 560 ==
PROVIDERS: Admitting Provider Family Medicine Geriatric Medicine; PCP Family Medicine; Visit Provider Family Medicine Geriatric Medicine
DX: Z47.1 Aftercare following joint replacement surgery (principal); Z68.41 Body mass index [BMI] 40.0-44.9, adult; I42.9 Cardiomyopathy, unspecified; L03.116 Cellulitis of left lower limb; Z96.642 Presence of left artificial hip joint; K21.9 Gastro-esophageal reflux disease without esophagitis; N32.81 Overactive bladder; I10 Essential (primary) hypertension; I48.0 Paroxysmal atrial fibrillation; E66.9 Obesity, unspecified; E78.5 Hyperlipidemia, unspecified; G62.9 Polyneuropathy, unspecified; F32.9 Major depressive disorder, single episode, unspecified; B35.4 Tinea corporis; E53.9 Vitamin B deficiency, unspecified; B35.1 Tinea unguium; D50.9 Iron deficiency anemia, unspecified; E87.6 Hypokalemia; M20.10 Hallux valgus (acquired), unspecified foot; L84 Corns and callosities
CPT/HCPCS: 36415; 71046; 80048; 81001; 82962; 85025; 87077; 87086; 87088; 87186; 87426; 87635; 94762; 97110; 97116; 97162; 97166; 97530; 97535; U0003

== ENCOUNTER 2020-08-02 15:23 | Inpatient (IN) | payer MEDICARE, OTHER, SELFPAY ==
[2020-04-30 10:38] VITALS: BMI 39.2
[2020-08-02 15:23] VITALS: BP 154/104; PULSE 102; RESP 18; TEMP 36.7; O2SAT 95; BMI 37.5
--- NOTE | 2020-08-02 15:42 | RAD_ITS ---
STUDY: X-RAY - RIGHT TIBIA AND FIBULA REASON FOR EXAM: Female, 70 years old. Pt fell getting off the toilet and injured rt knee around 07/15. Today noticed pain, redness, blistering, swelling and seeping of rt lower leg/foot TECHNIQUE: 2 view(s) of the tibia and fibula were obtained. COMPARISON: None. FINDINGS: Normal visualized tibia. Normal visualized fibula. There are degenerative changes of the knee. There is non-specific soft tissue swelling. RAD/Tibia & Fibula 2 Views IMPRESSION: Nonspecific soft tissue swelling without demonstrated fracture. Electronically Signed: Zafar Tatum MD ([place]) at 16:39 EST , Service support ,
--- NOTE | 2020-08-02 15:42 | RAD_ITS ---
STUDY: X-RAY - RIGHT KNEE REASON FOR EXAM: Female, 70 years old. Pt fell getting off the toilet and injured rt knee around 07/15. Today noticed pain, redness, blistering, swelling and seeping of rt lower leg/foot TECHNIQUE: 2 view(s) of the knee. COMPARISON: None. FINDINGS: Normal visualized distal femur. Normal visualized proximal tibia and fibula. Normal proximal tibiofibular articulation. There is severe degenerative arthrosis of the medial femorotibial compartment with severe joint space narrowing. There is severe degenerative arthrosis of the lateral femorotibial compartment with severe joint space narrowing. There is severe degenerative arthrosis of the patellofemoral articulation. There is no demonstrated joint effusion. There is patella pina. Nonspecific soft tissue swelling. Atherosclerotic calcifications of the popliteal artery noted. RAD/Knee 1 or 2 Views IMPRESSION: Severe tricompartmental osteoarthrosis. No joint effusion. No demonstrated fracture. Electronically Signed: Zafar Tatum MD ([place]) at 16:41 EST , Service support ,
[2020-08-02] MEDS: Morphine 4 MG/ML Syringe IV ×3 (15:56→19:55)
[2020-08-02] MEDS: Ondansetron 4 MG/2 ML Vial IV (15:56)
[2020-08-02 16:13] LABS: Absolute Lymphocyte Count 1.52 X10^3/uL (0.83-4.51); Absolute Neutrophil Count 16.1 X10^3/uL (2.0-7.7); Basophil# 0.06 X10^3/uL; Basophil% 0.3 % (0-1); Eosinophil# 0.27 X10^3/uL; Eosinophils% 1.4 % (0-5); Hematocrit 41.6 % (37-47); Hemoglobin 12.1 g/dL (12.0-15.0); Lymphocyte # 1.52 X10^3/ul (4.0); Lymphocyte % 7.9 % (19-41); Mean Corp Hgb Conc 29.1 g/dL (32-36); Mean Corpuscular Hgb 25.5 pg (27.0-32.0); Mean Corpuscular Volume 87.6 fL (81-99); Mean Platelet Vol. 8.8 fl (6.2-12.0); Monocyte# 1.11 X10^3/uL; Monocyte% 5.8 % (0-10); NRBC Flagged by Analyzer 0 % (0-5); Neutrophil # 16.07 X10^3/uL (2.7-7.7); POSITIVE COUNT YES; RBC Distribution Width CV 17.2 % (11.6-14.6); Red Blood Count 4.75 M/mm3 (4.2-5.4); White Blood Count 19.2 K/mm3 (4.4-11.0)
[2020-08-02 16:17] LABS: Differential Indicated SCAN CRITERIA MET
[2020-08-02 16:18] LABS: Platelet Count 860 K/mm3 (150-450)
--- NOTE | 2020-08-02 16:20 | RAD_ITS ---
STUDY: X-RAY - RIGHT FOOT CLINICAL: Female, 70 years old. Pt fell getting off the toilet and injured rt knee around 07/15. Today noticed pain, redness, blistering, swelling and seeping of rt lower leg/foot TECHNIQUE: 3 view(s) of the foot. COMPARISON: None. FINDINGS: Normal talus, calcaneus, and tarsal bones. Severe degenerative changes of the hindfoot and midfoot with pes planus. There is demineralization of the metatarsi. No demonstrated fracture. Normal metatarsophalangeal joint of the great toe. Normal tibial and fibular sesamoid bones. Normal interphalangeal joint of the great toe. Normal phalanges of the great toe. Normal second through fifth metatarsophalangeal joints. Normal interphalangeal joints and phalanges of the lesser toes. There is diffuse soft tissue swelling throughout the foot. RAD/Foot min 3 Views IMPRESSION: No fracture demonstrated. Severe degenerative changes of the hind and mid foot. Electronically Signed: Zafar Tatum MD ([place]) at 16:40 EST , Service support ,
[2020-08-02 16:23] VITALS: BP 150/99; PULSE 100; RESP 18; O2SAT 96
[2020-08-02 16:39] LABS: Anion Gap 4 (5-15); BUN 27 mg/dL (7-18); BUN/Creat Ratio 31.7 RATIO (10-20); Calcium,Total 9.2 mg/dL (8.5-10.1); Chloride 103 mmol/L (98-107); Creatinine, Serum 0.85 mg/dL (0.55-1.02); EST Glomerular Filtration Rate 70 mL/min (>60); Est Glom Filt Rate - Afr Amer 85 mL/min (>60); Estimated Creatinine Clearance 67.55 ml/min; Glucose 125 mg/dL (74-106); Potassium 3.9 mmol/L (3.5-5.1); Sodium Level 141 mmol/L (136-145)
--- NOTE | 2020-08-02 17:23 | HP.PCM_ITS ---
<Cierra Hampton TELEVISION MAINTENANCE MAN - Last Filed: 08/02/20 17:56> Problem List (1) Walking difficulty due to ankle and foot Status: Acute (2) Hammer toe of left foot Status: Acute (3) Hallux valgus (acquired), left foot Status: Chronic (4) Callus of foot Status: Chronic (5) Cystitis Status: Resolved Comment: E.COLI (6) Hypoxia Status: Chronic Comment: SECONDARY TO DIASTOLIC CHF, PNEUMONIA (7) Bronchiectasis Status: Chronic (8) Stasis dermatitis of both legs Status: Chronic (9) Osteoarthritis of left hip Status: Chronic (10) Hypertension Status: Chronic (11) Atrial fibrillation Status: Chronic (12) GERD (gastroesophageal reflux disease) Status: Chronic (13) Overactive bladder Status: Chronic (14) Tinea unguium Status: Resolved (15) Sepsis Status: Acute (16) Cellulitis of left lower leg Status: Acute (17) Peripheral neuropathy Status: Chronic (18) Osteoarthritis Status: Chronic (19) Chronic anticoagulation Status: Chronic (20) PAF (paroxysmal atrial fibrillation) Status: Chronic (21) Chronic ulcer of left foot with fat layer exposed Status: Chronic (22) Hyperlipemia Status: Chronic (23) Obesity Status: Chronic (24) Depression Status: Chronic (25) Benign essential hypertension Status: Chronic History of Present Illness Date of Admission: 08/02/20 Chief Complaint: Right knee swelling, redness and pain. The patient is a 70 year old F who presents emergency room due to right lower extremity pain, swelling and redness. Patient states approximately 2 weeks ago she was getting off of her toilet when her knee gave out and she fell onto her right knee. She states she has had pain since that time however yesterday developed increased swelling and redness with now several blistered areas. She denies fever, chills. States overall she feels okay except for significant righ t lower extremity pain. Denies other associated symptoms or complaints. She is on Eliquis for paroxysmal atrial fibrillation and states she has not missed any doses. She has a past medical history of paroxysmal atrial fibrillation, hypertension, hyperlipidemia, chronic hypoxic respiratory failure secondary to bronchiectasis, chronic diastolic CHF, obesity. Past Medical History Past Medical History (Chronic Problems): Chronic Problems (Last Reviewed 04/30/20 @ 10:49 by Sindhu Richter) Hallux valgus (acquired), left foot (Chronic) Callus of foot (Chronic) Hypoxia (Chronic) SECONDARY TO DIASTOLIC CHF, PNEUMONIA Bronchiectasis (Chronic) Stasis dermatitis of both legs (Chronic) Osteoarthritis of left hip (Chronic) Hypertension (Chronic) Atrial fibrillation (Chronic) GERD (gastroesophageal reflux disease) (Chronic) Overactive bladder (Chronic) Peripheral neuropathy (Chronic) Osteoarthritis (Chronic) Chronic anticoagulation (Chronic) PAF (paroxysmal atrial fibrillation) (Chronic) Chronic ulcer of left foot with fat layer exposed (Chronic) Hyperlipemia (Chronic) Obesity (Chronic) Depression (Chronic) Benign essential hypertension (Chronic) Medical History: Medical History (Last Reviewed 04/30/20 @ 10:49 by Sindhu Richter) Chronic anticoagulation (Chronic) Z79.01 PAF (paroxysmal atrial fibrillation) (Chronic) I48.0 Hyperlipemia (Chronic) E78.5 Benign essential hypertension (Chronic) I10 Cardiomyopathy I42.9 History of depression Z86.59 History of shingles Z86.19 Allergies atorvastatin [From Lipitor] Adverse Reaction (Verified 08/02/20 15:24) Pain in joints nifedipine [From Procardia] Adverse Reaction (Verified 08/02/20 15:24) Pain in joints tramadol Adverse Reaction (Verified 08/02/20 15:24) Upset Stomach Home Medications: Ambulatory Orders Medication Instructions Recorded Amlodipine [Norvasc] 5 mg PO DAILY 04/09/13 Duloxetine HCl 60 mg PO DAILY 01/18/18 lisinopril 20 mg tablet 20 mg PO BID tab 08/10/18 carvedilol 25 mg tablet 25 mg PO BID #180 tab 02/16/19 flecainide 100 mg tablet 100 mg PO BID #180 tab 03/31/20 multivitamin 1 tab PO DAILY 04/30/20 Acetaminophen [Tylenol] 1,000 mg PO Q8 tab 05/22/20 Apixaban [Eliquis] 5 mg PO BID tab 05/22/20 Hydrochlorothiazide [Hctz] 25 mg PO DAILY tab 05/22/20 Iron Polysaccharide Complex 150 mg PO DAILYCM #30 cap 05/22/20 [Ferrex 150] Oxybutynin [Ditropan] 5 mg PO BIDCM tab 05/22/20 Pantoprazole Sodium [Protonix] 40 mg PO DAILY tab 05/22/20 Vitamin B Comp W-C [Allbee W/C 1 cap PO DAILYCM cap 11/19/20 Caplet, Thera B Comp/C] prednisoLONE eye drops (5 mL) 1 drp EACH EYE DAILY opth.btl 05/22/20 [Pred Forte eye drops (5 mL)] Nystatin Powder [Mycostatin Powder] 1 applic TOPICAL BID PRN 08/02/20 Surgical History: Surgical History (Last Reviewed 08/02/20 @ 17:49 by Cierra Hampton TELEVISION MAINTENANCE MAN, TELEVISION MAINTENANCE MAN-C) History of arthroscopic knee surgery Z98.890 bilateral History of cardioversion Onset Date: 07/05/12 Z98.890 History of cornea transplant Onset Date: 04/05/18 Z94.7 Lt Eye 04/05/18, Rt Eye 2019 History of foot surgery Z98.890 left History of hysterectomy Z90.710 History of nasal cauterization Z98.890 History of sinus surgery Z98.890 History of tonsillectomy Z90.89 History of total left hip replacement Onset Date: ~04/2020 Z96.642 History of total right hip replacement Onset Date: ~2018 Z96.641 Surgical History: appendectomy, hysterectomy, - - Bilateral arthroscopic knee surgeries, cardioversion, corneal transplant, Left foot surgery, Nasal cauterization, sinus surgery. Psychiatric History: Depression OPERATIONS MANAGER/COORDINATOR History: No pertinent OPERATIONS MANAGER/COORDINATOR history Lives: Alone Smoking Status: Never smoker Alcohol: None Drugs: None - *Family History Paternal Family History: Family History (Last Reviewed 08/02/20 @ 17:50 by Cierra Hampton NP, TELEVISION MAINTENANCE MAN-C) Father Ruptured aortic aneurysm Mother Heart disease Brother Atrial fibrillation Maternal Family History: Family History (Last Reviewed 08/02/20 @ 17:50 by Cierra Hampton NP, TELEVISION MAINTENANCE MAN-C) Father Ruptured aortic aneurysm Mother Heart disease Brother Atrial fibrillation Review of Systems Constitutional: Denies: Chills, Fever, Weight Change HEENT: Denies: Head Aches, Sinus Congestion, Sinus Drainage Cardiovascular: Denies: Chest Pain, Palpitations Respiratory: Denies: Cough, Shortness of breath at rest, Sputum production Gastrointestinal: Denies: Abdominal Pain, Nausea, Vomiting Genitourinary: Denies: Dysuria Musculoskeletal: Denies: Joint Pain, Joint Tenderness Skin: Reports: - - Right lower extremity erythema with swelling and blistering Neurological: Denies: Numbness, Tingling, Focal weakness Psychiatric: Denies: Anxiety, Depression, Homicidal Ideations, Suicidal Ideations Hematologic/ Lymphatic: Denies: Easy Bruising, Easy Bleeding VTE Information - Inpt Only VTE Present on Admission: No VTE Mechan Device Prophylaxis: None VTE Pharm Prophylaxis ordered?: No Reason prophylaxis not ordered:: Treatment Not Indicated - Already on ant icoagulation with Eliquis Patient Problems: Active and Suspected Problems (Last Reviewed 04/30/20 @ 10:49 by Sindhu Richter) Walking difficulty due to ankle and foot (Acute) Hammer toe of left foot (Acute) Sepsis (Acute) Cellulitis of left lower leg (Acute) - Physical Exam Vitals/I&O's: Vital Signs Temp Pulse Resp BP Pulse Ox 98.1 F 100 18 150/99 H 96 08/02/20 15:23 08/02/20 16:23 08/02/20 16:23 08/02/20 16:23 08/02/20 16:23 Oxygen Flow Rate (L/min) 4 Oxygen Delivery Method Nasal Cannula Weight: 261 lb 11.019 oz Body Mass Index (BMI) 37.5 General: Alert, Oriented x3, Cooperative HEENT: Atraumatic, PERRLA, EOMI, Normocephalic Neck: Supple, No JVD, Negative Carotid Bruits Lungs: Clear to auscultation, Diminished Cardiovascular: Regular rate, No murmurs Abdomen: Bowel Sounds Present, Soft, Non Tender, Non-Distended, Obese Extremities: No clubbing, No cyanosis, Edema - Right lower extremity Skin: - - Right lower extremity diffuse erythema with multiple large bullous blistering Musculoskeletal: No Tenderness to Palpation of Joints or Extremities Neurological: Cranial nerves II-XII grossly intact, Neuro grossly intact Psych/Mental Status: Normal Affect, Appropriate Microbiology Past 72 Hours 08/02/20 16:00 Mucosa - Nose SARS-CoV-2 Antigen (Rapid) - Final Laboratory Results 08/02/20 15:55: WBC 19.2 H, RBC 4.75, Hgb 12.1, Hct 41.6, MCV 87.6, MCH 25.5 L, MCHC 29.1 L, RDW Std Deviation 56.0 H, RDW Coeff of Pawan 17.2 H, Plt Count Pending, MPV 8.8, Immature Gran % (Auto) 0.600, Neut % (Auto) 84.0 H, Lymph % (Auto) 7.9 L, Morrow % (Auto) 5.8, Eos % (Auto) 1.4, Baso % (Auto) 0.3, Absolute Neuts (auto) 16.1 H, Absolute Lymphs (auto) 1.52, Nucleated RBC % 0 08/02/20 15:55: Sodium 141, Potassium 3.9, Chloride 103, Carbon Dioxide 34.0 H, Anion Gap 4 L, BUN 27 H, Creatinine 0.85, Estim Creat Clear Calc 67.55, Est GFR (MDRD) Af Amer 85, Est GFR (MDRD) Non-Af 70, BUN/Creatinine Ratio 31.7 H, Glucose 125 H, Calcium 9.2 08/02/20 15:55: Lactic Acid Pending Current Medications Piperacillin Sod/Tazobactam (Sod 4.5 gm/ Sodium Chloride) 100 mls @ 200 mls/hr IV X1 ONE Stop: 08/02/20 17:25 Vancomycin HCl 1,750 mg/ (Sodium Chloride) 535 mls @ 250 mls/hr IV X1 ONE Stop: 08/02/20 19:23 Assessment/Plan All Active Problems (Last Reviewed 04/30/20 @ 10:49 by Sindhu Richter) Walking difficulty due to ankle and foot (Acute) Hammer toe of left foot (Acute) Sepsis (Acute) Cellulitis of left lower leg (Acute) Cystitis (Resolved) Tinea unguium (Resolved) 1. Sepsis secondary to right lower extremity cellulitis-right knee x-ray without effusion. Obtain CT lower extremity. IV Vanco and IV Zosyn. Obtain culture if any drainage from bulla. Wound care consult. Check MRSA PCR. Lactic acid pending. 2. Thrombocytosis-suspect reactive secondary to above. Trend CBC. 3. Paroxysmal atrial fibrillation-on Eliquis, carvedilol, flecainide. 4. Hypertension-stable, continue amlodipine, carvedilol, HCTZ, lisinopril. 5. Hyperlipidemia-statin allergy. 6. Chronic hypoxic respiratory failure secondary to bronchiectasis-on 4 L nasal cannula at baseline. 7. Chronic diastolic CHF-no exacerbation. Continue current medication regimen. 8. Obesity-encourage diet and lifestyle modifications. DVT prophylaxis-Eliquis This patient was seen by Cierra Memo, TELEVISION MAINTENANCE MAN-C under the supervision of Dr. Ledezma. <DarienRenea - Last Filed: 08/02/20 18:33> History of Present Illness I agree with the above and the following is representation of my independent history and physical examination Ms. Wolff is a 70 year old WF who presented to the emergency department at [facility] on 08/02/2020 complaining of right lower extremity pain swelling and redness. She states that approximately 2 weeks ago she was getting off her toilet when her knee gave out as she has severe osteoarthritis and is scheduled to have her knee replaced on the left at the end of August. She states that since that time her right lower extremity has developed severe swelling, pain and blistering. She reports this really just started in the last 24 hours but I suspect it has been a little bit longer than that given the size of the blister she has on her right foot and leg. She is on Eliquis for paroxysmal atrial fibrillation and has been taking this without missed doses. Her biggest complaint is the marked sensitivity in her right lower extremity. She is afebrile in the emergency department, her heart rate is slightly tachycardic in the low 100s, her blood pressure is slightly elevated her oxygen saturation is 94 to 96% on her baseline 4 L nasal cannula. She has a marked leukocytosis at 19,200, normal hemoglobin and her platelet count is markedly elevated at 860,000. It appears her baseline platelet count is 3-400. Her BMP shows an elevated HCO3 which is close to baseline. And her BUN and creatinine are baseline as well. Her lactic acid is pending at this time. She was given morphine for pain and Zofran for nausea associated with morphine use and started on vancomycin and Zosyn in the emergency department. She had an x-ray of her right knee which showed severe tricompartmental osteoarthritis but no joint effusion or fracture. She also had an x-ray of the right tibia and fibula that demonstrated nonspecific soft tissue swelling and no fracture, as well as a right foot x-ray that showed no fracture but severe degenerative changes of the hindfoot and midfoot. If her lactic acid is within normal limits she would be admitted to [facility] and continued on IV antibiotics if her lactate is elevated she will be admitted to the ICU for severe sepsis. Blood cultures were obtained in the emergency department COVID-19 testing was negative.[] Past Medical History Medical History: Medical History (Last Reviewed 08/02/20 @ 18:[address] Renea Ledezma DO) Chronic anticoagulation (Chronic) Z79.01 PAF (paroxysmal atrial fibrillation) (Chronic) I48.0 Hyperlipemia (Chronic) E78.5 Benign essential hypertension (Chronic) I10 Cardiomyopathy I42.9 History of depression Z86.59 History of shingles Z86.19 Allergies atorvastatin [From Lipitor] Adverse Reaction (Verified 08/02/20 15:24) Pain in joints nifedipine [From Procardia] Adverse Reaction (Verified 08/02/20 15:24) Pain in joints tramadol Adverse Reaction (Verified 08/02/20 15:24) Upset Stomach Surgical History: Surgical History (Last Reviewed 08/02/20 @ 18:[address] Renea Ledezma DO) History of arthroscopic knee surgery Z98.890 bilateral History of cardioversion Onset Date: 07/05/12 Z98.890 History of cornea transplant Onset Date: 04/05/18 Z94.7 Lt Eye 04/05/18, Rt Eye 2019 History of foot surgery Z98.890 left History of hysterectomy Z90.710 History of nasal cauterization Z98.890 History of sinus surgery Z98.890 History of tonsillectomy Z90.89 History of total left hip replacement Onset Date: ~04/2020 Z96.642 History of total right hip replacement Onset Date: ~2018 Z96.641 - *Family History Paternal Family History: Family History (Last Reviewed 08/02/20 @ 18:[address] Renea Ledezma DO) Father Ruptured aortic aneurysm Mother Heart disease Brother Atrial fibrillation Maternal Family History: Family History (Last Reviewed 08/02/20 @ 18:[address] Renea Ledezma DO) Father Ruptured aortic aneurysm Mother Heart disease Brother Atrial fibrillation Review of Systems Constitutional: Reports: Weakness - Bilateral lower extremities-this is chronic. Denies: Anorexia, Chills, Fever, Night Sweats, Malaise, Weight Change, Fatigue Eyes: Denies: Blurred vision, Conjunctivae Inflammation, Double vision, Drainage, Eyelid Inflammation, Pain, Redness, Vision Change HEENT: Denies: Difficulty Hearing, Ear Pain, Hard of Hearing, Head Aches, Nasal bleeding, Nasal Congestion, Post Nasal Drip, Sinus Drainage, Sore Throat, Visual Changes Cardiovascular: Reports: Edema - Right lower extremity. Denies: Chest Pain, Chest Pressure, Chest Tightness, Heaviness, Orthopnea, Palpitations, Syncope Respiratory: Denies: Cough, Hemoptysis, Pleuritic Pain, Shortness of Breath, Shortness of breath at rest, Shortness of breath upon exertion, Sputum production, Wheezing Gastrointestinal: Denies: Abdominal Pain, Constipation, Diarrhea, Dyspepsia, Hematemesis, Hematochezia, Nausea, Melena, Vomiting Genitourinary: Reports: Incontinence, Nocturia, Urgency. Denies: Dysuria, Frequency, Hematuria, Hesitancy, Retention Musculoskeletal: Reports: Joint Pain - Right knee greater than left knee, Joint stiffness - Lateral knees, Leg Pain - Right lower extremity. Denies: Back Pain, Joint swelling, Joint Tenderness, Muscle pain, Neck Pain Skin: Reports: Wounds - Laceration on right knee that is healing well no signs of infection, - - Right lower extremity erythema with swelling and blistering from the knee down. Denies: Dryness, Jaundice, Lesions, Pruritis, Rash, Skin Changes Neurological: Reports: Balance problems - Can Reeders to leg weakness. Denies: Blurred vision, Double vision, Change in Speech, Slurred speech, Confusion, Difficulty swallowing, Focal weakness, Headaches, Incoordination, Numbness, Tingling, Tremor, Seizures Psychiatric: Reports: Depression. Denies: Anxiety Endocrine: Denies: Change in Body Habitus, Heat/ Cold Intolerance, Polydipsia Hematologic/ Lymphatic: Denies: Adenopathy, Anemia, Easy Bruising, Easy Bleeding, Petechiae, Purpura VTE Information - Inpt Only VTE Present on Admission: No VTE Mechan Device Prophylaxis: None VTE Pharm Prophylaxis ordered?: No - Physical Exam Vitals/I&O's: Vital Signs Temp Pulse Resp BP Pulse Ox 98.1 F 95 18 144/66 H 94 08/02/20 15:23 08/02/20 17:52 08/02/20 17:52 08/02/20 17:52 08/02/20 17:52 Oxygen Flow Rate (L/min) 4 Oxygen Delivery Method Nasal Cannula Weight: 118.7 kg Body Mass Index (BMI) 37.5 General: Alert, Oriented x3, Cooperative, No apparent distress, Well developed, Well nourished, - - Older, obese white female, sitting up in bed, appears comfortable HEENT: Atraumatic, PERRLA, EOMI, Normocephalic, EAC Clear Oral: Moist Mucosa, Ulcerations Present - Healing ulcerations in the buccal mucosa and the lateral tongue bilaterally, - - Or dentition Neck: Supple, No JVD, Negative Carotid Bruits, Negative Hepatojugular Reflux, No Nodes, No Nuchal Rigidity, Trachea Midline, Thyroid Normal Size and Texture Lungs: Clear to auscultation, No rhonchi, No wheeze, No rales, Diminished - Diffusely Cardiovascular: Regular Rhythm, Normal S1, Normal S2, No murmurs, No Ectopic Activity, No rub noted, No Gallop, Tachycardic - Mild Abdomen: Bowel Sounds Present, Soft, Non Tender, Non-Distended, Obese Extremities: No clubbing, No cyanosis, Capillary Refill Less than 3 Seconds, Edema - Right lower extremity 2+ pitting, left lower extremity within normal limits, Peripheral Pulses Normal Skin: No rashes, - - diffuse erythema at the distal two thirds of the right lower extremity with multiple bullous blistering various sizes with the largest being on the dorsum of the foot and it appears that a large bullae has ruptured at the anterior tibia Musculoskeletal: No Muscle Wasting, Arthritic Changes - Bilateral knees and feet, Tenderness - Right lower extremity is extremely tender to light touch Lymphatic: No Cervical, Supraclavicular, or Inguinal Adenopathy Neurological: Cranial nerves II-XII grossly intact, Neuro grossly intact, Muscle tone normal, Coordination normal Psych/Mental Status: Normal Affect, Appropriate, - - Very pleasant Microbiology Past 72 Hours 08/02/20 16:00 Mucosa - Nose SARS-CoV-2 Antigen (Rapid) - Final Laboratory Results 08/02/20 15:55: WBC 19.2 H, RBC 4.75, Hgb 12.1, Hct 41.6, MCV 87.6, MCH 25.5 L, MCHC 29.1 L, RDW Std Deviation 56.0 H, RDW Coeff of Pawan 17.2 H, Plt Count 860 H* , MPV 8.8, Immature Gran % (Auto) 0.600, Neut % (Auto) 84.0 H, Lymph % (Auto) 7.9 L, Morrow % (Auto) 5.8, Eos % (Auto) 1.4, Baso % (Auto) 0.3, Absolute Neuts (auto) 16.1 H, Absolute Lymphs (auto) 1.52, Nucleated RBC % 0, Differential Comment SCANNED, Diff Path Review May foll, Platelet Estimate MKD INC, Anisocytosis 1+, Stomatocytes 1+ 08/02/20 15:55: Sodium 141, Potassium 3.9, Chloride 103, Carbon Dioxide 34.0 H, Anion Gap 4 L, BUN 27 H, Creatinine 0.85, Estim Creat Clear Calc 67.55, Est GFR (MDRD) Af Amer 85, Est GFR (MDRD) Non-Af 70, BUN/Creatinine Ratio 31.7 H, Glucose 125 H, Calcium 9.2 08/02/20 17:30: Lactic Acid Pending Current Medications Vancomycin HCl 1,750 mg/ (Sodium Chloride) 535 mls @ 250 mls/hr IV X1 ONE Stop: 08/02/20 19:23 Assessment/Plan ASSESSMENT Sepsis secondary to right lower extremity cellulitis Leukocytosis Thrombocytosis PAF HTN HPL Chronic hypoxic respiratory failure secondary to bronchiectasis -Baseline dependences 4 L nasal cannula HFpEF Stage I diastolic dysfunction -Third Obesity Bilateral knee osteoarthritis Debility Urinary incontinence PLAN -Continue vancomycin and Zosyn -Check procalcitonin in the a.m. -Consultation to wound care -CT right lower extremity to rule out any invasive infections -MRSA PCR and narrow antibiotics accordingly -If lactic acid is elevated will admit to ICU if within normal limits will admit to MedSurg -Repeat CBC and CMP in a.m. -Check hemoglobin A1c -We will utilize oxycodone and gabapentin for pain relief -As needed Zofran for nausea induced by narcotics -Patient is on Eliquis at baseline doubt any right lower extremity DVTs--> hold on Dopplers at this time -Continue all home medications -Cardiac diet -Patient requesting CODE STATUS--> full code Inpatient E&M: 42781 Init Hosp L3
--- NOTE | 2020-08-02 17:25 | CT_ITS ---
STUDY: CT RIGHT LOWER EXTREMITY WITH CONTRAST REASON FOR EXAM: Female, 70 years old. INFECTION RT LOWER LEG,PAIN,REDNESS,SWELLING WITH SEEPING BLISTERS TODAY PER PT -- HX:HTN RADIATION DOSAGE (If Supplied By Facility): CTDIvol = ( 15.35 ) mGy, DLP = ( 1098.29 ) mGycm TECHNIQUE: Transaxial CT imaging of the lower extremity was performed post contrast administration. The examination was performed with intravenous administration of IV 100mL Isovue-370. Individualized dose optimization techniques were used for this CT. COMPARISON: None. FINDINGS: Normal medial femoral condyle and medial tibial plateau. There is severe arthrosis of the articular joint space of the medial knee compartment. Normal lateral femoral condyle and lateral tibial plateau. There is severe arthrosis of the articular joint space of the lateral knee compartment. Severe arthrosis of the patellofemoral joint. Normal proximal tibiofibular articulation. There is no joint effusion. The tibia and fibula are intact without destructive bony process. Visualized femur is unremarkable. The patella is intact. The quadriceps tendon is grossly normal. The patellar tendon is grossly normal. Normal Hoffa''s fat pad. Arterial vascular calcifications are present. Nonspecific soft tissue edema about the calf particularly along the anterior lower leg extending into the proximal foot. No focal fluid collection. No enhancing abnormality. There are degenerative changes of the midfoot. CT/Extremity Lower WITH Contrast IMPRESSION: 1. Significant anterior dominant soft tissue swelling/edema extending into the dorsal foot. No focal fluid collection or enhancing abnormality. 2. Tricompartmental osteoarthrosis of the knee. Osteoarthrosis of the midfoot. Electronically Signed: Zafar Tatum MD (Brooks) at 18:56 EST , Service support ,
--- NOTE | 2020-08-02 17:25 | NURSING ---
DR LU CALLED BACK
[2020-08-02 17:32] LABS: Anisocytosis 1+; Differential Comment SCANNED; Platelet Estimate MKD INC (ADEQ)
--- NOTE | 2020-08-02 17:32 | ED.RN ---
unable to wrap leg due to pain. pt given another dose of pain medication
[2020-08-02 17:33] LABS: Stomatocyte 1+
[2020-08-02 17:52] VITALS: BP 144/66; PULSE 95; RESP 18; O2SAT 94
--- NOTE | 2020-08-02 18:54 | ED.RN ---
waiting on ct report before admit order to be placed per dr gloria
--- NOTE | 2020-08-02 18:57 | ED.RN ---
leah placed at pt request
--- NOTE | 2020-08-02 19:14 | ED.VISSUMM ---
- ER Visit Summary Date of Service: 08/02/20 Chief Complaint: Foot pain History of Present Illness: The patient is a 70 F with right foot and leg pain for several days. About 3 weeks ago, she fell and injured her knee. She is not complaining of increasing pain to the leg. She has swelling, blistering, redness, and warmth to the right lower leg. She never had this before. She has a history of atrial fibrillation and takes Eliquis among her other medications. No fever or systemic symptoms. Physical Examination: Afebrile and vital signs unremarkable except for heart rate of 102. The right lower extremity shows multiple large bullae with redness and warmth. There is no necrosis. Her right lower extremity is diffusely swollen. Skin is warm. Capillary refill normal. Test Results: White count 19.2, platelets 860, glucose 125, BUN 27, cultures pending. Covid negative. X-rays unremarkable, reviewed by me and the radiologist. CT shows soft tissue swelling and edema. Emergency Department Course and Treatment: Patient was treated with pain medicine, nausea medicine, antibiotics. She was discussed with the hospitalist for admission for cellulitis. She requested a CT. This was performed, and the patient will be admitted as planned. Treatment Plan: As above Disposition: Admission Impression: Right lower extremity cellulitis, sepsis This note was generated with OpenCh[employer] dictation software. It may contain incorrect words, spelling, and punctuation that were not noted in review of the chart prior to signing
[2020-08-02 19:43] VITALS: BP 152/73; PULSE 95; PULSE 96; RESP 18; TEMP 37.3; O2SAT 93; O2SAT 94
[2020-08-02 21:15] VITALS: BP 166/87; PULSE 88; RESP 18; TEMP 36.8; O2SAT 94
[2020-08-02 21:17] VITALS: BMI 36.6
[2020-08-02 21:31] LABS: Reflex Lactate? Y
[2020-08-02 21:39] VITALS: BMI 36.6
[2020-08-02 22:38] LABS: Lactic Acid 2.8 mmol/L (0.4-1.9)
[2020-08-02] MEDS: APIXABAN 5 MG TABLET PO (23:04)
[2020-08-02] MEDS: Carvedilol 25 MG Tablet PO (23:04)
[2020-08-02] MEDS: Flecainide 100 MG Tablet PO (23:05)
[2020-08-02] MEDS: Lisinopril 20 MG Tablet PO (23:05)
[2020-08-02 23:10] VITALS: RESP 20; O2SAT 91
[2020-08-02] MEDS: Nystatin Powder 15gm Bottle 1 APPLIC TOPICAL (23:10)
[2020-08-02] MEDS: oxyCODONE 5 MG Tablet PO (23:13)
[2020-08-02 23:17] LABS: M R Staph aureus DNA By PCR Negative (Negative); Probe Check PASS; Staph aureus DNA By PCR NEGATIVE (Negative)
[2020-08-03] MEDS: Morphine 2 MG/ML Syringe IV ×3 (01:11→09:43)
[2020-08-03] MEDS: 0.9% Normal Saline 1,000 ML 100 ML IV ×3 (01:51→18:59)
[2020-08-03 03:15] VITALS: BP 118/59; PULSE 73; RESP 16; TEMP 36.6; O2SAT 93
--- NOTE | 2020-08-03 03:45 | PCM.RX.CS ---
Consult Pharmacy has been consulted to manage selected antiobiotic: Vancomycin Type of Consult: New start Suspected Infection: Sepsis Labs: Sodium 141 mmol/L (136-145) 08/02/20 15:55 Potassium 3.9 mmol/L (3.5-5.1) 08/02/20 15:55 Chloride 103 mmol/L (98-107) 08/02/20 15:55 Carbon Dioxide 34.0 mmol/L (21.0-32.0) H 08/02/20 15:55 Anion Gap 4 (5-15) L 08/02/20 15:55 BUN 27 mg/dL (7-18) H 08/02/20 15:55 Creatinine 0.85 mg/dL (0.55-1.02) 08/02/20 15:55 Est GFR (MDRD) Af Amer 85 mL/min (>60) 08/02/20 15:55 Est GFR (MDRD) Non-Af 70 mL/min (>60) 08/02/20 15:55 BUN/Creatinine Ratio 31.7 RATIO (10-20) H 08/02/20 15:55 Glucose 125 mg/dL (74-106) H 08/02/20 15:55 Microbiology: Microbiology 08/02/20 16:00 Mucosa - Nose SARS-CoV-2 Antigen (Rapid) - Final Goal Trough: 15-20 mcg/mL Pharmacy Plan for Drug Dosing: Pharmacy Service will continue to monitor and adjust dosing as required. Medications Vancomycin HCl 2,000 mg/ (Sodium Chloride) 540 mls @ 250 mls/hr IV Q12H [facility] Discontinued Medications Vancomycin HCl 1,750 mg/ (Sodium Chloride) 535 mls @ 250 mls/hr IV X1 ONE Stop: 08/02/20 19:23 Last Admin: 08/02/20 23:10 Dose: Infused Documented by: Follow-Up Labs: Trough Vancomycin Labs to be done on [date and time ordered]: 08/04 @ 4152
[2020-08-03 05:17] LABS: Absolute Lymphocyte Count 1.57 X10^3/uL (0.83-4.51); Absolute Neutrophil Count 13.5 X10^3/uL (2.0-7.7); Basophil# 0.03 X10^3/uL; Basophil% 0.2 % (0-1); Eosinophil# 0.11 X10^3/uL; Eosinophils% 0.7 % (0-5); Hematocrit 36.2 % (37-47); Hemoglobin 10.4 g/dL (12.0-15.0); Lymphocyte # 1.57 X10^3/ul (4.0); Lymphocyte % 9.6 % (19-41); Mean Corp Hgb Conc 28.7 g/dL (32-36); Mean Corpuscular Hgb 25.3 pg (27.0-32.0); Mean Corpuscular Volume 88.1 fL (81-99); Mean Platelet Vol. 8.8 fl (6.2-12.0); Monocyte# 1.12 X10^3/uL; Monocyte% 6.8 % (0-10); NRBC Flagged by Analyzer 0 % (0-5); Neutrophil # 13.51 X10^3/uL (2.7-7.7); Neutrophil % 82.2 % (47-70); Platelet Count 684 K/mm3 (150-450); RBC Distribution Width CV 17.3 % (11.6-14.6); RBC Distribution Width SD 55.9 fl (35.1-43.9); Red Blood Count 4.11 M/mm3 (4.2-5.4); White Blood Count 16.4 K/mm3 (4.4-11.0)
[2020-08-03 05:42] LABS: ALB/GLOB Ratio 0.6 RATIO (0.9-2.4); AST(SGOT) 26 U/L (15-37); Alanine Aminotransfer ALT/SGPT 42 U/L (13-56); Albumin, Serum 2.4 g/dL (3.2-5.0); Alkaline Phosphatase 122 U/L (45-117); Anion Gap 5 (5-15); BUN 23 mg/dL (7-18); BUN/Creat Ratio 39.7 RATIO (10-20); Calcium,Total 8.5 mg/dL (8.5-10.1); Chloride 105 mmol/L (98-107); Creatinine, Serum 0.58 mg/dL (0.55-1.02); EST Glomerular Filtration Rate 109 mL/min (>60); Est Glom Filt Rate - Afr Amer 132 mL/min (>60); Estimated Creatinine Clearance 57.42 ml/min; Globulin 4.1 g/dL (2.2-4.2); Glucose 103 mg/dL (74-106); Magnesium 2.3 mg/dL (1.6-2.6); Phosphorus 3.9 mg/dL (2.5-4.9); Potassium 4.2 mmol/L (3.5-5.1); Protein, Total 6.5 g/dL (6.4-8.2); Sodium Level 142 mmol/L (136-145)
[2020-08-03 05:48] LABS: Procalcitonin 0.11 ng/mL (0.00-0.09)
[2020-08-03 06:11] LABS: Lactic Acid 1.9 mmol/L (0.4-1.9)
[2020-08-03] MEDS: 0.9% Saline Lock 10 ML Syringe IV ×2 (06:13→14:09)
--- NOTE | 2020-08-03 08:29 | PN_ITS ---
Patient Problems: Active and Suspected Problems (Last Reviewed 08/02/20 @ 18:[address] Renea Ledezma, DO) Walking difficulty due to ankle and foot (Acute) Hammer toe of left foot (Acute) Sepsis (Acute) Cellulitis of left lower leg (Acute) Vitals/I&O's: Vital Signs Temp Pulse Resp BP Pulse Ox 98 F 73 16 118/59 L 93 08/03/20 03:15 08/03/20 03:15 08/03/20 03:15 08/03/20 03:15 08/03/20 03:15 Oxygen Flow Rate (L/min) 4 Oxygen Delivery Method Nasal Cannula Weight: 115.7 kg Body Mass Index (BMI) 36.6 Intake and Output for Last 24 Hours 08/01/20 08/02/20 08/03/20 23:59 23:59 23:59 Intake Total 635 / 635 1036.67 / 1036.67 Output Total 750 / 750 Balance 635 / 235 286.67 / 286.67 Microbiology Past 72 Hours 08/02/20 16:00 Mucosa - Nose SARS-CoV-2 Antigen (Rapid) - Final Laboratory Results 08/02/20 15:55: WBC 19.2 H, RBC 4.75, Hgb 12.1, Hct 41.6, MCV 87.6, MCH 25.5 L, MCHC 29.1 L, RDW Std Deviation 56.0 H, RDW Coeff of Pawan 17.2 H, Plt Count 860 H* , MPV 8.8, Immature Gran % (Auto) 0.600, Neut % (Auto) 84.0 H, Lymph % (Auto) 7.9 L, [place] % (Auto) 5.8, Eos % (Auto) 1.4, Baso % (Auto) 0.3, Absolute Neuts (auto) 16.1 H, Absolute Lymphs (auto) 1.52, Nucleated RBC % 0, Differential Comment SCANNED, Diff Path Review November foll, Platelet Estimate MKD INC, Anisocytosis 1+, Stomatocytes 1+ 08/02/20 15:55: Sodium 141, Potassium 3.9, Chloride 103, Carbon Dioxide 34.0 H, Anion Gap 4 L, BUN 27 H, Creatinine 0.85, Estim Creat Clear Calc 67.55, Est GFR (MDRD) Af Amer 85, Est GFR (MDRD) Non-Af 70, BUN/Creatinine Ratio 31.7 H, Glucose 125 H, Calcium 9.2 08/02/20 17:30: Lactic Acid 2.0 08/02/20 21:45: S.aureus Protein A PCR NEGATIVE, MRSA (PCR) Negative 08/02/20 21:50: Lactic Acid 2.8 H* 08/03/20 04:55: Procalcitonin 0.11 H 08/03/20 04:55: WBC 16.4 H, RBC 4.11 L, Hgb 10.4 L, Hct 36.2 L, MCV 88.1, MCH 25.3 L, MCHC 28.7 L, RDW Std Deviation 55.9 H, RDW Coeff of Pawan 17.3 H, Plt Count 684 H, MPV 8.8, Immature Gran % (Auto) 0.500, Neut % (Auto) 82.2 H, Lymph % (Auto) 9.6 L, [place] % (Auto) 6.8, Eos % (Auto) 0.7, Baso % (Auto) 0.2, Absolute Neuts (auto) 13.5 H, Absolute Lymphs (auto) 1.57, Nucleated RBC % 0 08/03/20 04:55: Sodium 142, Potassium 4.2, Chloride 105, Carbon Dioxide 32.0, Anion Gap 5, BUN 23 H, Creatinine 0.58, Estim Creat Clear Calc 57.42, Est GFR (MDRD) Af Amer 132, Est GFR (MDRD) Non-Af 109, BUN/Creatinine Ratio 39.7 H, Glucose 103, Calcium 8.5, Phosphorus 3.9, Magnesium 2.3, Total Bilirubin 0.40, AST 26, ALT 42, Alkaline Phosphatase 122 H, Total Protein 6.5, Albumin 2.4 L, Globulin 4.1, Albumin/Globulin Ratio 0.6 L 08/03/20 04:55: Hemoglobin A1c Pending 08/03/20 04:55: Lactic Acid 1.9 Current Medications Acetaminophen (Acetaminophen 325 Mg Tablet) 650 mg PO Q6H PRN PRN PRN Reason: Pain Score 1-10/Temp > 100.7 F Al Hydroxide/Mg Hydroxide (Mag Hydrox/Al Hydrox/Simeth 30 Ml Udc) 30 ml PO Q6H PRN PRN PRN Reason: Gastric Burning Albuterol Sulfate (Albuterol 2.5 Mg/3 Ml Vial.Neb.) 2.5 mg INHALATION Q2H PRN PRN PRN Reason: Shortness of Breath/Wheezing Amlodipine Besylate (Amlodipine 5 Mg Tablet) 5 mg PO DAILY [facility] Apixaban (Apixaban 5 Mg Tablet) 5 mg PO BID [facility] Last Admin: 08/02/20 23:04 Dose: 5 mg Documented by: Carvedilol (Carvedilol 25 Mg Tablet) 25 mg PO BID [facility] Last Admin: 08/02/20 23:04 Dose: 25 mg Documented by: Docusate Sodium (Docusate Sodium 100 Mg Capsule) 100 mg PO BID PRN PRN PRN Reason: Constipation Duloxetine HCl (Duloxetine Hcl 60 Mg Capsule) 60 mg PO DAILY [facility] Flecainide Acetate (Flecainide 100 Mg Tablet) 100 mg PO BID [facility] Last Admin: 08/02/20 23:05 Dose: 100 mg Documented by: Gabapentin (Gabapentin 300 Mg Capsule) 300 mg PO TIDCM [facility] Hydrochlorothiazide (Hydrochlorothiazide 25 Mg Tablet) 25 mg PO DAILY [facility] Vancomycin IV Pharmacy to Dose (1 ea/ Sodium Chloride) 500 mls @ 250 mls/hr IV X1 PRN; Protocol PRN Reason: Rx to Dose Piperacillin Sod/Tazobactam (Sod 3.375 gm/ Sodium Chloride) 50 mls @ 12.5 mls/hr IV Q8 [facility] Last Admin: 08/03/20 05:57 Dose: 12.5 mls/hr Documented by: Sodium Chloride () 250 mls @ 15 mls/hr IV .[id number] PRN PRN Reason: Saline Flush Sodium Chloride () 250 mls @ 15 mls/hr IV .[id number] PRN PRN Reason: Additional IVPB Infusion Sodium Chloride () 1,000 mls @ 100 mls/hr IV .Q10H [facility] Last Admin: 08/03/20 06:43 Dose: 100 mls/hr Documented by: Vancomycin HCl 2,000 mg/ (Sodium Chloride) 540 mls @ 250 mls/hr IV Q12H [facility] Last Admin: 08/03/20 07:24 Dose: 250 mls/hr Documented by: Lisinopril (Lisinopril 20 Mg Tablet) 20 mg PO BID [facility] Last Admin: 08/02/20 23:05 Dose: 20 mg Documented by: Morphine Sulfate (Morphine 2 Mg/Ml Syringe) 2 mg IV Q3H PRN PRN PRN Reason: Pain Score 6-10 Last Admin: 08/03/20 06:13 Dose: 2 mg Documented by: Multivitamins (Multivitamins,Therapeutic Tablet) 1 tablet PO DAILYCM [facility] Multivitamins (Vitamin B Comp W-C Capsule) 1 capsule PO DAILYCM [facility] Nutritional Formula (Lactose Free) (Ensure Enlive 120 Ml Liquid) 120 ml PO 4X/DAY [facility] Last Admin: 08/02/20 23:13 Dose: 120 ml Documented by: Nystatin (Nystatin Powder 15gm Bottle) 1 applic TOPICAL BID PRN; Protocol PRN Reason: RASH/TOPICAL IRRITATION Last Admin: 08/02/20 23:10 Dose: 1 applicatio Documented by: Ondansetron HCl (Ondansetron 4 Mg/2 Ml Vial) 4 mg IV Q8H PRN PRN PRN Reason: NAUSEA/VOMITING Oxybutynin Chloride (Oxybutynin 5 Mg Tablet) 5 mg PO BIDCM [facility] Oxycodone HCl (Oxycodone 5 Mg Tablet) 5 mg PO Q4H PRN PRN PRN Reason: Pain Score 4-5 Last Admin: 08/02/20 23:13 Dose: 5 mg Documented by: Pantoprazole Sodium (Pantoprazole Sodium 40 Mg Tablet) 40 mg PO DAILY [facility] Polysaccharide Iron Complex (Iron Polysaccharide Complex 150 Mg Capsule) 150 mg PO DAILYCM [facility] Sodium Chloride (0.9% Saline Lock 10 Ml Syringe) 10 - 40 ml IV UD PRN PRN Reason: SALINE FLUSH Last Admin: 08/03/20 06:13 Dose: 10 ml Documented by: Medical Necessity - Tobacco Use Smoking Status: Never smoker Assessment/Plan All Active Problems (Last Reviewed 08/02/20 @ 18:[address] Renea Ledezma, DO) Walking difficulty due to ankle and foot (Acute) Hammer toe of left foot (Acute) Sepsis (Acute) Cellulitis of left lower leg (Acute) Cystitis (Resolved) Tinea unguium (Resolved)
--- NOTE | 2020-08-03 08:31 | PN_ITS ---
Patient Problems: Active and Suspected Problems (Last Reviewed 08/02/20 @ 18:[address] Renea Ledezma, DO) Walking difficulty due to ankle and foot (Acute) Hammer toe of left foot (Acute) Sepsis (Acute) Cellulitis of left lower leg (Acute) Reason for Visit: Secondary to right lower extremity cellulitis Subjective: Pain is a 70-year-old lady presented redness and pain blistering involving the right lower extremity. An assessment of sepsis secondary to right lower extremity cellulitis made admitted to regular nursing floor for further management Objective: GENERAL: cooperative HEENT: Atraumatic; EYES; Anicteric, Normal Conjunctiva NECK; supple, normal thyroid, RESPIRATORY: Diminished to auscultation CARDIOVASCULAR: Regular S1 S2, GI: soft, normoactive bowel sounds, : No Renal angle tenderness; EXTREMITIES: Right lower extremity redness with areas of blistering MUSCULOSKELETAL: no muscle waisting NEURO: Awake; no lateralizing signs. SKIN: As described above PSYCH; Flat affect Vitals/I&O's: Vital Signs Temp Pulse Resp BP Pulse Ox 98 F 73 16 118/59 L 93 08/03/20 03:15 08/03/20 03:15 08/03/20 03:15 08/03/20 03:15 08/03/20 03:15 Oxygen Flow Rate (L/min) 4 Oxygen Delivery Method Nasal Cannula Weight: 115.7 kg Body Mass Index (BMI) 36.6 Intake and Output for Last 24 Hours 08/01/20 08/02/20 08/03/20 23:59 23:59 23:59 Intake Total 635 / 635 1036.67 / 1036.67 Output Total 750 / 750 Balance 635 / 235 286.67 / 286.67 Microbiology Past 72 Hours 08/02/20 16:00 Mucosa - Nose SARS-CoV-2 Antigen (Rapid) - Final Laboratory Results 08/02/20 15:55: WBC 19.2 H, RBC 4.75, Hgb 12.1, Hct 41.6, MCV 87.6, MCH 25.5 L, MCHC 29.1 L, RDW Std Deviation 56.0 H, RDW Coeff of Pawan 17.2 H, Plt Count 860 H* , MPV 8.8, Immature Gran % (Auto) 0.600, Neut % (Auto) 84.0 H, Lymph % (Auto) 7.9 L, [place] % (Auto) 5.8, Eos % (Auto) 1.4, Baso % (Auto) 0.3, Absolute Neuts (auto) 16.1 H, Absolute Lymphs (auto) 1.52, Nucleated RBC % 0, Differential Comment SCANNED, Diff Path Review November foll, Platelet Estimate MKD INC, Anisocytosis 1+, Stomatocytes 1+ 08/02/20 15:55: Sodium 141, Potassium 3.9, Chloride 103, Carbon Dioxide 34.0 H, Anion Gap 4 L, BUN 27 H, Creatinine 0.85, Estim Creat Clear Calc 67.55, Est GFR (MDRD) Af Amer 85, Est GFR (MDRD) Non-Af 70, BUN/Creatinine Ratio 31.7 H, Glucose 125 H, Calcium 9.2 08/02/20 17:30: Lactic Acid 2.0 08/02/20 21:45: S.aureus Protein A PCR NEGATIVE, MRSA (PCR) Negative 08/02/20 21:50: Lactic Acid 2.8 H* 08/03/20 04:55: Procalcitonin 0.11 H 08/03/20 04:55: WBC 16.4 H, RBC 4.11 L, Hgb 10.4 L, Hct 36.2 L, MCV 88.1, MCH 25.3 L, MCHC 28.7 L, RDW Std Deviation 55.9 H, RDW Coeff of Pawan 17.3 H, Plt Count 684 H, MPV 8.8, Immature Gran % (Auto) 0.500, Neut % (Auto) 82.2 H, Lymph % (Auto) 9.6 L, [place] % (Auto) 6.8, Eos % (Auto) 0.7, Baso % (Auto) 0.2, Absolute Neuts (auto) 13.5 H, Absolute Lymphs (auto) 1.57, Nucleated RBC % 0 08/03/20 04:55: Sodium 142, Potassium 4.2, Chloride 105, Carbon Dioxide 32.0, Anion Gap 5, BUN 23 H, Creatinine 0.58, Estim Creat Clear Calc 57.42, Est GFR (MDRD) Af Amer 132, Est GFR (MDRD) Non-Af 109, BUN/Creatinine Ratio 39.7 H, Glucose 103, Calcium 8.5, Phosphorus 3.9, Magnesium 2.3, Total Bilirubin 0.40, AST 26, ALT 42, Alkaline Phosphatase 122 H, Total Protein 6.5, Albumin 2.4 L, Globulin 4.1, Albumin/Globulin Ratio 0.6 L 08/03/20 04:55: Hemoglobin A1c Pending 08/03/20 04:55: Lactic Acid 1.9 Current Medications Acetaminophen (Acetaminophen 325 Mg Tablet) 650 mg PO Q6H PRN PRN PRN Reason: Pain Score 1-10/Temp > 100.7 F Al Hydroxide/Mg Hydroxide (Mag Hydrox/Al Hydrox/Simeth 30 Ml Udc) 30 ml PO Q6H PRN PRN PRN Reason: Gastric Burning Albuterol Sulfate (Albuterol 2.5 Mg/3 Ml Vial.Neb.) 2.5 mg INHALATION Q2H PRN PRN PRN Reason: Shortness of Breath/Wheezing Amlodipine Besylate (Amlodipine 5 Mg Tablet) 5 mg PO DAILY [facility] Apixaban (Apixaban 5 Mg Tablet) 5 mg PO BID [facility] Last Admin: 08/02/20 23:04 Dose: 5 mg Documented by: Carvedilol (Carvedilol 25 Mg Tablet) 25 mg PO BID [facility] Last Admin: 08/02/20 23:04 Dose: 25 mg Documented by: Docusate Sodium (Docusate Sodium 100 Mg Capsule) 100 mg PO BID PRN PRN PRN Reason: Constipation Duloxetine HCl (Duloxetine Hcl 60 Mg Capsule) 60 mg PO DAILY [facility] Flecainide Acetate (Flecainide 100 Mg Tablet) 100 mg PO BID [facility] Last Admin: 08/02/20 23:05 Dose: 100 mg Documented by: Gabapentin (Gabapentin 300 Mg Capsule) 300 mg PO TIDCM [facility] Hydrochlorothiazide (Hydrochlorothiazide 25 Mg Tablet) 25 mg PO DAILY [facility] Vancomycin IV Pharmacy to Dose (1 ea/ Sodium Chloride) 500 mls @ 250 mls/hr IV X1 PRN; Protocol PRN Reason: Rx to Dose Piperacillin Sod/Tazobactam (Sod 3.375 gm/ Sodium Chloride) 50 mls @ 12.5 mls/hr IV Q8 [facility] Last Admin: 08/03/20 05:57 Dose: 12.5 mls/hr Documented by: Sodium Chloride () 250 mls @ 15 mls/hr IV .[id number] PRN PRN Reason: Saline Flush Sodium Chloride () 250 mls @ 15 mls/hr IV .[id number] PRN PRN Reason: Additional IVPB Infusion Sodium Chloride () 1,000 mls @ 100 mls/hr IV .Q10H [facility] Last Admin: 08/03/20 06:43 Dose: 100 mls/hr Documented by: Vancomycin HCl 2,000 mg/ (Sodium Chloride) 540 mls @ 250 mls/hr IV Q12H [facility] Last Admin: 08/03/20 07:24 Dose: 250 mls/hr Documented by: Lisinopril (Lisinopril 20 Mg Tablet) 20 mg PO BID [facility] Last Admin: 08/02/20 23:05 Dose: 20 mg Documented by: Morphine Sulfate (Morphine 2 Mg/Ml Syringe) 2 mg IV Q3H PRN PRN PRN Reason: Pain Score 6-10 Last Admin: 08/03/20 06:13 Dose: 2 mg Documented by: Multivitamins (Multivitamins,Therapeutic Tablet) [facility] Multivitamins (Vitamin B Comp W-C Capsule) [facility] capsule [facility] Nutritional Formula (Lactose Free) (Ensure Enlive 120 Ml Liquid) 120 ml PO 4X/DAY [facility] Last Admin: 08/02/20 23:13 Dose: 120 ml Documented by: Nystatin (Nystatin Powder 15gm Bottle) 1 applic TOPICAL BID PRN; Protocol PRN Reason: RASH/TOPICAL IRRITATION Last Admin: 08/02/20 23:10 Dose: 1 applicatio Documented by: Ondansetron HCl (Ondansetron 4 Mg/2 Ml Vial) 4 mg IV Q8H PRN PRN PRN Reason: NAUSEA/VOMITING Oxybutynin Chloride (Oxybutynin 5 Mg Tablet) [facility] Oxycodone HCl (Oxycodone 5 Mg Tablet) 5 mg PO Q4H PRN PRN PRN Reason: Pain Score 4-5 Last Admin: 08/02/20 23:13 Dose: 5 mg Documented by: Pantoprazole Sodium (Pantoprazole Sodium 40 Mg Tablet) 40 mg PO DAILY [facility] Polysaccharide Iron Complex (Iron Polysaccharide Complex 150 Mg Capsule) [facility] Sodium Chloride (0.9% Saline Lock 10 Ml Syringe) 10 - 40 ml IV UD PRN PRN Reason: SALINE FLUSH Last Admin: 08/03/20 06:13 Dose: 10 ml Documented by: Medical Necessity - Tobacco Use Smoking Status: Never smoker Assessment/Plan All Active Problems (Last Reviewed 08/02/20 @ 18:[address] Renea Ledezma, DO) Walking difficulty due to ankle and foot (Acute) Hammer toe of left foot (Acute) Sepsis (Acute) Cellulitis of left lower leg (Acute) Cystitis (Resolved) Tinea unguium (Resolved) Pain is a 70-year-old lady presented redness and pain blistering involving the right lower extremity. An assessment of sepsis secondary to right lower extremity cellulitis made admitted to regular nursing floor for further management 1. Sepsis secondary to right lower extremity cellulitis ?Admitted to regular nursing floor started on vancomycin and Zosyn cultures sent. 2. Paroxysmal A. fib ?Rate controlled on carvedilol and flecainide patient also on systemic antic oagulation with Eliquis 3. Thrombocytosis -thought to be reactive following patient's infection monitoring counts 4. Hypertension - Blood pressure controlled, home medications continued with dose adjustment as needed 5. Dyslipidemia ?Apparently allergic to statin managed with diet 6. Chronic hypoxic respiratory failure due to bronchiectasis ?Patient is on baseline 4 L oxygen at home 7. Obesity with BMI of 36.6 ?Weight loss advised 8. Chronic congestive heart failure ?With preserved ejection fraction currently compensated 9. DVT prophylaxis ?On Eliquis Inpatient E&M: 43552 Subs Hosp L2
[2020-08-03 08:55] VITALS: BP 146/65; PULSE 95; RESP 20; TEMP 36.4; O2SAT 93
[2020-08-03] MEDS: Flecainide 100 MG Tablet PO ×2 (09:43→21:42)
[2020-08-03] MEDS: Lisinopril 20 MG Tablet PO ×2 (09:43→21:43)
[2020-08-03] MEDS: Multivitamins,Therapeutic Tablet 1 TABLET PO (09:43)
[2020-08-03] MEDS: Oxybutynin 5 MG Tablet PO ×2 (09:43→17:21)
[2020-08-03] MEDS: Vitamin B Comp W-C Capsule 1 CAP PO (09:43)
[2020-08-03] MEDS: hydroCHLOROthiazide 25 MG Tablet PO (09:43)
[2020-08-03] MEDS: DULoxetine Hcl 60 MG Capsule PO (09:43)
[2020-08-03] MEDS: Pantoprazole Sodium 40 MG Tablet PO (09:43)
[2020-08-03] MEDS: Gabapentin 300 MG Capsule PO ×3 (09:43→17:21)
[2020-08-03] MEDS: APIXABAN 5 MG TABLET PO ×2 (09:43→21:43)
[2020-08-03] MEDS: amLODIPine 5 MG Tablet PO (09:43)
[2020-08-03] MEDS: Carvedilol 25 MG Tablet PO ×2 (09:43→21:42)
[2020-08-03] MEDS: Iron Polysaccharide Complex 150 MG CAPSULE PO (09:43)
[2020-08-03 09:49] LABS: Hemoglobin A1c 6.1 % (3.8-5.6)
[2020-08-03] MEDS: oxyCODONE 5 MG Tablet PO ×2 (10:37→18:13)
[2020-08-03] MEDS: Acetaminophen 325 MG Tablet 650 MG PO ×2 (10:37→18:13)
[2020-08-03 11:52] VITALS: BP 120/61; PULSE 81; RESP 18; TEMP 36.9; O2SAT 93
[2020-08-03] MEDS: prednisoLONE eye drops (5 mL) 1 DROP OPTH.BTL 1 DRP EACH EYE (17:21)
[2020-08-03 18:11] VITALS: BP 107/58; PULSE 91; RESP 18; TEMP 36.9; O2SAT 93
[2020-08-03 20:11] VITALS: BP 117/69; PULSE 93; RESP 18; TEMP 36.5; O2SAT 94
[2020-08-04 02:11] VITALS: BP 127/72; PULSE 73; RESP 20; TEMP 36.6; O2SAT 94
[2020-08-04] MEDS: oxyCODONE 5 MG Tablet PO ×3 (05:23→16:08)
[2020-08-04] MEDS: Acetaminophen 325 MG Tablet 650 MG PO ×3 (05:23→23:18)
[2020-08-04 06:32] LABS: Hematocrit 34.6 % (37-47); Hemoglobin 9.9 g/dL (12.0-15.0); Mean Corp Hgb Conc 28.6 g/dL (32-36); Mean Corpuscular Hgb 25.7 pg (27.0-32.0); Mean Corpuscular Volume 89.9 fL (81-99); Mean Platelet Vol. 8.9 fl (6.2-12.0); Platelet Count 578 K/mm3 (150-450); RBC Distribution Width CV 17.2 % (11.6-14.6); RBC Distribution Width SD 56.7 fl (35.1-43.9); Red Blood Count 3.85 M/mm3 (4.2-5.4); White Blood Count 11.2 K/mm3 (4.4-11.0)
[2020-08-04] MEDS: 0.9% Normal Saline 1,000 ML 100 ML IV (06:56)
[2020-08-04 07:09] LABS: Vancomycin, Trough Level 23.3 ug/mL (5.0-15.0)
[2020-08-04 07:12] LABS: Anion Gap 6 (5-15); BUN 20 mg/dL (7-18); BUN/Creat Ratio 32.3 RATIO (10-20); Calcium,Total 8.7 mg/dL (8.5-10.1); Chloride 106 mmol/L (98-107); Creatinine, Serum 0.62 mg/dL (0.55-1.02); EST Glomerular Filtration Rate 102 mL/min (>60); Est Glom Filt Rate - Afr Amer 123 mL/min (>60); Estimated Creatinine Clearance 57.42 ml/min; Glucose 98 mg/dL (74-106); Magnesium 2.1 mg/dL (1.6-2.6); Sodium Level 142 mmol/L (136-145)
--- NOTE | 2020-08-04 07:31 | PCS.PANDOC ---
PANDEMIC DOCUMENTATION INITIATED: Date: 06/09/2020 Time:
--- NOTE | 2020-08-04 07:50 | NURSING ---
Vanc stopped per order of Anthony De Anda Pharmacist d/t vanc level this am
--- NOTE | 2020-08-04 07:55 | PHA.PHARE_ITS ---
Consult Pharmacy has been consulted to manage selected antiobiotic: Vancomycin Type of Consult: Follow-up Suspected Infection: Sepsis, Skin/Soft tissue Prior Doses of Antibiotics Received/Current Regimen: 2 gm iv q12. Labs: Sodium 142 mmol/L (136-145) 08/04/20 06:19 Potassium 4.0 mmol/L (3.5-5.1) 08/04/20 06:19 Chloride 106 mmol/L (98-107) 08/04/20 06:19 Carbon Dioxide 30.0 mmol/L (21.0-32.0) 08/04/20 06:19 Anion Gap 6 (5-15) 08/04/20 06:19 BUN 20 mg/dL (7-18) H 08/04/20 06:19 Creatinine 0.62 mg/dL (0.55-1.02) 08/04/20 06:19 Est GFR (MDRD) Af Amer 123 mL/min (>60) 08/04/20 06:19 Est GFR (MDRD) Non-Af 102 mL/min (>60) 08/04/20 06:19 BUN/Creatinine Ratio 32.3 RATIO (10-20) H 08/04/20 06:19 Glucose 98 mg/dL (74-106) 08/04/20 06:19 Vancomycin Trough 23.3 ug/mL (5.0-15.0) H 08/04/20 06:19 Microbiology: Microbiology 08/02/20 16:00 Mucosa - Nose SARS-CoV-2 Antigen (Rapid) - Final Weight used for dosin kg Estimated Creatinine Clearance: ~118 ml/mi Goal Trough: 15-20 mcg/mL Pharmacy Plan for Drug Dosing: Trough level this AM 23.3 (~11.5hrs post last dose) with goal range of 15- 20mcg/ml. Renal improved from Cr 0.85 to 0.62. Will DC order of 2gm iv q12h. Random level ordered for 2.2.21 in AM. Pharmacy Service will continue to monitor and adjust dosing as required. Follow-Up Labs: Trough Vancomycin - random 2.2.21@0600
[2020-08-04 09:01] VITALS: BP 121/61; PULSE 84; RESP 18; TEMP 36.8; O2SAT 93
[2020-08-04] MEDS: DULoxetine Hcl 60 MG Capsule PO (09:12)
[2020-08-04] MEDS: Pantoprazole Sodium 40 MG Tablet PO (09:12)
[2020-08-04] MEDS: Multivitamins,Therapeutic Tablet 1 TABLET PO (09:12)
[2020-08-04] MEDS: Iron Polysaccharide Complex 150 MG CAPSULE PO (09:12)
[2020-08-04] MEDS: Gabapentin 300 MG Capsule PO ×3 (09:12→16:10)
[2020-08-04] MEDS: Oxybutynin 5 MG Tablet PO ×2 (09:12→16:10)
[2020-08-04] MEDS: amLODIPine 5 MG Tablet PO (09:12)
[2020-08-04] MEDS: hydroCHLOROthiazide 25 MG Tablet PO (09:12)
[2020-08-04] MEDS: Flecainide 100 MG Tablet PO ×2 (09:12→21:32)
[2020-08-04] MEDS: Vitamin B Comp W-C Capsule 1 CAP PO (09:13)
[2020-08-04] MEDS: Carvedilol 25 MG Tablet PO ×2 (09:13→21:32)
[2020-08-04] MEDS: Lisinopril 20 MG Tablet PO ×2 (09:13→21:32)
[2020-08-04] MEDS: APIXABAN 5 MG TABLET PO ×2 (09:13→21:32)
[2020-08-04] MEDS: prednisoLONE eye drops (5 mL) 1 DROP OPTH.BTL 1 DRP EACH EYE (09:13)
--- NOTE | 2020-08-04 10:00 | CASEMGMT ---
ABBY BRAVO Face to Face with patient for initial transition planning/care coordination assessment. ABBY BRAVO introduced self and role at [facility]. Patient sitting in chair, alert and oriented. Patient willing to participate in assessment and is able to answer all questions appropriately. Care providers, pharmacy, and demographics verified. Patient wishes to discharge home, denies need for home health at this time. Patient states she has no further needs or concerns at this time. CM to follow for discharge planning needs that may arise. PCP: [place] Specialists: Shan, pe manager; [place] silo filler Preferred [facility]acy: [facility] Insurance: [facility] Prescription Benefit: yes Living Will/HPOA: none LNOK: brother, friend Living Arrangements: Patient lives alone in 2 story home with bed and bath on first floor. Patient has rampt to enter the home. Patient states she is independent Transportation: friend DME/HHC: Patient states she has shower chair, raised toilet, cane, elaker, lift chair, home oxygen at 4 lpm with portability through [employer]. Patient states she has been to [facility] and [place] in the past. [facility]. Patient states she would like HHC at [facility]. Patient was provided a list of C providers including quality and resource use data and consistent with the patient?s preferred geographic region, medical needs, and insurance network. The patient?s preferred provider is [facility]. ABBY BRAVO made referral to [facility] and they are able to accept the patient. ABBY BRAVO updated the patient. Disposition Plan: Patient to discharge home with HHC, family support, and follow-up plans in place. Jaimee RAYMUNDO, RN, CM
--- NOTE | 2020-08-04 10:21 | NURSING ---
wound photo: right lower leg/foot
--- NOTE | 2020-08-04 10:22 | NURSING ---
wound photo: right knee
--- NOTE | 2020-08-04 10:23 | NURSING ---
wound photo: left plantar foot
--- NOTE | 2020-08-04 11:28 | PCM.PN.HOSP ---
Patient Problems: Active and Suspected Problems (Last Reviewed 08/02/20 @ 18:[address] Renea Ledezma, DO) Walking difficulty due to ankle and foot (Acute) Hammer toe of left foot (Acute) Sepsis (Acute) Cellulitis of left lower leg (Acute) Subjective: Doing well, feels much better today. No issues overnight, blood culture did come back positive with an alpha hemolytic strep Vitals/I&O's: Vital Signs Temp Pulse Resp BP Pulse Ox 98.3 F 84 18 121/61 H 93 08/04/20 09:01 08/04/20 09:01 08/04/20 09:01 08/04/20 09:01 08/04/20 09:01 Oxygen Flow Rate (L/min) 4 Oxygen Delivery Method Nasal Cannula Weight: 255 lb 1.197 oz Body Mass Index (BMI) 36.6 Intake and Output for Last 24 Hours 08/02/20 08/03/20 08/04/20 23:59 23:59 23:59 Intake Total 635 / 635 4368.34 / 4368.34 1394.75 / 1394.75 Output Total 1950 / 2250 1550 / 1550 Balance 635 / 235 2418.34 / 2118.34 -155.25 / -155.25 General: Alert, Oriented x3, Cooperative, No apparent distress HEENT: Atraumatic, PERRLA, EOMI, Normocephalic Oral: Moist Mucosa Neck: Supple, No JVD Lungs: Clear to auscultation, Normal air movement, No rhonchi, No wheeze, No rales, Diminished Cardiovascular: Regular rate, Regular Rhythm, Normal S1, Normal S2, No murmurs Abdomen: Soft, Non Tender, Non-Distended, No Hepato-splenomegaly Extremities: No edema, Capillary Refill Less than 3 Seconds Skin: No rashes, No breakdown, - - Right lower extremity cellulitis with areas of blistering, dressing intact Neurological: Neuro grossly intact, Sensory exam intact to light touch and pain Psych/Mental Status: Normal Affect, Appropriate Microbiology Past 72 Hours 08/02/20 17:30 Blood Culture (Wb) - Left Forearm Blood Culture - Preliminary Alpha Hemolytic Streptococcus 08/02/20 16:00 Mucosa - Nose SARS-CoV-2 Antigen (Rapid) - Final Laboratory Results 08/04/20 06:19: Vancomycin Trough 23.3 H 08/04/20 06:19: WBC 11.2 H, RBC 3.85 L, Hgb 9.9 L, Hct 34.6 L, MCV 89.9, MCH 25.7 L, MCHC 28.6 L, RDW Std Deviation 56.7 H, RDW Coeff of Pawan 17.2 H, Plt Count 578 H, MPV 8.9 08/04/20 06:19: Sodium 142, Potassium 4.0, Chloride 106, Carbon Dioxide 30.0, Anion Gap 6, BUN 20 H, Creatinine 0.62, Estim Creat Clear Calc 57.42, Est GFR (MDRD) Af Amer 123, Est GFR (MDRD) Non-Af 102, BUN/Creatinine Ratio 32.3 H, Glucose 98, Calcium 8.7, Magnesium 2.1 Current Medications Acetaminophen (Acetaminophen 325 Mg Tablet) 650 mg PO Q6H PRN PRN PRN Reason: Pain Score 1-10/Temp > 100.7 F Last Admin: 08/04/20 05:23 Dose: 650 mg Documented by: Al Hydroxide/Mg Hydroxide (Mag Hydrox/Al Hydrox/Simeth 30 Ml Udc) 30 ml PO Q6H PRN PRN PRN Reason: Gastric Burning Albuterol Sulfate (Albuterol 2.5 Mg/3 Ml Vial.Neb.) 2.5 mg INHALATION Q2H PRN PRN PRN Reason: Shortness of Breath/Wheezing Amlodipine Besylate (Amlodipine 5 Mg Tablet) 5 mg PO DAILY [facility] Last Admin: 08/04/20 09:12 Dose: 5 mg Documented by: Apixaban (Apixaban 5 Mg Tablet) 5 mg PO BID [facility] Last Admin: 08/04/20 09:13 Dose: 5 mg Documented by: Carvedilol (Carvedilol 25 Mg Tablet) 25 mg PO BID [facility] Last Admin: 08/04/20 09:13 Dose: 25 mg Documented by: Docusate Sodium (Docusate Sodium 100 Mg Capsule) 100 mg PO BID PRN PRN PRN Reason: Constipation Duloxetine HCl (Duloxetine Hcl 60 Mg Capsule) 60 mg PO DAILY [facility] Last Admin: 08/04/20 09:12 Dose: 60 mg Documented by: Flecainide Acetate (Flecainide 100 Mg Tablet) 100 mg PO BID [facility] Last Admin: 08/04/20 09:12 Dose: 100 mg Documented by: Gabapentin (Gabapentin 300 Mg Capsule) 300 mg PO TIDCM [facility] Last Admin: 08/04/20 09:12 Dose: 300 mg Documented by: Hydrochlorothiazide (Hydrochlorothiazide 25 Mg Tablet) 25 mg PO DAILY [facility] Last Admin: 08/04/20 09:12 Dose: 25 mg Documented by: Vancomycin IV Pharmacy to Dose (1 ea/ Sodium Chloride) 500 mls @ 250 mls/hr IV X1 PRN; Protocol PRN Reason: Rx to Dose Piperacillin Sod/Tazobactam (Sod 3.375 gm/ Sodium Chloride) 50 mls @ 12.5 mls/hr IV Q8 [facility] Last Infusion: 08/04/20 09:20 Dose: Infused Documented by: Sodium Chloride () 250 mls @ 15 mls/hr IV .[id number] PRN PRN Reason: Saline Flush Last Infusion: 08/04/20 09:20 Dose: 15 mls/hr Documented by: Sodium Chloride () 250 mls @ 15 mls/hr IV .[id number] PRN PRN Reason: Additional IVPB Infusion Sodium Chloride () 1,000 mls @ 100 mls/hr IV .Q10H [facility] Last Admin: 08/04/20 06:56 Dose: 100 mls/hr Documented by: Lisinopril (Lisinopril 20 Mg Tablet) 20 mg PO BID [facility] Last Admin: 08/04/20 09:13 Dose: 20 mg Documented by: Morphine Sulfate (Morphine 2 Mg/Ml Syringe) 2 mg IV Q3H PRN PRN PRN Reason: Pain Score 6-10 Last Admin: 08/03/20 09:43 Dose: 2 mg Documented by: Multivitamins ([facility]itamins,Therapeutic Tablet) [facility] Admin: 08/04/20 09:12 Dose: 1 tablet Documented by: Multivitamins (Vitamin B Comp W-C Capsule) [facility] Last Admin: 08/04/20 09:13 Dose: 1 capsule Documented by: Nystatin (Nystatin Powder 15gm Bottle) 1 applic TOPICAL BID PRN; Protocol PRN Reason: RASH/TOPICAL IRRITATION Last Admin: 08/02/20 23:10 Dose: 1 applicatio Documented by: Ondansetron HCl (Ondansetron 4 Mg/2 Ml Vial) 4 mg IV Q8H PRN PRN PRN Reason: NAUSEA/VOMITING Oxybutynin Chloride (Oxybutynin 5 Mg Tablet) [facility] Last Admin: 08/04/20 09:12 Dose: 5 mg Documented by: Oxycodone HCl (Oxycodone 5 Mg Tablet) 5 mg PO Q4H PRN PRN PRN Reason: Pain Score 4-5 Last Admin: 08/04/20 05:23 Dose: 5 mg Documented by: Pantoprazole Sodium (Pantoprazole Sodium 40 Mg Tablet) 40 mg PO DAILY [facility] Last Admin: 08/04/20 09:12 Dose: 40 mg Documented by: Polysaccharide Iron Complex (Iron Polysaccharide Complex 150 Mg Capsule) [facility] Last Admin: 08/04/20 09:12 Dose: 150 mg Documented by: Prednisolone Acetate (Prednisolone Eye Drops (5 Ml) 1 Drop Opth.Btl) 1 drop EACH EYE DAILY [facility] Last Admin: 08/04/20 09:13 Dose: 1 drop Documented by: Sodium Chloride (0.9% Saline Lock 10 Ml Syringe) 10 - 40 ml IV UD PRN PRN Reason: SALINE FLUSH Last Admin: 08/03/20 14:09 Dose: 10 ml Documented by: STROKE Vital Signs/Narrative: Vital Signs Temp Pulse Resp BP Pulse Ox 08/04/20 09:01 98.3 F 84 18 121/61 H 93 Medical Necessity - Tobacco Use Smoking Status: Never smoker Assessment/Plan All Active Problems (Last Reviewed 08/02/20 @ 18:[address] Renea Ledezma, DO) Walking difficulty due to ankle and foot (Acute) Hammer toe of left foot (Acute) Sepsis (Acute) Cellulitis of left lower leg (Acute) Cystitis (Resolved) Tinea unguium (Resolved) 1. Sepsis secondary to right lower extremity cellulitis/thrombocytosis -She is improving on vancomycin and Zosyn, blood culture is positive and 1 out of 2 with alphahemolytic strep -This should likely be susceptible to p.o. Keflex to transition to outpatient management -Platelet count is coming down as is her white count. -Continue to monitor 2. HTN/HLD/chronic dCHF/morbid obesity/chronic A. fib -Not currently in the heart failure exacerbation -Blood pressures are stable -Continue with her home blood pressure medications -Unable to tolerate a statin, continue with diet modifications -BMI is 36.6, discussed lifestyle modifications -Continue with Eliquis 3. Chronic hypoxic respiratory failure secondary to bronchiectasis -Stable -She is on her home oxygen of 4 L at baseline 4. Iron deficiency anemia -Hemoglobin is stable near baseline -Continue with her home iron supplement 5. GERD -Stable -Continue with PPI 6. Anxiety/depression -Stable -Continue with Cymbalta DVT: Elis[place] Inpatient E&M: [id number] Subs Hosp L2
[2020-08-04 11:54] LABS: Pathologist Review Reviewed
[2020-08-04] MEDS: Docusate Sodium 100 MG Capsule PO (12:06)
[2020-08-04] MEDS: 0.9% Saline Lock 10 ML Syringe IV (14:31)
--- NOTE | 2020-08-04 15:35 | CHAPLAIN ---
Type of Pastoral Visit _x__ Initial Visit ___ Follow-up Visit ___ On-call Visit ___ General Patient Visit ___ Spiritual Assessment ___ Family Conference ___ Bereavement ___ Rapid Response ___ Code Blue ___ Other (describe below) Pastoral Care Referral From _x__ Patient ___ Family ___ Nurse ___ Physician ___ Side Boss ___ Ekg Manager ___ Other (describe below) Sacrament/Intervention _x__ Active listening ___ Anointing ___ Jainism ___ Bereavement ___ Communion _x__ Elaina exploration ___ _x__ Life review _x__ Prayer ___ Reconciliation ___ Sacrament of Sick _x__ Supportive presence ___ Wedding ___ Other (describe below) Pastoral Comments patient is welcoming and states God always gets me through and is with me everywhere all the time; pt is connected to local restorationism but not able to attend for almost two years; pt gives health history with many surgeries and more to come; pt goal is not to be in hospital or ECF so much this year; pt requests call to her restorationism to notify of admission; task completed
[2020-08-04 16:12] VITALS: BP 126/69; PULSE 75; RESP 18; TEMP 36.7; O2SAT 95
[2020-08-04 21:23] VITALS: BP 125/98; PULSE 60; RESP 18; TEMP 36.6; O2SAT 93
[2020-08-05 03:50] VITALS: BP 116/62; PULSE 84; RESP 18; TEMP 36.7; O2SAT 93
[2020-08-05 07:19] LABS: Hematocrit 34.1 % (37-47); Hemoglobin 9.8 g/dL (12.0-15.0); Mean Corp Hgb Conc 28.7 g/dL (32-36); Mean Corpuscular Hgb 25.4 pg (27.0-32.0); Mean Corpuscular Volume 88.3 fL (81-99); Mean Platelet Vol. 9.1 fl (6.2-12.0); Platelet Count 601 K/mm3 (150-450); RBC Distribution Width CV 17.1 % (11.6-14.6); RBC Distribution Width SD 55.3 fl (35.1-43.9); Red Blood Count 3.86 M/mm3 (4.2-5.4); White Blood Count 12.6 K/mm3 (4.4-11.0)
[2020-08-05 07:39] LABS: Anion Gap 4 (5-15); BUN 21 mg/dL (7-18); Chloride 101 mmol/L (98-107); Creatinine, Serum 0.64 mg/dL (0.55-1.02); EST Glomerular Filtration Rate 98 mL/min (>60); Est Glom Filt Rate - Afr Amer 119 mL/min (>60); Estimated Creatinine Clearance 57.42 ml/min; Glucose 113 mg/dL (74-106); Sodium Level 138 mmol/L (136-145)
[2020-08-05 07:40] VITALS: O2SAT 93
[2020-08-05 07:46] LABS: Vancomycin, Random Level 11.2 ug/mL (0.0-15.0)
[2020-08-05] MEDS: Oxybutynin 5 MG Tablet PO ×2 (07:46→17:05)
[2020-08-05] MEDS: Multivitamins,Therapeutic Tablet 1 TABLET PO (07:46)
[2020-08-05] MEDS: Vitamin B Comp W-C Capsule 1 CAP PO (07:46)
[2020-08-05] MEDS: Iron Polysaccharide Complex 150 MG CAPSULE PO (07:46)
[2020-08-05] MEDS: Gabapentin 300 MG Capsule PO ×3 (07:46→17:05)
[2020-08-05] MEDS: Cefazolin 2 GM in 0.9% Normal Saline 100 ML IV ×3 (08:47→20:38)
[2020-08-05] MEDS: oxyCODONE 5 MG Tablet PO ×3 (08:48→20:40)
[2020-08-05 08:53] VITALS: BP 143/66; PULSE 83; RESP 18; TEMP 36.8; O2SAT 94
[2020-08-05 09:26] VITALS: PULSE 85; RESP 14
--- NOTE | 2020-08-05 10:05 | PN_ITS ---
Patient Problems: Active and Suspected Problems (Last Reviewed 08/02/20 @ 18:[address] Renea Ledezma, DO) Walking difficulty due to ankle and foot (Acute) Hammer toe of left foot (Acute) Sepsis (Acute) Cellulitis of left lower leg (Acute) Subjective: States that her right lower extremity hurts little bit more today. She does not feel ready to go home. No issues overnight. Vitals/I&O's: Vital Signs Temp Pulse Resp BP Pulse Ox 98.2 F 85 14 143/66 H 94 08/05/20 08:53 08/05/20 09:26 08/05/20 09:26 08/05/20 08:53 08/05/20 08:53 Oxygen Flow Rate (L/min) 4 Oxygen Delivery Method Nasal Cannula Weight: 255 lb 1.197 oz Body Mass Index (BMI) 36.6 Intake and Output for Last 24 Hours 08/03/20 08/04/20 08/05/20 23:59 23:59 23:59 Intake Total 4368.34 / 4368.34 2318.83 / 2568.83 510.79 / 510.79 Output Total 1950 / 2250 1550 / 2950 2200 / 2200 Balance 2418.34 / 2118.34 768.83 / -381.17 -1689.21 / -1689.21 General: Alert, Oriented x3, Cooperative, No apparent distress HEENT: Atraumatic, PERRLA, EOMI, Normocephalic Oral: Moist Mucosa Neck: Supple, No JVD Lungs: Clear to auscultation, Normal air movement, No rhonchi, No wheeze, No rales, Diminished Cardiovascular: Regular rate, Regular Rhythm, Normal S1, Normal S2, No murmurs Abdomen: Soft, Non Tender, Non-Distended, No Hepato-splenomegaly Extremities: No edema, Capillary Refill Less than 3 Seconds Skin: No rashes, No breakdown, - - Right lower extremity cellulitis with areas of blistering, dressing intact. Photos reviewed Neurological: Neuro grossly intact, Sensory exam intact to light touch and pain Psych/Mental Status: Normal Affect, Appropriate Microbiology Past 72 Hours 08/02/20 16:45 Blood Culture (Wb) - Venous Blood Culture - Preliminary No growth in 48 hours. 08/02/20 17:30 Blood Culture (Wb) - Left Forearm Blood Culture - Preliminary Streptococcus parasanguinis 08/02/20 16:00 Mucosa - Nose SARS-CoV-2 Antigen (Rapid) - Final Laboratory Results 08/02/20 15:55: Diff Path Review Reviewed 08/05/20 06:56: WBC 12.6 H, RBC 3.86 L, Hgb 9.8 L, Hct 34.1 L, MCV 88.3, MCH 25.4 L, MCHC 28.7 L, RDW Std Deviation 55.3 H, RDW Coeff of Pawan 17.1 H, Plt Count 601 H, MPV 9.1 08/05/20 06:56: Sodium 138, Potassium 4.0, Chloride 101, Carbon Dioxide 33.0 H, Anion Gap 4 L, BUN 21 H, Creatinine 0.64, Estim Creat Clear Calc 57.42, Est GFR (MDRD) Af Amer 119, Est GFR (MDRD) Non-Af 98, BUN/Creatinine Ratio 33.0 H, Glucose 113 H, Calcium 9.0 08/05/20 06:56: Random Vancomycin 11.2 Current Medications Acetaminophen (Acetaminophen 325 Mg Tablet) 650 mg PO Q6H PRN PRN PRN Reason: Pain Score 1-10/Temp > 100.7 F Last Admin: 08/04/20 23:18 Dose: 650 mg Documented by: Al Hydroxide/Mg Hydroxide (Mag Hydrox/Al Hydrox/Simeth 30 Ml Udc) 30 ml PO Q6H PRN PRN PRN Reason: Gastric Burning Albuterol Sulfate (Albuterol 2.5 Mg/3 Ml Vial.Neb.) 2.5 mg INHALATION Q2H PRN PRN PRN Reason: Shortness of Breath/Wheezing Amlodipine Besylate (Amlodipine 5 Mg Tablet) 5 mg PO DAILY [facility] Last Admin: 08/04/20 09:12 Dose: 5 mg Documented by: Apixaban (Apixaban 5 Mg Tablet) 5 mg PO BID [facility] Last Admin: 08/04/20 21:32 Dose: 5 mg Documented by: Carvedilol (Carvedilol 25 Mg Tablet) 25 mg PO BID [facility] Last Admin: 08/04/20 21:32 Dose: 25 mg Documented by: Docusate Sodium (Docusate Sodium 100 Mg Capsule) 100 mg PO BID PRN PRN PRN Reason: Constipation Last Admin: 08/04/20 12:06 Dose: 100 mg Documented by: Duloxetine HCl (Duloxetine Hcl 60 Mg Capsule) 60 mg PO DAILY [facility] Last Admin: 08/04/20 09:12 Dose: 60 mg Documented by: Flecainide Acetate (Flecainide 100 Mg Tablet) 100 mg PO BID [facility] Last Admin: 08/04/20 21:32 Dose: 100 mg Documented by: Gabapentin (Gabapentin 300 Mg Capsule) 300 mg PO TIDCM [facility] Last Admin: 08/05/20 07:46 Dose: 300 mg Documented by: Hydrochlorothiazide (Hydrochlorothiazide 25 Mg Tablet) 25 mg PO DAILY [facility] Last Admin: 08/04/20 09:12 Dose: 25 mg Documented by: Sodium Chloride () 250 mls @ 15 mls/hr IV .[id number] PRN PRN Reason: Saline Flush Last Infusion: 08/05/20 05:46 Dose: 0 mls/hr Documented by: Sodium Chloride () 250 mls @ 15 mls/hr IV .[id number] PRN PRN Reason: Additional IVPB Infusion Sodium Chloride () 250 mls @ 15 mls/hr IV .[id number] PRN PRN Reason: Saline Flush Sodium Chloride () 250 mls @ 15 mls/hr IV .[id number] PRN PRN Reason: Additional IVPB Infusion Cefazolin Sodium 2 gm/ Sodium (Chloride) 110 mls @ 150 mls/hr IV Q8 [facility] Last Infusion: 08/05/20 09:31 Dose: Infused Documented by: Lisinopril (Lisinopril 20 Mg Tablet) 20 mg PO BID [facility] Last Admin: 08/04/20 21:32 Dose: 20 mg Documented by: Morphine Sulfate (Morphine 2 Mg/Ml Syringe) 2 mg IV Q3H PRN PRN PRN Reason: Pain Score 6-10 Last Admin: 08/03/20 09:43 Dose: 2 mg Documented by: Multivitamins ([facility]it[facility],Therapeutic [facility]t) [facility] Last Admin: 08/05/20 07:46 Dose: 1 tablet Documented by: Multivitamins (Vitamin B Comp W-C Capsule) [facility] Last Admin: 08/05/20 07:46 Dose: 1 capsule Documented by: Nystatin (Nystatin Powder 15gm Bottle) 1 applic TOPICAL BID PRN; Protocol PRN Reason: RASH/TOPICAL IRRITATION Last Admin: 08/02/20 23:10 Dose: 1 applicatio Documented by: Ondansetron HCl (Ondansetron 4 Mg/2 Ml Vial) 4 mg IV Q8H PRN PRN PRN Reason: NAUSEA/VOMITING Oxybutynin Chloride (Oxy[facility]in 5 Mg Tablet) [facility] Last Admin: 08/05/20 07:46 Dose: 5 mg Documented by: Oxycodone HCl (Oxycodone 5 Mg Tablet) 5 mg PO Q4H PRN PRN PRN Reason: Pain Score 4-5 Last Admin: 08/05/20 08:48 Dose: 5 mg Documented by: Pantoprazole Sodium (Pantoprazole Sodium 40 Mg Tablet) 40 mg PO DAILY [facility] Last Admin: 08/04/20 09:12 Dose: 40 mg Documented by: Polysaccharide Iron Complex (Iron Polysaccharide Complex 150 Mg Capsule) [facility] Last Admin: 08/05/20 07:46 Dose: 150 mg Documented by: Prednisolone Acetate (Prednisolone Eye Drops (5 Ml) 1 Drop Opth.Btl) 1 drop EACH EYE DAILY [facility] Last Admin: 08/04/20 09:13 Dose: 1 drop Documented by: Sodium Chloride (0.9% Saline Lock 10 Ml Syringe) 10 - 40 ml IV UD PRN PRN Reason: SALINE FLUSH Last Admin: 08/04/20 14:31 Dose: 10 ml Documented by: STROKE Vital Signs/Narrative: Vital Signs Temp Pulse Resp BP Pulse Ox 08/05/20 09:26 85 14 08/05/20 08:53 98.2 F 83 18 143/66 H 94 08/05/20 07:40 93 Medical Necessity - Tobacco Use Smoking Status: Never smoker Assessment/Plan All Active Problems (Last Reviewed 08/02/20 @ 18:[address] Renea Ledezma, DO) Walking difficulty due to ankle and foot (Acute) Hammer toe of left foot (Acute) Sepsis (Acute) Cellulitis of left lower leg (Acute) Cystitis (Resolved) Tinea unguium (Resolved) 1. Sepsis secondary to right lower extremity cellulitis/thrombocytosis -D escalated from [place] Zosyn to Ancef. 1 out of 4 bottles demonstrated the alphahemolytic strep, therefore it is a contaminant -This should likely be susceptible to p.o. Keflex to transition to outpatient management -Platelet count is coming down as is her white count. -Continue to monitor 2. HTN/HLD/chronic dCHF/morbid obesity/chronic A. fib -Not currently in the heart failure exacerbation -Blood pressures are stable -Continue with her home blood pressure medications -Unable to tolerate a statin, continue with diet modifications -BMI is 36.6, discussed lifestyle modifications -Continue with Eliquis 3. Chronic hypoxic respiratory failure secondary to bronchiectasis -Stable -She is on her home oxygen of 4 L at baseline 4. Iron deficiency anemia -Hemoglobin is stable near baseline -Continue with her home iron supplement 5. GERD -Stable -Continue with PPI 6. Anxiety/depression -Stable -Continue with Cymbalta DVT: Ernesto Inpatient E&M: [id number] Subs Hosp L2
[2020-08-05] MEDS: DULoxetine Hcl 60 MG Capsule PO (10:56)
[2020-08-05] MEDS: Flecainide 100 MG Tablet PO ×2 (10:56→20:43)
[2020-08-05] MEDS: prednisoLONE eye drops (5 mL) 1 DROP OPTH.BTL 1 DRP EACH EYE (10:56)
[2020-08-05] MEDS: hydroCHLOROthiazide 25 MG Tablet PO (10:56)
[2020-08-05] MEDS: APIXABAN 5 MG TABLET PO ×2 (10:56→20:41)
[2020-08-05] MEDS: Carvedilol 25 MG Tablet PO ×2 (10:56→20:43)
[2020-08-05] MEDS: amLODIPine 5 MG Tablet PO (10:56)
[2020-08-05] MEDS: Pantoprazole Sodium 40 MG Tablet PO (10:56)
[2020-08-05] MEDS: Lisinopril 20 MG Tablet PO ×2 (10:57→20:42)
[2020-08-05 15:02] VITALS: BP 123/53; PULSE 100; RESP 14; TEMP 37.2; O2SAT 95
[2020-08-05 21:00] VITALS: BP 137/60; PULSE 80; RESP 16; RESP 18; TEMP 37.1; O2SAT 94; O2SAT 95
[2020-08-06 03:00] VITALS: BP 147/74; PULSE 91; RESP 18; TEMP 36.3; O2SAT 94
[2020-08-06] MEDS: Cefazolin 2 GM in 0.9% Normal Saline 100 ML IV ×2 (05:34→13:29)
[2020-08-06] MEDS: oxyCODONE 5 MG Tablet PO (05:42)
[2020-08-06 06:45] VITALS: O2SAT 94
[2020-08-06 06:54] LABS: Hematocrit 34.7 % (37-47); Hemoglobin 10.2 g/dL (12.0-15.0); Mean Corp Hgb Conc 29.4 g/dL (32-36); Mean Corpuscular Hgb 25.6 pg (27.0-32.0); Mean Platelet Vol. 9.4 fl (6.2-12.0); Platelet Count 584 K/mm3 (150-450); RBC Distribution Width CV 17.2 % (11.6-14.6); RBC Distribution Width SD 54.8 fl (35.1-43.9); Red Blood Count 3.99 M/mm3 (4.2-5.4)
[2020-08-06 07:22] LABS: Anion Gap 3 (5-15); BUN 19 mg/dL (7-18); BUN/Creat Ratio 28.9 RATIO (10-20); Chloride 98 mmol/L (98-107); Creatinine, Serum 0.66 mg/dL (0.55-1.02); EST Glomerular Filtration Rate 95 mL/min (>60); Est Glom Filt Rate - Afr Amer 115 mL/min (>60); Estimated Creatinine Clearance 57.42 ml/min; Glucose 116 mg/dL (74-106); Sodium Level 137 mmol/L (136-145)
[2020-08-06 07:44] VITALS: BP 119/59; PULSE 78; RESP 18; TEMP 36.6; O2SAT 90
[2020-08-06] MEDS: Vitamin B Comp W-C Capsule 1 CAP PO (07:48)
[2020-08-06] MEDS: Oxybutynin 5 MG Tablet PO (07:49)
[2020-08-06] MEDS: Carvedilol 25 MG Tablet PO (07:49)
[2020-08-06] MEDS: DULoxetine Hcl 60 MG Capsule PO (07:49)
[2020-08-06] MEDS: Multivitamins,Therapeutic Tablet 1 TABLET PO (07:49)
[2020-08-06] MEDS: Iron Polysaccharide Complex 150 MG CAPSULE PO (07:49)
[2020-08-06] MEDS: Gabapentin 300 MG Capsule PO ×2 (07:49→12:44)
[2020-08-06] MEDS: hydroCHLOROthiazide 25 MG Tablet PO (07:49)
[2020-08-06] MEDS: APIXABAN 5 MG TABLET PO (07:49)
[2020-08-06] MEDS: prednisoLONE eye drops (5 mL) 1 DROP OPTH.BTL 1 DRP EACH EYE (07:50)
[2020-08-06] MEDS: Pantoprazole Sodium 40 MG Tablet PO (07:50)
[2020-08-06] MEDS: amLODIPine 5 MG Tablet PO (07:50)
[2020-08-06] MEDS: Flecainide 100 MG Tablet PO (07:51)
[2020-08-06] MEDS: Lisinopril 20 MG Tablet PO (07:51)
[2020-08-06] MEDS: Acetaminophen 325 MG Tablet 650 MG PO (07:56)
--- NOTE | 2020-08-06 10:10 | PCM.DC ---
- Discharge Diagnoses Current Active Problems: Current Active and Chronic Problems (Last Reviewed 08/02/20 @ 18:[address] Renea Ledezma, DO) Walking difficulty due to ankle and foot (Acute) Hammer toe of left foot (Acute) Hallux valgus (acquired), left foot (Chronic) Callus of foot (Chronic) Hypoxia (Chronic) SECONDARY TO DIASTOLIC CHF, PNEUMONIA Bronchiectasis (Chronic) Stasis dermatitis of both legs (Chronic) Osteoarthritis of left hip (Chronic) Hypertension (Chronic) Atrial fibrillation (Chronic) GERD (gastroesophageal reflux disease) (Chronic) Overactive bladder (Chronic) Sepsis (Acute) Cellulitis of left lower leg (Acute) Peripheral neuropathy (Chronic) Osteoarthritis (Chronic) Chronic anticoagulation (Chronic) PAF (paroxysmal atrial fibrillation) (Chronic) Chronic ulcer of left foot with fat layer exposed (Chronic) Hyperlipemia (Chronic) Obesity (Chronic) Depression (Chronic) Benign essential hypertension (Chronic) You will use the following diet at home:: Cardiac Your food should be the consistency of: Regular Your liquids should be the consistency of: Regular/Thin Discharge Activity: Return to Normal Activity Call your doctor if you observe: Fever of 101 or Higher, Shortness of breath, Dizziness, Fainting spells, Swelling in the ankles, Chest pain, Increased palpitations (irregular heartbeat) Instructions: ED Cellulitis Allergies/Adverse Reactions: Allergies atorvastatin [From Lipitor] Adverse Reaction (Verified 08/02/20 15:24) Pain in joints nifedipine [From Procardia] Adverse Reaction (Verified 08/02/20 15:24) Pain in joints tramadol Adverse Reaction (Verified 08/02/20 15:24) Upset Stomach Medications to take at Discharge Amlodipine [Norvasc] 5 mg PO DAILY 04/09/13 Duloxetine HCl 60 mg PO DAILY 01/18/18 lisinopril 20 mg tablet 20 mg PO BID tab 08/10/18 carvedilol 25 mg tablet 25 mg PO BID #180 tab 02/16/19 flecainide 100 mg tablet 100 mg PO BID #180 tab 03/31/20 multivitamin 1 tab PO DAILY 04/30/20 Acetaminophen [Tylenol] 1,000 mg PO Q8 tab 05/22/20 Apixaban [Eliquis] 5 mg PO BID tab 05/22/20 Hydrochlorothiazide [Hctz] 25 mg PO DAILY tab 05/22/20 Iron Polysaccharide Complex [Ferrex 150] 150 mg PO DAILYCM #30 cap 05/22/20 Oxybutynin [Ditropan] 5 mg PO BIDCM tab 05/22/20 Pantoprazole Sodium [Protonix] 40 mg PO DAILY tab 05/22/20 Vitamin B Comp W-C [Allbee W/C Caplet, Thera B Comp/C] 1 cap PO DAILYCM cap 05/22/20 prednisoLONE eye drops (5 mL) [Pred Forte eye drops (5 mL)] 1 drp EACH EYE DAILY opth.btl 05/22/20 Nystatin Powder [Mycostatin Powder] 1 applic TOPICAL BID PRN 08/02/20 Cephalexin [Keflex] 500 mg PO Q6 #28 cap 08/06/20 The following prescriptions were given: Cephalexin [Keflex] 500 mg PO Q6 #28 cap Transmission Status: Pending to [facility] Primary Care Physician: Faraz Junior MD [Primary Care Provider] - Please follow up with your Primary Care Physician in: 3-5 days Test Results: Test results from this visit will be discussed in further detail at your follow-up appointment, if applicable. Please Follow Up With: [facility] When: When able
--- NOTE | 2020-08-06 10:12 | PCM.DC.SUM ---
Discharge Date and Diagnosis - Problem List Patient Problems: Active and Suspected Problems (Last Reviewed 08/02/20 @ 18:[address] Renea Ledezma DO) Walking difficulty due to ankle and foot (Acute) Hammer toe of left foot (Acute) Sepsis (Acute) Cellulitis of left lower leg (Acute) Date of Admission: 08/02/20 Date of Discharge: 08/06/20 - Primary Discharge Diagnosis Acute Problems: Active Problems (Last Reviewed 08/02/20 @ 18:[address] Renea Ledezma DO) Walking difficulty due to ankle and foot (Acute) Hammer toe of left foot (Acute) Sepsis (Acute) Cellulitis of left lower leg (Acute) - Secondary Discharge Diagnosis Chronic Problems: Chronic Problems (Last Reviewed 08/02/20 @ 18:[address] Renea Ledezma DO) Hallux valgus (acquired), left foot (Chronic) Callus of foot (Chronic) Hypoxia (Chronic) SECONDARY TO DIASTOLIC CHF, PNEUMONIA Bronchiectasis (Chronic) Stasis dermatitis of both legs (Chronic) Osteoarthritis of left hip (Chronic) Hypertension (Chronic) Atrial fibrillation (Chronic) GERD (gastroesophageal reflux disease) (Chronic) Overactive bladder (Chronic) Peripheral neuropathy (Chronic) Osteoarthritis (Chronic) Chronic anticoagulation (Chronic) PAF (paroxysmal atrial fibrillation) (Chronic) Chronic ulcer of left foot with fat layer exposed (Chronic) Hyperlipemia (Chronic) Obesity (Chronic) Depression (Chronic) Benign essential hypertension (Chronic) Hospital Course and Treatment Imaging Results: Clinical Impression(s) from Imaging Studies Knee X-Ray 08/02/20 15:42 IMPRESSION: Severe tricompartmental osteoarthrosis. No joint effusion. No demonstrated fracture. Electronically Signed: Zafar Tatum MD ([place]) at 16:41 EST , Service support , Tibia/Fibula X-Ray 08/02/20 15:42 IMPRESSION: Nonspecific soft tissue swelling without demonstrated fracture. Electronically Signed: Zafar Tatum MD ([place]) at 16:39 EST , Service support , Foot X-Ray 08/02/20 16:20 IMPRESSION: No fracture demonstrated. Severe degenerative changes of the hind and mid foot. Electronically Signed: Zafar Tatum MD ([place]) at 16:40 EST , Service support , Lower Extremity CT 08/02/20 17:25 IMPRESSION: 1. Significant anterior dominant soft tissue swelling/edema extending into the dorsal foot. No focal fluid collection or enhancing abnormality. 2. Tricompartmental osteoarthrosis of the knee. Osteoarthrosis of the midfoot. Electronically Signed: Zafar Tatum MD ([place]) at 18:56 EST , Service support , Consultations 08/04/20 09:09 Consult: Onc/Wound/supply chain specialist Routine Comment: Reason for Consult:: RLE/FOOT/KNEE Operations: None Procedures: None Summary of Care Provided: Per HPI: The patient is a 70 year old F who presents emergency room due to right lower extremity pain, swelling and redness. Patient states approximately 2 weeks ago she was getting off of her toilet when her knee gave out and she fell onto her right knee. She states she has had pain since that time however yesterday developed increased swelling and redness with now several blistered areas. She denies fever, chills. States overall she feels okay except for significant right lower extremity pain. Denies other associated symptoms or complaints. She is on Eliquis for paroxysmal atrial fibrillation and states she has not missed any doses. She has a past medical history of paroxysmal atrial fibrillation, hypertension, hyperlipidemia, chronic hypoxic respiratory failure secondary to bronchiectasis, chronic diastolic CHF, obesity. Hospital Course: 1. Sepsis secondary to right lower extremity cellulitis/[id number] female presented to the emergency room with right lower extremity pain swelling and redness. She had an anterior montiel skin tear from the blistering from the infection and we got wound care involved. She was initially started on Zosyn and vancomycin and was narrowed down to Ancef. She did have 1 out of 4 blood cultures test positive with an alpha hemolytic strep organism which was felt to be a contaminant. With her transition to Ancef her white count normalized, and she remains afebrile. She would like to go home today and she will be discharged on Keflex. I discussed with her the plan for discharge she expressed understanding of the risk and benefits and the need to follow-up with her PCP as well as wound care center. She will complete Keflex for a 10-day total course of antibiotics. 2. Hypertension, hyperlipidemia, chronic A. fib, morbid obesity, chronic diastolic CHF, chronic hypoxic respiratory failure secondary to bronchiectasis, iron deficiency anemia, GERD, anxiety, depression are all chronic medical conditions which complicate her care. Her home medications were continued where appropriate. Patient Problems: Active and Suspected Problems (Last Reviewed 08/02/20 @ 18:[address] Renea Ledezma, DO) Walking difficulty due to ankle and foot (Acute) Hammer toe of left foot (Acute) Sepsis (Acute) Cellulitis of left lower leg (Acute) - Physical Exam Vitals/I&O's: Vital Signs Temp Pulse Resp BP Pulse Ox 97.9 F 78 18 119/59 L 90 08/06/20 07:44 08/06/20 07:44 08/06/20 07:44 08/06/20 07:44 08/06/20 07:44 Oxygen Flow Rate (L/min) 4 Oxygen Delivery Method Nasal Cannula Weight: 255 lb 1.197 oz Body Mass Index (BMI) 36.6 Intake and Output for Last 24 Hours 08/04/20 08/05/20 08/06/20 23:59 23:59 23:59 Intake Total 2318.83 / 2568.83 1279.04 / 2079.04 1210 / 1210 Output Total 1550 / 2950 2900 / 4000 1900 / 1900 Balance 768.83 / -381.17 -1620.96 / -1920.96 -690 / -690 General: Alert, Oriented x3, Cooperative, No apparent distress HEENT: Atraumatic, PERRLA, EOMI, Normocephalic Oral: Moist Mucosa Neck: Supple, No JVD Lungs: Clear to auscultation, Normal air movement, No rhonchi, No wheeze, No rales, Diminished Cardiovascular: Regular rate, Regular Rhythm, Normal S1, Normal S2, No murmurs Abdomen: Soft, Non Tender, Non-Distended, No Hepato-splenomegaly Extremities: No edema, Capillary Refill Less than 3 Seconds Skin: No rashes, No breakdown, - - Right lower extremity cellulitis with areas of blistering, dressing intact. Photos reviewed Neurological: Neuro grossly intact, Sensory exam intact to light touch and pain Psych/Mental Status: Normal Affect, Appropriate Microbiology Past 72 Hours 08/02/20 16:45 Blood Culture (Wb) - Venous Blood Culture - Preliminary No growth in 48 hours. 08/02/20 17:30 Blood Culture (Wb) - Left Forearm Blood Culture - Preliminary Streptococcus parasanguinis Laboratory Results 08/06/20 06:21: WBC 11.0, RBC 3.99 L, Hgb 10.2 L, Hct 34.7 L, MCV 87.0, MCH 25.6 L, MCHC 29.4 L, RDW Std Deviation 54.8 H, RDW Coeff of Pawan 17.2 H, Plt Count 584 H, MPV 9.4 08/06/20 06:21: Sodium 137, Potassium 4.0, Chloride 98, Carbon Dioxide 36.0 H, Anion Gap 3 L, BUN 19 H, Creatinine 0.66, Estim Creat Clear Calc 57.42, Est GFR (MDRD) Af Amer 115, Est GFR (MDRD) Non-Af 95, BUN/Creatinine Ratio 28.9 H, Glucose 116 H, Calcium 9.0 Current Medications Acetaminophen (Acetaminophen 325 Mg Tablet) 650 mg PO Q6H PRN PRN PRN Reason: Pain Score 1-10/Temp > 100.7 F Last Admin: 08/06/20 07:56 Dose: 650 mg Documented by: Al Hydroxide/Mg Hydroxide (Mag Hydrox/Al Hydrox/Simeth 30 Ml Udc) 30 ml PO Q6H PRN PRN PRN Reason: Gastric Burning Albuterol Sulfate (Albuterol 2.5 Mg/3 Ml Vial.Neb.) 2.5 mg INHALATION Q2H PRN PRN PRN Reason: Shortness of Breath/Wheezing Amlodipine Besylate (Amlodipine 5 Mg Tablet) 5 mg PO DAILY [facility] Last Admin: 08/06/20 07:50 Dose: 5 mg Documented by: Apixaban (Apixaban 5 Mg Tablet) 5 mg PO BID [facility] Last Admin: 08/06/20 07:49 Dose: 5 mg Documented by: Carvedilol (Carvedilol 25 Mg Tablet) 25 mg PO BID [facility] Last Admin: 08/06/20 07:49 Dose: 25 mg Documented by: Docusate Sodium (Docusate Sodium 100 Mg Capsule) 100 mg PO BID PRN PRN PRN Reason: Constipation Last Admin: 08/04/20 12:06 Dose: 100 mg Documented by: Duloxetine HCl (Duloxetine Hcl 60 Mg Capsule) 60 mg PO DAILY [facility] Last Admin: 08/06/20 07:49 Dose: 60 mg Documented by: Flecainide Acetate (Flecainide 100 Mg Tablet) 100 mg PO BID [facility] Last Admin: 08/06/20 07:51 Dose: 100 mg Documented by: Gabapentin (Gabapentin 300 Mg Capsule) 300 mg PO TIDCM [facility] Last Admin: 08/06/20 07:49 Dose: 300 mg Documented by: Hydrochlorothiazide (Hydrochlorothiazide 25 Mg Tablet) 25 mg PO DAILY [facility] Last Admin: 08/06/20 07:49 Dose: 25 mg Documented by: Sodium Chloride () 250 mls @ 15 mls/hr IV .[id number] PRN PRN Reason: Saline Flush Last Admin: 08/05/20 20:39 Dose: 15 mls/hr Documented by: Sodium Chloride () 250 mls @ 15 mls/hr IV .[id number] PRN PRN Reason: Additional IVPB Infusion Sodium Chloride () 250 mls @ 15 mls/hr IV .[id number] PRN PRN Reason: Saline Flush Sodium Chloride () 250 mls @ 15 mls/hr IV .[id number] PRN PRN Reason: Additional IVPB Infusion Cefazolin Sodium 2 gm/ Sodium (Chloride) 110 mls @ 150 mls/hr IV Q8 [facility] Last Infusion: 08/06/20 06:29 Dose: Infused Documented by: Lisinopril (Lisinopril 20 Mg Tablet) 20 mg PO BID [facility] Last Admin: 08/06/20 07:51 Dose: 20 mg Documented by: Morphine Sulfate (Morphine 2 Mg/Ml Syringe) 2 mg IV Q3H PRN PRN PRN Reason: Pain Score 6-10 Last Admin: 08/03/20 09:43 Dose: 2 mg Documented by: Multivitamins (Multivitamins,Therapeutic Tablet) [facility] Last Admin: 08/06/20 07:49 Dose: 1 tablet Documented by: Multivitamins (Vitamin B Comp W-C Capsule) [facility] Last Admin: 08/06/20 07:48 Dose: 1 capsule Documented by: Nystatin (Nystatin Powder 15gm Bottle) 1 applic TOPICAL BID PRN; Protocol PRN Reason: RASH/TOPICAL IRRITATION Last Admin: 08/02/20 23:10 Dose: 1 applicatio Documented by: Ondansetron HCl (Ondansetron 4 Mg/2 Ml Vial) 4 mg IV Q8H PRN PRN PRN Reason: NAUSEA/VOMITING Oxybutynin Chloride (Oxybutynin 5 Mg Tablet) [facility] Last Admin: 08/06/20 07:49 Dose: 5 mg Documented by: Oxycodone HCl (Oxycodone 5 Mg Tablet) 5 mg PO Q4H PRN PRN PRN Reason: Pain Score 4-5 Last Admin: 08/06/20 05:42 Dose: 5 mg Documented by: Pantoprazole Sodium (Pantoprazole Sodium 40 Mg Tablet) 40 mg PO DAILY [facility] Last Admin: 08/06/20 07:50 Dose: 40 mg Documented by: Polysaccharide Iron Complex (Iron Polysaccharide Complex 150 Mg Capsule) [facility] Last Admin: 08/06/20 07:49 Dose: 150 mg Documented by: Prednisolone Acetate (Prednisolone Eye Drops (5 Ml) 1 Drop Opth.Btl) 1 drop EACH EYE DAILY [facility] Last Admin: 08/06/20 07:50 Dose: 1 drop Documented by: Sodium Chloride (0.9% Saline Lock 10 Ml Syringe) 10 - 40 ml IV UD PRN PRN Reason: SALINE FLUSH Last Admin: 08/04/20 14:31 Dose: 10 ml Documented by: Discharge Activity: Return to Normal Activity Call your doctor if you observe: Fever of 101 or Higher, Shortness of breath, Dizziness, Fainting spells, Swelling in the ankles, Chest pain, Increased palpitations (irregular heartbeat) Home Medications: Medications to take at Discharge Amlodipine [Norvasc] 5 mg PO DAILY 04/09/13 Duloxetine HCl 60 mg PO DAILY 01/18/18 lisinopril 20 mg tablet 20 mg PO BID tab 08/10/18 carvedilol 25 mg tablet 25 mg PO BID #180 tab 02/16/19 flecainide 100 mg tablet 100 mg PO BID #180 tab 03/31/20 multivitamin 1 tab PO DAILY 04/30/20 Acetaminophen [Tylenol] 1,000 mg PO Q8 tab 05/22/20 Apixaban [Eliquis] 5 mg PO BID tab 05/22/20 Hydrochlorothiazide [Hctz] 25 mg PO DAILY tab 05/22/20 Iron Polysaccharide Complex [Ferrex 150] 150 mg PO DAILYCM #30 cap 05/22/20 Oxybutynin [Ditropan] 5 mg PO BIDCM tab 05/22/20 Pantoprazole Sodium [Protonix] 40 mg PO DAILY tab 05/22/20 Vitamin B Comp W-C [Allbee W/C Caplet, Thera B Comp/C] 1 cap PO DAILYCM cap 05/22/20 prednisoLONE eye drops (5 mL) [Pred Forte eye drops (5 mL)] 1 drp EACH EYE DAILY opth.btl 05/22/20 Nystatin Powder [Mycostatin Powder] 1 applic TOPICAL BID PRN 08/02/20 Cephalexin [Keflex] 500 mg PO Q6 #28 cap 08/06/20 Following Prescriptions Were Given to Patient: Cephalexin [Keflex] 500 mg PO Q6 #28 cap Transmission Status: Pending to [facility] Primary Care Physician: Faraz Junior MD [Primary Care Provider] - Please follow up with your Primary Care Physician in: 3-5 days Please Follow Up With: Wound Care Clinic When: When able Patient Instructions: ED Cellulitis Disposition: Home Minutes spent on discharge:: 35 Patient Condition:: Stable Medical Necessity - Tobacco Use Smoking Status: Never smoker Meaningful Use Info Meaningful Use Diagnoses (Choose all that apply): None applicable Inpatient E&M: 35482 Disch Hosp
--- NOTE | 2020-08-06 11:16 | PHA.DC.MC ---
Pharmacy Service has performed discharge medication reconciliation and counseling for this patient. 1. CEPHALEXIN 500MG PO Q6H X 7 DAYS The patient's discharge medication list was reviewed for discrepancies and discrepancies were resolved. Home Medications Amlodipine [Norvasc] 5 mg PO DAILY 04/09/13 Duloxetine HCl 60 mg PO DAILY 01/18/18 lisinopril 20 mg tablet 20 mg PO BID tab 08/10/18 carvedilol 25 mg tablet 25 mg PO BID #180 tab 02/16/19 flecainide 100 mg tablet 100 mg PO BID #180 tab 03/31/20 multivitamin 1 tab PO DAILY 04/30/20 Acetaminophen [Tylenol] 1,000 mg PO Q8 tab 05/22/20 Apixaban [Eliquis] 5 mg PO BID tab 05/22/20 Hydrochlorothiazide [Hctz] 25 mg PO DAILY tab 05/22/20 Iron Polysaccharide Complex [Ferrex 150] 150 mg PO DAILYCM #30 cap 05/22/20 Oxybutynin [Ditropan] 5 mg PO BIDCM tab 05/22/20 Pantoprazole Sodium [Protonix] 40 mg PO DAILY tab 05/22/20 Vitamin B Comp W-C [Allbee W/C Caplet, Thera B Comp/C] 1 cap PO DAILYCM cap 05/22/20 prednisoLONE eye drops (5 mL) [Pred Forte eye drops (5 mL)] 1 drp EACH EYE DAILY opth.btl 05/22/20 Nystatin Powder [Mycostatin Powder] 1 applic TOPICAL BID PRN 08/02/20 Cephalexin [Keflex] 500 mg PO Q6 #28 cap 08/06/20 The patient was counseled on the following discharge medications and changes in medications for homegoing were reviewed. The Reason for Use, instructions for use, and potential side effects were reviewed for all new medications. The patient's questions regarding all of their medications were answered. The patient was able to verbally demonstrate an understanding of their discharge medications. Patient counseled by cotton picker operator, Nanci.
[2020-08-06 14:00] VITALS: BP 134/70; PULSE 85; RESP 18; TEMP 36.9; O2SAT 92
== END 2020-08-06 17:16 | disposition home health service (06) | DRG 872 ==
LOC: ED 18:06 → MS3 18:28
PROVIDERS: Family Medicine; Internal Medicine; Admitting Provider Internal Medicine; Emergency Provider Emergency Medicine; PCP Family Medicine; Visit Provider Family Medicine
DX: A41.9 Sepsis, unspecified organism (principal); I50.32 Chronic diastolic (congestive) heart failure; L03.115 Cellulitis of right lower limb; J96.11 Chronic respiratory failure with hypoxia; J47.0 Bronchiectasis with acute lower respiratory infection; M20.42 Other hammer toe(s) (acquired), left foot; M20.10 Hallux valgus (acquired), unspecified foot; I87.2 Venous insufficiency (chronic) (peripheral); K21.9 Gastro-esophageal reflux disease without esophagitis; I48.0 Paroxysmal atrial fibrillation; I11.0 Hypertensive heart disease with heart failure; F32.9 Major depressive disorder, single episode, unspecified; E78.5 Hyperlipidemia, unspecified; L97.522 Non-pressure chronic ulcer of other part of left foot with fat layer exposed; Z79.01 Long term (current) use of anticoagulants; G62.9 Polyneuropathy, unspecified; Z88.8 Allergy status to other drugs, medicaments and biological substances; Z86.19 Personal history of other infectious and parasitic diseases; M17.0 Bilateral primary osteoarthritis of knee; D50.9 Iron deficiency anemia, unspecified; F41.9 Anxiety disorder, unspecified; L84 Corns and callosities; N32.81 Overactive bladder; S81.819A Laceration without foreign body, unspecified lower leg, initial encounter; Z94.7 Corneal transplant status; Z90.710 Acquired absence of both cervix and uterus; Z96.643 Presence of artificial hip joint, bilateral; E66.01 Morbid (severe) obesity due to excess calories; Z68.37 Body mass index [BMI] 37.0-37.9, adult
CPT/HCPCS: 36415; 73560; 73590; 73630; 73701; 80048; 80053; 80202; 83036; 83605; 83735; 84100; 84145; 85025; 85027; 87040; 87077; 87186; 87426; 87640; 97110; 97162; 97163; 97166; 97530; 97535; 97802; 99251; 99285; J7030; J7040; J7050; Q9967; A4216; G0463; J2405

== ENCOUNTER 2020-11-04 15:42 | Inpatient (IN) | payer MEDICARE, OTHER, SELFPAY ==
[2020-11-04 15:58] VITALS: BP 159/84; PULSE 73; RESP 20; TEMP 35.9; O2SAT 93
[2020-11-04] MEDS: Lisinopril 40 MG Tablet PO (18:20)
[2020-11-04] MEDS: Flecainide 100 MG Tablet PO (18:20)
[2020-11-04] MEDS: Carvedilol 25 MG Tablet PO (18:21)
[2020-11-04] MEDS: Docusate Sodium 100 MG Capsule PO (18:21)
[2020-11-04] MEDS: Oxybutynin 5 MG Tablet PO (18:21)
[2020-11-04] MEDS: APIXABAN 5 MG TABLET PO (18:21)
[2020-11-04] MEDS: Nitrofurantoin Macrocrystals 100 MG Capsule PO (18:21)
[2020-11-04 18:23] VITALS: BP 118/52; PULSE 75
[2020-11-04] MEDS: HYDROcodone Bitartrate/Apap 5/325 Tablet PO ×2 (18:28→23:08)
[2020-11-04 20:01] VITALS: BMI 39.4
--- NOTE | 2020-11-04 21:41 | HP.PCM_ITS ---
HPI - General General Date of Admission: 11/04/20 HPI Narrative 11/04/2020 BHAVNA STUART, is a 70 Female with below past medical history underwent robot assisted left total knee replacement at [facility]. Post operative course complicated by urinary tract infection treated with nitrofurantoin. 11/04/2020 Admit to TCU with debility, here for rehabilitation, strengthening, prior to discharge home alone. [facility] Medical History (Updated 11/04/20 @ 21:[address] Elio Holbrook MD) Benign essential hypertension Cardiomyopathy Chronic anticoagulation History of depression History of shingles Hyperlipemia PAF (paroxysmal atrial fibrillation) Home Medications amlodipine 5 mg PO DAILY 04/09/13 [History Last Taken 08/02/20] duloxetine 60 mg PO DAILY 01/18/18 [History Last Taken 08/02/20] lisinopril 20 mg tablet 40 mg PO BID tab 08/10/18 [History Last Taken 08/02/20] carvedilol 25 mg tablet 25 mg PO BID #180 tab 02/16/19 [Rx Last Taken 08/02/20] flecainide 100 mg tablet 100 mg PO BID #180 tab 03/31/20 [Rx Last Taken 08/02/20] multivitamin 1 tab PO DAILY 04/30/20 [History Last Taken 08/02/20] B complex-vitamin C-folic acid 1 cap PO DAILYCM cap 05/22/20 [Rx Last Taken 08/02/20] acetaminophen 1,000 mg PO Q8 tab 05/22/20 [Rx Last Taken Unknown] pantoprazole 40 mg PO DAILY tab 05/22/20 [Rx Last Taken 08/02/20] polysaccharide iron complex 150 mg PO DAILYCM #30 cap 05/22/20 [Rx Last Taken 07/30/20] nystatin 1 applic TOPICAL BID PRN 08/02/20 [History Last Taken Unknown] cephalexin 500 mg PO Q6 #28 cap 08/06/20 [Rx Last Taken Unknown] apixaban 5 mg PO BID 11/04/20 [History Last Taken Unknown] benzonatate 100 mg PO TID PRN 11/04/20 [History Last Taken Unknown] cyclobenzaprine [Flexeril] 10 mg PO TID PRN 11/04/20 [History Last Taken Unknown] docusate sodium 100 mg PO BID 11/04/20 [History Last Taken Unknown] furosemide 20 mg PO DAILY PRN 11/04/20 [History Last Taken Unknown] hydrochlorothiazide 25 mg PO DAILY 11/04/20 [History Last Taken Unknown] hydrocodone-acetaminophen 1 - 2 tab PO Q4H PRN 11/04/20 [History Last Taken Unknown] lovastatin 40 mg PO DAILY 11/04/20 [History Last Taken Unknown] meclizine 25 mg PO DAILY PRN 11/04/20 [History Last Taken Unknown] nitrofurantoin monohyd/m-cryst [Macrobid] 100 mg PO BID 11/04/20 [History Last Taken Unknown] omeprazole [Prilosec] 40 mg PO DAILY 11/04/20 [History Last Taken Unknown] oxybutynin chloride 5 mg PO BIDCM 11/04/20 [History Last Taken Unknown] polyethylene glycol 3350 [Miralax] 17 g PO DAILY 11/04/20 [History Last Taken Unknown] prednisolone acetate 1 drop EACH EYE DAILY 11/04/20 [History Last Taken Unknown] vitamin B complex [B Complex] 1 cap PO DAILY 11/04/20 [History Last Taken Unknown] Allergy/AdvReac Type Severity Reaction Status Date / Time atorvastatin [From Lipitor] AdvReac Pain in Verified 08/02/20 15:24 joints nifedipine [From Procardia] AdvReac Pain in Verified 08/02/20 15:24 joints tramadol AdvReac Upset Verified 08/02/20 15:24 Stomach Family History Father Ruptured aortic aneurysm Mother Heart disease heart valve issues Brother Atrial fibrillation Surgical History (Updated 11/04/20 @ 21:[address] Elio Holbrook MD) History of arthroscopic knee surgery History of cardioversion (07/05/12) History of cornea transplant (04/05/18) History of foot surgery History of hysterectomy History of nasal cauterization History of sinus surgery History of tonsillectomy History of total left hip replacement (~04/2020) History of total left knee replacement History of total right hip replacement (~2018) Social History (Updated 04/30/20 @ 12:[address] Srikanth Torrez MD) Smoking Status: Never smoker alcohol intake: never caffeine: Yes Type: carbonated beverages Number of servings: 2 ROS Constitutional Constitutional: Denies chills, fever(s) or weight gain ENT HEENT: Denies headache(s), nasal congestion or nasal discharge Cardiovascular Cardiovascular: Denies chest pain or palpitations Respiratory/Chest Respiratory/Chest: Denies cough, excessive phlegm production or shortness of breath with exertion Gastrointestinal Gastrointestinal: Denies abdominal pain, nausea or vomiting Genitourinary Genitourinary: Denies dysuria Musculoskeletal Musculoskeletal: Denies joint pain or joint swelling Integumentary Integumentary: Denies rash or wounds Neurologic Neurologic: Denies focal weakness, numbness or tingling Psychiatric Psychiatric: Reports auditory hallucinations; Denies anxiety, depression, homicidal ideation or suicidal ideation Vital Signs Vital Signs Vital Signs: 11/04/20 15:58 11/04/20 18:23 Temperature 96.7 F L Temperature Source Temporal Pulse Rate 73 75 Respiratory Rate 20 H Blood Pressure 159/84 H 118/52 L Blood Pressure Mean 109 74 Blood Pressure Source Monitor Monitor Blood Pressure Position Supine Semi-Fowlers Blood Pressure Location Right Arm Right Arm Pulse Ox 93 Oxygen Delivery Method Nasal Cannula Oxygen Flow Rate (L/min) 5 Physical Exam Const alert and oriented x3 General Appearance: cooperative HEENT normocephalic Eyes PERRL and EOMs intact bilaterally Neck supple, no JVD and no carotid bruits Resp normal respiratory effort, normal air movement and clear to auscultation bilaterally Cardio regular rate and regular rhythm GI normal to inspection, nondistended, normoactive bowel sounds, non-tender and non-distended Extremity normal capillary refill General Extremity: Negative for edema Skin no rashes or lesions noted General Skin Exam: no breakdown Psych affect normal Appearance: appropriate Lab / Micro Data Labs: Laboratory Results - last 24 hr 11/04/20 18:11 COVID-19 ([facility]NARD) Not Detected Assessment & Plan Assessment/Plan (1) Debility: Status: Acute Code(s): R53.81 - Other malaise (2) Osteoarthritis of left knee: Status: Acute Code(s): M17.12 - Unilateral primary osteoarthritis, left knee (3) Atrial fibrillation: Status: Acute Code(s): I48.91 - Unspecified atrial fibrillation (4) Chronic cough: Status: Chronic Code(s): R05 - Cough (5) Muscle spasm: Status: Acute Code(s): M62.838 - Other muscle spasm (6) Depression: Status: Acute Code(s): F32.9 - Major depressive disorder, single episode, unspecified (7) Edema: Status: Acute Code(s): R60.9 - Edema, unspecified (8) Hypertension: Status: Chronic Code(s): I10 - Essential (primary) hypertension (9) Hyperlipidemia: Status: Acute Code(s): E78.5 - Hyperlipidemia, unspecified (10) Dizziness: Status: Acute Code(s): R42 - Dizziness and giddiness (11) Urinary tract infection: Status: Acute Code(s): N39.0 - Urinary tract infection, site not specified (12) Overactive bladder: Status: Acute Code(s): N32.81 - Overactive bladder (13) GERD (gastroesophageal reflux disease): Status: Acute Code(s): K21.9 - Gastro-esophageal reflux disease without esophagitis (14) Leg cramp: Status: Acute Code(s): R25.2 - Cramp and spasm Plan: 70 year old female with below past medical history hospitalized for robot assisted left total knee replacement 11/04/2020, postoperative course complicated by urinary tract infection, admitted to TCU WITH DEBILITY< HERE FOR REHABILITATION< STRENGTHENING< PRIOR TO DISCHARGE HOME ALONE> DEBILITY - PT/OT. Pain - [place] 5/325mg 1-2 tablet q4H prn. Bowel - colace 100mg bid, miralax 17gm daily. Adult immunization - Administer Prevnar 13, Pneumovax 23, Fluzne, COVID19 vac cine as appropriate. DVT prophylaxis - not necessary, alerady anticoagulated. Hypertension - Coreg 25MG BID, Lisinopril 40Mg bid, Amlodipine 5MG daily. Atrial fibrillation - Coreg 25MG BID, Flecainide 100MG BID, Elqiuis 5MG BID. chronic cough - tessalon perles 100mg tid PRN. muscle spasm - flexeril 10mg tid prn. depression - duloxetine 60mg daily, stable chronic parts counterman use, gdr not recommended. edema - lasix 20mg daily prn, HCTZ 25MG daily. hyperlipidemia - Lovastatin 40MG QHS. Dizziness - Meclizine 25MG daily PRN. Nutrition - MVI daily UTI - Macrobid 100MG BID thru 11/10/2020. OAB - Oxybutynin 5MG BID. GERD - Pantoprazole 40MG daily. Leg cramps - Vitamin B complex daily.
[2020-11-04 22:00] VITALS: PULSE 68; RESP 18
[2020-11-05] MEDS: Carvedilol 25 MG Tablet PO ×2 (05:30→17:23)
[2020-11-05] MEDS: Docusate Sodium 100 MG Capsule PO ×2 (05:30→17:21)
[2020-11-05] MEDS: amLODIPine 5 MG Tablet PO (05:31)
[2020-11-05] MEDS: Pantoprazole Sodium 40 MG Tablet PO (05:31)
[2020-11-05] MEDS: DULoxetine Hcl 60 MG Capsule PO (05:31)
[2020-11-05] MEDS: Nystatin Powder 15gm Bottle 1 APPLIC TOPICAL ×2 (05:31→17:27)
[2020-11-05] MEDS: APIXABAN 5 MG TABLET PO ×2 (05:31→17:22)
[2020-11-05] MEDS: Lisinopril 40 MG Tablet PO ×2 (05:32→17:22)
[2020-11-05] MEDS: Flecainide 100 MG Tablet PO ×2 (05:36→17:23)
[2020-11-05 05:37] VITALS: BP 150/80; PULSE 72; RESP 20; TEMP 37; O2SAT 92
[2020-11-05 06:04] LABS: Absolute Neutrophil Count 5.2 X10^3/uL (2.0-7.7); Basophil# 0.06 X10^3/uL; Basophil% 0.7 % (0-1); Eosinophil# 0.24 X10^3/uL; Hematocrit 36.2 % (37-47); Hemoglobin 10.5 g/dL (12.0-15.0); Lymphocyte % 18.6 % (19-41); Mean Corpuscular Hgb 26.4 pg (27.0-32.0); Mean Platelet Vol. 9.7 fl (6.2-12.0); Monocyte# 1.04 X10^3/uL; Monocyte% 12.9 % (0-10); NRBC Flagged by Analyzer 0 % (0-5); Neutrophil # 5.17 X10^3/uL (2.7-7.7); Neutrophil % 64.2 % (47-70); Platelet Count 388 K/mm3 (150-450); RBC Distribution Width CV 18.6 % (11.6-14.6); RBC Distribution Width SD 59.2 fl (35.1-43.9); Red Blood Count 3.98 M/mm3 (4.2-5.4); White Blood Count 8.1 K/mm3 (4.4-11.0)
[2020-11-05 06:27] LABS: Anion Gap 5 (5-15); BUN 19 mg/dL (7-18); BUN/Creat Ratio 44.3 RATIO (10-20); Calcium,Total 8.7 mg/dL (8.5-10.1); Chloride 100 mmol/L (98-107); Creatinine, Serum 0.43 mg/dL (0.55-1.02); EST Glomerular Filtration Rate 155 mL/min (>60); Est Glom Filt Rate - Afr Amer 187 mL/min (>60); Estimated Creatinine Clearance 57.42 ml/min; Glucose 98 mg/dL (74-106); Potassium 4.2 mmol/L (3.5-5.1); Sodium Level 139 mmol/L (136-145)
[2020-11-05] MEDS: HYDROcodone Bitartrate/Apap 5/325 Tablet PO ×4 (08:24→21:48)
[2020-11-05] MEDS: Vitamin B Comp W-C Capsule 1 CAP PO (08:25)
[2020-11-05] MEDS: Nitrofurantoin Macrocrystals 100 MG Capsule PO ×2 (08:25→17:22)
[2020-11-05] MEDS: Oxybutynin 5 MG Tablet PO ×2 (08:25→17:22)
[2020-11-05] MEDS: Multivitamins,Therapeutic Tablet 1 TABLET PO (08:25)
--- NOTE | 2020-11-05 09:28 | CASEMGMT ---
Social Work Met with patient for initial assessment. Discussed code status. Pt confirmed full code. Pt denies wanting to complete advanced directives. Explained Medicare benefit - pt admitted with full benefit. The goal is for pt to return home alone. Pt has ramp to enter and first floor set up, but no daily support. SW to continue to follow. Marisela Hill, JESUS MUCKING MACHINE OPERATOR
[2020-11-05 10:00] VITALS: O2SAT 92
[2020-11-05] MEDS: Iron Polysaccharide Complex 150 MG CAPSULE PO (10:31)
[2020-11-05] MEDS: prednisoLONE eye drops (5 mL) 1 DROP OPTH.BTL 1 DRP EACH EYE (11:52)
[2020-11-05] MEDS: Tuberculin,Purif.prot.deriv. 50 TU/ML Vial 5 ML ID (11:52)
[2020-11-05 13:37] VITALS: BP 130/76; PULSE 87; RESP 18; TEMP 36.1; O2SAT 90
--- NOTE | 2020-11-05 15:20 | PCM.PN.RX ---
Progress Note - Pharmacy Subjective: TCU ADMISSION Objective: Allergies atorvastatin [From Lipitor] Adverse Reaction (Verified 08/02/20 15:24) Pain in joints nifedipine [From Procardia] Adverse Reaction (Verified 08/02/20 15:24) Pain in joints tramadol Adverse Reaction (Verified 08/02/20 15:24) Upset Stomach Current Medications Generic Name Dose Route Start Last Admin Trade Name Freq PRN Reason Stop Dose Admin Hydrocodone Bitart/Acetaminophen 1 - 2 tablet 11/04/20 16:42 11/05/20 12:27 Hydrocodone Bitartrate/Apap 5/325 Tablet PO 11/11/20 16:43 2 tablet Q4H PRN Administration Pain Score 1-10 Amlodipine Besylate 5 mg 11/05/20 06:00 11/05/20 05:31 Amlodipine 5 Mg Tablet PO 5 mg DAILY KORTNEY Administration Apixaban 5 mg 11/04/20 18:00 11/05/20 05:31 Apixaban 5 Mg Tablet PO 5 mg BID KORTNEY Administration Benzonatate 100 mg 11/04/20 16:42 Benzonatate 100 Mg Capsule PO TID PRN PRN COUGH Carvedilol 25 mg 11/04/20 18:00 11/05/20 05:30 Carvedilol 25 Mg Tablet PO 25 mg BID KORTNEY Administration Cyclobenzaprine HCl 10 mg 11/04/20 16:42 Cyclobenzaprine Hcl 10 Mg Tablet PO TID PRN PRN Muscle Spasm Docusate Sodium 100 mg 11/04/20 18:00 11/05/20 05:30 Docusate Sodium 100 Mg Capsule PO 100 mg BID KORTNEY Administration Duloxetine HCl 60 mg 11/05/20 06:00 11/05/20 05:31 Duloxetine Hcl 60 Mg Capsule PO 60 mg DAILY KORTNEY Administration Flecainide Acetate 100 mg 11/04/20 18:00 11/05/20 05:36 Flecainide 100 Mg Tablet PO 100 mg BID KORTNEY Administration Furosemide 20 mg 11/04/20 16:42 Furosemide 20 Mg Tablet PO DAILY PRN PRN Swelling Hydrochlorothiazide 25 mg 11/04/20 16:42 Hydrochlorothiazide 25 Mg Tablet PO DAILY PRN PRN Swelling Lisinopril 40 mg 11/04/20 18:00 11/05/20 05:32 Lisinopril 40 Mg Tablet PO 40 mg BID KORTNEY Administration Lovastatin 40 mg 11/04/20 22:00 11/04/20 20:27 Lovastatin 40 Mg Tablet PO 40 mg QHS KORTNEY Administration Meclizine HCl 25 mg 11/04/20 16:42 Meclizine Hcl 25 Mg Tablet PO DAILY PRN PRN Dizziness Multivitamins 1 tablet 11/05/20 08:00 11/05/20 08:25 Multivitamins,Therapeutic Tablet PO 1 tablet DAILY@0800 [facility] Administration Multivitamins 1 capsule 11/05/20 08:00 11/05/20 08:25 Vitamin B Comp W-C Capsule PO 1 capsule DAILY@0800 [facility] Administration Nitrofurantoin Macrocrystals 100 mg 11/04/20 18:00 11/05/20 08:25 Nitrofurantoin Macrocrystals 100 Mg Capsule PO 11/10/20 08:01 100 mg BIDCM [facility] Administration Nystatin 1 applic 11/05/20 06:00 11/05/20 05:31 Nystatin Powder 15gm Bottle TOPICAL 1 applic BID [facility] Administration Protocol Oxybutynin Chloride 5 mg 11/04/20 17:00 11/05/20 08:25 Oxybutynin 5 Mg Tablet PO 5 mg BIDCM [facility] Administration Pantoprazole Sodium 40 mg 11/05/20 06:00 11/05/20 05:31 Pantoprazole Sodium 40 Mg Tablet PO 40 mg DAILY [facility] Administration Polyethylene Glycol 17 gm 11/05/20 06:00 11/05/20 05:35 Polyethylene Glycol 3350 17 Gm Packet PO Not Given DAILY [facility] Polysaccharide Iron Complex 150 mg 11/05/20 08:00 11/05/20 10:31 Iron Polysaccharide Complex [facility] Prednisolone Acetate 1 drp 11/06/20 06:00 11/05/20 11:52 Prednisolone Eye Drops (5 Ml) 1 Drop Opth.Btl EACH EYE 1 drp DAILY [facility] Administration Tuberculin PPD 5 tu 11/12/20 10:00 Tuberculin,Purif.Prot.Deriv. 50 Tu/Ml Vial ID 11/12/20 10:01 X1 ONE Problem List (Last Updated 11/05/20 @ 00:36 by Marisa Clements) Leg cramp (Acute) GERD (gastroesophageal reflux disease) (Acute) Overactive bladder (Acute) Urinary tract infection (Acute) Dizziness (Acute) Hyperlipidemia (Acute) Hypertension (Chronic) Edema (Acute) Depression (Acute) Muscle spasm (Acute) Chronic cough (Chronic) Atrial fibrillation (Acute) Osteoarthritis of left knee (Acute) Debility (Acute) Vital Signs Temp Pulse Resp BP Pulse Ox 97.0 F L 87 18 130/76 H 90 11/05/20 13:37 11/05/20 13:37 11/05/20 13:37 11/05/20 13:37 11/05/20 13:37 Oxygen Flow Rate (L/min) 4 Oxygen Delivery Method Room Air Weight: 124.738 kg Body Mass Index (BMI) 39.4 Sodium 139 mmol/L (136-145) 11/05/20 05:20 Potassium 4.2 mmol/L (3.5-5.1) 11/05/20 05:20 Chloride 100 mmol/L (98-107) 11/05/20 05:20 Carbon Dioxide 34.0 mmol/L (21.0-32.0) H 11/05/20 05:20 Anion Gap 5 (5-15) 11/05/20 05:20 BUN 19 mg/dL (7-18) H 11/05/20 05:20 Creatinine 0.43 mg/dL (0.55-1.02) L 11/05/20 05:20 Est GFR (MDRD) Af Amer 187 mL/min (>60) 11/05/20 05:20 Est GFR (MDRD) Non-Af 155 mL/min (>60) 11/05/20 05:20 BUN/Creatinine Ratio 44.3 RATIO (10-20) H 11/05/20 05:20 Glucose 98 mg/dL (74-106) 11/05/20 05:20 Assessment/Plan: 1. Pain: [place] 5/325mg 1-2 tabs PO Q4H PRN pain (1-10). Please continue to monitor for pain, PRN usage, and respiratory depression. 2. Hypertension, atrial fibrillation: carvedilol 25mg PO BID, lisinopril 40mg PO BID QHS, amlodipine 5mg PO daily, flecainide 100mg PO BID, Eliquis 5mg PO BID. Please continue to monitor BP (last 130/76), HR (last 87), platelets (last 388,000), S/S of bleeding, and renal function. 3. Chronic cough: benzonatate 100mg PO TID PRN cough. Please continue to monitor for cough and PRN usage. 4. Muscle spasm: cyclobenzaprine 10mg PO TID PRN muscle spasm. Please continue to monitor for S/S of muscle spasm and PRN usage. 5. Edema: furosemide 20mg PO daily PRN swelling, hydrochlorothiazide 25mg PO daily PRN swelling. Please continue to monitor edema, BP, and potassium (last 4.2mmol/L). *6. Hyperlipidemia: lovastatin 40mg PO QHS. Please continue to monitor for muscle pain and lipid panel (last 10/21/15). Please consider ordering lipid panel, thank you. 7. Dizziness: meclizine 25mg PO Daily PRN dizziness. please continue to monitor dizziness and PRN usage. 8. Nutrition and leg cramps: multivitamin 1 tab PO daily, vitamin B complex with C 1 capsule PO daily. 9. UTI, overactive bladder: Macrobid 100mg PO BID through 11/10, oxybutynin 5mg PO BID with meals. Please continue to monitor GI symptoms, S/S of UTI, and S/S of overactive bladder. 10. GERD: pantoprazole 40mg PO daily. Please continue to monitor S/S of GERD. 11. Anemia: Ferrex 150mg PO Daily. Please continue to monitor Hgb (last 10.5), Iron studies as clinically indicated. Psychotropic Medications: 12.Depression: duloxetine 60mg PO daily. Please see physician note regarding GDR. Please continue to monitor for S/S of depression and renal function. Unnecessary Medications: *13. Prednisolone: 1 gtt OU daily. No indication noted in H/P or PMH, please evaluate for appropriate use, thank you. Bowel Regimen: Miralax 17gm PO daily and docusate 100mg PO BID. Please continue to monitor for constipation. Date of Note:: 11/05/20
--- NOTE | 2020-11-05 16:29 | CHAPLAIN ---
Type of Pastoral Visit _x__ Initial Visit ___ Follow-up Visit ___ On-call Visit ___ General Patient Visit ___ Spiritual Assessment ___ Family Conference ___ Bereavement ___ Rapid Response ___ Code Blue ___ Other (describe below) Pastoral Care Referral From _x__ Patient ___ Family ___ Nurse ___ Physician ___ Engraver Machine ___ Regulatory Leader ___ Other (describe below) Sacrament/Intervention _x__ Active listening ___ Anointing ___ Moravian ___ Bereavement ___ Communion ___ Elaina exploration ___ ___ Life review _x__ Prayer ___ Reconciliation ___ Sacrament of Sick _x__ Supportive presence ___ Wedding ___ Other (describe below) Pastoral Comments patient has been in hospital before and has high praise for good care in TCU; pt has very little family support but states she has good friends; pt has elaina in God as a helpful resource and welcomes the prayer and visits of this devops consultant; no other concerns
[2020-11-05] MEDS: cycloBENZAPRine HCl 10 MG Tablet PO (20:54)
[2020-11-05 21:00] VITALS: O2SAT 92
--- NOTE | 2020-11-05 21:45 | NURSING ---
Belongings brought in from a friend and given to staff in the ER brought to floor, which includes a cell phone and magnifying glass.
[2020-11-06 06:10] VITALS: BP 140/69; PULSE 83; RESP 16; TEMP 36.6; O2SAT 91
[2020-11-06] MEDS: HYDROcodone Bitartrate/Apap 5/325 Tablet PO ×4 (06:11→21:58)
[2020-11-06] MEDS: APIXABAN 5 MG TABLET PO ×2 (06:17→17:39)
[2020-11-06] MEDS: Flecainide 100 MG Tablet PO ×2 (06:18→17:39)
[2020-11-06] MEDS: Nystatin Powder 15gm Bottle 1 APPLIC TOPICAL ×2 (06:18→17:40)
[2020-11-06] MEDS: Docusate Sodium 100 MG Capsule PO ×2 (06:18→17:39)
[2020-11-06] MEDS: Lisinopril 40 MG Tablet PO ×2 (06:18→17:40)
[2020-11-06] MEDS: DULoxetine Hcl 60 MG Capsule PO (06:18)
[2020-11-06] MEDS: Pantoprazole Sodium 40 MG Tablet PO (06:18)
[2020-11-06] MEDS: amLODIPine 5 MG Tablet PO (06:19)
[2020-11-06] MEDS: Carvedilol 25 MG Tablet PO ×2 (06:19→17:39)
[2020-11-06] MEDS: prednisoLONE eye drops (5 mL) 1 DROP OPTH.BTL 1 DRP EACH EYE (06:21)
[2020-11-06] MEDS: Vitamin B Comp W-C Capsule 1 CAP PO (08:21)
[2020-11-06] MEDS: Multivitamins,Therapeutic Tablet 1 TABLET PO (08:21)
[2020-11-06] MEDS: Oxybutynin 5 MG Tablet PO ×2 (08:21→17:40)
[2020-11-06] MEDS: Nitrofurantoin Macrocrystals 100 MG Capsule PO ×2 (08:21→17:39)
[2020-11-06] MEDS: Iron Polysaccharide Complex 150 MG CAPSULE PO (08:21)
[2020-11-06 10:00] VITALS: PULSE 74; RESP 18
[2020-11-06 13:53] VITALS: BP 125/68; PULSE 81; RESP 18; TEMP 36.6; O2SAT 91
[2020-11-06] MEDS: cycloBENZAPRine HCl 10 MG Tablet PO (18:38)
[2020-11-07 05:00] VITALS: BP 142/79; PULSE 86; RESP 16; TEMP 35.9; O2SAT 93
[2020-11-07] MEDS: Pantoprazole Sodium 40 MG Tablet PO (05:42)
[2020-11-07] MEDS: Flecainide 100 MG Tablet PO ×2 (05:42→18:40)
[2020-11-07] MEDS: Lisinopril 40 MG Tablet PO ×2 (05:42→18:40)
[2020-11-07] MEDS: Nystatin Powder 15gm Bottle 1 APPLIC TOPICAL ×2 (05:43→18:41)
[2020-11-07] MEDS: DULoxetine Hcl 60 MG Capsule PO (05:43)
[2020-11-07] MEDS: Docusate Sodium 100 MG Capsule PO ×2 (05:43→18:40)
[2020-11-07] MEDS: amLODIPine 5 MG Tablet PO (05:43)
[2020-11-07] MEDS: APIXABAN 5 MG TABLET PO ×2 (05:43→18:40)
[2020-11-07] MEDS: Carvedilol 25 MG Tablet PO ×2 (05:43→18:40)
[2020-11-07] MEDS: prednisoLONE eye drops (5 mL) 1 DROP OPTH.BTL 1 DRP EACH EYE (05:44)
[2020-11-07] MEDS: HYDROcodone Bitartrate/Apap 5/325 Tablet PO ×3 (05:46→19:54)
[2020-11-07] MEDS: Oxybutynin 5 MG Tablet PO ×2 (08:54→18:41)
[2020-11-07] MEDS: Vitamin B Comp W-C Capsule 1 CAP PO (08:54)
[2020-11-07] MEDS: Nitrofurantoin Macrocrystals 100 MG Capsule PO ×2 (08:54→18:40)
[2020-11-07] MEDS: Iron Polysaccharide Complex 150 MG CAPSULE PO (08:54)
[2020-11-07] MEDS: Multivitamins,Therapeutic Tablet 1 TABLET PO (08:54)
[2020-11-07 16:00] VITALS: BP 91/56; PULSE 80; RESP 16; TEMP 36.8; O2SAT 90
[2020-11-07 20:14] VITALS: PULSE 87; RESP 20; O2SAT 93
[2020-11-07] MEDS: cycloBENZAPRine HCl 10 MG Tablet PO (21:55)
[2020-11-08 04:45] VITALS: BP 130/77; PULSE 93; RESP 18; TEMP 36.5; O2SAT 92
[2020-11-08] MEDS: APIXABAN 5 MG TABLET PO ×2 (04:46→17:06)
[2020-11-08] MEDS: DULoxetine Hcl 60 MG Capsule PO (04:46)
[2020-11-08] MEDS: Flecainide 100 MG Tablet PO ×2 (04:46→17:06)
[2020-11-08] MEDS: Docusate Sodium 100 MG Capsule PO ×2 (04:47→17:06)
[2020-11-08] MEDS: Carvedilol 25 MG Tablet PO ×2 (04:47→17:06)
[2020-11-08] MEDS: amLODIPine 5 MG Tablet PO (04:47)
[2020-11-08] MEDS: Pantoprazole Sodium 40 MG Tablet PO (04:47)
[2020-11-08] MEDS: Lisinopril 40 MG Tablet PO ×2 (04:47→17:06)
[2020-11-08] MEDS: Nystatin Powder 15gm Bottle 1 APPLIC TOPICAL ×2 (04:47→17:10)
[2020-11-08] MEDS: prednisoLONE eye drops (5 mL) 1 DROP OPTH.BTL 1 DRP EACH EYE (04:48)
[2020-11-08] MEDS: Vitamin B Comp W-C Capsule 1 CAP PO (07:47)
[2020-11-08] MEDS: Multivitamins,Therapeutic Tablet 1 TABLET PO (07:47)
[2020-11-08] MEDS: Iron Polysaccharide Complex 150 MG CAPSULE PO (07:47)
[2020-11-08] MEDS: Nitrofurantoin Macrocrystals 100 MG Capsule PO ×2 (07:47→17:06)
[2020-11-08] MEDS: Oxybutynin 5 MG Tablet PO ×2 (07:47→17:06)
[2020-11-08] MEDS: HYDROcodone Bitartrate/Apap 5/325 Tablet PO ×2 (07:52→17:06)
[2020-11-08 13:34] VITALS: BP 134/76; PULSE 83; RESP 17; TEMP 36.6; O2SAT 94
[2020-11-08 13:58] VITALS: O2SAT 93
--- NOTE | 2020-11-09 00:13 | PCA ---
Pt declined to wash up for the evening, stating she prefers am care. em
[2020-11-09] MEDS: HYDROcodone Bitartrate/Apap 5/325 Tablet PO ×3 (00:45→20:56)
[2020-11-09 06:03] VITALS: BP 148/91; PULSE 83; RESP 16; TEMP 35.6; O2SAT 93
[2020-11-09] MEDS: DULoxetine Hcl 60 MG Capsule PO (06:05)
[2020-11-09] MEDS: APIXABAN 5 MG TABLET PO ×2 (06:05→17:05)
[2020-11-09] MEDS: Carvedilol 25 MG Tablet PO ×2 (06:06→17:05)
[2020-11-09] MEDS: Nystatin Powder 15gm Bottle 1 APPLIC TOPICAL ×2 (06:06→13:00)
[2020-11-09] MEDS: Pantoprazole Sodium 40 MG Tablet PO (06:06)
[2020-11-09] MEDS: Flecainide 100 MG Tablet PO ×2 (06:06→17:06)
[2020-11-09] MEDS: Docusate Sodium 100 MG Capsule PO ×2 (06:06→17:05)
[2020-11-09] MEDS: amLODIPine 5 MG Tablet PO (06:06)
[2020-11-09] MEDS: prednisoLONE eye drops (5 mL) 1 DROP OPTH.BTL 1 DRP EACH EYE (06:07)
[2020-11-09] MEDS: Lisinopril 40 MG Tablet PO ×2 (06:08→17:06)
[2020-11-09] MEDS: Iron Polysaccharide Complex 150 MG CAPSULE PO (08:23)
[2020-11-09] MEDS: Oxybutynin 5 MG Tablet PO ×2 (08:23→17:05)
[2020-11-09] MEDS: Nitrofurantoin Macrocrystals 100 MG Capsule PO ×2 (08:23→17:05)
[2020-11-09] MEDS: Vitamin B Comp W-C Capsule 1 CAP PO (08:23)
[2020-11-09] MEDS: Multivitamins,Therapeutic Tablet 1 TABLET PO (08:23)
[2020-11-09 15:00] VITALS: BP 124/84; PULSE 85; RESP 18; TEMP 36.5; O2SAT 94
[2020-11-09 15:12] VITALS: O2SAT 94
[2020-11-10 05:37] VITALS: BP 147/75; PULSE 78; RESP 19; TEMP 35.7; O2SAT 92
[2020-11-10] MEDS: prednisoLONE eye drops (5 mL) 1 DROP OPTH.BTL 1 DRP EACH EYE (05:40)
[2020-11-10] MEDS: Docusate Sodium 100 MG Capsule PO ×2 (05:42→17:26)
[2020-11-10] MEDS: Pantoprazole Sodium 40 MG Tablet PO (05:42)
[2020-11-10] MEDS: Lisinopril 40 MG Tablet PO ×2 (05:42→17:26)
[2020-11-10] MEDS: Flecainide 100 MG Tablet PO ×2 (05:42→17:26)
[2020-11-10] MEDS: HYDROcodone Bitartrate/Apap 5/325 Tablet PO ×3 (05:42→19:47)
[2020-11-10] MEDS: amLODIPine 5 MG Tablet PO (05:42)
[2020-11-10] MEDS: DULoxetine Hcl 60 MG Capsule PO (05:42)
[2020-11-10] MEDS: APIXABAN 5 MG TABLET PO ×2 (05:42→17:26)
[2020-11-10] MEDS: Carvedilol 25 MG Tablet PO ×2 (05:42→17:26)
[2020-11-10] MEDS: Nystatin Powder 15gm Bottle 1 APPLIC TOPICAL ×2 (05:44→17:26)
[2020-11-10] MEDS: Multivitamins,Therapeutic Tablet 1 TABLET PO (08:10)
[2020-11-10] MEDS: Oxybutynin 5 MG Tablet PO ×2 (08:10→17:26)
[2020-11-10] MEDS: Nitrofurantoin Macrocrystals 100 MG Capsule PO (08:10)
[2020-11-10] MEDS: Vitamin B Comp W-C Capsule 1 CAP PO (08:10)
[2020-11-10] MEDS: Iron Polysaccharide Complex 150 MG CAPSULE PO (08:10)
[2020-11-10 10:00] VITALS: PULSE 77; RESP 18; O2SAT 92
[2020-11-10 13:54] VITALS: BP 113/68; PULSE 82; RESP 18; TEMP 36; O2SAT 92
--- NOTE | 2020-11-10 15:38 | NURSING ---
Mepilex removed, small amount of bleeding present. ABD applied and secured with tape. pt tolerated well.
[2020-11-11 05:00] VITALS: BP 125/65; PULSE 81; RESP 20; TEMP 36.3; O2SAT 94
[2020-11-11] MEDS: Docusate Sodium 100 MG Capsule PO ×2 (05:34→16:25)
[2020-11-11] MEDS: Carvedilol 25 MG Tablet PO ×2 (05:34→16:25)
[2020-11-11] MEDS: Menthol/Lanolin/Calamine/Znox 113 GM Tube 1 APPLIC TOPICAL ×2 (05:34→16:29)
[2020-11-11] MEDS: Lisinopril 40 MG Tablet PO ×2 (05:35→16:26)
[2020-11-11] MEDS: Flecainide 100 MG Tablet PO ×2 (05:35→16:26)
[2020-11-11] MEDS: APIXABAN 5 MG TABLET PO ×2 (05:35→16:25)
[2020-11-11] MEDS: DULoxetine Hcl 60 MG Capsule PO (05:35)
[2020-11-11] MEDS: amLODIPine 5 MG Tablet PO (05:35)
[2020-11-11] MEDS: Nystatin Powder 15gm Bottle 1 APPLIC TOPICAL ×2 (05:35→16:27)
[2020-11-11] MEDS: prednisoLONE eye drops (5 mL) 1 DROP OPTH.BTL 1 DRP EACH EYE (05:36)
[2020-11-11] MEDS: Pantoprazole Sodium 40 MG Tablet PO (05:36)
[2020-11-11 08:40] VITALS: O2SAT 94
[2020-11-11] MEDS: Vitamin B Comp W-C Capsule 1 CAP PO (09:27)
[2020-11-11] MEDS: Multivitamins,Therapeutic Tablet 1 TABLET PO (09:27)
[2020-11-11] MEDS: Oxybutynin 5 MG Tablet PO ×2 (09:27→16:25)
[2020-11-11] MEDS: Iron Polysaccharide Complex 150 MG CAPSULE PO (09:27)
[2020-11-11] MEDS: HYDROcodone Bitartrate/Apap 5/325 Tablet PO ×3 (09:27→19:49)
[2020-11-11 14:38] VITALS: BP 136/54; PULSE 83; RESP 20; TEMP 36.1; O2SAT 93
[2020-11-11 16:52] VITALS: O2SAT 90
[2020-11-11 20:02] VITALS: PULSE 68; RESP 18; O2SAT 92
[2020-11-12 05:00] VITALS: BP 131/64; PULSE 84; RESP 18; TEMP 36.9; O2SAT 93
[2020-11-12] MEDS: DULoxetine Hcl 60 MG Capsule PO (05:16)
[2020-11-12] MEDS: Docusate Sodium 100 MG Capsule PO ×2 (05:16→18:11)
[2020-11-12] MEDS: APIXABAN 5 MG TABLET PO ×2 (05:16→18:11)
[2020-11-12] MEDS: Lisinopril 40 MG Tablet PO ×2 (05:17→18:12)
[2020-11-12] MEDS: Flecainide 100 MG Tablet PO ×2 (05:17→18:12)
[2020-11-12] MEDS: Nystatin Powder 15gm Bottle 1 APPLIC TOPICAL ×2 (05:17→18:12)
[2020-11-12] MEDS: amLODIPine 5 MG Tablet PO (05:17)
[2020-11-12] MEDS: Menthol/Lanolin/Calamine/Znox 113 GM Tube 1 APPLIC TOPICAL ×2 (05:17→18:13)
[2020-11-12] MEDS: Pantoprazole Sodium 40 MG Tablet PO (05:17)
[2020-11-12] MEDS: Carvedilol 25 MG Tablet PO ×2 (05:17→18:11)
[2020-11-12] MEDS: prednisoLONE eye drops (5 mL) 1 DROP OPTH.BTL 1 DRP EACH EYE (05:18)
[2020-11-12 05:50] LABS: Absolute Lymphocyte Count 1.47 X10^3/uL (0.83-4.51); Absolute Neutrophil Count 5.9 X10^3/uL (2.0-7.7); Basophil# 0.04 X10^3/uL; Basophil% 0.4 % (0-1); Eosinophil# 0.69 X10^3/uL; Eosinophils% 7.7 % (0-5); Hematocrit 34.9 % (37-47); Lymphocyte # 1.47 X10^3/ul (0.83-4.51); Lymphocyte % 16.3 % (19-41); Mean Corp Hgb Conc 28.7 g/dL (32-36); Mean Corpuscular Hgb 25.6 pg (27.0-32.0); Mean Corpuscular Volume 89.5 fL (81-99); Mean Platelet Vol. 9.6 fl (6.2-12.0); NRBC Flagged by Analyzer 0 % (0-5); Neutrophil # 5.86 X10^3/uL (2.7-7.7); Neutrophil % 65.2 % (47-70); Platelet Count 434 K/mm3 (150-450); RBC Distribution Width CV 18.4 % (11.6-14.6); RBC Distribution Width SD 59.7 fl (35.1-43.9)
[2020-11-12 06:06] LABS: Anion Gap 6 (5-15); BUN 19 mg/dL (7-18); BUN/Creat Ratio 41.4 RATIO (10-20); Calcium,Total 8.9 mg/dL (8.5-10.1); Chloride 99 mmol/L (98-107); Creatinine, Serum 0.46 mg/dL (0.55-1.02); EST Glomerular Filtration Rate 143 mL/min (>60); Est Glom Filt Rate - Afr Amer 173 mL/min (>60); Estimated Creatinine Clearance 57.42 ml/min; Glucose 110 mg/dL (74-106); Potassium 4.1 mmol/L (3.5-5.1); Sodium Level 137 mmol/L (136-145)
[2020-11-12] MEDS: Vitamin B Comp W-C Capsule 1 CAP PO (09:11)
[2020-11-12] MEDS: Oxybutynin 5 MG Tablet PO ×2 (09:11→18:11)
[2020-11-12] MEDS: Iron Polysaccharide Complex 150 MG CAPSULE PO (09:11)
[2020-11-12] MEDS: Multivitamins,Therapeutic Tablet 1 TABLET PO (09:11)
[2020-11-12] MEDS: HYDROcodone Bitartrate/Apap 5/325 Tablet PO ×3 (09:12→21:10)
[2020-11-12 11:32] VITALS: O2SAT 90
--- NOTE | 2020-11-12 12:54 | CASEMGMT ---
Social Work IDT met with patient and friend via conference call for care plan meeting. Discussed patient's progress in therapy and nursing. Pt progressing. Explained Medicare benefit and encouraged to contact secondary insurance for copay coverage. The goal is for pt to return home alone. Pt does not have support at [place] thus pt must return to [facility]. SW to continue to follow. Marisela Hill, EPIC SPECIALIST SPECIAL LIBRARIAN
[2020-11-12] MEDS: Tuberculin,Purif.prot.deriv. 50 TU/ML Vial 5 ML ID (13:19)
[2020-11-12 16:25] VITALS: BP 120/69; PULSE 82; RESP 18; TEMP 37.1
[2020-11-12 16:29] VITALS: PULSE 82; RESP 18; O2SAT 93
[2020-11-13] MEDS: HYDROcodone Bitartrate/Apap 5/325 Tablet PO ×4 (05:24→20:27)
[2020-11-13] MEDS: DULoxetine Hcl 60 MG Capsule PO (05:25)
[2020-11-13] MEDS: Lisinopril 40 MG Tablet PO ×2 (05:27→17:10)
[2020-11-13] MEDS: Nystatin Powder 15gm Bottle 1 APPLIC TOPICAL ×2 (05:27→15:40)
[2020-11-13] MEDS: Menthol/Lanolin/Calamine/Znox 113 GM Tube 1 APPLIC TOPICAL ×2 (05:27→15:38)
[2020-11-13] MEDS: Carvedilol 25 MG Tablet PO ×2 (05:28→17:10)
[2020-11-13] MEDS: amLODIPine 5 MG Tablet PO (05:28)
[2020-11-13] MEDS: Pantoprazole Sodium 40 MG Tablet PO (05:28)
[2020-11-13] MEDS: APIXABAN 5 MG TABLET PO ×2 (05:28→17:09)
[2020-11-13] MEDS: Flecainide 100 MG Tablet PO ×2 (05:28→17:10)
[2020-11-13] MEDS: prednisoLONE eye drops (5 mL) 1 DROP OPTH.BTL 1 DRP EACH EYE (05:29)
[2020-11-13] MEDS: Docusate Sodium 100 MG Capsule PO ×2 (05:29→17:09)
[2020-11-13 05:40] VITALS: BP 114/64; PULSE 80; RESP 18; TEMP 36.8; O2SAT 93
[2020-11-13] MEDS: Oxybutynin 5 MG Tablet PO ×2 (08:01→17:09)
[2020-11-13] MEDS: Multivitamins,Therapeutic Tablet 1 TABLET PO (08:01)
[2020-11-13] MEDS: Vitamin B Comp W-C Capsule 1 CAP PO (08:01)
[2020-11-13] MEDS: Iron Polysaccharide Complex 150 MG CAPSULE PO (08:01)
--- NOTE | 2020-11-13 11:24 | NURSING ---
Dressing changed to Lt knee. No drainage noted. Some redness around incision site but incision is well approximated. Resident requesting this RN take her temperature at this time. Temp 97.2.
[2020-11-13 14:21] VITALS: BP 121/54; PULSE 83; RESP 16; TEMP 35.9; O2SAT 94
--- NOTE | 2020-11-13 15:30 | NURSING ---
RACK WORKER's asssisting resident to her bed from her chair. Both knees popped when she stood up according to resident. No increased pain to LT knee and resident able to transfer ok to bed. No swelling to Lt knee and incision looks ok. No deformatity noted to knee. Will let Dr Holbrook know. Polar care placed while in bed.
--- NOTE | 2020-11-13 18:38 | RAD_ITS ---
HISTORY: Knee pain ADDITIONAL HISTORY: None provided. EXAMINATION/TECHNIQUE: XR Knee 3 Views Left Number of images including paperwork: 3 COMPARISON: None FINDINGS: Left total knee arthroplasty. There is a fracture of the patella with displacement of the remaining patellar bone from the arthroplasty component. Ossific density is also seen in the intercondylar region compatible with a fracture fragment or joint body. Soft tissue swelling. RAD/Knee 3 Views IMPRESSION: Displaced patella fracture, as described. at 1905 Reported and signed by: Nanci Mcgraw MD Electronically Signed: Nanci Mcgraw MD at 19:05 EDT Tel , Service support ,
--- NOTE | 2020-11-13 20:41 | NURSING ---
Brother David called and updated about left knee xray, and orders received from Dr. Holbrook.
--- NOTE | 2020-11-13 23:11 | NURSING ---
VOicemail left with radiolody about CD request for xray of left knee on 11/13 at 1838.
[2020-11-14] MEDS: Menthol/Lanolin/Calamine/Znox 113 GM Tube 1 APPLIC TOPICAL ×2 (05:16→17:19)
[2020-11-14] MEDS: Docusate Sodium 100 MG Capsule PO ×2 (05:16→17:18)
[2020-11-14] MEDS: Carvedilol 25 MG Tablet PO ×2 (05:17→17:18)
[2020-11-14] MEDS: DULoxetine Hcl 60 MG Capsule PO (05:17)
[2020-11-14] MEDS: APIXABAN 5 MG TABLET PO ×2 (05:17→17:19)
[2020-11-14] MEDS: Nystatin Powder 15gm Bottle 1 APPLIC TOPICAL ×2 (05:18→17:19)
[2020-11-14] MEDS: amLODIPine 5 MG Tablet PO (05:18)
[2020-11-14] MEDS: prednisoLONE eye drops (5 mL) 1 DROP OPTH.BTL 1 DRP EACH EYE (05:18)
[2020-11-14] MEDS: Lisinopril 40 MG Tablet PO ×2 (05:19→17:18)
[2020-11-14] MEDS: Flecainide 100 MG Tablet PO ×2 (05:19→17:19)
[2020-11-14] MEDS: Pantoprazole Sodium 40 MG Tablet PO (05:19)
[2020-11-14 05:20] VITALS: BP 130/73; PULSE 84; RESP 18; TEMP 37; O2SAT 92
[2020-11-14] MEDS: Iron Polysaccharide Complex 150 MG CAPSULE PO (08:21)
[2020-11-14] MEDS: Oxybutynin 5 MG Tablet PO ×2 (08:21→17:19)
[2020-11-14] MEDS: Vitamin B Comp W-C Capsule 1 CAP PO (08:21)
[2020-11-14] MEDS: Multivitamins,Therapeutic Tablet 1 TABLET PO (08:22)
--- NOTE | 2020-11-14 08:28 | NURSING ---
Message left for Dr. Flores's office, waiting for return call.
--- NOTE | 2020-11-14 08:55 | NURSING ---
Spoke with Nory, Dr. Ortiz's nurse. She stated that Dr. Ortiz is not in the office today, but his PA will be in a 1pm. Faxed X-ray report to their office. She will make the PA aware.
--- NOTE | 2020-11-14 09:27 | NURSING ---
Received return call from Dr. Ortiz's office, Dr Eric Cesar is filling in for Dr. Ortiz. Received orders to apply an immobilizer, pt is to have no therapy, pt can be transferred via stand pivot or arnold. Appt is scheduled for Tuesday at 8:[address] Cesar.
--- NOTE | 2020-11-14 10:01 | PT ---
Per physician pt is to have knee immobilizer on her LLE and she is now NWB on LLE. Pt reports no pain at this time. Measured pt for knee immobilizer. Obtained knee immobilizer and applied to pt's L knee. Pt reports no discomfort when wearing immobilizer. Pt has appt next week to follow up with physician.
--- NOTE | 2020-11-14 11:54 | MDS.RN ---
Information for the mds was obtained from review of the clinical record, interview of resident, staff, and direct observation of resident's care.
[2020-11-14] MEDS: HYDROcodone Bitartrate/Apap 5/325 Tablet PO ×3 (12:12→21:40)
[2020-11-14 12:14] VITALS: PULSE 75; RESP 18; O2SAT 95
[2020-11-14 15:08] VITALS: O2SAT 95
[2020-11-14 15:35] VITALS: BP 132/69; PULSE 75; RESP 18; TEMP 36.8; O2SAT 95
[2020-11-15 05:00] VITALS: BP 137/79; PULSE 78; RESP 18; TEMP 36.6; O2SAT 90
[2020-11-15] MEDS: Docusate Sodium 100 MG Capsule PO ×2 (06:38→17:27)
[2020-11-15] MEDS: Lisinopril 40 MG Tablet PO ×2 (06:38→17:27)
[2020-11-15] MEDS: Pantoprazole Sodium 40 MG Tablet PO (06:38)
[2020-11-15] MEDS: DULoxetine Hcl 60 MG Capsule PO (06:38)
[2020-11-15] MEDS: amLODIPine 5 MG Tablet PO (06:38)
[2020-11-15] MEDS: Flecainide 100 MG Tablet PO ×2 (06:39→17:27)
[2020-11-15] MEDS: Menthol/Lanolin/Calamine/Znox 113 GM Tube 1 APPLIC TOPICAL ×2 (06:39→17:28)
[2020-11-15] MEDS: APIXABAN 5 MG TABLET PO ×2 (06:39→17:27)
[2020-11-15] MEDS: Carvedilol 25 MG Tablet PO ×2 (06:39→17:27)
[2020-11-15] MEDS: Nystatin Powder 15gm Bottle 1 APPLIC TOPICAL ×2 (06:40→17:28)
[2020-11-15] MEDS: prednisoLONE eye drops (5 mL) 1 DROP OPTH.BTL 1 DRP EACH EYE (06:41)
[2020-11-15] MEDS: Multivitamins,Therapeutic Tablet 1 TABLET PO (08:50)
[2020-11-15] MEDS: Vitamin B Comp W-C Capsule 1 CAP PO (08:50)
[2020-11-15] MEDS: HYDROcodone Bitartrate/Apap 5/325 Tablet PO ×3 (08:50→19:57)
[2020-11-15] MEDS: Iron Polysaccharide Complex 150 MG CAPSULE PO (08:50)
[2020-11-15] MEDS: Oxybutynin 5 MG Tablet PO ×2 (08:50→17:27)
[2020-11-15] MEDS: cycloBENZAPRine HCl 10 MG Tablet PO ×2 (11:38→22:05)
[2020-11-15 13:34] VITALS: O2SAT 91
[2020-11-15 16:27] VITALS: BP 116/74; PULSE 81; RESP 20; TEMP 36.8; O2SAT 92
[2020-11-15 20:11] VITALS: PULSE 87; RESP 16; O2SAT 95
[2020-11-16 05:00] VITALS: BP 130/69; PULSE 75; RESP 16; TEMP 36.4; O2SAT 94
[2020-11-16] MEDS: amLODIPine 5 MG Tablet PO (05:50)
[2020-11-16] MEDS: Pantoprazole Sodium 40 MG Tablet PO (05:50)
[2020-11-16] MEDS: Lisinopril 40 MG Tablet PO ×2 (05:50→17:38)
[2020-11-16] MEDS: HYDROcodone Bitartrate/Apap 5/325 Tablet PO ×4 (05:50→21:18)
[2020-11-16] MEDS: APIXABAN 5 MG TABLET PO ×2 (05:50→17:38)
[2020-11-16] MEDS: Flecainide 100 MG Tablet PO ×2 (05:50→17:38)
[2020-11-16] MEDS: Docusate Sodium 100 MG Capsule PO ×2 (05:51→17:38)
[2020-11-16] MEDS: Menthol/Lanolin/Calamine/Znox 113 GM Tube 1 APPLIC TOPICAL ×2 (05:51→16:11)
[2020-11-16] MEDS: Carvedilol 25 MG Tablet PO ×2 (05:51→17:38)
[2020-11-16] MEDS: DULoxetine Hcl 60 MG Capsule PO (05:51)
[2020-11-16] MEDS: Nystatin Powder 15gm Bottle 1 APPLIC TOPICAL ×2 (05:51→17:38)
[2020-11-16] MEDS: prednisoLONE eye drops (5 mL) 1 DROP OPTH.BTL 1 DRP EACH EYE (05:52)
[2020-11-16 07:29] VITALS: O2SAT 90
[2020-11-16] MEDS: Vitamin B Comp W-C Capsule 1 CAP PO (08:59)
[2020-11-16] MEDS: Iron Polysaccharide Complex 150 MG CAPSULE PO (08:59)
[2020-11-16] MEDS: Multivitamins,Therapeutic Tablet 1 TABLET PO (08:59)
[2020-11-16] MEDS: Oxybutynin 5 MG Tablet PO ×2 (08:59→16:10)
[2020-11-16 14:37] VITALS: PULSE 83; RESP 16; O2SAT 94
[2020-11-16 15:02] VITALS: BP 136/74; PULSE 83; RESP 20; TEMP 36.8; O2SAT 94
[2020-11-17 05:00] VITALS: BP 138/71; PULSE 83; RESP 14; TEMP 37.3; O2SAT 95
[2020-11-17] MEDS: HYDROcodone Bitartrate/Apap 5/325 Tablet PO ×4 (06:15→22:21)
[2020-11-17] MEDS: DULoxetine Hcl 60 MG Capsule PO (06:16)
[2020-11-17] MEDS: Docusate Sodium 100 MG Capsule PO ×2 (06:16→17:31)
[2020-11-17] MEDS: APIXABAN 5 MG TABLET PO ×2 (06:16→17:31)
[2020-11-17] MEDS: Lisinopril 40 MG Tablet PO ×2 (06:16→17:31)
[2020-11-17] MEDS: Flecainide 100 MG Tablet PO ×2 (06:16→17:31)
[2020-11-17] MEDS: Pantoprazole Sodium 40 MG Tablet PO (06:16)
[2020-11-17] MEDS: Carvedilol 25 MG Tablet PO ×2 (06:16→17:31)
[2020-11-17] MEDS: amLODIPine 5 MG Tablet PO (06:16)
[2020-11-17] MEDS: Menthol/Lanolin/Calamine/Znox 113 GM Tube 1 APPLIC TOPICAL ×2 (06:17→17:31)
[2020-11-17] MEDS: prednisoLONE eye drops (5 mL) 1 DROP OPTH.BTL 1 DRP EACH EYE (06:17)
[2020-11-17] MEDS: Nystatin Powder 15gm Bottle 1 APPLIC TOPICAL ×2 (06:17→17:31)
[2020-11-17] MEDS: Oxybutynin 5 MG Tablet PO ×2 (07:58→17:31)
[2020-11-17] MEDS: Vitamin B Comp W-C Capsule 1 CAP PO (07:58)
[2020-11-17] MEDS: Iron Polysaccharide Complex 150 MG CAPSULE PO (07:58)
[2020-11-17] MEDS: Multivitamins,Therapeutic Tablet 1 TABLET PO (07:58)
[2020-11-17 14:55] VITALS: O2SAT 92
[2020-11-17] MEDS: cycloBENZAPRine HCl 10 MG Tablet PO (15:50)
[2020-11-17 15:59] VITALS: BP 128/75; PULSE 86; RESP 18; TEMP 36.1; O2SAT 92
[2020-11-17 17:07] VITALS: O2SAT 92
[2020-11-18 05:08] VITALS: BP 121/67; PULSE 82; RESP 18; TEMP 36.1; O2SAT 93
[2020-11-18] MEDS: prednisoLONE eye drops (5 mL) 1 DROP OPTH.BTL 1 DRP EACH EYE (05:11)
[2020-11-18] MEDS: Menthol/Lanolin/Calamine/Znox 113 GM Tube 1 APPLIC TOPICAL ×2 (05:12→16:56)
[2020-11-18] MEDS: Nystatin Powder 15gm Bottle 1 APPLIC TOPICAL ×2 (05:12→16:54)
[2020-11-18] MEDS: Lisinopril 40 MG Tablet PO ×2 (05:16→16:53)
[2020-11-18] MEDS: Carvedilol 25 MG Tablet PO ×2 (05:16→16:53)
[2020-11-18] MEDS: Flecainide 100 MG Tablet PO ×2 (05:16→16:54)
[2020-11-18] MEDS: Docusate Sodium 100 MG Capsule PO ×2 (05:16→16:53)
[2020-11-18] MEDS: Pantoprazole Sodium 40 MG Tablet PO (05:16)
[2020-11-18] MEDS: DULoxetine Hcl 60 MG Capsule PO (05:17)
[2020-11-18] MEDS: amLODIPine 5 MG Tablet PO (05:17)
[2020-11-18] MEDS: HYDROcodone Bitartrate/Apap 5/325 Tablet PO ×4 (05:20→21:32)
[2020-11-18] MEDS: APIXABAN 5 MG TABLET PO ×2 (05:20→16:54)
[2020-11-18] MEDS: Multivitamins,Therapeutic Tablet 1 TABLET PO (07:39)
[2020-11-18] MEDS: Oxybutynin 5 MG Tablet PO ×2 (07:40→16:53)
[2020-11-18] MEDS: Vitamin B Comp W-C Capsule 1 CAP PO (07:40)
[2020-11-18] MEDS: Iron Polysaccharide Complex 150 MG CAPSULE PO (07:40)
[2020-11-18 07:51] VITALS: O2SAT 92
--- NOTE | 2020-11-18 13:56 | NURSING ---
pt returned from Dr. sue. She is scheduled to have surgery on 11/21/20, time TBD. pt will receive call for surgery time on 11/20/20. Assisted back into bed. Pain medication and lunch provided.
[2020-11-18 16:25] VITALS: BP 140/79; PULSE 90; RESP 18; TEMP 36.8; O2SAT 93
[2020-11-18 16:26] VITALS: PULSE 90; RESP 18; O2SAT 93
--- NOTE | 2020-11-18 16:29 | CHAPLAIN ---
Type of Pastoral Visit ___ Initial Visit _x__ Follow-up Visit ___ On-call Visit ___ General Patient Visit ___ Spiritual Assessment ___ Family Conference ___ Bereavement ___ Rapid Response ___ Code Blue ___ Other (describe below) Pastoral Care Referral From _x__ Patient ___ Family ___ Nurse ___ Physician ___ Cloth Washer Back Tender ___ Dancing Master ___ Other (describe below) Sacrament/Intervention _x__ Active listening ___ Anointing ___ Christian ___ Bereavement ___ Communion ___ Elaina exploration ___ ___ Life review _x__ Prayer ___ Reconciliation ___ Sacrament of Sick ___ Supportive presence ___ Wedding ___ Other (describe below) Pastoral Comments visit to patient and discovered new information that pt just learned today; pt will have to have an additional surgery; pt says you came at just the right time and would you say a prayer?; offer of support
[2020-11-18] MEDS: Mupirocin Ointment 22gm Tube 1 APPLIC NASAL (17:29)
[2020-11-18] MEDS: cycloBENZAPRine HCl 10 MG Tablet PO (20:37)
[2020-11-19 05:48] LABS: Absolute Lymphocyte Count 1.36 X10^3/uL (0.83-4.51); Basophil# 0.04 X10^3/uL; Basophil% 0.5 % (0-1); Eosinophils% 8.9 % (0-5); Hematocrit 34.1 % (37-47); Hemoglobin 9.8 g/dL (12.0-15.0); Lymphocyte # 1.36 X10^3/ul (0.83-4.51); Lymphocyte % 17.3 % (19-41); Mean Corp Hgb Conc 28.7 g/dL (32-36); Mean Corpuscular Hgb 26.5 pg (27.0-32.0); Mean Corpuscular Volume 92.2 fL (81-99); Mean Platelet Vol. 9.4 fl (6.2-12.0); Monocyte# 0.78 X10^3/uL; Monocyte% 9.9 % (0-10); NRBC Flagged by Analyzer 0 % (0-5); Neutrophil # 4.97 X10^3/uL (2.7-7.7); Platelet Count 401 K/mm3 (150-450); RBC Distribution Width CV 18.1 % (11.6-14.6); RBC Distribution Width SD 62.1 fl (35.1-43.9); White Blood Count 7.9 K/mm3 (4.4-11.0)
[2020-11-19 06:05] VITALS: BP 131/75; PULSE 83; RESP 20; TEMP 36.4; O2SAT 93
[2020-11-19] MEDS: Menthol/Lanolin/Calamine/Znox 113 GM Tube 1 APPLIC TOPICAL ×2 (06:09→18:51)
[2020-11-19] MEDS: Mupirocin Ointment 22gm Tube 1 APPLIC NASAL ×2 (06:09→18:50)
[2020-11-19] MEDS: Lisinopril 40 MG Tablet PO ×2 (06:10→18:52)
[2020-11-19] MEDS: Pantoprazole Sodium 40 MG Tablet PO (06:10)
[2020-11-19] MEDS: Docusate Sodium 100 MG Capsule PO ×2 (06:10→18:51)
[2020-11-19] MEDS: DULoxetine Hcl 60 MG Capsule PO (06:10)
[2020-11-19] MEDS: Flecainide 100 MG Tablet PO ×2 (06:10→18:52)
[2020-11-19] MEDS: amLODIPine 5 MG Tablet PO (06:10)
[2020-11-19] MEDS: Nystatin Powder 15gm Bottle 1 APPLIC TOPICAL ×2 (06:11→18:53)
[2020-11-19] MEDS: prednisoLONE eye drops (5 mL) 1 DROP OPTH.BTL 1 DRP EACH EYE (06:12)
[2020-11-19] MEDS: Carvedilol 25 MG Tablet PO ×2 (06:19→18:51)
[2020-11-19 06:28] LABS: Anion Gap 3 (5-15); BUN 27 mg/dL (7-18); BUN/Creat Ratio 51.2 RATIO (10-20); Calcium,Total 9.1 mg/dL (8.5-10.1); Chloride 104 mmol/L (98-107); Creatinine, Serum 0.53 mg/dL (0.55-1.02); EST Glomerular Filtration Rate 122 mL/min (>60); Est Glom Filt Rate - Afr Amer 148 mL/min (>60); Estimated Creatinine Clearance 57.42 ml/min; Glucose 114 mg/dL (74-106); Sodium Level 140 mmol/L (136-145)
[2020-11-19 07:58] VITALS: O2SAT 91
[2020-11-19] MEDS: Oxybutynin 5 MG Tablet PO ×2 (08:43→18:50)
[2020-11-19] MEDS: Vitamin B Comp W-C Capsule 1 CAP PO (08:43)
[2020-11-19] MEDS: Iron Polysaccharide Complex 150 MG CAPSULE PO (08:43)
[2020-11-19] MEDS: Multivitamins,Therapeutic Tablet 1 TABLET PO (08:43)
[2020-11-19] MEDS: HYDROcodone Bitartrate/Apap 5/325 Tablet PO ×4 (08:47→23:01)
[2020-11-19 11:23] VITALS: PULSE 87; RESP 18; O2SAT 94
[2020-11-19 13:26] VITALS: BP 151/90; PULSE 79; RESP 18; TEMP 36.4; O2SAT 92
[2020-11-19] MEDS: cycloBENZAPRine HCl 10 MG Tablet PO (15:01)
[2020-11-20] MEDS: HYDROcodone Bitartrate/Apap 5/325 Tablet PO ×4 (05:56→20:39)
[2020-11-20 05:57] VITALS: BP 123/77; PULSE 69; RESP 18; TEMP 37; O2SAT 93
[2020-11-20] MEDS: Lisinopril 40 MG Tablet PO ×2 (05:57→16:57)
[2020-11-20] MEDS: Docusate Sodium 100 MG Capsule PO ×2 (05:57→16:58)
[2020-11-20] MEDS: amLODIPine 5 MG Tablet PO (05:57)
[2020-11-20] MEDS: Mupirocin Ointment 22gm Tube 1 APPLIC NASAL ×2 (05:57→16:57)
[2020-11-20] MEDS: DULoxetine Hcl 60 MG Capsule PO (05:57)
[2020-11-20] MEDS: Flecainide 100 MG Tablet PO ×2 (05:57→16:58)
[2020-11-20] MEDS: Carvedilol 25 MG Tablet PO ×2 (05:57→16:58)
[2020-11-20] MEDS: Pantoprazole Sodium 40 MG Tablet PO (05:57)
[2020-11-20] MEDS: Menthol/Lanolin/Calamine/Znox 113 GM Tube 1 APPLIC TOPICAL ×2 (05:58→16:59)
[2020-11-20] MEDS: Nystatin Powder 15gm Bottle 1 APPLIC TOPICAL ×2 (05:58→16:59)
[2020-11-20] MEDS: prednisoLONE eye drops (5 mL) 1 DROP OPTH.BTL 1 DRP EACH EYE (06:00)
[2020-11-20 07:06] VITALS: O2SAT 93
[2020-11-20] MEDS: Iron Polysaccharide Complex 150 MG CAPSULE PO (09:02)
[2020-11-20] MEDS: Oxybutynin 5 MG Tablet PO ×2 (09:02→16:58)
[2020-11-20] MEDS: Multivitamins,Therapeutic Tablet 1 TABLET PO (09:02)
[2020-11-20] MEDS: Vitamin B Comp W-C Capsule 1 CAP PO (09:02)
[2020-11-20] MEDS: cycloBENZAPRine HCl 10 MG Tablet PO (09:02)
--- NOTE | 2020-11-20 10:36 | NURSING ---
Called [facility] to find out when pt needs to arrive for Surgery. Talked with Keyana with scheduling and said pt should arrive for surgery at 10:30am. [facility] schedule for cot cotton picker at 8:30am.
[2020-11-20 10:46] VITALS: PULSE 78; RESP 18; O2SAT 92
[2020-11-20 16:20] VITALS: BP 115/61; PULSE 78; RESP 18; TEMP 36.6; O2SAT 92
[2020-11-21 05:49] VITALS: BP 131/54; PULSE 86; RESP 16; TEMP 36.4; O2SAT 92
[2020-11-21] MEDS: Mupirocin Ointment 22gm Tube 1 APPLIC NASAL (05:53)
[2020-11-21] MEDS: Pantoprazole Sodium 40 MG Tablet PO (05:54)
[2020-11-21] MEDS: Flecainide 100 MG Tablet PO (05:54)
[2020-11-21] MEDS: Oxybutynin 5 MG Tablet PO (05:55)
[2020-11-21] MEDS: amLODIPine 5 MG Tablet PO (05:55)
[2020-11-21] MEDS: Lisinopril 40 MG Tablet PO (05:55)
[2020-11-21] MEDS: prednisoLONE eye drops (5 mL) 1 DROP OPTH.BTL 1 DRP EACH EYE (05:55)
[2020-11-21] MEDS: DULoxetine Hcl 60 MG Capsule PO (05:55)
[2020-11-21] MEDS: Menthol/Lanolin/Calamine/Znox 113 GM Tube 1 APPLIC TOPICAL (06:02)
[2020-11-21] MEDS: Carvedilol 25 MG Tablet PO (06:03)
--- NOTE | 2020-11-21 09:13 | NURSING ---
0900 PT TRANSPORTED VIA COT TO SURGERY TO [facility]
--- NOTE | 2020-11-24 07:55 | DS.PCM_ITS ---
Providers Date of Admission: 11/04/20 Primary Care Physician: Dr. Faraz Junior MD Reason For Visit: LEFT TOTAL KNEE / ANGIO Diagnosis Discharge Diagnosis (1) Debility: Status: Acute Code(s): R53.81 - Other malaise (2) Osteoarthritis of left knee: Status: Acute Code(s): M17.12 - Unilateral primary osteoarthritis, left knee (3) Atrial fibrillation: Status: Acute Code(s): I48.91 - Unspecified atrial fibrillation (4) Chronic cough: Status: Chronic Code(s): R05 - Cough (5) Muscle spasm: Status: Acute Code(s): M62.838 - Other muscle spasm (6) Depression: Status: Acute Code(s): F32.9 - Major depressive disorder, single episode, unspecified (7) Edema: Status: Acute Code(s): R60.9 - Edema, unspecified (8) Hypertension: Status: Chronic Code(s): I10 - Essential (primary) hypertension (9) Hyperlipidemia: Status: Acute Code(s): E78.5 - Hyperlipidemia, unspecified (10) Dizziness: Status: Acute Code(s): R42 - Dizziness and giddiness (11) Urinary tract infection: Status: Acute Code(s): N39.0 - Urinary tract infection, site not specified (12) Overactive bladder: Status: Acute Code(s): N32.81 - Overactive bladder (13) GERD (gastroesophageal reflux disease): Status: Acute Code(s): K21.9 - Gastro-esophageal reflux disease without esophagitis (14) Leg cramp: Status: Acute Code(s): R25.2 - Cramp and spasm Medications at Discharge Home Medications amlodipine 5 mg PO DAILY 04/09/13 duloxetine 60 mg PO DAILY 01/18/18 lisinopril 20 mg tablet 40 mg PO BID tab 08/10/18 carvedilol 25 mg tablet 25 mg PO BID #180 tab 02/16/19 flecainide 100 mg tablet 100 mg PO BID #180 tab 03/31/20 multivitamin 1 tab PO DAILY 04/30/20 nystatin 1 applic TOPICAL BID PRN 08/02/20 apixaban 5 mg PO BID 11/04/20 benzonatate 100 mg PO TID PRN 11/04/20 cyclobenzaprine 10 mg PO TID PRN 11/04/20 docusate sodium 100 mg PO BID 11/04/20 furosemide 20 mg PO DAILY PRN 11/04/20 hydrochlorothiazide 25 mg PO DAILY 11/04/20 hydrocodone-acetaminophen 1 - 2 tab PO Q4H PRN 11/04/20 lovastatin 40 mg PO DAILY 11/04/20 meclizine 25 mg PO DAILY PRN 11/04/20 nitrofurantoin monohyd/m-cryst [Macrobid] 100 mg PO BID 11/04/20 omeprazole 40 mg PO DAILY 11/04/20 oxybutynin chloride 5 mg PO BIDCM 11/04/20 polyethylene glycol 3350 [Miralax] 17 g PO DAILY 11/04/20 prednisolone acetate 1 drop EACH EYE DAILY 11/04/20 vitamin B complex 1 cap PO DAILY 11/04/20 B complex-vitamin C-folic acid 1 capsule PO DAILYCM 11/09/20 acetaminophen 1,000 mg PO Q8 11/09/20 cephalexin 500 mg PO Q6 11/09/20 pantoprazole 40 mg PO DAILY 11/09/20 polysaccharide iron complex 150 mg PO DAILYCM 11/09/20 Hospital Course Operations None Procedures None Summary of Care Provided Minutes Spent on Discharge: 30 Hospital Course: 70 year old female with below past medical history hospitalized for robot assisted left total knee replacement 11/04/2020, postoperative course complicated by urinary tract infection, admitted to TCU WITH DEBILITY< HERE FOR REHABILITATION< STRENGTHENING< PRIOR TO DISCHARGE HOME ALONE. Resident developed left displaced patellar fracture. Discharge to [facility] for left knee surgery. ABG / Lab / Microbiology Data Result Diagrams: 11/19/20 05:24 11/19/20 05:24 D/C Instructions Discharge Diet: No restrictions Discharge Activity: Return to Normal Activity, May Shower and Use Walker Weight Bearing Status: Weight bearing as tolerated Call your doctor if you observe: Fever of 101 or Higher, Inability to urinate, Inability to have a bowel movement, Shortness of breath, Fainting spells, Chest pain, Calf discomfort and Uncontrolled pain Additional Instructions: Discharge to [facility] for left knee surgery. Please Follow Up With: Karri Ortiz MD Meaningful Use Info Meaningful Use Diagnoses (Choose all that apply): None applicable Discharge Plan Admission Admit Date/Time: 11/04/20 15:42 Primary Reason for Your Visit: Debility Attending Provider: Elio Holbrook Chi Primary Care Provider: Faraz Junior Discharge Orders/Prescriptions Prescriptions: Continued lisinopril 20 mg tablet 40 mg PO BID RF: 0 multivitamin Tablet 1 tab PO DAILY RF: 0 amlodipine 5 MG tablet 5 mg PO DAILY RF: 0 duloxetine 60 MG capsule,delayed release(DR/EC) 60 mg PO DAILY RF: 0 nystatin 1 APPLIC bottle 1 applic TOPICAL BID PRN (Reason: Rash/Topical Irritation) RF: 0 cyclobenzaprine 10 mg Tablet 10 mg PO TID PRN (Reason: Muscle Spasm) RF: 0 hydrocodone-acetaminophen 5-325 mg Tablet 1 - 2 tab PO Q4H PRN (Reason: Pain) RF: 0 lovastatin 40 mg Tablet 40 mg PO DAILY RF: 0 omeprazole 40 mg Capsule,Delayed Release(Dr/Ec) 40 mg PO DAILY RF: 0 meclizine 25 mg Tablet 25 mg PO DAILY PRN (Reason: Dizziness) RF: 0 benzonatate 100 mg Capsule 100 mg PO TID PRN (Reason: Cough) RF: 0 docusate sodium 100 mg Capsule 100 mg PO BID RF: 0 furosemide 20 mg Tablet 20 mg PO DAILY PRN (Reason: Swelling) RF: 0 polyethylene glycol 3350 [Miralax] 17 gram/dose Powder 17 g PO DAILY RF: 0 vitamin B complex Capsule 1 cap PO DAILY RF: 0 nitrofurantoin monohyd/m-cryst [Macrobid] 100 mg Capsule 100 mg PO BID RF: 0 prednisolone acetate 1 DROP drops,suspension 1 drop EACH EYE DAILY RF: 0 hydrochlorothiazide 25 MG tablet 25 mg PO DAILY RF: 0 oxybutynin chloride 5 MG tablet 5 mg PO BIDCM RF: 0 apixaban 5 MG tablet 5 mg PO BID RF: 0 acetaminophen 500 MG tablet 1,000 mg PO Q8 RF: 0 cephalexin 500 MG capsule 500 mg PO Q6 RF: 0 B complex-vitamin C-folic acid 1 CAPSULE tablet 1 capsule PO DAILYCM RF: 0 polysaccharide iron complex 150 MG capsule 150 mg PO DAILYCM RF: 0 pantoprazole 40 MG tablet,delayed release (DR/EC) 40 mg PO DAILY RF: 0 carvedilol 25 mg tablet 25 mg PO BID Qty: 180 RF: 3 flecainide 100 mg tablet 100 mg PO BID Qty: 180 RF: 3 Referrals / Follow Up: Faraz Junior MD [Primary Care Provider] - Disposition Disposition (needs filled in before D/C Order can be placed): [facility]
== END 2020-11-21 09:00 | disposition short-term general hospital (02) | DRG 560 ==
PROVIDERS: Admitting Provider Family Medicine Geriatric Medicine; PCP Family Medicine; Referring Provider Family Medicine Geriatric Medicine; Visit Provider Family Medicine Geriatric Medicine
DX: Z47.1 Aftercare following joint replacement surgery (principal); N39.0 Urinary tract infection, site not specified; M96.69 Fracture of other bone following insertion of orthopedic implant, joint prosthesis, or bone plate; Z96.652 Presence of left artificial knee joint; I10 Essential (primary) hypertension; E78.5 Hyperlipidemia, unspecified; I48.0 Paroxysmal atrial fibrillation; F32.9 Major depressive disorder, single episode, unspecified; K21.9 Gastro-esophageal reflux disease without esophagitis; Z79.899 Other long term (current) drug therapy; Z79.52 Long term (current) use of systemic steroids; Y93.9 Activity, unspecified; Z97.8 Presence of other specified devices; Y83.4 Other reconstructive surgery as the cause of abnormal reaction of the patient, or of later complication, without mention of misadventure at the time of the procedure; Y79.2 Prosthetic and other implants, materials and accessory orthopedic devices associated with adverse incidents; Y92.129 Unspecified place in nursing home as the place of occurrence of the external cause
CPT/HCPCS: 36415; 73562; 80048; 85025; 87635; 97110; 97116; 97162; 97166; 97530; 97535; 97802; U0002

== ENCOUNTER → 2020-11-12 09:27 | Outpatient (CLI) | payer MEDICARE, OTHER, SELFPAY ==
[2020-11-04 20:01] VITALS: BMI 39.4
== END ==
PROVIDERS: PCP Family Medicine; Visit Provider Family Medicine
DX: Z23 Encounter for immunization (principal)
CPT/HCPCS: 0001A; 91300

== ENCOUNTER 2020-11-25 12:31 | Inpatient (IN) | payer MEDICARE, OTHER, SELFPAY ==
[2020-11-25 13:38] VITALS: BMI 36.6
[2020-11-25 13:42] VITALS: BP 129/57; PULSE 81; RESP 16; TEMP 36.7; O2SAT 92
[2020-11-25 14:04] VITALS: PULSE 81; RESP 18; O2SAT 92
[2020-11-25 16:15] VITALS: O2SAT 96
[2020-11-25 16:31] VITALS: BP 129/57; PULSE 81; RESP 18; TEMP 36.7; O2SAT 92
--- NOTE | 2020-11-25 17:53 | PCA ---
research scholar came in to put her on bedpan. research scholar saw two blisters on back of left thigh. one was open and red, the other was filled with fluid, research scholar called nurse to come in and asses them. nurse said she would document.
[2020-11-25] MEDS: Carvedilol 25 MG Tablet PO (18:31)
[2020-11-25] MEDS: Docusate Sodium 100 MG Capsule PO (18:31)
[2020-11-25] MEDS: Oxybutynin 5 MG Tablet PO (18:31)
[2020-11-25] MEDS: APIXABAN 5 MG TABLET PO (18:31)
[2020-11-25] MEDS: Flecainide 100 MG Tablet PO (18:32)
[2020-11-25] MEDS: oxyCODONE 5 MG Tablet PO (18:35)
--- NOTE | 2020-11-25 20:28 | HP.PCM_ITS ---
HPI - General General Date of Admission: 11/25/20 HPI Narrative 11/04/2020 BHAVNA STUART, is a 70 Female who admitted to TCU for debility after left total knee replacement. 11/13/2020 Left displaced patellar fracture. 11/21/2020 Dr. Ortiz performed removal of patellar component left knee with partial patellectomy and extensor mechanism repair for left knee jason-prosthetic patellar fracture. 11/25/2020 Admit to TCU with debility, here for rehabilitation, strengthening, prior to discharge home alone. [facility] Medical History Atrial fibrillation Benign essential hypertension Cardiomyopathy Cardiomyopathy Chronic anticoagulation Depression GERD (gastroesophageal reflux disease) History of depression History of shingles Hyperlipemia Hyperlipidemia On home oxygen therapy Overactive bladder PAF (paroxysmal atrial fibrillation) Home Medications amlodipine 5 mg PO DAILY 04/09/13 [History Last Taken 08/02/20] duloxetine 60 mg PO DAILY 01/18/18 [History Last Taken 08/02/20] lisinopril 20 mg tablet 40 mg PO BID tab 08/10/18 [History Last Taken 08/02/20] carvedilol 25 mg tablet 25 mg PO BID #180 tab 02/16/19 [Rx Last Taken 08/02/20] flecainide 100 mg tablet 100 mg PO BID #180 tab 03/31/20 [Rx Last Taken 08/02/20] multivitamin 1 tab PO DAILY 04/30/20 [History Last Taken 08/02/20] nystatin 1 applic TOPICAL BID PRN 08/02/20 [History Last Taken Unknown] apixaban 5 mg PO BID 11/04/20 [History Last Taken Unknown] benzonatate 100 mg PO TID PRN 11/04/20 [History Last Taken Unknown] cyclobenzaprine 10 mg PO TID PRN 11/04/20 [History Last Taken Unknown] docusate sodium 100 mg PO BID 11/04/20 [History Last Taken Unknown] furosemide 20 mg PO DAILY PRN 11/04/20 [History Last Taken Unknown] hydrochlorothiazide 25 mg PO DAILY 11/04/20 [History Last Taken Unknown] hydrocodone-acetaminophen 1 - 2 tab PO Q4H PRN 11/04/20 [History Last Taken Unknown] lovastatin 40 mg PO DAILY 11/04/20 [History Last Taken Unknown] meclizine 25 mg PO DAILY PRN 11/04/20 [History Last Taken Unknown] nitrofurantoin monohyd/m-cryst [Macrobid] 100 mg PO BID 11/04/20 [History Last Taken Unknown] omeprazole 40 mg PO DAILY 11/04/20 [History Last Taken Unknown] oxybutynin chloride 5 mg PO BIDCM 11/04/20 [History Last Taken Unknown] polyethylene glycol 3350 [Miralax] 17 g PO DAILY 11/04/20 [History Last Taken Unknown] prednisolone acetate 1 drop EACH EYE DAILY 11/04/20 [History Last Taken Unknown] vitamin B complex 1 cap PO DAILY 11/04/20 [History Last Taken Unknown] B complex-vitamin C-folic acid 1 capsule PO DAILYCM 11/09/20 [History Last Taken Unknown] acetaminophen 1,000 mg PO Q8 PRN 11/09/20 [History Last Taken Unknown] cephalexin 500 mg PO Q6 11/09/20 [History Last Taken Unknown] pantoprazole 40 mg PO DAILY 11/09/20 [History Last Taken Unknown] polysaccharide iron complex 150 mg PO DAILYCM 11/09/20 [History Last Taken Unknown] oxycodone 5 - 10 mg PO Q4H PRN 11/25/20 [History Last Taken Unknown] Allergy/AdvReac Type Severity Reaction Status Date / Time atorvastatin [From Lipitor] AdvReac Pain in Verified 08/02/20 15:24 joints nifedipine [From Procardia] AdvReac Pain in Verified 08/02/20 15:24 joints tramadol AdvReac Upset Verified 08/02/20 15:24 Stomach Family History Father Ruptured aortic aneurysm Mother Heart disease heart valve issues Brother Atrial fibrillation Surgical History History of arthroscopic knee surgery History of cardioversion (07/05/12) History of cornea transplant (04/05/18) History of foot surgery History of hysterectomy History of nasal cauterization History of sinus surgery History of tonsillectomy History of total left hip replacement (~04/2020) History of total left knee replacement History of total right hip replacement (~2018) Social History (Updated 11/25/20 @ 20:[address] Elio Holbrook MD) household members: none Smoking Status: Never smoker alcohol intake: never caffeine: Yes Type: carbonated beverages Number of servings: 2 ROS Constitutional Constitutional: Denies chills, fever(s) or weight gain ENT HEENT: Denies headache(s), nasal congestion or nasal discharge Cardiovascular Cardiovascular: Denies chest pain or palpitations Respiratory/Chest Respiratory/Chest: Denies cough, excessive phlegm production or shortness of breath with exertion Gastrointestinal Gastrointestinal: Denies abdominal pain, nausea or vomiting Genitourinary Genitourinary: Denies dysuria Musculoskeletal Musculoskeletal: Denies joint pain or joint swelling Integumentary Integumentary: Denies rash or wounds Neurologic Neurologic: Denies focal weakness, numbness or tingling Psychiatric Psychiatric: Reports auditory hallucinations; Denies anxiety, depression, homicidal ideation or suicidal ideation Vital Signs Vital Signs Vital Signs: 11/25/20 13:42 11/25/20 14:04 11/25/20 16:15 Temperature 98.1 F Temperature Source Temporal Pulse Rate 81 81 Pulse Rhythm Regular Pulse Strength Normal (2+) Respiratory Rate 16 18 Respiratory Effort Normal Non-Labored Respiratory Depth Normal Respiratory Pattern Normal Blood Pressure 129/57 H Blood Pressure Mean 81 Blood Pressure Source Monitor Blood Pressure Position Semi-Fowlers Blood Pressure Location Left Forearm Pulse Ox 92 92 96 Oxygen Delivery Method Nasal Cannula Nasal Cannula Nasal Cannula Oxygen Flow Rate (L/min) 4 4 4 11/25/20 16:31 Temperature 98.1 F Temperature Source Temporal Pulse Rate 81 Pulse Rhythm Pulse Strength Respiratory Rate 18 Respiratory Effort Respiratory Depth Respiratory Pattern Blood Pressure 129/57 H Blood Pressure Mean 81 Blood Pressure Source Monitor Blood Pressure Position Semi-Fowlers Blood Pressure Location Left Forearm Pulse Ox 92 Oxygen Delivery Method Nasal Cannula Oxygen Flow Rate (L/min) 2 Weight Weight: 115.666 kg Body Mass Index (BMI) 36.6 Physical Exam Const alert and oriented x3 General Appearance: cooperative HEENT normocephalic Eyes PERRL and EOMs intact bilaterally Neck supple, no JVD and no carotid bruits Resp normal respiratory effort, normal air movement and clear to auscultation bila terally Cardio regular rate and regular rhythm GI normal to inspection, nondistended, normoactive bowel sounds, non-tender and non-distended Extremity normal capillary refill Extremity Narrative: Left lower extremity in brace. General Extremity: Negative for edema Skin no rashes or lesions noted General Skin Exam: no breakdown Psych affect normal Appearance: appropriate Assessment & Plan Assessment/Plan (1) Debility: (2) Left patella fracture: (3) Osteoarthritis of left knee: (4) Hypertension: (5) Depression: (6) Atrial fibrillation: (7) Gastroesophageal reflux disease: (8) Iron deficiency anemia: (9) Muscle spasm: (10) Hyperlipidemia: (11) Overactive bladder: PLAN: 70 year old female with below past medical history significant for recent left total knee arthroplasty, suffered left periprosthetic patella fracture, underwent repair with Dr. Ortiz, admitted to TCU with debility, here for rehabilitation, strengthening, prior to discharge home alone. * Debility - PT/OT. * Pain - Tylenol 1000MG Q6H PRN pain (1-5), Oxycodone 5MG Q4H PRN pain (6-10). * Bowel - Miralax 17GM daily, Senna/colace 2 tablets BID, Dulcolax 10MG daily PRN. * Adult immunization - Administer Prevnar 13, Pneumovax 23, COVID19 vaccine as appropriate. * DVT prophylaxis - Not necessary, on Eliquis. * Hypertension - Coreg 25MG BID, Lisinopril 40MG daily, HCTZ 25MG daily, Amlodipine 5MG daily. * Atrial fibrillation - Coreg 25MG BID, Flecainide 100MG BID, Eliquis 5MG BID. * Chronic cough - Tessalon Perles 100MG TID PRN. * Muscle spasm - Flexeril 10MG TID PRN. * Depression - Duloxetine 60MG daily, stable chronic intermission coordinator use, GDR not recommended. * Edema - Lasix 20MG daily PRN. * Hyperlipidemia - Lovastatin 40MG QHS. * Dizziness - Meclizine 25MG 4x/day PRN. * Nutrition - MVI daily. * Overactive bladder - Oxybutynin 5MG BID. * GERD - Pantoprazole 40MG daily. * Eye - Prednisolone 1GTT OU daily. * Vitamin B deficiency - Vitamin B complex daily.
[2020-11-25] MEDS: cycloBENZAPRine HCl 10 MG Tablet PO (22:00)
[2020-11-25] MEDS: Acetaminophen 500 MG Tablet 1000 MG PO (22:01)
[2020-11-26] MEDS: oxyCODONE 5 MG Tablet PO (04:07)
[2020-11-26 05:30] VITALS: BP 139/68; PULSE 77; RESP 16; TEMP 36.3; O2SAT 92
[2020-11-26] MEDS: Menthol/Lanolin/Calamine/Znox 113 GM Tube 1 APPLIC TOPICAL ×2 (05:33→18:15)
[2020-11-26] MEDS: Carvedilol 25 MG Tablet PO ×2 (05:33→18:13)
[2020-11-26] MEDS: APIXABAN 5 MG TABLET PO ×2 (05:34→18:12)
[2020-11-26] MEDS: Polyethylene Glycol 3350 17 GM PACKET PO (05:34)
[2020-11-26] MEDS: Pantoprazole Sodium 40 MG Tablet PO (05:34)
[2020-11-26] MEDS: hydroCHLOROthiazide 25 MG Tablet PO (05:34)
[2020-11-26] MEDS: DULoxetine Hcl 60 MG Capsule PO (05:34)
[2020-11-26] MEDS: amLODIPine 5 MG Tablet PO (05:34)
[2020-11-26] MEDS: Flecainide 100 MG Tablet PO ×2 (05:35→18:14)
[2020-11-26] MEDS: Senna/Docusate Sodium 1 Tablet 2 TABLET PO ×2 (05:35→18:14)
[2020-11-26] MEDS: Lisinopril 40 MG Tablet PO (05:35)
[2020-11-26] MEDS: prednisoLONE eye drops (5 mL) 1 DROP OPTH.BTL 1 DRP EACH EYE (05:36)
[2020-11-26] MEDS: Bisacodyl 5 MG Tablet 10 MG PO (05:43)
[2020-11-26 05:45] LABS: Absolute Lymphocyte Count 1.08 X10^3/uL (0.83-4.51); Absolute Neutrophil Count 5.9 X10^3/uL (2.0-7.7); Basophil# 0.02 X10^3/uL; Basophil% 0.2 % (0-1); Eosinophil# 0.51 X10^3/uL; Eosinophils% 6.1 % (0-5); Hematocrit 34.3 % (37-47); Hemoglobin 10.2 g/dL (12.0-15.0); Lymphocyte # 1.08 X10^3/ul (0.83-4.51); Mean Corp Hgb Conc 29.7 g/dL (32-36); Mean Corpuscular Hgb 26.6 pg (27.0-32.0); Mean Corpuscular Volume 89.6 fL (81-99); Mean Platelet Vol. 9.3 fl (6.2-12.0); Monocyte# 0.77 X10^3/uL; Monocyte% 9.3 % (0-10); NRBC Flagged by Analyzer 0 % (0-5); Neutrophil % 71.2 % (47-70); Platelet Count 443 K/mm3 (150-450); RBC Distribution Width CV 17.9 % (11.6-14.6); RBC Distribution Width SD 58.2 fl (35.1-43.9); Red Blood Count 3.83 M/mm3 (4.2-5.4); White Blood Count 8.3 K/mm3 (4.4-11.0)
[2020-11-26 05:57] LABS: Anion Gap 6 (5-15); BUN 11 mg/dL (7-18); BUN/Creat Ratio 23.8 RATIO (10-20); Chloride 97 mmol/L (98-107); Creatinine, Serum 0.46 mg/dL (0.55-1.02); EST Glomerular Filtration Rate 142 mL/min (>60); Est Glom Filt Rate - Afr Amer 172 mL/min (>60); Estimated Creatinine Clearance 57.42 ml/min; Glucose 125 mg/dL (74-106); Potassium 3.4 mmol/L (3.5-5.1); Sodium Level 140 mmol/L (136-145)
[2020-11-26] MEDS: Potassium Chloride Oral Tablet 20 MEQ PO (08:15)
[2020-11-26] MEDS: Multivitamins,Therapeutic Tablet 1 TABLET PO (08:15)
[2020-11-26] MEDS: Oxybutynin 5 MG Tablet PO ×2 (08:15→18:12)
[2020-11-26] MEDS: Vitamin B Comp W-C Capsule 1 CAP PO (08:15)
--- NOTE | 2020-11-26 08:57 | CASEMGMT ---
Social Work SW met w/pt in room, reintroduced role of SW in TCU to pt. MOLST form is on file already from prior stay in TCU. SW did review the Medicare SNF benefit w/pt, explained that she is on day 18 out of 20 for the full coverage under Medicare, and that starting day 21 pt will have a copay that may or may not be covered by her secondary insurance. Pt asked SW to call secondary to check on coverage. SW called [facility], as per their automated system, pt's coinsurance for nursing home facility is covered for days 21-100. SW reviewed this information w/pt. SW did remind pt that the length of stay in TCU is often about 30 days, and that if she is going to need more than 30 days in TCU, she may need to consider going to a nursing home facility in the community after her stay in TCU. Pt states understanding, does hope to go home from here. SW reminded pt that she will have care plan meetings and the staff will be reviewing her progress and anticipated discharge plan. RODOLFO Benton
[2020-11-26] MEDS: Acetaminophen 500 MG Tablet 1000 MG PO ×2 (12:21→21:01)
[2020-11-26 14:19] VITALS: BP 113/68; PULSE 82; RESP 22; TEMP 35.9; O2SAT 93
[2020-11-26] MEDS: Magnesium Citrate 300 ML PO (18:37)
[2020-11-26 21:00] VITALS: PULSE 83; RESP 16; O2SAT 95
--- NOTE | 2020-11-26 22:45 | NURSING ---
Patient called out around 8p complaining of terrible rectal pain, having pressure and urge to go but unable to have BM. Spoke with Dr. Holbrook, notified of need for disimpaction and got order for soap suds enema. Unable to insert enema tubing due to impaction, partially disimpacted then enema given. Good results with large amount of formed stool out. Pain resolved. Patient has had multiple large loose BMs since.
[2020-11-27] MEDS: Acetaminophen 500 MG Tablet 1000 MG PO ×2 (03:18→13:06)
[2020-11-27 05:53] LABS: Anion Gap 6 (5-15); BUN 14 mg/dL (7-18); BUN/Creat Ratio 27.8 RATIO (10-20); Calcium,Total 9.1 mg/dL (8.5-10.1); Chloride 95 mmol/L (98-107); EST Glomerular Filtration Rate 129 mL/min (>60); Est Glom Filt Rate - Afr Amer 156 mL/min (>60); Estimated Creatinine Clearance 57.42 ml/min; Glucose 123 mg/dL (74-106); Sodium Level 139 mmol/L (136-145)
[2020-11-27] MEDS: Menthol/Lanolin/Calamine/Znox 113 GM Tube 1 APPLIC TOPICAL ×2 (06:11→17:00)
[2020-11-27] MEDS: Carvedilol 25 MG Tablet PO ×2 (06:11→17:01)
[2020-11-27] MEDS: DULoxetine Hcl 60 MG Capsule PO (06:11)
[2020-11-27] MEDS: Pantoprazole Sodium 40 MG Tablet PO (06:12)
[2020-11-27] MEDS: hydroCHLOROthiazide 25 MG Tablet PO (06:12)
[2020-11-27] MEDS: amLODIPine 5 MG Tablet PO (06:12)
[2020-11-27] MEDS: Flecainide 100 MG Tablet PO ×2 (06:12→17:02)
[2020-11-27] MEDS: Lisinopril 40 MG Tablet PO (06:12)
[2020-11-27] MEDS: APIXABAN 5 MG TABLET PO ×2 (06:12→17:01)
[2020-11-27] MEDS: prednisoLONE eye drops (5 mL) 1 DROP OPTH.BTL 1 DRP EACH EYE (06:13)
[2020-11-27 06:14] VITALS: BP 136/69; PULSE 83; RESP 18; TEMP 36.3; O2SAT 92
[2020-11-27] MEDS: Vitamin B Comp W-C Capsule 1 CAP PO (08:31)
[2020-11-27] MEDS: Oxybutynin 5 MG Tablet PO ×2 (08:31→17:00)
[2020-11-27] MEDS: Potassium Chloride Oral Tablet 20 MEQ 40 MEQ PO (08:32)
[2020-11-27] MEDS: Multivitamins,Therapeutic Tablet 1 TABLET PO (08:36)
[2020-11-27] MEDS: oxyCODONE 5 MG Tablet PO ×3 (08:38→21:54)
[2020-11-27 13:50] VITALS: BP 123/56; PULSE 75; RESP 18; TEMP 35.9; O2SAT 94
[2020-11-27] MEDS: Potassium Chloride Oral Tablet 20 MEQ PO (17:00)
[2020-11-27] MEDS: Senna/Docusate Sodium 1 Tablet 2 TABLET PO (17:01)
[2020-11-28 05:00] VITALS: BP 120/64; PULSE 78; RESP 14; TEMP 36.3; O2SAT 90
[2020-11-28] MEDS: Carvedilol 25 MG Tablet PO ×2 (05:30→16:48)
[2020-11-28] MEDS: Senna/Docusate Sodium 1 Tablet 2 TABLET PO ×2 (05:31→16:47)
[2020-11-28] MEDS: Pantoprazole Sodium 40 MG Tablet PO (05:31)
[2020-11-28] MEDS: prednisoLONE eye drops (5 mL) 1 DROP OPTH.BTL 1 DRP EACH EYE (05:31)
[2020-11-28] MEDS: Lisinopril 40 MG Tablet PO (05:32)
[2020-11-28] MEDS: Menthol/Lanolin/Calamine/Znox 113 GM Tube 1 APPLIC TOPICAL ×2 (05:32→16:48)
[2020-11-28] MEDS: APIXABAN 5 MG TABLET PO ×2 (05:32→16:48)
[2020-11-28] MEDS: DULoxetine Hcl 60 MG Capsule PO (05:32)
[2020-11-28] MEDS: hydroCHLOROthiazide 25 MG Tablet PO (05:32)
[2020-11-28] MEDS: amLODIPine 5 MG Tablet PO (05:32)
[2020-11-28] MEDS: Flecainide 100 MG Tablet PO ×2 (05:33→16:47)
[2020-11-28 06:56] VITALS: O2SAT 94
[2020-11-28] MEDS: Vitamin B Comp W-C Capsule 1 CAP PO (08:31)
[2020-11-28] MEDS: Multivitamins,Therapeutic Tablet 1 TABLET PO (08:31)
[2020-11-28] MEDS: Oxybutynin 5 MG Tablet PO ×2 (08:31→16:48)
[2020-11-28] MEDS: Potassium Chloride Oral Tablet 20 MEQ PO ×2 (08:32→16:47)
--- NOTE | 2020-11-28 09:55 | PCM.PN.RX ---
Progress Note - Pharmacy Subjective: [] Objective: Allergies atorvastatin [From Lipitor] Adverse Reaction (Verified 08/02/20 15:24) Pain in joints nifedipine [From Procardia] Adverse Reaction (Verified 08/02/20 15:24) Pain in joints tramadol Adverse Reaction (Verified 08/02/20 15:24) Upset Stomach Current Medications Generic Name Dose Route Start Last Admin Trade Name Freq PRN Reason Stop Dose Admin Acetaminophen 1,000 mg 11/25/20 20:44 11/27/20 13:06 Acetaminophen 500 Mg Tablet PO 1,000 mg Q6H PRN Administration Pain Score 1-5 Amlodipine Besylate 5 mg 11/26/20 06:00 11/28/20 05:32 Amlodipine 5 Mg Tablet PO 5 mg DAILY KORTNEY Administration Apixaban 5 mg 11/25/20 18:00 11/28/20 05:32 Apixaban 5 Mg Tablet PO 5 mg BID KORTNEY Administration Benzonatate 100 mg 11/25/20 12:51 Benzonatate 100 Mg Capsule PO TID PRN PRN COUGH Bisacodyl 10 mg 11/25/20 20:43 11/26/20 05:43 Bisacodyl 5 Mg Tablet PO 10 mg DAILY PRN Administration Constipation Calamine/Phenol 1 applic 11/26/20 06:00 11/28/20 05:32 Menthol/Lanolin/Calamine/Znox 113 Gm Tube TOPICAL 1 appful BID KORTNEY Administration Protocol Carvedilol 25 mg 11/25/20 18:00 11/28/20 05:30 Carvedilol 25 Mg Tablet PO 25 mg BID KORTNEY Administration Cyclobenzaprine HCl 10 mg 11/25/20 12:51 11/25/20 22:00 Cyclobenzaprine Hcl 10 Mg Tablet PO 10 mg TID PRN PRN Administration Muscle Spasm Duloxetine HCl 60 mg 11/26/20 06:00 11/28/20 05:32 Duloxetine Hcl 60 Mg Capsule PO 60 mg DAILY KORTNEY Administration Flecainide Acetate 100 mg 11/25/20 18:00 11/28/20 05:33 Flecainide 100 Mg Tablet PO 100 mg BID KORTNEY Administration Furosemide 20 mg 11/25/20 12:51 Furosemide 20 Mg Tablet PO DAILY PRN PRN Swelling Hydrochlorothiazide 25 mg 11/26/20 06:00 11/28/20 05:32 Hydrochlorothiazide 25 Mg Tablet PO 25 mg DAILY KORTNEY Administration Lisinopril 40 mg 11/26/20 06:00 11/28/20 05:32 Lisinopril 40 Mg Tablet PO 40 mg DAILY KORTNEY Administration Lovastatin 40 mg 11/25/20 22:00 11/27/20 21:51 Lovastatin 40 Mg Tablet PO 40 mg QHS KORTNEY Administration Meclizine HCl 25 mg 11/25/20 12:51 Meclizine Hcl 25 Mg Tablet PO 4X/DAY PRN PRN Dizziness Multivitamins 1 capsule 11/26/20 08:00 11/28/20 08:31 Vitamin B Comp W-C Capsule PO 1 capsule DAILYCM [facility] Administration Multivitamins 1 tablet 11/26/20 08:00 11/28/20 08:31 Multivitamins,Therapeutic Tablet PO 1 tablet DAILYCM [facility] Administration Oxybutynin Chloride 5 mg 11/25/20 17:00 11/28/20 08:31 Oxybutynin 5 Mg Tablet PO 5 mg BIDCM [facility] Administration Oxycodone HCl 5 mg 11/25/20 20:45 11/27/20 21:54 Oxycodone 5 Mg Tablet PO 5 mg Q4H PRN PRN Administration Pain Score 6-10 Pantoprazole Sodium 40 mg 11/26/20 06:00 11/28/20 05:31 Pantoprazole Sodium 40 Mg Tablet PO 40 mg DAILY [facility] Administration Polyethylene Glycol 17 gm 11/26/20 06:00 11/28/20 05:33 Polyethylene Glycol 3350 17 Gm Packet PO Not Given DAILY [facility] Potassium Chloride 20 meq 11/27/20 08:00 11/28/20 08:32 Potassium Chloride Oral Tablet 20 Meq PO 20 meq BIDCM [facility] Administration Prednisolone Acetate 1 drp 11/26/20 06:00 11/28/20 05:31 Prednisolone Eye Drops (5 Ml) 1 Drop Opth.Btl EACH EYE 1 applic DAILY [facility] Administration Senna/Docusate Sodium 2 tablet 11/26/20 06:00 11/28/20 05:31 Senna/Docusate Sodium 1 Tablet PO 2 tablet BID [facility] Administration Problem List (Last Reviewed 11/25/20 @ 20:[address] Elio Holbrook MD) Overactive bladder (Acute) Hyperlipidemia (Acute) Muscle spasm (Acute) Iron deficiency anemia (Acute) Gastroesophageal reflux disease (Acute) Atrial fibrillation (Acute) Depression (Acute) Hypertension (Chronic) Osteoarthritis of left knee (Acute) Left patella fracture (Acute) Debility (Acute) Vital Signs Temp Pulse Resp BP Pulse Ox 97.3 F L 78 14 120/64 94 11/28/20 05:00 11/28/20 05:00 11/28/20 05:00 11/28/20 05:00 11/28/20 06:56 Oxygen Flow Rate (L/min) 4 Oxygen Delivery Method Nasal Cannula Weight: 115.666 kg Body Mass Index (BMI) 36.6 Sodium 139 mmol/L (136-145) 11/27/20 05:10 Potassium 3.0 mmol/L (3.5-5.1) L 11/27/20 05:10 Chloride 95 mmol/L (98-107) L 11/27/20 05:10 Carbon Dioxide 38.0 mmol/L (21.0-32.0) H 11/27/20 05:10 Anion Gap 6 (5-15) 11/27/20 05:10 BUN 14 mg/dL (7-18) 11/27/20 05:10 Creatinine 0.50 mg/dL (0.55-1.02) L 11/27/20 05:10 Est GFR (MDRD) Af Amer 156 mL/min (>60) 11/27/20 05:10 Est GFR (MDRD) Non-Af 129 mL/min (>60) 11/27/20 05:10 BUN/Creatinine Ratio 27.8 RATIO (10-20) H 11/27/20 05:10 Glucose 123 mg/dL (74-106) H 11/27/20 05:10 Assessment/Plan: 1. Pain: Tylenol 1000mg PO Q6H PRN pain (1-5), oxycodone 5mg PO Q4H PRN pain (6-10). Please continue to monitor pain, PRN usage, and respiratory depression. 2. Hypertension/Atrial fibrillation: carvedilol 25mg PO BID, lisinopril 40mg PO daily, HCTZ 25mg PO daily, amlodipine 5mg PO daily, flecainide 100mg PO BID, Eliquis 5mg PO BID. Please continue to monitor HR (last 83), BP (last 136/69), potassium (last 3.0 mmol/L), S/S of bleeding, and S/S of afib. 3. Chronic cough: benzonatate 100mg PO TID PRN cough. Please continue to monitor cough and PRN usage. 4. Muscle spasm: cyclobenzaprine 10mg PO TID PRN muscle spasm. Please continue to monitor muscle spasms and PRN usage. 5. Edema: Lasix 20mg PO daily PRN swelling. Please continue to monitor swelling, potassium (last 3.0 mmol/L), and PRN usage. *6. Hyperlipidemia: lovastatin 40mg PO QHS. Please consider ordering lipid panel as clinically appropriate; last was done 10/20/2018. Thanks. 7. Dizziness: meclizine 25mg PO 4x/day PRN dizziness. Please continue to monitor dizziness and PRN usage. 8. Nutrition/Vitamin B deficiency: MVI daily, vitamin B complex daily. Please continue to monitor vitamin B levels. 9. Overactive bladder: oxybutynin 5mg PO BID. Please continue to monitor S/S of overactive bladder. 10. GERD: pantoprazole 40mg PO daily. Please continue to monitor S/S of GERD. 11. Eye: prednisolone acetate eye drops 1GTT OU daily. Please continue to monitor. Psychotropic Medications: 12. Depression: duloxetine 60mg PO daily, please see physician note regarding GDR. Please continue to monitor renal function and S/S of depression. Unnecessary Medications: None Bowel Regimen: Miralax 17GM PO daily, Senna/Colace 2 tablets PO BID, Dulcolax 10mg PO daily PRN constipation. Please continue to monitor constipation and PRN usage. Date of Note:: 11/28/20
[2020-11-28] MEDS: oxyCODONE 5 MG Tablet PO ×2 (12:06→21:19)
--- NOTE | 2020-11-28 15:01 | CASEMGMT ---
BIMS and PHQ9 interviews completed on this date for MDS assessment. KEVAN Vogt
[2020-11-28] MEDS: Acetaminophen 500 MG Tablet 1000 MG PO (15:11)
[2020-11-28 15:43] VITALS: BP 128/64; PULSE 80; RESP 20; TEMP 36.9; O2SAT 93
--- NOTE | 2020-11-28 18:16 | NURSING ---
Called Dr. Flores's office to confirm if sarahi should be removed earlier then her appt on 12/18. Splicing Machine Operator stated that she has an appt on 12/18 not 12/02 to have sarahi removed. Called and set up cot transport for 12:00.
[2020-11-29 00:54] VITALS: PULSE 80
[2020-11-29] MEDS: Menthol/Lanolin/Calamine/Znox 113 GM Tube 1 APPLIC TOPICAL ×2 (05:03→17:50)
[2020-11-29] MEDS: amLODIPine 5 MG Tablet PO (05:04)
[2020-11-29] MEDS: DULoxetine Hcl 60 MG Capsule PO (05:04)
[2020-11-29] MEDS: Carvedilol 25 MG Tablet PO ×2 (05:04→17:50)
[2020-11-29] MEDS: Pantoprazole Sodium 40 MG Tablet PO (05:04)
[2020-11-29] MEDS: hydroCHLOROthiazide 25 MG Tablet PO (05:04)
[2020-11-29] MEDS: APIXABAN 5 MG TABLET PO ×2 (05:04→17:50)
[2020-11-29] MEDS: Lisinopril 40 MG Tablet PO (05:05)
[2020-11-29] MEDS: prednisoLONE eye drops (5 mL) 1 DROP OPTH.BTL 1 DRP EACH EYE (05:05)
[2020-11-29] MEDS: Flecainide 100 MG Tablet PO ×2 (05:05→17:48)
[2020-11-29 06:16] VITALS: BP 135/85; PULSE 79; RESP 12; TEMP 36.7; O2SAT 94
[2020-11-29] MEDS: Oxybutynin 5 MG Tablet PO ×2 (08:44→17:48)
[2020-11-29] MEDS: Multivitamins,Therapeutic Tablet 1 TABLET PO (08:44)
[2020-11-29] MEDS: Vitamin B Comp W-C Capsule 1 CAP PO (08:44)
[2020-11-29] MEDS: Potassium Chloride Oral Tablet 20 MEQ PO ×2 (08:44→17:48)
[2020-11-29] MEDS: oxyCODONE 5 MG Tablet PO ×3 (09:56→21:54)
[2020-11-29 09:57] LABS: Anion Gap 5 (5-15); BUN 22 mg/dL (7-18); BUN/Creat Ratio 35.9 RATIO (10-20); Chloride 99 mmol/L (98-107); Creatinine, Serum 0.61 mg/dL (0.55-1.02); EST Glomerular Filtration Rate 103 mL/min (>60); Est Glom Filt Rate - Afr Amer 124 mL/min (>60); Estimated Creatinine Clearance 57.42 ml/min; Glucose 147 mg/dL (74-106); Sodium Level 138 mmol/L (136-145)
[2020-11-29 12:44] VITALS: PULSE 80; RESP 18; O2SAT 92
[2020-11-29] MEDS: Acetaminophen 500 MG Tablet 1000 MG PO (14:36)
[2020-11-29 15:53] VITALS: BP 121/73; PULSE 80; RESP 18; TEMP 36.7; O2SAT 92
[2020-11-29] MEDS: Senna/Docusate Sodium 1 Tablet 2 TABLET PO (17:48)
[2020-11-30 05:54] VITALS: BP 126/79; PULSE 87; RESP 18; TEMP 36.4; O2SAT 92
[2020-11-30] MEDS: prednisoLONE eye drops (5 mL) 1 DROP OPTH.BTL 1 DRP EACH EYE (05:56)
[2020-11-30] MEDS: Senna/Docusate Sodium 1 Tablet 2 TABLET PO ×2 (05:57→17:31)
[2020-11-30] MEDS: Flecainide 100 MG Tablet PO ×2 (05:57→17:31)
[2020-11-30] MEDS: Lisinopril 40 MG Tablet PO (05:57)
[2020-11-30] MEDS: Pantoprazole Sodium 40 MG Tablet PO (05:57)
[2020-11-30] MEDS: Carvedilol 25 MG Tablet PO ×2 (05:58→17:31)
[2020-11-30] MEDS: DULoxetine Hcl 60 MG Capsule PO (05:58)
[2020-11-30] MEDS: amLODIPine 5 MG Tablet PO (05:58)
[2020-11-30] MEDS: APIXABAN 5 MG TABLET PO ×2 (05:58→17:31)
[2020-11-30] MEDS: hydroCHLOROthiazide 25 MG Tablet PO (05:58)
[2020-11-30] MEDS: Menthol/Lanolin/Calamine/Znox 113 GM Tube 1 APPLIC TOPICAL ×2 (05:59→17:32)
[2020-11-30] MEDS: oxyCODONE 5 MG Tablet PO ×3 (06:01→20:51)
[2020-11-30] MEDS: Acetaminophen 500 MG Tablet 1000 MG PO ×3 (06:01→20:51)
[2020-11-30 07:30] VITALS: O2SAT 93
[2020-11-30] MEDS: Oxybutynin 5 MG Tablet PO ×2 (08:25→17:31)
[2020-11-30] MEDS: Vitamin B Comp W-C Capsule 1 CAP PO (08:25)
[2020-11-30] MEDS: Potassium Chloride Oral Tablet 20 MEQ PO ×2 (08:25→17:32)
[2020-11-30] MEDS: Multivitamins,Therapeutic Tablet 1 TABLET PO (08:26)
[2020-11-30 16:04] VITALS: BP 111/63; PULSE 95; RESP 18; TEMP 36.8; O2SAT 93
[2020-12-01 05:21] VITALS: BP 141/76; PULSE 80; RESP 18; TEMP 36; O2SAT 95
[2020-12-01] MEDS: Menthol/Lanolin/Calamine/Znox 113 GM Tube 1 APPLIC TOPICAL ×2 (05:24→16:53)
[2020-12-01] MEDS: prednisoLONE eye drops (5 mL) 1 DROP OPTH.BTL 1 DRP EACH EYE (05:24)
[2020-12-01] MEDS: hydroCHLOROthiazide 25 MG Tablet PO (05:26)
[2020-12-01] MEDS: Lisinopril 40 MG Tablet PO (05:26)
[2020-12-01] MEDS: Flecainide 100 MG Tablet PO ×2 (05:26→16:51)
[2020-12-01] MEDS: amLODIPine 5 MG Tablet PO (05:26)
[2020-12-01] MEDS: Pantoprazole Sodium 40 MG Tablet PO (05:26)
[2020-12-01] MEDS: Senna/Docusate Sodium 1 Tablet 2 TABLET PO ×2 (05:26→16:51)
[2020-12-01] MEDS: DULoxetine Hcl 60 MG Capsule PO (05:27)
[2020-12-01] MEDS: APIXABAN 5 MG TABLET PO ×2 (05:27→16:51)
[2020-12-01] MEDS: Carvedilol 25 MG Tablet PO ×2 (05:27→16:50)
[2020-12-01] MEDS: Acetaminophen 500 MG Tablet 1000 MG PO ×3 (05:30→17:48)
[2020-12-01 06:55] VITALS: O2SAT 94
[2020-12-01] MEDS: Vitamin B Comp W-C Capsule 1 CAP PO (08:06)
[2020-12-01] MEDS: Multivitamins,Therapeutic Tablet 1 TABLET PO (08:06)
[2020-12-01] MEDS: Oxybutynin 5 MG Tablet PO ×2 (08:06→16:50)
[2020-12-01] MEDS: Potassium Chloride Oral Tablet 20 MEQ PO ×2 (08:06→16:50)
[2020-12-01] MEDS: oxyCODONE 5 MG Tablet PO ×3 (08:12→20:41)
[2020-12-01 15:41] VITALS: BP 134/77; PULSE 82; RESP 20; TEMP 36.8; O2SAT 92
--- NOTE | 2020-12-01 21:00 | NURSING ---
Pt verbalizes concerns w/ pain and bowel function for ortho appointment today. Plan to hold am doses of Miralax and Senna-S. Discussed medicating w/ Oxycodone and Tylenol between 11-1130 if possible to provide some pain relief w/ transport and while at appointment. Pt is agreeable. Thinks sarahi may be dc'ed tomorrow. Explained process of suture removal and pt verbalizes understanding.
[2020-12-02 05:46] VITALS: BP 114/66; PULSE 91; RESP 16; TEMP 36.4; O2SAT 94
[2020-12-02] MEDS: oxyCODONE 5 MG Tablet PO ×4 (05:48→21:13)
[2020-12-02] MEDS: Acetaminophen 500 MG Tablet 1000 MG PO ×2 (05:48→11:49)
[2020-12-02] MEDS: DULoxetine Hcl 60 MG Capsule PO (05:49)
[2020-12-02] MEDS: Carvedilol 25 MG Tablet PO ×2 (05:49→17:47)
[2020-12-02] MEDS: hydroCHLOROthiazide 25 MG Tablet PO (05:49)
[2020-12-02] MEDS: Pantoprazole Sodium 40 MG Tablet PO (05:49)
[2020-12-02] MEDS: Lisinopril 40 MG Tablet PO (05:50)
[2020-12-02] MEDS: amLODIPine 5 MG Tablet PO (05:50)
[2020-12-02] MEDS: Flecainide 100 MG Tablet PO ×2 (05:50→17:47)
[2020-12-02] MEDS: APIXABAN 5 MG TABLET PO ×2 (05:50→17:47)
[2020-12-02] MEDS: prednisoLONE eye drops (5 mL) 1 DROP OPTH.BTL 1 DRP EACH EYE (05:51)
[2020-12-02] MEDS: Menthol/Lanolin/Calamine/Znox 113 GM Tube 1 APPLIC TOPICAL ×2 (05:51→15:57)
[2020-12-02] MEDS: Multivitamins,Therapeutic Tablet 1 TABLET PO (08:31)
[2020-12-02] MEDS: Potassium Chloride Oral Tablet 20 MEQ PO ×2 (08:31→17:46)
[2020-12-02] MEDS: Vitamin B Comp W-C Capsule 1 CAP PO (08:31)
[2020-12-02] MEDS: Oxybutynin 5 MG Tablet PO ×2 (08:31→17:47)
[2020-12-02 09:04] VITALS: O2SAT 94
--- NOTE | 2020-12-02 12:05 | NURSING ---
Transportation here to take resident to appointment.
--- NOTE | 2020-12-02 15:50 | NURSING ---
Back from ortho appointment. States sarahi were removed at appointment today. Follow up appointment scheduled for / No new orders sent.
[2020-12-02] MEDS: Senna/Docusate Sodium 1 Tablet 2 TABLET PO (15:57)
[2020-12-02 16:00] VITALS: BP 121/72; PULSE 80; RESP 18; TEMP 36.6; O2SAT 96
[2020-12-03] MEDS: Menthol/Lanolin/Calamine/Znox 113 GM Tube 1 APPLIC TOPICAL ×2 (05:30→17:15)
[2020-12-03] MEDS: APIXABAN 5 MG TABLET PO ×2 (05:30→17:10)
[2020-12-03] MEDS: DULoxetine Hcl 60 MG Capsule PO (05:31)
[2020-12-03] MEDS: Pantoprazole Sodium 40 MG Tablet PO (05:31)
[2020-12-03] MEDS: prednisoLONE eye drops (5 mL) 1 DROP OPTH.BTL 1 DRP EACH EYE (05:31)
[2020-12-03] MEDS: Carvedilol 25 MG Tablet PO ×2 (05:32→17:10)
[2020-12-03] MEDS: Flecainide 100 MG Tablet PO ×2 (05:32→17:10)
[2020-12-03] MEDS: amLODIPine 5 MG Tablet PO (05:32)
[2020-12-03] MEDS: hydroCHLOROthiazide 25 MG Tablet PO (05:32)
[2020-12-03] MEDS: Lisinopril 40 MG Tablet PO (05:33)
[2020-12-03 05:43] LABS: Absolute Lymphocyte Count 1.71 X10^3/uL (0.83-4.51); Absolute Neutrophil Count 7.1 X10^3/uL (2.0-7.7); Basophil# 0.04 X10^3/uL; Basophil% 0.4 % (0-1); Eosinophils% 7.5 % (0-5); Hematocrit 36.7 % (37-47); Hemoglobin 10.9 g/dL (12.0-15.0); Lymphocyte # 1.71 X10^3/ul (0.83-4.51); Mean Corp Hgb Conc 29.7 g/dL (32-36); Mean Corpuscular Hgb 26.5 pg (27.0-32.0); Mean Corpuscular Volume 89.1 fL (81-99); Mean Platelet Vol. 9.1 fl (6.2-12.0); Monocyte# 0.93 X10^3/uL; Monocyte% 8.7 % (0-10); NRBC Flagged by Analyzer 0 % (0-5); Neutrophil # 7.14 X10^3/uL (2.7-7.7); Neutrophil % 66.9 % (47-70); Platelet Count 510 K/mm3 (150-450); RBC Distribution Width CV 17.7 % (11.6-14.6); RBC Distribution Width SD 57.4 fl (35.1-43.9); Red Blood Count 4.12 M/mm3 (4.2-5.4); White Blood Count 10.7 K/mm3 (4.4-11.0)
[2020-12-03] MEDS: oxyCODONE 5 MG Tablet PO ×3 (05:55→17:09)
[2020-12-03 06:04] LABS: Anion Gap 8 (5-15); BUN 23 mg/dL (7-18); BUN/Creat Ratio 43.3 RATIO (10-20); Chloride 98 mmol/L (98-107); Creatinine, Serum 0.53 mg/dL (0.55-1.02); EST Glomerular Filtration Rate 121 mL/min (>60); Est Glom Filt Rate - Afr Amer 147 mL/min (>60); Estimated Creatinine Clearance 57.42 ml/min; Glucose 118 mg/dL (74-106); Potassium 4.2 mmol/L (3.5-5.1); Sodium Level 137 mmol/L (136-145)
[2020-12-03 07:18] VITALS: BP 132/87; PULSE 92; TEMP 37
[2020-12-03 07:36] VITALS: O2SAT 94
[2020-12-03] MEDS: Vitamin B Comp W-C Capsule 1 CAP PO (08:21)
[2020-12-03] MEDS: Oxybutynin 5 MG Tablet PO ×2 (08:21→17:12)
[2020-12-03] MEDS: Multivitamins,Therapeutic Tablet 1 TABLET PO (08:21)
[2020-12-03] MEDS: Potassium Chloride Oral Tablet 20 MEQ PO ×2 (08:21→17:11)
[2020-12-03] MEDS: Acetaminophen 500 MG Tablet 1000 MG PO ×2 (08:28→20:12)
--- NOTE | 2020-12-03 10:49 | CASEMGMT ---
Social Work IDT met with patient and friend via conference call for care plan meeting. Discussed patient's progress in therapy and nursing. Pt remains NWBS with brace on left leg and is a arnold lift for tx. Pt is out of isolation 12/09 and remains on 4LPM of O2. Explained Medicare benefit and pt readmitted on Day 18. Discussed pt may be NWB longer than what Medicare can cover as pt may not continue to make progress r/t restrictions. Pt expressed understanding. Discussed completing Medicaid application and transferring to SNF nonskilled until restrictions are lifted then return to skilled care and DC home. Pt agreeable and understanding to plan. Provided [facility] application and SNF list. SW to continue to follow. Marisela Hill, CONSULTING SYSTEMS ENGINEER CHEF HEAD
[2020-12-03 14:18] VITALS: BP 128/70; PULSE 90; RESP 16; TEMP 36.1; O2SAT 94
--- NOTE | 2020-12-03 14:58 | CHAPLAIN ---
Type of Pastoral Visit _x__ Initial Visit ___ Follow-up Visit ___ On-call Visit ___ General Patient Visit ___ Spiritual Assessment ___ Family Conference ___ Bereavement ___ Rapid Response ___ Code Blue ___ Other (describe below) Pastoral Care Referral From _x__ Patient ___ Family ___ Nurse ___ Physician ___ Gas Combustion Engineer ___ Preflight Mechanic ___ Other (describe below) Sacrament/Intervention _x__ Active listening ___ Anointing ___ Sabianism ___ Bereavement ___ Communion ___ Elaina exploration ___ ___ Life review _x__ Prayer ___ Reconciliation ___ Sacrament of Sick _x__ Supportive presence ___ Wedding ___ Other (describe below) Pastoral Comments
[2020-12-03] MEDS: Senna/Docusate Sodium 1 Tablet 2 TABLET PO (17:10)
[2020-12-04 05:23] VITALS: BP 120/75; PULSE 93; RESP 18; TEMP 36.2; O2SAT 94
[2020-12-04] MEDS: Acetaminophen 500 MG Tablet 1000 MG PO ×2 (05:25→19:54)
[2020-12-04] MEDS: oxyCODONE 5 MG Tablet PO ×3 (05:25→19:51)
[2020-12-04] MEDS: APIXABAN 5 MG TABLET PO ×2 (05:26→17:27)
[2020-12-04] MEDS: prednisoLONE eye drops (5 mL) 1 DROP OPTH.BTL 1 DRP EACH EYE (05:26)
[2020-12-04] MEDS: Senna/Docusate Sodium 1 Tablet 2 TABLET PO ×2 (05:26→17:27)
[2020-12-04] MEDS: Pantoprazole Sodium 40 MG Tablet PO (05:26)
[2020-12-04] MEDS: Carvedilol 25 MG Tablet PO ×2 (05:26→17:28)
[2020-12-04] MEDS: Menthol/Lanolin/Calamine/Znox 113 GM Tube 1 APPLIC TOPICAL ×2 (05:26→17:29)
[2020-12-04] MEDS: Lisinopril 40 MG Tablet PO (05:26)
[2020-12-04] MEDS: Nystatin Powder 15gm Bottle 1 APPLIC TOPICAL ×2 (05:27→17:29)
[2020-12-04] MEDS: DULoxetine Hcl 60 MG Capsule PO (05:28)
[2020-12-04] MEDS: Flecainide 100 MG Tablet PO ×2 (05:28→17:27)
[2020-12-04] MEDS: amLODIPine 5 MG Tablet PO (05:29)
[2020-12-04] MEDS: hydroCHLOROthiazide 25 MG Tablet PO (05:30)
[2020-12-04 07:29] VITALS: O2SAT 98
[2020-12-04] MEDS: Multivitamins,Therapeutic Tablet 1 TABLET PO (08:18)
[2020-12-04] MEDS: Potassium Chloride Oral Tablet 20 MEQ PO ×2 (08:18→17:28)
[2020-12-04] MEDS: Vitamin B Comp W-C Capsule 1 CAP PO (08:18)
[2020-12-04] MEDS: Oxybutynin 5 MG Tablet PO ×2 (08:18→17:28)
[2020-12-04 13:22] VITALS: BP 108/61; PULSE 83; RESP 18; TEMP 36.1; O2SAT 93
--- NOTE | 2020-12-04 16:10 | NURSING ---
had second Pfizer vaccine
[2020-12-05] MEDS: oxyCODONE 5 MG Tablet PO ×2 (03:08→17:21)
[2020-12-05 04:35] VITALS: BP 136/66; PULSE 89; RESP 12; TEMP 36.6
[2020-12-05] MEDS: Pantoprazole Sodium 40 MG Tablet PO (05:30)
[2020-12-05] MEDS: Flecainide 100 MG Tablet PO ×2 (05:30→17:22)
[2020-12-05] MEDS: APIXABAN 5 MG TABLET PO ×2 (05:30→17:21)
[2020-12-05] MEDS: DULoxetine Hcl 60 MG Capsule PO (05:30)
[2020-12-05] MEDS: hydroCHLOROthiazide 25 MG Tablet PO (05:30)
[2020-12-05] MEDS: Lisinopril 40 MG Tablet PO (05:30)
[2020-12-05] MEDS: Carvedilol 25 MG Tablet PO ×2 (05:30→17:21)
[2020-12-05] MEDS: amLODIPine 5 MG Tablet PO (05:31)
[2020-12-05] MEDS: prednisoLONE eye drops (5 mL) 1 DROP OPTH.BTL 1 DRP EACH EYE (05:32)
[2020-12-05] MEDS: Menthol/Lanolin/Calamine/Znox 113 GM Tube 1 APPLIC TOPICAL ×2 (05:32→17:22)
[2020-12-05] MEDS: Nystatin Powder 15gm Bottle 1 APPLIC TOPICAL ×2 (05:33→17:22)
[2020-12-05] MEDS: Multivitamins,Therapeutic Tablet 1 TABLET PO (08:13)
[2020-12-05] MEDS: Oxybutynin 5 MG Tablet PO ×2 (08:13→17:25)
[2020-12-05] MEDS: Vitamin B Comp W-C Capsule 1 CAP PO (08:14)
[2020-12-05] MEDS: Potassium Chloride Oral Tablet 20 MEQ PO ×2 (08:14→17:22)
[2020-12-05] MEDS: Acetaminophen 500 MG Tablet 1000 MG PO ×2 (08:16→21:08)
[2020-12-05 10:00] VITALS: PULSE 92; RESP 18
[2020-12-05 11:28] VITALS: O2SAT 95
--- NOTE | 2020-12-05 12:40 | CASEMGMT ---
Social Work Met with patient in room. Assisted in completing Medicaid application as patient is visually impaired and does not family family/friend support to assist. Medicaid application faxed to local [facility] ([facility]). Bradley LEE, HARMAN
[2020-12-05 14:39] VITALS: BP 111/79; PULSE 88; RESP 17; TEMP 36.2; O2SAT 94
[2020-12-05] MEDS: Senna/Docusate Sodium 1 Tablet 2 TABLET PO (17:22)
[2020-12-06 05:00] VITALS: BP 120/65; PULSE 88; RESP 18; TEMP 35.9; O2SAT 94
[2020-12-06] MEDS: Acetaminophen 500 MG Tablet 1000 MG PO ×2 (05:42→15:12)
[2020-12-06] MEDS: Carvedilol 25 MG Tablet PO ×2 (05:42→17:03)
[2020-12-06] MEDS: Lisinopril 40 MG Tablet PO (05:43)
[2020-12-06] MEDS: DULoxetine Hcl 60 MG Capsule PO (05:43)
[2020-12-06] MEDS: hydroCHLOROthiazide 25 MG Tablet PO (05:43)
[2020-12-06] MEDS: APIXABAN 5 MG TABLET PO ×2 (05:43→17:03)
[2020-12-06] MEDS: Flecainide 100 MG Tablet PO ×2 (05:43→17:03)
[2020-12-06] MEDS: Menthol/Lanolin/Calamine/Znox 113 GM Tube 1 APPLIC TOPICAL ×2 (05:43→17:03)
[2020-12-06] MEDS: amLODIPine 5 MG Tablet PO (05:43)
[2020-12-06] MEDS: Pantoprazole Sodium 40 MG Tablet PO (05:43)
[2020-12-06] MEDS: prednisoLONE eye drops (5 mL) 1 DROP OPTH.BTL 1 DRP EACH EYE (05:44)
[2020-12-06] MEDS: Nystatin Powder 15gm Bottle 1 APPLIC TOPICAL ×2 (05:44→17:03)
[2020-12-06 07:58] VITALS: O2SAT 95
[2020-12-06] MEDS: Oxybutynin 5 MG Tablet PO ×2 (08:31→17:03)
[2020-12-06] MEDS: Multivitamins,Therapeutic Tablet 1 TABLET PO (08:31)
[2020-12-06] MEDS: Potassium Chloride Oral Tablet 20 MEQ PO ×2 (08:32→17:03)
[2020-12-06] MEDS: Vitamin B Comp W-C Capsule 1 CAP PO (08:32)
[2020-12-06] MEDS: oxyCODONE 5 MG Tablet PO ×2 (12:14→19:56)
[2020-12-06 14:10] VITALS: BP 112/57; PULSE 92; RESP 19; TEMP 36.3; O2SAT 94
[2020-12-06 22:00] VITALS: PULSE 92; RESP 18
[2020-12-07 05:00] VITALS: BP 127/67; PULSE 87; RESP 15; TEMP 36.7; O2SAT 94
[2020-12-07] MEDS: hydroCHLOROthiazide 25 MG Tablet PO (05:27)
[2020-12-07] MEDS: Carvedilol 25 MG Tablet PO ×2 (05:27→16:37)
[2020-12-07] MEDS: Pantoprazole Sodium 40 MG Tablet PO (05:27)
[2020-12-07] MEDS: amLODIPine 5 MG Tablet PO (05:27)
[2020-12-07] MEDS: Flecainide 100 MG Tablet PO ×2 (05:27→16:38)
[2020-12-07] MEDS: Senna/Docusate Sodium 1 Tablet 2 TABLET PO ×2 (05:27→16:38)
[2020-12-07] MEDS: DULoxetine Hcl 60 MG Capsule PO (05:27)
[2020-12-07] MEDS: Lisinopril 40 MG Tablet PO (05:27)
[2020-12-07] MEDS: Menthol/Lanolin/Calamine/Znox 113 GM Tube 1 APPLIC TOPICAL ×2 (05:28→16:40)
[2020-12-07] MEDS: Nystatin Powder 15gm Bottle 1 APPLIC TOPICAL ×2 (05:28→16:41)
[2020-12-07] MEDS: APIXABAN 5 MG TABLET PO ×2 (05:28→16:38)
[2020-12-07] MEDS: prednisoLONE eye drops (5 mL) 1 DROP OPTH.BTL 1 DRP EACH EYE (05:29)
[2020-12-07 07:44] VITALS: O2SAT 93
[2020-12-07] MEDS: Oxybutynin 5 MG Tablet PO ×2 (08:07→16:37)
[2020-12-07] MEDS: Potassium Chloride Oral Tablet 20 MEQ PO ×2 (08:08→16:37)
[2020-12-07] MEDS: Multivitamins,Therapeutic Tablet 1 TABLET PO (08:08)
[2020-12-07] MEDS: Vitamin B Comp W-C Capsule 1 CAP PO (08:09)
[2020-12-07] MEDS: oxyCODONE 5 MG Tablet PO ×2 (08:14→15:31)
[2020-12-07] MEDS: Acetaminophen 500 MG Tablet 1000 MG PO (15:30)
[2020-12-07 15:59] VITALS: BP 105/47; PULSE 88; RESP 16; TEMP 36.7; O2SAT 93
[2020-12-07 20:15] VITALS: PULSE 96; RESP 18; O2SAT 93
[2020-12-08 05:00] VITALS: BP 115/73; PULSE 101; RESP 20; TEMP 36.4; O2SAT 94
[2020-12-08] MEDS: DULoxetine Hcl 60 MG Capsule PO (05:57)
[2020-12-08] MEDS: hydroCHLOROthiazide 25 MG Tablet PO (05:57)
[2020-12-08] MEDS: Flecainide 100 MG Tablet PO ×2 (05:57→17:16)
[2020-12-08] MEDS: APIXABAN 5 MG TABLET PO ×2 (05:57→17:15)
[2020-12-08] MEDS: Lisinopril 40 MG Tablet PO (05:58)
[2020-12-08] MEDS: Carvedilol 25 MG Tablet PO ×2 (05:58→17:15)
[2020-12-08] MEDS: Menthol/Lanolin/Calamine/Znox 113 GM Tube 1 APPLIC TOPICAL ×2 (05:58→17:42)
[2020-12-08] MEDS: Senna/Docusate Sodium 1 Tablet 2 TABLET PO ×2 (05:58→17:16)
[2020-12-08] MEDS: amLODIPine 5 MG Tablet PO (05:58)
[2020-12-08] MEDS: Pantoprazole Sodium 40 MG Tablet PO (05:58)
[2020-12-08] MEDS: prednisoLONE eye drops (5 mL) 1 DROP OPTH.BTL 1 DRP EACH EYE (05:59)
[2020-12-08] MEDS: Nystatin Powder 15gm Bottle 1 APPLIC TOPICAL ×2 (05:59→21:08)
[2020-12-08 07:00] VITALS: O2SAT 94
[2020-12-08] MEDS: Oxybutynin 5 MG Tablet PO ×2 (08:22→17:15)
[2020-12-08] MEDS: Vitamin B Comp W-C Capsule 1 CAP PO (08:22)
[2020-12-08] MEDS: Multivitamins,Therapeutic Tablet 1 TABLET PO (08:22)
[2020-12-08] MEDS: Potassium Chloride Oral Tablet 20 MEQ PO ×2 (08:22→17:15)
[2020-12-08] MEDS: Acetaminophen 500 MG Tablet 1000 MG PO ×2 (08:24→21:07)
--- NOTE | 2020-12-08 09:08 | MDS.RN ---
Information for the mds was obtained from review of the clinical record, interview of resident, staff, and direct observation of resident's care.
[2020-12-08 13:48] VITALS: RESP 18; O2SAT 92
[2020-12-08 15:22] VITALS: BP 118/63; PULSE 92; RESP 16; TEMP 36.3; O2SAT 93
[2020-12-08] MEDS: oxyCODONE 5 MG Tablet PO (17:18)
[2020-12-09] MEDS: oxyCODONE 5 MG Tablet PO ×4 (00:49→21:33)
[2020-12-09] MEDS: cycloBENZAPRine HCl 10 MG Tablet PO (00:52)
[2020-12-09 05:42] VITALS: BP 111/68; PULSE 94; RESP 16; TEMP 36.3; O2SAT 93
[2020-12-09] MEDS: hydroCHLOROthiazide 25 MG Tablet PO (05:43)
[2020-12-09] MEDS: Carvedilol 25 MG Tablet PO ×2 (05:43→17:21)
[2020-12-09] MEDS: Flecainide 100 MG Tablet PO ×2 (05:43→17:21)
[2020-12-09] MEDS: Lisinopril 40 MG Tablet PO (05:44)
[2020-12-09] MEDS: Pantoprazole Sodium 40 MG Tablet PO (05:44)
[2020-12-09] MEDS: DULoxetine Hcl 60 MG Capsule PO (05:44)
[2020-12-09] MEDS: amLODIPine 5 MG Tablet PO (05:44)
[2020-12-09] MEDS: APIXABAN 5 MG TABLET PO ×2 (05:44→17:22)
[2020-12-09] MEDS: prednisoLONE eye drops (5 mL) 1 DROP OPTH.BTL 1 DRP EACH EYE (05:45)
[2020-12-09] MEDS: Senna/Docusate Sodium 1 Tablet 2 TABLET PO ×2 (05:45→17:22)
[2020-12-09] MEDS: Nystatin Powder 15gm Bottle 1 APPLIC TOPICAL ×2 (05:45→21:35)
[2020-12-09] MEDS: Menthol/Lanolin/Calamine/Znox 113 GM Tube 1 APPLIC TOPICAL ×2 (05:45→17:22)
[2020-12-09 07:10] VITALS: O2SAT 94
[2020-12-09] MEDS: Vitamin B Comp W-C Capsule 1 CAP PO (07:54)
[2020-12-09] MEDS: Multivitamins,Therapeutic Tablet 1 TABLET PO (07:54)
[2020-12-09] MEDS: Potassium Chloride Oral Tablet 20 MEQ PO ×2 (07:54→17:22)
[2020-12-09] MEDS: Oxybutynin 5 MG Tablet PO ×2 (07:54→17:22)
--- NOTE | 2020-12-09 12:12 | CASEMGMT ---
Addendum entered by Marisela Hill 12/10/20 09:03: [facility] cannot accept pt. [facility] is reviewing. Received Medicaid SHELLY Pringle, and pending #[id number]. CM will send intake paperwork to pt to complete. Original Note: Social Work Followed up with pt on SNF choices. Pt requesting referrals to [facility] and [facility]. Referrals made. Followed up with JFS to get Medicaid pending number. Will continue to follow JESUS Hanna
[2020-12-09] MEDS: Acetaminophen 500 MG Tablet 1000 MG PO ×2 (12:49→21:33)
[2020-12-09 13:46] VITALS: BP 102/60; PULSE 94; RESP 18; TEMP 36.3; O2SAT 3
[2020-12-10 04:47] VITALS: BP 108/48; PULSE 82; RESP 18; TEMP 36.5; O2SAT 93
[2020-12-10] MEDS: oxyCODONE 5 MG Tablet PO ×3 (04:49→21:17)
[2020-12-10] MEDS: Acetaminophen 500 MG Tablet 1000 MG PO ×3 (04:49→21:17)
[2020-12-10] MEDS: prednisoLONE eye drops (5 mL) 1 DROP OPTH.BTL 1 DRP EACH EYE (04:49)
[2020-12-10] MEDS: Flecainide 100 MG Tablet PO ×2 (04:50→16:28)
[2020-12-10] MEDS: Senna/Docusate Sodium 1 Tablet 2 TABLET PO ×2 (04:50→16:29)
[2020-12-10] MEDS: hydroCHLOROthiazide 25 MG Tablet PO (04:50)
[2020-12-10] MEDS: Pantoprazole Sodium 40 MG Tablet PO (04:50)
[2020-12-10] MEDS: Lisinopril 40 MG Tablet PO (04:50)
[2020-12-10] MEDS: DULoxetine Hcl 60 MG Capsule PO (04:50)
[2020-12-10] MEDS: APIXABAN 5 MG TABLET PO ×2 (04:50→16:28)
[2020-12-10] MEDS: Carvedilol 25 MG Tablet PO ×2 (04:50→16:29)
[2020-12-10] MEDS: amLODIPine 5 MG Tablet PO (04:50)
[2020-12-10] MEDS: Nystatin Powder 15gm Bottle 1 APPLIC TOPICAL ×2 (04:51→21:18)
[2020-12-10] MEDS: Menthol/Lanolin/Calamine/Znox 113 GM Tube 1 APPLIC TOPICAL ×2 (04:51→16:30)
[2020-12-10 05:49] LABS: Absolute Lymphocyte Count 2.14 X10^3/uL (0.83-4.51); Absolute Neutrophil Count 7.1 X10^3/uL (2.0-7.7); Basophil# 0.05 X10^3/uL; Basophil% 0.5 % (0-1); Eosinophil# 0.71 X10^3/uL; Eosinophils% 6.4 % (0-5); Hematocrit 36.1 % (37-47); Hemoglobin 10.7 g/dL (12.0-15.0); Lymphocyte # 2.14 X10^3/ul (0.83-4.51); Lymphocyte % 19.3 % (19-41); Mean Corp Hgb Conc 29.6 g/dL (32-36); Mean Corpuscular Hgb 26.5 pg (27.0-32.0); Mean Corpuscular Volume 89.4 fL (81-99); Mean Platelet Vol. 9.6 fl (6.2-12.0); Monocyte# 1.04 X10^3/uL; Monocyte% 9.4 % (0-10); NRBC Flagged by Analyzer 0 % (0-5); Neutrophil # 7.05 X10^3/uL (2.7-7.7); Neutrophil % 63.8 % (47-70); Platelet Count 407 K/mm3 (150-450); RBC Distribution Width CV 17.6 % (11.6-14.6); RBC Distribution Width SD 57.9 fl (35.1-43.9); Red Blood Count 4.04 M/mm3 (4.2-5.4); White Blood Count 11.1 K/mm3 (4.4-11.0)
[2020-12-10 06:15] LABS: Anion Gap 7 (5-15); BUN 50 mg/dL (7-18); BUN/Creat Ratio 42.7 RATIO (10-20); Calcium,Total 9.1 mg/dL (8.5-10.1); Chloride 101 mmol/L (98-107); Creatinine, Serum 1.17 mg/dL (0.55-1.02); EST Glomerular Filtration Rate 49 mL/min (>60); Est Glom Filt Rate - Afr Amer 59 mL/min (>60); Estimated Creatinine Clearance 49.07 ml/min; Glucose 132 mg/dL (74-106); Potassium 4.4 mmol/L (3.5-5.1); Sodium Level 134 mmol/L (136-145)
[2020-12-10 07:24] VITALS: O2SAT 96
[2020-12-10] MEDS: Multivitamins,Therapeutic Tablet 1 TABLET PO (08:05)
[2020-12-10] MEDS: Oxybutynin 5 MG Tablet PO ×2 (08:05→16:30)
[2020-12-10] MEDS: Vitamin B Comp W-C Capsule 1 CAP PO (08:05)
[2020-12-10] MEDS: Potassium Chloride Oral Tablet 20 MEQ PO ×2 (08:05→16:29)
[2020-12-10 13:31] VITALS: BP 107/64; PULSE 8; RESP 18; TEMP 36.4; O2SAT 94
--- NOTE | 2020-12-10 23:37 | PCA ---
Pt declines to wash up for the evening, stating she prefers to wash up in the morning. em
[2020-12-11 05:42] VITALS: BP 102/63; PULSE 93; RESP 16; TEMP 36.3; O2SAT 94
[2020-12-11] MEDS: prednisoLONE eye drops (5 mL) 1 DROP OPTH.BTL 1 DRP EACH EYE (05:44)
[2020-12-11] MEDS: Pantoprazole Sodium 40 MG Tablet PO (05:46)
[2020-12-11] MEDS: amLODIPine 5 MG Tablet PO (05:46)
[2020-12-11] MEDS: Senna/Docusate Sodium 1 Tablet 2 TABLET PO ×2 (05:46→17:01)
[2020-12-11] MEDS: Lisinopril 40 MG Tablet PO (05:46)
[2020-12-11] MEDS: hydroCHLOROthiazide 25 MG Tablet PO (05:46)
[2020-12-11] MEDS: Flecainide 100 MG Tablet PO ×2 (05:46→17:03)
[2020-12-11] MEDS: APIXABAN 5 MG TABLET PO ×2 (05:46→17:02)
[2020-12-11] MEDS: DULoxetine Hcl 60 MG Capsule PO (05:46)
[2020-12-11] MEDS: Carvedilol 25 MG Tablet PO ×2 (05:46→17:02)
[2020-12-11] MEDS: oxyCODONE 5 MG Tablet PO ×3 (05:47→22:54)
[2020-12-11] MEDS: Acetaminophen 500 MG Tablet 1000 MG PO ×2 (05:47→17:01)
[2020-12-11] MEDS: Menthol/Lanolin/Calamine/Znox 113 GM Tube 1 APPLIC TOPICAL ×2 (05:49→18:12)
[2020-12-11] MEDS: Nystatin Powder 15gm Bottle 1 APPLIC TOPICAL ×2 (05:50→22:51)
[2020-12-11 07:40] VITALS: O2SAT 96
[2020-12-11] MEDS: Potassium Chloride Oral Tablet 20 MEQ PO ×2 (08:12→17:02)
[2020-12-11] MEDS: Multivitamins,Therapeutic Tablet 1 TABLET PO (08:12)
[2020-12-11] MEDS: Oxybutynin 5 MG Tablet PO ×2 (08:12→17:02)
[2020-12-11] MEDS: Vitamin B Comp W-C Capsule 1 CAP PO (08:13)
--- NOTE | 2020-12-11 12:45 | CASEMGMT ---
Addendum entered by Marisela Hill 12/11/20 13:49: Received call from pt's brother with several questions about Medicare coverage and Medicaid process. Brother upset about pt having to spend down money and feeling pt continues to qualify for Medicare skilled time in TCU. Explained at length to brother the information for Medicare and Medicaid. Brother inquired about 24/01 care at home until WBS is changed. Explained that would be an option, but pt would need a arnold lift and a medical professional, typically 2 people, to operate lift, and insurance does not cover aides at home 24/01. Brother was receiving call from patient advocate and will return call to . Original Note: Social Work Followed up with pt to answer questions and review Medicaid process. Pt upset about having to spend down but realizes she cannot go home alone and needs a SNF. Provided emotional support and validated feelings. Explained [facility] denied and waiting on [facility]. Left message with admissions to f/u. Pt states her friend is coming to visit tomorrow and encouraged for them to complete Medicaid paperwork and contact [facility] with any questions or if an extension to deadline of provided information is needed. Pt expressed understanding. Will continue to follow. Marisela Hill, JESUS MATHUR
[2020-12-11 13:34] VITALS: BP 92/62; PULSE 93; RESP 18; TEMP 36.3; O2SAT 100
[2020-12-12] MEDS: Menthol/Lanolin/Calamine/Znox 113 GM Tube 1 APPLIC TOPICAL ×2 (05:55→16:39)
[2020-12-12] MEDS: DULoxetine Hcl 60 MG Capsule PO (05:56)
[2020-12-12] MEDS: APIXABAN 5 MG TABLET PO ×2 (05:56→16:38)
[2020-12-12] MEDS: hydroCHLOROthiazide 25 MG Tablet PO (05:56)
[2020-12-12] MEDS: Carvedilol 25 MG Tablet PO ×2 (05:56→16:37)
[2020-12-12] MEDS: Nystatin Powder 15gm Bottle 1 APPLIC TOPICAL ×2 (05:57→21:49)
[2020-12-12] MEDS: prednisoLONE eye drops (5 mL) 1 DROP OPTH.BTL 1 DRP EACH EYE (05:57)
[2020-12-12] MEDS: amLODIPine 5 MG Tablet PO (05:57)
[2020-12-12] MEDS: Pantoprazole Sodium 40 MG Tablet PO (05:58)
[2020-12-12] MEDS: Senna/Docusate Sodium 1 Tablet 2 TABLET PO ×2 (05:59→16:37)
[2020-12-12] MEDS: Flecainide 100 MG Tablet PO ×2 (05:59→16:38)
[2020-12-12] MEDS: Lisinopril 40 MG Tablet PO (05:59)
[2020-12-12] MEDS: oxyCODONE 5 MG Tablet PO ×4 (05:59→21:47)
[2020-12-12 07:06] VITALS: O2SAT 94
[2020-12-12 07:07] VITALS: BP 120/71; PULSE 87; RESP 12; TEMP 36.6
[2020-12-12] MEDS: Acetaminophen 500 MG Tablet 1000 MG PO ×2 (09:28→16:43)
[2020-12-12] MEDS: Multivitamins,Therapeutic Tablet 1 TABLET PO (09:29)
[2020-12-12] MEDS: Potassium Chloride Oral Tablet 20 MEQ PO ×2 (09:29→16:38)
[2020-12-12] MEDS: Oxybutynin 5 MG Tablet PO ×2 (09:29→16:37)
[2020-12-12] MEDS: Vitamin B Comp W-C Capsule 1 CAP PO (09:30)
[2020-12-12 13:41] VITALS: BP 99/63; PULSE 88; RESP 18; TEMP 36.1; O2SAT 93
--- NOTE | 2020-12-12 14:47 | CASEMGMT ---
Addendum entered by Magali Khoury 12/12/20 15:59: Return call from [facility] and pt questions answered. They can accept pt on 12/19 in intermediate level of care with skilled care to resume when pt's weight bearing status improved. Information provided to pt and pt is much calmer and reassured with d/c plan. KEVAN Vogt Original Note: Social Work [facility] is able to accept pt when ready. JUVENAL spoke with IDT and discharge has been set for 12/19 with LCD 12/18. SW met with pt and reviewed discharge plan. Pt is agreeable to discharge to [facility] on 12/19. Pt stating she wants to withdrawal her application to Medicaid and will private pay for SNF. JFS updated. SW offered emotional support as pt processes the need for SNF and financial liability. Pt with questions for [facility]. SW left 2 messages at [facility] to inquire about questions. Waiting for return call, pt aware. Plan: [facility], 12/19/20 KEVAN Vogt
--- NOTE | 2020-12-12 16:06 | DS.PCM_ITS ---
Providers Date of Admission: 11/25/20 Primary Care Physician: Dr. Faraz Junior MD Reason For Visit: TOTAL KNEE REPLACEMENT, PATELA REPLACEMENT Diagnosis Discharge Diagnosis (1) Debility: Status: Acute Code(s): R53.81 - Other malaise (2) Left patella fracture: Status: Acute Code(s): S82.002A - Unspecified fracture of left patella, initial encounter for closed fracture (3) Osteoarthritis of left knee: Status: Acute Code(s): M17.12 - Unilateral primary osteoarthritis, left knee (4) Hypertension: Status: Chronic Code(s): I10 - Essential (primary) hypertension (5) Depression: Status: Acute Code(s): F32.9 - Major depressive disorder, single episode, unspecified (6) Atrial fibrillation: Status: Acute Code(s): I48.91 - Unspecified atrial fibrillation (7) Gastroesophageal reflux disease: Status: Acute Code(s): K21.9 - Gastro-esophageal reflux disease without esophagitis (8) Iron deficiency anemia: Status: Acute Code(s): D50.9 - Iron deficiency anemia, unspecified (9) Muscle spasm: Status: Acute Code(s): M62.838 - Other muscle spasm (10) Hyperlipidemia: Status: Acute Code(s): E78.5 - Hyperlipidemia, unspecified (11) Overactive bladder: Status: Acute Code(s): N32.81 - Overactive bladder Medications at Discharge Home Medications amlodipine 5 mg PO DAILY 04/09/13 duloxetine 60 mg PO DAILY 01/18/18 lisinopril 20 mg tablet 40 mg PO BID tab 08/10/18 carvedilol 25 mg tablet 25 mg PO BID #180 tab 02/16/19 flecainide 100 mg tablet 100 mg PO BID #180 tab 03/31/20 multivitamin 1 tab PO DAILY 04/30/20 apixaban 5 mg PO BID 11/04/20 benzonatate 100 mg PO TID PRN 11/04/20 cyclobenzaprine 10 mg PO TID PRN 11/04/20 furosemide 20 mg PO DAILY PRN 11/04/20 hydrochlorothiazide 25 mg PO DAILY 11/04/20 lovastatin 40 mg PO DAILY 11/04/20 meclizine 25 mg PO DAILY PRN 11/04/20 omeprazole 40 mg PO DAILY 11/04/20 oxybutynin chloride 5 mg PO BIDCM 11/04/20 polyethylene glycol 3350 [Miralax] 17 g PO DAILY 11/04/20 prednisolone acetate 1 drop EACH EYE DAILY 11/04/20 B complex-vitamin C-folic acid 1 capsule PO DAILYCM 11/09/20 acetaminophen 1,000 mg PO Q6H PRN #0 tab 12/12/20 menthol-zinc oxide [Calmoseptine] 1 applic TOPICAL BID #0 g 12/12/20 nystatin [Nyamyc] 1 applic TOPICAL 0600,2200 #0 g 12/12/20 oxycodone 5 mg PO Q4H PRN PRN 3 Days #18 tab 12/12/20 potassium chloride [Klor-Con M20] 20 meq PO BIDCM #0 tab 12/12/20 sennosides-docusate sodium [Stool Softener-Stimulant Laxat] 2 tab PO BID #0 tab 12/12/20 Hospital Course Operations None Procedures None Summary of Care Provided Minutes Spent on Discharge: 35 Hospital Course: 70 year old female with below past medical history significant for recent left total knee arthroplasty, suffered left periprosthetic patella fr acture, underwent repair with Dr. Ortiz, admitted to TCU with debility, here for rehabilitation, strengthening, prior to discharge home alone. Discharge to [facility] 12/19/2020, intermediate level of care, with skilled care to resume when patient's weight bearing status improved. Physical Exam Const alert and oriented x3 General Appearance: cooperative HEENT normocephalic Eyes PERRL and EOMs intact bilaterally Neck supple, no JVD and no carotid bruits Resp normal respiratory effort, normal air movement and clear to auscultation bilaterally Cardio regular rate and regular rhythm GI normal to inspection, nondistended, normoactive bowel sounds, non-tender and non-distended Extremity normal capillary refill Extremity Narrative: Left lower extremity brace. General Extremity: Negative for edema Skin no rashes or lesions noted General Skin Exam: no breakdown Psych affect normal Appearance: appropriate Weight / BMI Weight Weight: 110.705 kg Body Mass Index (BMI) 36.6 ABG / Lab / Microbiology Data Result Diagrams: 12/10/20 05:30 12/10/20 05:30 D/C Instructions Discharge Diet: No restrictions Discharge Activity: Return to Normal Activity, May Shower and Use Walker Weight Bearing Status: Partial weight bearing (Left lower extremity.) Call your doctor if you observe: Fever of 101 or Higher, Inability to urinate, Shortness of breath, Fainting spells, Chest pain and Uncontrolled pain Additional Instructions: Discharge to [facility] 12/19/2020, intermediate level of care, with skilled care to resume when patient's weight bearing status improved. Please Follow Up With: Dr Karri Ortiz MD When: As scheduled. Meaningful Use Info Meaningful Use Diagnoses (Choose all that apply): None applicable Discharge Plan Admission Admit Date/Time: 11/25/20 12:31 Primary Reason for Your Visit: Debility Attending Provider: Elio Holbrook Chi Primary Care Provider: Faraz Junior Instructions Additional Instructions / Restrictions: Discharge to [facility] 12/19/2020, intermediate level of care, with skilled care to resume when patient's weight bearing status improved. Discharge Orders/Prescriptions Prescriptions: New sennosides-docusate sodium [Stool Softener-Stimulant Laxat] 8.6-50 mg Tablet 2 tab PO BID Qty: 0 RF: 0 acetaminophen 500 mg Tablet 1,000 mg PO Q6H PRN (Reason: Pain Score 1-5) Qty: 0 RF: 0 potassium chloride [Klor-Con M20] 20 mEq Tablet,Er Particles/Crystals 20 meq PO BIDCM Qty: 0 RF: 0 nystatin [Nyamyc] 100,000 unit/gram Powder 1 applic topical 0600,2200 Qty: 0 RF: 0 oxycodone 5 mg Tablet 5 mg PO Q4H PRN PRN (Reason: Pain Score 6-10) 3 Days Qty: 18 RF: 0 Calmoseptine 0.44-20.6 % Ointment 1 applic topical BID Qty: 0 RF: 0 Continued lisinopril 20 mg tablet 40 mg PO BID RF: 0 multivitamin Tablet 1 tab PO DAILY RF: 0 amlodipine 5 MG tablet 5 mg PO DAILY RF: 0 duloxetine 60 MG capsule,delayed release(DR/EC) 60 mg PO DAILY RF: 0 cyclobenzaprine 10 mg Tablet 10 mg PO TID PRN (Reason: Muscle Spasm) RF: 0 lovastatin 40 mg Tablet 40 mg PO DAILY RF: 0 omeprazole 40 mg Capsule,Delayed Release(Dr/Ec) 40 mg PO DAILY RF: 0 meclizine 25 mg Tablet 25 mg PO DAILY PRN (Reason: Dizziness) RF: 0 benzonatate 100 mg Capsule 100 mg PO TID PRN (Reason: Cough) RF: 0 furosemide 20 mg Tablet 20 mg PO DAILY PRN (Reason: Swelling) RF: 0 polyethylene glycol 3350 [Miralax] 17 gram/dose Powder 17 g PO DAILY RF: 0 prednisolone acetate 1 DROP drops,suspension 1 drop EACH EYE DAILY RF: 0 hydrochlorothiazide 25 MG tablet 25 mg PO DAILY RF: 0 oxybutynin chloride 5 MG tablet 5 mg PO BIDCM RF: 0 apixaban 5 MG tablet 5 mg PO BID RF: 0 B complex-vitamin C-folic acid 1 CAPSULE tablet 1 capsule PO DAILYCM RF: 0 carvedilol 25 mg tablet 25 mg PO BID Qty: 180 RF: 3 flecainide 100 mg tablet 100 mg PO BID Qty: 180 RF: 3 Discontinued nystatin 1 APPLIC bottle 1 applic TOPICAL BID PRN (Reason: Rash/Topical Irritation) RF: 0 hydrocodone-acetaminophen 5-325 mg Tablet 1 - 2 tab PO Q4H PRN (Reason: Pain) RF: 0 docusate sodium 100 mg Capsule 100 mg PO BID RF: 0 vitamin B complex Capsule 1 cap PO DAILY RF: 0 nitrofurantoin monohyd/m-cryst [Macrobid] 100 mg Capsule 100 mg PO BID RF: 0 acetaminophen 500 MG tablet 1,000 mg PO Q8 PRN (Reason: Pain) RF: 0 cephalexin 500 MG capsule 500 mg PO Q6 RF: 0 polysaccharide iron complex 150 MG capsule 150 mg PO DAILYCM RF: 0 pantoprazole 40 MG tablet,delayed release (DR/EC) 40 mg PO DAILY RF: 0 oxycodone 10 mg Tablet 5 - 10 mg PO Q4H PRN (Reason: Pain 6-10) RF: 0 Referrals / Follow Up: Faraz Junior MD [Primary Care Provider] - Disposition Disposition (needs filled in before D/C Order can be placed): NonSkilled NH/Intermed Care
--- NOTE | 2020-12-12 16:17 | PCM.TXEXTCAR ---
Diet 12/03/20 08:31 Diet: Cardiac - Heart Healthy Food consistency:: Regular Liquid Consistency:: Regular/Thin Is pt able to select menu?: Yes Routine Orders/Code Status Suppository Type: Dulcolax 10mg Suppository Frequency: Daily PRN Code Status: Full Code Wound(s) Left knee: Wound Type: Surgical Incision Dressing Change: Dry Sterile Dressing left upper lip: Wound Type: Abrasion Top right foot: Wound Type: Abrasion Right knee: Wound Type: scratch right ankle: Wound Type: Bite Left upper back thigh: Wound Type: redness Therapies Weight Bearing: Partial weight bearing Problem/Diagnosis (1) Debility: Status: Acute (2) Left patella fracture: Status: Acute (3) Osteoarthritis of left knee: Status: Acute (4) Hypertension: Status: Chronic (5) Depression: Status: Acute (6) Atrial fibrillation: Status: Acute (7) Gastroesophageal reflux disease: Status: Acute (8) Iron deficiency anemia: Status: Acute (9) Muscle spasm: Status: Acute (10) Hyperlipidemia: Status: Acute (11) Overactive bladder: Status: Acute Allergies/Procedures Done in Hospital Allergies atorvastatin [From Lipitor] Adverse Reaction (Verified 08/02/20 15:24) Pain in joints nifedipine [From Procardia] Adverse Reaction (Verified 08/02/20 15:24) Pain in joints tramadol Adverse Reaction (Verified 08/02/20 15:24) Upset Stomach Type of Care/Length of Stay Estimated LOS: Convalescent Care Less Than 30 days Type of Care Needed: Intermediate Rehab Potential: Good Prognosis: Good Additional Orders/Day of Discharge Day of Discharge: 12/19/20 Dietary and Speech Recommendations Dietitian Recommendations/Changes: Will continue Cardiac diet d/t pmhx and BMI Follow Up Care Please Follow Up With: Dr Karri Ortiz MD Discharge Plan Admission Admit Date/Time: 11/25/20 12:31 Primary Reason for Your Visit: Debility Attending Provider: Elio Holbrook Chi Primary Care Provider: Faraz Junior Instructions Additional Instructions / Restrictions: Discharge to [facility] 12/19/2020, intermediate level of care, with skilled care to resume when patient's weight bearing status improved. Discharge Orders/Prescriptions Prescriptions: New sennosides-docusate sodium [Stool Softener-Stimulant Laxat] 8.6-50 mg Tablet 2 tab PO BID Qty: 0 RF: 0 acetaminophen 500 mg Tablet 1,000 mg PO Q6H PRN (Reason: Pain Score 1-5) Qty: 0 RF: 0 potassium chloride [Klor-Con M20] 20 mEq Tablet,Er Particles/Crystals 20 meq PO BIDCM Qty: 0 RF: 0 nystatin [Nyamyc] 100,000 unit/gram Powder 1 applic topical 0600,2200 Qty: 0 RF: 0 oxycodone 5 mg Tablet 5 mg PO Q4H PRN PRN (Reason: Pain Score 6-10) 3 Days Qty: 18 RF: 0 Calmoseptine 0.44-20.6 % Ointment 1 applic topical BID Qty: 0 RF: 0 Continued lisinopril 20 mg tablet 40 mg PO BID RF: 0 multivitamin Tablet 1 tab PO DAILY RF: 0 amlodipine 5 MG tablet 5 mg PO DAILY RF: 0 duloxetine 60 MG capsule,delayed release(DR/EC) 60 mg PO DAILY RF: 0 cyclobenzaprine 10 mg Tablet 10 mg PO TID PRN (Reason: Muscle Spasm) RF: 0 lovastatin 40 mg Tablet 40 mg PO DAILY RF: 0 omeprazole 40 mg Capsule,Delayed Release(Dr/Ec) 40 mg PO DAILY RF: 0 meclizine 25 mg Tablet 25 mg PO DAILY PRN (Reason: Dizziness) RF: 0 benzonatate 100 mg Capsule 100 mg PO TID PRN (Reason: Cough) RF: 0 furosemide 20 mg Tablet 20 mg PO DAILY PRN (Reason: Swelling) RF: 0 polyethylene glycol 3350 [Miralax] 17 gram/dose Powder 17 g PO DAILY RF: 0 prednisolone acetate 1 DROP drops,suspension 1 drop EACH EYE DAILY RF: 0 hydrochlorothiazide 25 MG tablet 25 mg PO DAILY RF: 0 oxybutynin chloride 5 MG tablet 5 mg PO BIDCM RF: 0 apixaban 5 MG tablet 5 mg PO BID RF: 0 B complex-vitamin C-folic acid 1 CAPSULE tablet 1 capsule PO DAILYCM RF: 0 carvedilol 25 mg tablet 25 mg PO BID Qty: 180 RF: 3 flecainide 100 mg tablet 100 mg PO BID Qty: 180 RF: 3 Discontinued nystatin 1 APPLIC bottle 1 applic TOPICAL BID PRN (Reason: Rash/Topical Irritation) RF: 0 hydrocodone-acetaminophen 5-325 mg Tablet 1 - 2 tab PO Q4H PRN (Reason: Pain) RF: 0 docusate sodium 100 mg Capsule 100 mg PO BID RF: 0 vitamin B complex Capsule 1 cap PO DAILY RF: 0 nitrofurantoin monohyd/m-cryst [Macrobid] 100 mg Capsule 100 mg PO BID RF: 0 acetaminophen 500 MG tablet 1,000 mg PO Q8 PRN (Reason: Pain) RF: 0 cephalexin 500 MG capsule 500 mg PO Q6 RF: 0 polysaccharide iron complex 150 MG capsule 150 mg PO DAILYCM RF: 0 pantoprazole 40 MG tablet,delayed release (DR/EC) 40 mg PO DAILY RF: 0 oxycodone 10 mg Tablet 5 - 10 mg PO Q4H PRN (Reason: Pain 6-10) RF: 0 Referrals / Follow Up: Faraz Junior MD [Primary Care Provider] - Disposition Disposition (needs filled in before D/C Order can be placed): NonSkilled NH/Intermed Care
[2020-12-12 16:44] VITALS: BP 118/67; PULSE 88
[2020-12-13 05:00] VITALS: BP 133/76; PULSE 101; RESP 16; TEMP 36.6; O2SAT 95
[2020-12-13] MEDS: DULoxetine Hcl 60 MG Capsule PO (06:00)
[2020-12-13] MEDS: amLODIPine 5 MG Tablet PO (06:01)
[2020-12-13] MEDS: Lisinopril 40 MG Tablet PO (06:01)
[2020-12-13] MEDS: Carvedilol 25 MG Tablet PO ×2 (06:01→17:12)
[2020-12-13] MEDS: Pantoprazole Sodium 40 MG Tablet PO (06:01)
[2020-12-13] MEDS: APIXABAN 5 MG TABLET PO ×2 (06:01→17:13)
[2020-12-13] MEDS: hydroCHLOROthiazide 25 MG Tablet PO (06:01)
[2020-12-13] MEDS: Flecainide 100 MG Tablet PO ×2 (06:01→17:12)
[2020-12-13] MEDS: Senna/Docusate Sodium 1 Tablet 2 TABLET PO ×2 (06:01→17:13)
[2020-12-13] MEDS: prednisoLONE eye drops (5 mL) 1 DROP OPTH.BTL 1 DRP EACH EYE (06:02)
[2020-12-13] MEDS: Nystatin Powder 15gm Bottle 1 APPLIC TOPICAL ×2 (06:02→21:11)
[2020-12-13] MEDS: Menthol/Lanolin/Calamine/Znox 113 GM Tube 1 APPLIC TOPICAL ×2 (06:05→17:13)
[2020-12-13 07:57] VITALS: O2SAT 95
[2020-12-13] MEDS: Oxybutynin 5 MG Tablet PO ×2 (08:20→17:12)
[2020-12-13] MEDS: Vitamin B Comp W-C Capsule 1 CAP PO (08:20)
[2020-12-13] MEDS: Multivitamins,Therapeutic Tablet 1 TABLET PO (08:20)
[2020-12-13] MEDS: Potassium Chloride Oral Tablet 20 MEQ PO ×2 (08:20→17:12)
[2020-12-13] MEDS: oxyCODONE 5 MG Tablet PO ×4 (08:24→21:09)
[2020-12-13] MEDS: Acetaminophen 500 MG Tablet 1000 MG PO (12:54)
[2020-12-13 15:15] VITALS: BP 102/66; PULSE 93; RESP 16; TEMP 36.9; O2SAT 93
[2020-12-13 22:42] VITALS: PULSE 68; RESP 12
[2020-12-14] MEDS: Acetaminophen 500 MG Tablet 1000 MG PO ×3 (05:31→18:27)
[2020-12-14] MEDS: oxyCODONE 5 MG Tablet PO ×4 (05:31→21:56)
[2020-12-14] MEDS: Lisinopril 40 MG Tablet PO (05:32)
[2020-12-14] MEDS: Senna/Docusate Sodium 1 Tablet 2 TABLET PO ×2 (05:32→17:21)
[2020-12-14] MEDS: Flecainide 100 MG Tablet PO ×2 (05:32→17:21)
[2020-12-14] MEDS: Pantoprazole Sodium 40 MG Tablet PO (05:33)
[2020-12-14] MEDS: Carvedilol 25 MG Tablet PO ×2 (05:34→17:21)
[2020-12-14] MEDS: DULoxetine Hcl 60 MG Capsule PO (05:34)
[2020-12-14] MEDS: Menthol/Lanolin/Calamine/Znox 113 GM Tube 1 APPLIC TOPICAL ×2 (05:34→17:22)
[2020-12-14] MEDS: APIXABAN 5 MG TABLET PO ×2 (05:34→17:21)
[2020-12-14] MEDS: amLODIPine 5 MG Tablet PO (05:34)
[2020-12-14] MEDS: hydroCHLOROthiazide 25 MG Tablet PO (05:34)
[2020-12-14] MEDS: Nystatin Powder 15gm Bottle 1 APPLIC TOPICAL ×2 (05:35→21:58)
[2020-12-14] MEDS: prednisoLONE eye drops (5 mL) 1 DROP OPTH.BTL 1 DRP EACH EYE (05:35)
[2020-12-14 06:20] VITALS: BP 110/65; PULSE 85; RESP 14; TEMP 36.9
[2020-12-14 08:00] VITALS: O2SAT 92
[2020-12-14] MEDS: Multivitamins,Therapeutic Tablet 1 TABLET PO (08:19)
[2020-12-14] MEDS: Vitamin B Comp W-C Capsule 1 CAP PO (08:19)
[2020-12-14] MEDS: Potassium Chloride Oral Tablet 20 MEQ PO ×2 (08:19→17:21)
[2020-12-14] MEDS: Oxybutynin 5 MG Tablet PO ×2 (08:19→17:21)
[2020-12-14 12:38] VITALS: PULSE 87; RESP 16; O2SAT 95
[2020-12-14 15:31] VITALS: BP 122/53; PULSE 84; RESP 16; TEMP 36.3; O2SAT 95
[2020-12-15] MEDS: Acetaminophen 500 MG Tablet 1000 MG PO ×4 (00:16→21:16)
--- NOTE | 2020-12-15 03:07 | NURSING ---
PRN pain meds given with some relief stated. No other c/o made.
[2020-12-15] MEDS: Menthol/Lanolin/Calamine/Znox 113 GM Tube 1 APPLIC TOPICAL ×2 (06:09→15:39)
[2020-12-15] MEDS: APIXABAN 5 MG TABLET PO ×2 (06:09→17:50)
[2020-12-15] MEDS: DULoxetine Hcl 60 MG Capsule PO (06:09)
[2020-12-15] MEDS: amLODIPine 5 MG Tablet PO (06:10)
[2020-12-15] MEDS: Nystatin Powder 15gm Bottle 1 APPLIC TOPICAL ×2 (06:10→21:18)
[2020-12-15] MEDS: hydroCHLOROthiazide 25 MG Tablet PO (06:10)
[2020-12-15] MEDS: Carvedilol 25 MG Tablet PO ×2 (06:10→17:50)
[2020-12-15] MEDS: Pantoprazole Sodium 40 MG Tablet PO (06:11)
[2020-12-15] MEDS: Senna/Docusate Sodium 1 Tablet 2 TABLET PO ×2 (06:11→17:50)
[2020-12-15] MEDS: prednisoLONE eye drops (5 mL) 1 DROP OPTH.BTL 1 DRP EACH EYE (06:11)
[2020-12-15] MEDS: Flecainide 100 MG Tablet PO ×2 (06:12→17:50)
[2020-12-15] MEDS: Lisinopril 40 MG Tablet PO (06:12)
[2020-12-15] MEDS: oxyCODONE 5 MG Tablet PO ×3 (06:13→21:16)
[2020-12-15 06:54] VITALS: BP 130/58; PULSE 84; RESP 12; TEMP 36.3
[2020-12-15 08:14] VITALS: O2SAT 93
[2020-12-15] MEDS: Potassium Chloride Oral Tablet 20 MEQ PO ×2 (08:17→17:50)
[2020-12-15] MEDS: Vitamin B Comp W-C Capsule 1 CAP PO (08:17)
[2020-12-15] MEDS: Multivitamins,Therapeutic Tablet 1 TABLET PO (08:17)
[2020-12-15] MEDS: Oxybutynin 5 MG Tablet PO ×2 (08:17→17:50)
[2020-12-15 14:37] VITALS: BP 118/64; PULSE 88; RESP 16; TEMP 36.2; O2SAT 90
[2020-12-15] MEDS: cycloBENZAPRine HCl 10 MG Tablet PO (23:47)
--- NOTE | 2020-12-15 23:49 | NURSING ---
Addendum entered by Marisa Clements 12/16/20 00:10: Ice pack applied to rt knee as well. Original Note: Pt woke up, c/o more pain tonight, states she got worked out in therapy really hard today, medicated with flexeril, rt leg adjusted for comfort. Watching tv.
[2020-12-16 05:39] VITALS: BP 129/69; PULSE 89; RESP 18; TEMP 36.7; O2SAT 92
[2020-12-16] MEDS: Menthol/Lanolin/Calamine/Znox 113 GM Tube 1 APPLIC TOPICAL ×2 (05:42→16:04)
[2020-12-16] MEDS: prednisoLONE eye drops (5 mL) 1 DROP OPTH.BTL 1 DRP EACH EYE (05:43)
[2020-12-16] MEDS: hydroCHLOROthiazide 25 MG Tablet PO (05:44)
[2020-12-16] MEDS: APIXABAN 5 MG TABLET PO ×2 (05:44→17:30)
[2020-12-16] MEDS: Nystatin Powder 15gm Bottle 1 APPLIC TOPICAL ×2 (05:44→21:23)
[2020-12-16] MEDS: Pantoprazole Sodium 40 MG Tablet PO (05:44)
[2020-12-16] MEDS: Carvedilol 25 MG Tablet PO ×2 (05:44→17:30)
[2020-12-16] MEDS: cycloBENZAPRine HCl 10 MG Tablet PO ×2 (05:44→21:21)
[2020-12-16] MEDS: Senna/Docusate Sodium 1 Tablet 2 TABLET PO ×2 (05:44→17:30)
[2020-12-16] MEDS: DULoxetine Hcl 60 MG Capsule PO (05:44)
[2020-12-16] MEDS: amLODIPine 5 MG Tablet PO (05:44)
[2020-12-16] MEDS: Lisinopril 40 MG Tablet PO (05:44)
[2020-12-16] MEDS: Flecainide 100 MG Tablet PO ×2 (05:44→17:30)
[2020-12-16] MEDS: Oxybutynin 5 MG Tablet PO ×2 (09:17→16:03)
[2020-12-16] MEDS: Vitamin B Comp W-C Capsule 1 CAP PO (09:17)
[2020-12-16] MEDS: Multivitamins,Therapeutic Tablet 1 TABLET PO (09:17)
[2020-12-16] MEDS: Potassium Chloride Oral Tablet 20 MEQ PO ×2 (09:18→16:03)
[2020-12-16] MEDS: Acetaminophen 500 MG Tablet 1000 MG PO (11:14)
[2020-12-16] MEDS: oxyCODONE 5 MG Tablet PO ×2 (11:14→15:32)
[2020-12-16 13:32] VITALS: PULSE 82; RESP 18; O2SAT 94
[2020-12-16 15:34] VITALS: BP 98/63; PULSE 82; RESP 18; TEMP 36.2; O2SAT 94
[2020-12-16 16:01] VITALS: O2SAT 93
[2020-12-17] MEDS: oxyCODONE 5 MG Tablet PO ×2 (03:43→14:56)
[2020-12-17] MEDS: Acetaminophen 500 MG Tablet 1000 MG PO ×2 (03:43→14:56)
[2020-12-17 05:52] LABS: Absolute Lymphocyte Count 1.58 X10^3/uL (0.83-4.51); Absolute Neutrophil Count 5.7 X10^3/uL (2.0-7.7); Basophil# 0.03 X10^3/uL; Basophil% 0.3 % (0-1); Eosinophil# 0.66 X10^3/uL; Eosinophils% 7.4 % (0-5); Hematocrit 34.8 % (37-47); Hemoglobin 10.3 g/dL (12.0-15.0); Lymphocyte # 1.58 X10^3/ul (0.83-4.51); Lymphocyte % 17.8 % (19-41); Mean Corp Hgb Conc 29.6 g/dL (32-36); Mean Corpuscular Hgb 26.3 pg (27.0-32.0); Mean Platelet Vol. 9.5 fl (6.2-12.0); Monocyte# 0.88 X10^3/uL; Monocyte% 9.9 % (0-10); NRBC Flagged by Analyzer 0 % (0-5); Neutrophil % 64.2 % (47-70); Platelet Count 364 K/mm3 (150-450); RBC Distribution Width CV 17.5 % (11.6-14.6); RBC Distribution Width SD 57.3 fl (35.1-43.9); Red Blood Count 3.91 M/mm3 (4.2-5.4); White Blood Count 8.9 K/mm3 (4.4-11.0)
[2020-12-17 06:04] LABS: Anion Gap 6 (5-15); BUN 29 mg/dL (7-18); BUN/Creat Ratio 47.9 RATIO (10-20); Calcium,Total 9.1 mg/dL (8.5-10.1); Chloride 103 mmol/L (98-107); EST Glomerular Filtration Rate 104 mL/min (>60); Est Glom Filt Rate - Afr Amer 126 mL/min (>60); Estimated Creatinine Clearance 57.42 ml/min; Glucose 107 mg/dL (74-106); Potassium 4.2 mmol/L (3.5-5.1); Sodium Level 140 mmol/L (136-145)
[2020-12-17] MEDS: Menthol/Lanolin/Calamine/Znox 113 GM Tube 1 APPLIC TOPICAL ×2 (06:10→16:37)
[2020-12-17] MEDS: Flecainide 100 MG Tablet PO ×2 (06:10→16:35)
[2020-12-17] MEDS: hydroCHLOROthiazide 25 MG Tablet PO (06:11)
[2020-12-17] MEDS: APIXABAN 5 MG TABLET PO ×2 (06:11→16:36)
[2020-12-17] MEDS: Pantoprazole Sodium 40 MG Tablet PO (06:11)
[2020-12-17] MEDS: DULoxetine Hcl 60 MG Capsule PO (06:11)
[2020-12-17] MEDS: Senna/Docusate Sodium 1 Tablet 2 TABLET PO ×2 (06:11→16:35)
[2020-12-17] MEDS: Lisinopril 40 MG Tablet PO (06:11)
[2020-12-17] MEDS: Carvedilol 25 MG Tablet PO ×2 (06:11→16:36)
[2020-12-17] MEDS: amLODIPine 5 MG Tablet PO (06:11)
[2020-12-17] MEDS: prednisoLONE eye drops (5 mL) 1 DROP OPTH.BTL 1 DRP EACH EYE (06:12)
[2020-12-17] MEDS: Nystatin Powder 15gm Bottle 1 APPLIC TOPICAL ×2 (06:12→20:54)
[2020-12-17 06:48] VITALS: BP 128/76; PULSE 96; RESP 12; TEMP 36; O2SAT 94
[2020-12-17] MEDS: Oxybutynin 5 MG Tablet PO ×2 (08:36→16:36)
[2020-12-17] MEDS: Vitamin B Comp W-C Capsule 1 CAP PO (08:36)
[2020-12-17] MEDS: Multivitamins,Therapeutic Tablet 1 TABLET PO (08:36)
[2020-12-17] MEDS: Potassium Chloride Oral Tablet 20 MEQ PO ×2 (08:36→16:35)
[2020-12-17 16:13] VITALS: BP 131/72; PULSE 89; RESP 18; TEMP 36.8; O2SAT 96
--- NOTE | 2020-12-17 16:19 | CASEMGMT ---
Social Work Brief interview for mental status (BIMS) and resident mood interview (PHQ-9) completed on this day. Bradley LEE, YOLIES
[2020-12-17] MEDS: cycloBENZAPRine HCl 10 MG Tablet PO (21:02)
[2020-12-18 04:49] VITALS: BP 121/76; PULSE 90; RESP 18; TEMP 37; O2SAT 91
[2020-12-18] MEDS: APIXABAN 5 MG TABLET PO ×2 (04:54→16:35)
[2020-12-18] MEDS: Carvedilol 25 MG Tablet PO ×2 (04:55→16:35)
[2020-12-18] MEDS: Lisinopril 40 MG Tablet PO (04:55)
[2020-12-18] MEDS: hydroCHLOROthiazide 25 MG Tablet PO (04:55)
[2020-12-18] MEDS: Flecainide 100 MG Tablet PO ×2 (04:55→16:35)
[2020-12-18] MEDS: DULoxetine Hcl 60 MG Capsule PO (04:55)
[2020-12-18] MEDS: Nystatin Powder 15gm Bottle 1 APPLIC TOPICAL ×2 (04:56→22:04)
[2020-12-18] MEDS: amLODIPine 5 MG Tablet PO (04:56)
[2020-12-18] MEDS: Senna/Docusate Sodium 1 Tablet 2 TABLET PO (04:56)
[2020-12-18] MEDS: prednisoLONE eye drops (5 mL) 1 DROP OPTH.BTL 1 DRP EACH EYE (04:57)
[2020-12-18] MEDS: Pantoprazole Sodium 40 MG Tablet PO (04:58)
[2020-12-18] MEDS: Menthol/Lanolin/Calamine/Znox 113 GM Tube 1 APPLIC TOPICAL ×2 (04:58→16:36)
[2020-12-18 06:30] VITALS: O2SAT 91
[2020-12-18] MEDS: Vitamin B Comp W-C Capsule 1 CAP PO (08:26)
[2020-12-18] MEDS: Multivitamins,Therapeutic Tablet 1 TABLET PO (08:26)
[2020-12-18] MEDS: Acetaminophen 500 MG Tablet 1000 MG PO ×2 (08:26→16:32)
[2020-12-18] MEDS: Oxybutynin 5 MG Tablet PO ×2 (08:26→16:35)
[2020-12-18] MEDS: Potassium Chloride Oral Tablet 20 MEQ PO ×2 (08:26→16:35)
--- NOTE | 2020-12-18 12:00 | CASEMGMT ---
Social Work Met with patient in room. Patient continues to be agreeable to discharge date of 12/19/2020 to [facility]. Transportation scheduled for 12/19/2020 @ 11:00am via trip assist through [facility]. Transportation form completed and placed with patient discharge packet. [facility] updated on [facility] time and date. PASRR completed and faxed to [facility] along with discharge information, COVID-19 test results, and medication list. Proposed discharge date: 12/19/2020 Disposition: [facility] Bradley LEE, HARMAN
[2020-12-18] MEDS: oxyCODONE 5 MG Tablet PO ×2 (12:15→16:32)
[2020-12-18 13:59] VITALS: PULSE 94; RESP 18
--- NOTE | 2020-12-18 14:35 | MDS.RN ---
Completed pain interview for PATRICIA 12/19/20
[2020-12-18 16:39] VITALS: BP 114/78; PULSE 94; RESP 18; TEMP 36.6; O2SAT 90
[2020-12-18] MEDS: cycloBENZAPRine HCl 10 MG Tablet PO (22:06)
[2020-12-19 05:00] VITALS: BP 109/69; PULSE 98; RESP 20; TEMP 35.9; O2SAT 94
[2020-12-19] MEDS: DULoxetine Hcl 60 MG Capsule PO (06:11)
[2020-12-19] MEDS: Lisinopril 40 MG Tablet PO (06:11)
[2020-12-19] MEDS: Carvedilol 25 MG Tablet PO (06:11)
[2020-12-19] MEDS: Pantoprazole Sodium 40 MG Tablet PO (06:11)
[2020-12-19] MEDS: hydroCHLOROthiazide 25 MG Tablet PO (06:11)
[2020-12-19] MEDS: APIXABAN 5 MG TABLET PO (06:11)
[2020-12-19] MEDS: Flecainide 100 MG Tablet PO (06:11)
[2020-12-19] MEDS: amLODIPine 5 MG Tablet PO (06:11)
[2020-12-19] MEDS: prednisoLONE eye drops (5 mL) 1 DROP OPTH.BTL 1 DRP EACH EYE (06:12)
[2020-12-19] MEDS: oxyCODONE 5 MG Tablet PO ×2 (06:14→10:46)
[2020-12-19] MEDS: Menthol/Lanolin/Calamine/Znox 113 GM Tube 1 APPLIC TOPICAL (06:15)
[2020-12-19] MEDS: Nystatin Powder 15gm Bottle 1 APPLIC TOPICAL (06:17)
[2020-12-19] MEDS: Vitamin B Comp W-C Capsule 1 CAP PO (08:22)
[2020-12-19] MEDS: Oxybutynin 5 MG Tablet PO (08:22)
[2020-12-19] MEDS: Potassium Chloride Oral Tablet 20 MEQ PO (08:22)
[2020-12-19] MEDS: Multivitamins,Therapeutic Tablet 1 TABLET PO (08:22)
[2020-12-19] MEDS: Acetaminophen 500 MG Tablet 1000 MG PO (08:37)
[2020-12-19 10:30] VITALS: BP 116/64; PULSE 85; RESP 18; TEMP 36.5; O2SAT 92
== END 2020-12-19 11:00 | disposition intermediate care facility (04) | DRG 560 ==
PROVIDERS: Admitting Provider Family Medicine Geriatric Medicine; PCP Family Medicine; Visit Provider Family Medicine Geriatric Medicine
DX: Z47.1 Aftercare following joint replacement surgery (principal); M96.69 Fracture of other bone following insertion of orthopedic implant, joint prosthesis, or bone plate; I42.9 Cardiomyopathy, unspecified; Z96.652 Presence of left artificial knee joint; M97.12XD Periprosthetic fracture around internal prosthetic left knee joint, subsequent encounter; K21.9 Gastro-esophageal reflux disease without esophagitis; I10 Essential (primary) hypertension; E78.5 Hyperlipidemia, unspecified; I48.0 Paroxysmal atrial fibrillation; F32.9 Major depressive disorder, single episode, unspecified; N32.81 Overactive bladder; Z79.899 Other long term (current) drug therapy; Z79.01 Long term (current) use of anticoagulants; Z99.81 Dependence on supplemental oxygen; D50.9 Iron deficiency anemia, unspecified
CPT/HCPCS: 36415; 80048; 85025; 87426; 92523; 97110; 97162; 97166; 97530; 97535; 97802

== ENCOUNTER → 2021-01-27 05:00 | Outpatient (REF) | payer MEDICARE, OTHER, SELFPAY ==
[2021-01-27 07:41] LABS: Hematocrit 39.8 % (37-47); Hemoglobin 11.9 g/dL (12.0-15.0); Mean Corp Hgb Conc 29.9 g/dL (32-36); Mean Corpuscular Volume 90.5 fL (81-99); Mean Platelet Vol. 9.6 fl (6.2-12.0); Platelet Count 400 K/mm3 (150-450); RBC Distribution Width CV 17.3 % (11.6-14.6); RBC Distribution Width SD 58.2 fl (35.1-43.9)
[2021-01-27 07:53] LABS: Anion Gap 6 (5-15); BUN 18 mg/dL (7-18); BUN/Creat Ratio 34.8 RATIO (10-20); Calcium,Total 8.9 mg/dL (8.5-10.1); Chloride 102 mmol/L (98-107); Cholesterol 153 mg/dL (200); Creatinine, Serum 0.52 mg/dL (0.55-1.02); EST Glomerular Filtration Rate 125 mL/min (>60); Est Glom Filt Rate - Afr Amer 151 mL/min (>60); Glucose 120 mg/dL (74-106); High Density Lipoprotein 36 mg/dL; Potassium 4.2 mmol/L (3.5-5.1); Sodium Level 138 mmol/L (136-145); Triglycerides 246 mg/dL; Very Low Density Lipoprotein 49 mg/dL (5-40)
== END ==
LOC: OLS.WCC 05:00
PROVIDERS: PCP Family Medicine; Visit Provider Family Medicine
DX: I10 Essential (primary) hypertension (principal); E78.5 Hyperlipidemia, unspecified; Z79.899 Other long term (current) drug therapy
CPT/HCPCS: 36415; 80048; 80061; 85027

== ENCOUNTER → 2021-02-13 23:00 | Outpatient (REF) | payer MEDICARE, OTHER, SELFPAY ==
[2021-02-14 10:58] LABS: Color, Urine Yellow (Yellow); Glucose, Dipstick Normal (Normal); Ketone-Dipstick Negative (Negative); Leukocyte Esterase-Dipstick 500 /ul (Negative); Nitrite-Dipstick Positive (Negative); Occult Blood-Urine 10 /ul (Negative); Protein-Dipstick 15 mg/dl (Negative); Urine Bilirubin Dipstick Negative (Negative); Urine Clarity Sl. Cloudy (Clear); Urine Urobilinogen Normal (Normal)
== END ==
LOC: OLS.WCC 23:00
PROVIDERS: PCP Family Medicine; Referring Provider Family Medicine; Visit Provider Family Medicine
DX: N39.0 Urinary tract infection, site not specified (principal)
CPT/HCPCS: 81002; 87077; 87086; 87088; 87186

== ENCOUNTER → 2021-02-27 05:00 | Outpatient (REF) | payer MEDICARE, OTHER, SELFPAY ==
[2021-02-27 09:50] LABS: Hemoglobin 11.4 g/dL (12.0-15.0); Mean Corp Hgb Conc 29.2 g/dL (32-36); Mean Corpuscular Hgb 26.8 pg (27.0-32.0); Mean Corpuscular Volume 91.8 fL (81-99); Mean Platelet Vol. 9.8 fl (6.2-12.0); Platelet Count 349 K/mm3 (150-450); RBC Distribution Width CV 16.9 % (11.6-14.6); RBC Distribution Width SD 57.1 fl (35.1-43.9); Red Blood Count 4.25 M/mm3 (4.2-5.4); White Blood Count 8.1 K/mm3 (4.4-11.0)
[2021-02-27 10:07] LABS: Anion Gap 5 (5-15); BUN 22 mg/dL (7-18); Calcium,Total 8.5 mg/dL (8.5-10.1); Chloride 105 mmol/L (98-107); EST Glomerular Filtration Rate 130 mL/min (>60); Est Glom Filt Rate - Afr Amer 157 mL/min (>60); Glucose 92 mg/dL (74-106); Potassium 4.1 mmol/L (3.5-5.1); Sodium Level 140 mmol/L (136-145)
== END ==
LOC: OLS.WCC 05:00
PROVIDERS: PCP Family Medicine; Referring Provider Family Medicine; Visit Provider Family Medicine
DX: I10 Essential (primary) hypertension (principal); Z79.899 Other long term (current) drug therapy
CPT/HCPCS: 36415; 80048; 85027

== ENCOUNTER → 2021-03-30 05:00 | Outpatient (REF) | payer MEDICARE, OTHER, SELFPAY ==
[2021-03-30 06:55] LABS: Hematocrit 41.3 % (37-47); Mean Corp Hgb Conc 29.1 g/dL (32-36); Mean Corpuscular Hgb 26.9 pg (27.0-32.0); Mean Corpuscular Volume 92.6 fL (81-99); Mean Platelet Vol. 9.9 fl (6.2-12.0); Platelet Count 344 K/mm3 (150-450); RBC Distribution Width CV 17.2 % (11.6-14.6); RBC Distribution Width SD 57.7 fl (35.1-43.9); Red Blood Count 4.46 M/mm3 (4.2-5.4); White Blood Count 7.8 K/mm3 (4.4-11.0)
[2021-03-30 07:03] LABS: Anion Gap 6 (5-15); BUN 19 mg/dL (7-18); BUN/Creat Ratio 36.8 RATIO (10-20); Calcium,Total 8.8 mg/dL (8.5-10.1); Chloride 105 mmol/L (98-107); Creatinine, Serum 0.52 mg/dL (0.55-1.02); EST Glomerular Filtration Rate 125 mL/min (>60); Est Glom Filt Rate - Afr Amer 151 mL/min (>60); Glucose 101 mg/dL (74-106); Potassium 4.3 mmol/L (3.5-5.1); Sodium Level 140 mmol/L (136-145)
== END ==
LOC: OLS.WCC 05:00
PROVIDERS: PCP Family Medicine; Visit Provider Family Medicine
DX: I10 Essential (primary) hypertension (principal); Z79.899 Other long term (current) drug therapy
CPT/HCPCS: 36415; 80048; 85027

== ENCOUNTER → 2021-04-29 05:00 | Outpatient (REF) | payer MEDICARE, OTHER, SELFPAY ==
[2021-04-29 08:30] LABS: Anion Gap 7 (5-15); BUN 21 mg/dL (7-18); BUN/Creat Ratio 32.6 RATIO (10-20); Calcium,Total 8.5 mg/dL (8.5-10.1); Chloride 103 mmol/L (98-107); Creatinine, Serum 0.64 mg/dL (0.55-1.02); EST Glomerular Filtration Rate 97 mL/min (>60); Est Glom Filt Rate - Afr Amer 117 mL/min (>60); Glucose 104 mg/dL (74-106); Potassium 4.7 mmol/L (3.5-5.1); Sodium Level 139 mmol/L (136-145)
[2021-04-29 08:39] LABS: Hemoglobin 11.4 g/dL (12.0-15.0); Mean Corpuscular Hgb 27.2 pg (27.0-32.0); Mean Corpuscular Volume 90.7 fL (81-99); Mean Platelet Vol. 10.2 fl (6.2-12.0); Platelet Count 367 K/mm3 (150-450); RBC Distribution Width CV 16.4 % (11.6-14.6); RBC Distribution Width SD 54.5 fl (35.1-43.9); Red Blood Count 4.19 M/mm3 (4.2-5.4); White Blood Count 9.2 K/mm3 (4.4-11.0)
== END ==
LOC: OLS.WCC 05:00
PROVIDERS: PCP Family Medicine; Visit Provider Family Medicine
DX: J44.9 Chronic obstructive pulmonary disease, unspecified (principal); I10 Essential (primary) hypertension; Z79.899 Other long term (current) drug therapy
CPT/HCPCS: 36415; 80048; 85027

== ENCOUNTER → 2021-05-01 23:00 | Outpatient (REF) | payer MEDICARE, OTHER, SELFPAY | LOC: OLS.WCC 23:00 | PROVIDERS: PCP Family Medicine; Visit Provider Family Medicine | DX: N39.0 Urinary tract infection, site not specified (principal) | CPT/HCPCS: 87077; 87086; 87088; 87186 ==

== ENCOUNTER → 2021-05-05 05:05 | Outpatient (REF) | payer MEDICARE, OTHER, SELFPAY | LOC: OLS.WCC 05:05 | PROVIDERS: PCP Family Medicine; Visit Provider Family Medicine | DX: Z01.812 Encounter for preprocedural laboratory examination (principal) | CPT/HCPCS: 87635; U0005; U0003 ==

== ENCOUNTER → 2021-05-29 04:00 | Outpatient (REF) | payer MEDICARE, OTHER, SELFPAY ==
[2021-05-29 06:26] LABS: Hematocrit 37.6 % (37-47); Hemoglobin 11.5 g/dL (12.0-15.0); Mean Corp Hgb Conc 30.6 g/dL (32-36); Mean Corpuscular Hgb 27.8 pg (27.0-32.0); Mean Platelet Vol. 9.9 fl (6.2-12.0); Platelet Count 396 K/mm3 (150-450); RBC Distribution Width CV 17.1 % (11.6-14.6); RBC Distribution Width SD 56.8 fl (35.1-43.9); Red Blood Count 4.13 M/mm3 (4.2-5.4); White Blood Count 7.6 K/mm3 (4.4-11.0)
[2021-05-29 06:55] LABS: Anion Gap 7 (5-15); BUN 21 mg/dL (7-18); BUN/Creat Ratio 45.8 RATIO (10-20); Calcium,Total 8.7 mg/dL (8.5-10.1); Chloride 103 mmol/L (98-107); Creatinine, Serum 0.46 mg/dL (0.55-1.02); EST Glomerular Filtration Rate 143 mL/min (>60); Est Glom Filt Rate - Afr Amer 173 mL/min (>60); Glucose 106 mg/dL (74-106); Potassium 4.1 mmol/L (3.5-5.1); Sodium Level 139 mmol/L (136-145)
== END ==
LOC: OLS.WCC 04:00
PROVIDERS: PCP Family Medicine; Visit Provider Family Medicine
DX: J44.9 Chronic obstructive pulmonary disease, unspecified (principal); I10 Essential (primary) hypertension; Z79.899 Other long term (current) drug therapy
CPT/HCPCS: 36415; 80048; 85027

== ENCOUNTER → 2021-06-29 04:00 | Outpatient (REF) | payer MEDICARE, OTHER, SELFPAY ==
[2021-06-29 08:36] LABS: Hematocrit 41.2 % (37-47); Hemoglobin 12.4 g/dL (12.0-15.0); Mean Corp Hgb Conc 30.1 g/dL (32-36); Mean Corpuscular Hgb 27.7 pg (27.0-32.0); Platelet Count 341 K/mm3 (150-450); RBC Distribution Width CV 16.3 % (11.6-14.6); RBC Distribution Width SD 55.6 fl (35.1-43.9); Red Blood Count 4.48 M/mm3 (4.2-5.4); White Blood Count 8.4 K/mm3 (4.4-11.0)
[2021-06-29 08:48] LABS: Anion Gap 7 (5-15); BUN 12 mg/dL (7-18); BUN/Creat Ratio 25.5 RATIO (10-20); Calcium,Total 8.7 mg/dL (8.5-10.1); Chloride 104 mmol/L (98-107); Cholesterol 133 mg/dL (200); Creatinine, Serum 0.47 mg/dL (0.55-1.02); EST Glomerular Filtration Rate 139 mL/min (>60); Est Glom Filt Rate - Afr Amer 168 mL/min (>60); Glucose 107 mg/dL (74-106); High Density Lipoprotein 37 mg/dL; Potassium 4.2 mmol/L (3.5-5.1); Sodium Level 140 mmol/L (136-145); Triglycerides 245 mg/dL; Very Low Density Lipoprotein 49 mg/dL (5-40)
== END ==
LOC: OLS.WCC 04:00
PROVIDERS: PCP Family Medicine; Referring Provider Family Medicine; Visit Provider Family Medicine
DX: D64.9 Anemia, unspecified (principal); J44.9 Chronic obstructive pulmonary disease, unspecified; E78.5 Hyperlipidemia, unspecified; Z79.899 Other long term (current) drug therapy
CPT/HCPCS: 36415; 80048; 80061; 85027

== ENCOUNTER → 2021-07-27 | Outpatient (REF) | payer SELFPAY | END | disposition home or self-care (01) | LOC: OLS.WCC 15:35 | PROVIDERS: PCP Family Medicine; Visit Provider Family Medicine | DX: Z20.822 Contact with and (suspected) exposure to COVID-19 (principal) | CPT/HCPCS: 87635; U0003; U0005 ==

== ENCOUNTER 2021-08-17 04:00 | Outpatient (REF) | payer SELFPAY ==
[2021-08-17 12:12] LABS: Anion Gap 6 (5-15); BUN 26 mg/dL (7-18); BUN/Creat Ratio 44.2 RATIO (10-20); Calcium,Total 8.8 mg/dL (8.5-10.1); Chloride 105 mmol/L (98-107); Creatinine, Serum 0.59 mg/dL (0.55-1.02); EST Glomerular Filtration Rate 107 mL/min (>60); Est Glom Filt Rate - Afr Amer 130 mL/min (>60); Glucose 112 mg/dL (74-106); Potassium 4.8 mmol/L (3.5-5.1); Sodium Level 139 mmol/L (136-145)
== END 2021-08-17 23:59 | disposition home or self-care (01) ==
LOC: OLS.WCC 04:00
PROVIDERS: PCP Family Medicine; Referring Provider Family Medicine; Visit Provider Family Medicine
DX: R06.00 Dyspnea, unspecified (principal); I48.91 Unspecified atrial fibrillation
CPT/HCPCS: 36415; 80048

== ENCOUNTER 2022-07-13 05:25 | Emergency (ER) | payer MEDICARE, OTHER, SELFPAY ==
[2022-07-13 05:25] VITALS: BP 123/76; PULSE 71; RESP 20; TEMP 36.1; O2SAT 96; BMI 36.5
--- NOTE | 2022-07-13 05:44 | RAD_ITS ---
INDICATION: sob EXAMINATION: Frontal and lateral views of the chest. COMPARISON: None. FINDINGS: Frontal and lateral views of the chest were obtained. Suboptimal inspiration. The cardiac silhouette is upper normal in size. Atelectasis in the mid and lower lungs bilaterally. No pleural effusion or pneumothorax. Compression deformity of T12 or L1. RAD/Chest PA and Lateral IMPRESSION: Atelectasis bilaterally. Electronically Signed: Saul Davis MD at 6:55 EST ,
--- NOTE | 2022-07-13 05:46 | ED.VIS.DYS ---
HPI History of Present Illness Chief Complaint: Shortness of Breath Informant: patient and EMS Onset/Context/Timing Onset: Today (JPTA) Context: gradual, onset and activity on onset (walking to bathroom to urinate) Timing: Intermittent and Lasts (several minutes) Quality: Positive for Dyspnea on exertion Current Severity: Gone Maximum Severity: Moderate Worsened by: Exertion Relieved by: Rest and Oxygen Associated Symptoms cough Chest Pain: Positive for Tightness (lasted about 2-4 min; resolved now) Narrative Narrative: Patient lives at home on home oxygen due to long COVID that she states she was thought to likely have initially at the end of 2018 before the beginning of the pandemic. She did not have a history of any lung problems prior to that. She has been having dyspnea with exertion worse than usual for about 3 weeks now in addition to a worsening cough which has been largely nonproductive. She got up to use the toilet in the middle of the night, she walked from her bed to her bathroom and when she got there she started feeling poorly and lightheaded. She felt like she might pass out so she sat down. She has had atrial fibrillation before but states she has only had like 2 episodes of that, and this did not feel like that. During all of this she developed dyspnea along with chest tightness, she felt very weak and was not able to get up. She did not fall. Due to this, she called EMS/911. When I evaluated her, she was hypotensive in 70s, hypoxic in the 80s, they turned her oxygen on and up, at this time she feels much better and feels like all of her symptoms are basically resolved except she feels a little short of breath similar to how she was prior to the episode, EMS cannot an IV and gave her IV fluids and other than oxygen no other specific treatments. She is chronically anticoagulated on apixaban, she denies any bleeding from anywhere recently. Denies any focal neurologic symptoms, headache, or other prodromal symptoms except for feeling very nauseated and sweaty. That is all better now. [facility] Medical History Atrial fibrillation Benign essential hypertension Cardiomyopathy Cardiomyopathy Chronic anticoagulation Depression GERD (gastroesophageal reflux disease) History of depression History of shingles Hyperlipemia Hyperlipidemia On home oxygen therapy Overactive bladder PAF (paroxysmal atrial fibrillation) Home Medications amlodipine 5 mg tablet 5 mg PO DAILY blood pressure 04/09/13 [History Last Taken 08/02/20] duloxetine 60 mg capsule,delayed release 60 mg PO DAILY mental health 01/18/18 [History Last Taken 08/02/20] lisinopril 20 mg tablet 40 mg PO BID blood pressure 08/10/18 [History Last Taken 08/02/20] carvedilol 25 mg tablet 25 mg PO BID blood pressure #180 tabs 02/16/19 [Rx Last Taken 08/02/20] apixaban 5 mg tablet 5 mg PO BID Blood Thinner 11/04/20 [History Last Taken Unknown] benzonatate 100 mg capsule 100 mg PO TID PRN Cough 11/04/20 [History Last Taken Unknown] furosemide 20 mg tablet 20 mg PO DAILY PRN Swelling 11/04/20 [History Last Taken Unknown] hydrochlorothiazide 25 mg tablet 25 mg PO DAILY Heart Health 11/04/20 [History Last Taken Unknown] lovastatin 40 mg tablet 40 mg PO DAILY Cholesterol 11/04/20 [History Last Taken Unknown] meclizine 25 mg tablet 25 mg PO DAILY PRN Dizziness 11/04/20 [History Last Taken Unknown] omeprazole 40 mg capsule,delayed release 40 mg PO DAILY GERD 11/04/20 [History Last Taken Unknown] oxybutynin chloride 5 mg tablet 5 mg PO BIDCM Overactive Bladder 11/04/20 [History Last Taken Unknown] prednisolone acetate 1 % eye drops,suspension 1 drop EACH EYE DAILY Itching 11/04/20 [History Last Taken Unknown] vitamin B complex-vitamin C-folic acid 400 mcg tablet 1 capsule PO DAILYCM vitamin 11/09/20 [History Last Taken Unknown] acetaminophen 500 mg tablet 1,000 mg PO Q6H PRN Pain Score 1-5 #0 tabs 12/12/20 [Rx Last Taken Unknown] potassium chloride 20 mEq tablet,extended release(part/cryst) (Klor-Con M) 20 meq PO BIDCM #0 tabs 12/12/20 [Rx Last Taken Unknown] flecainide 100 mg tablet 100 mg PO BID heart #180 tabs 11/05/21 [Rx Last Taken Unknown] albuterol sulfate 90 mcg/actuation aerosol inhaler (Ventolin HFA) 1 - 2 puff inhalation Q4H PRN PRN Wheezing ##1 07/13/22 [Rx Last Taken Unknown] amoxicillin 875 mg-potassium clavulanate 125 mg tablet 1 tab PO Q12H #20 tabs 07/13/22 [Rx Last Taken Unknown] Allergy/AdvReac Type Severity Reaction Status Date / Time atorvastatin [From Lipitor] AdvReac Pain in Verified 07/13/22 05:30 joints nifedipine [From Procardia] AdvReac Pain in Verified 07/13/22 05:30 joints tramadol AdvReac Upset Verified 07/13/22 05:30 Stomach Family History Father Ruptured aortic aneurysm Mother Heart disease heart valve issues Brother Atrial fibrillation Surgical History History of arthroscopic knee surgery History of cardioversion (07/05/12) History of cornea transplant (04/05/18) History of foot surgery History of hysterectomy History of nasal cauterization History of sinus surgery History of tonsillectomy History of total left hip replacement (~04/2020) History of total left knee replacement History of total right hip replacement (~2018) Social History household members: none Smoking Status: Never smoker alcohol intake: never caffeine: Yes Type: carbonated beverages Number of servings: 2 ROS ROS ED Constitutional Constitutional ED: Reports sweats; Denies chills or fever(s) Eyes Eyes: Denies change in vision or diplopia ENT ENT ED: Denies rhinorrhea or sore throat Cardiovascular Cardiovascular: Reports chest pain and lightheadedness; Denies palpitations or syncope Respiratory/Chest Respiratory/Chest: Reports cough and dyspnea Gastrointestinal Gastrointestinal: Reports nausea; Denies abdominal pain, diarrhea or vomiting Genitourinary Genitourinary ED: Denies dysuria or hematuria Musculoskeletal Musculoskeletal: Denies back pain or neck pain Integumentary Denies abscess or rash Neurologic Neurologic: Denies headache(s), paresthesias or weakness Psychiatric Psychiatric: Denies anxiety or suicidal thoughts EXAM Physical Exam Const Vital Signs: 07/13/22 05:25 07/13/22 05:36 07/13/22 05:53 Temperature 96.9 F L Temperature Source Temporal Pulse Rate 71 Respiratory Rate 20 H Respiratory Effort Normal Respiratory Depth Respiratory Pattern Blood Pressure 123/76 H Blood Pressure Mean 91 Pulse Ox 96 Oxygen Delivery Method Nasal Cannula Nasal Cannula Nasal Cannula Oxygen Flow Rate (L/min) 4 4 4 07/13/22 05:50 07/13/22 05:50 07/13/22 06:41 Temperature Temperature Source Pulse Rate 73 68 Respiratory Rate 20 H 24 H 24 H Respiratory Effort Normal Non-Labored Short of Breath Respiratory Depth Shallow Respiratory Pattern Normal Tachypnea Blood Pressure 119/71 Blood Pressure Mean 87 Pulse Ox 94 94 Oxygen Delivery Method Nasal Cannula Nasal Cannula Oxygen Flow Rate (L/min) 4 4 Positive well nourished, well developed and obese General Appearance ED: well developed and NAD Nutritional Appearance: obese HEENT Reports moist mucous membranes normocephalic and atraumatic Eyes PERRL and EOMs intact bilaterally Neck full ROM, no lymphadenopathy, supple and no JVD Resp normal respiratory effort Resp Narrative: Expiratory wheezes throughout, few basilar crackles bilaterally symmetrically. Trachea midline equal breath sounds bilaterally. Speaking in full sentences, no respiratory distress. Cardio regular rate, regular rhythm and no murmurs Rate: Negative for tachycardic GI non-tender and non-distended Auscultation: normoactive bowel sounds Palpation: soft Back/Spine no CVA tenderness General Back: other FROM Extremity normal to inspection General Extremety ED: Negative for edema, pulses abnormal or tenderness General Extremity: Negative for edema or pulses abnormal Neuro oriented x3, CN's II-XII intact bilaterally and no sensory deficits noted Sensorium / Orientation: awake and alert Motor Exam: strength 5/5 throughout Psych mental status grossly normal Skin no rashes or lesions noted and no wounds MDM MDM MDM Narrative Medical decision making narrative: Patient was treated with a duo nebulizer aerosol, she was breathing better after that. On her baseline 3 L oxygen, she is 95% while resting. Her work-up shows a mild leukocytosis, no bandemia, her troponin and chemistries are within normal limits except for some mild prerenal azotemia. Her EKG shows no evidence of ischemia, she may have a first-degree AV block but there is some tremor artifact in the EKG which limits this interpretation. Largely unchanged compared with the prior. Chest x-ray on my interpretation shows a right lower lobe infiltrate, 2 views, however when I compared to her prior x-ray, it does not look terribly dissimilar. Radiology interpreted it as bilateral atelectasis, I reviewed their interpretation. We ambulated her as she does at home which is using a walker, she did transiently become hypoxic down to 85% but for less than 1 minute, she did well clinically and was in no respiratory distress and was conversive with the nurse. Given her baseline level of debility and requiring oxygen, I offered admission but she prefers to go home if able to safely. I think this is reasonable. She states the satting transiently down to 85 like this is normal for her and occurs often but briefly. She has been having symptoms for 3 weeks, progressively worsening and is in no distress. The aerosol helped her. I think reasonable to prescribe her Augmentin to cover the possibility of an underlying infiltrate/infection (on flecainide, so macrolides/quinolones are out), and have her follow-up closely as an outpatient. If she does not have aerosols at home I will prescribe her albuterol inhaler. She is comfortable with that plan. With regards to her near syncopal episode, believe it was either orthostatic or vasovagal possibly. I do not think this sounds cardiac given that her work-up here is negative, and the chest tightness that she had resolved, and I think was more likely to be pulmonary in etiology given her wheezing and dyspnea. Lab Data Attestation: I reviewed the patient's lab results. Labs: Laboratory Results - last 24 hr 07/13/22 07/13/22 05:30 05:30 WBC 11.5 H RBC 4.72 Hgb 13.4 Hct 44.8 MCV 94.9 MCH 28.4 MCHC 29.9 L RDW Std Deviation 52.4 H RDW Coeff of [place] 15.1 H Plt Count 342 MPV 9.7 Immature Gran % (Auto) 0.600 Neut % (Auto) 84.1 H Lymph % (Auto) 10.4 L [place] % (Auto) 3.4 Eos % (Auto) 1.4 Baso % (Auto) 0.1 Absolute Neuts (auto) 9.7 H Absolute Lymphs (auto) 1.19 Nucleated RBC % 0.2 Sodium 141 Potassium 3.3 L Chloride 101 Carbon Dioxide 30.0 Anion Gap 10 BUN 28 H Creatinine 0.74 Estim Creat Clear Calc 55.80 Est GFR (MDRD) Af Amer 99 Est GFR (MDRD) Non-Af 82 BUN/Creatinine Ratio 37.7 H Glucose 202 H Calcium 9.1 Troponin I High Sens 5 Rhythm Strip Rhythm Strip: Sinus Rhythm Rate: 75 Ectopy: None EKG Initial EKG: Attestation: I personally reviewed and interpreted this EKG as follows: Interpretation: Sinus Rhythm, No Acute Injury Pattern and LAFB Prior EKG tracings: available for review (06/27/2019) Prior: Unchanged Discharge Plan Triage Chief Complaint: Shortness of Breath ED Provider: Bernard Hernandez Dx/Rx/DC Orders Clinical Impression: Pneumonia, Near syncope, Chest tightness Instructions: ED Pneumonia (Adult) Prescriptions: New albuterol sulfate [Ventolin HFA] 1 INHALER inhaler 1 - 2 puff inhalation Q4H PRN PRN (Reason: Wheezing) Qty: 1 0RF amoxicillin-pot clavulanate 875-125 mg tablet 1 tab PO Q12H Qty: 20 0RF No Action lisinopril 20 mg tablet 40 mg PO BID amlodipine 5 MG tablet 5 mg PO DAILY duloxetine 60 MG capsule,delayed release(DR/EC) 60 mg PO DAILY lovastatin 40 mg Tablet 40 mg PO DAILY omeprazole 40 mg Capsule,Delayed Release(Dr/Ec) 40 mg PO DAILY meclizine 25 mg Tablet 25 mg PO DAILY PRN (Reason: Dizziness) benzonatate 100 mg Capsule 100 mg PO TID PRN (Reason: Cough) furosemide 20 mg Tablet 20 mg PO DAILY PRN (Reason: Swelling) prednisolone acetate 1 DROP drops,suspension 1 drop EACH EYE DAILY hydrochlorothiazide 25 MG tablet 25 mg PO DAILY oxybutynin chloride 5 MG tablet 5 mg PO BIDCM apixaban 5 MG tablet 5 mg PO BID B complex-vitamin C-folic acid 1 CAPSULE tablet 1 capsule PO DAILYCM acetaminophen 500 mg Tablet 1,000 mg PO Q6H PRN (Reason: Pain Score 1-5) Qty: 0 0RF potassium chloride [Klor-Con M20] 20 mEq Tablet,Er Particles/Crystals 20 meq PO BIDCM Qty: 0 0RF carvedilol 25 mg tablet 25 mg PO BID Qty: 180 3RF flecainide 100 mg tablet 100 mg PO BID Qty: 180 3RF Primary Care Provider: Faraz Junior Referrals: Faraz Junior MD [Primary Care Provider] - 3-5 Days if not improving Disposition Disposition: Home, Self Care
[2022-07-13 05:50] VITALS: PULSE 73; RESP 20; RESP 24; O2SAT 94
[2022-07-13] MEDS: Ipratropium/Albuterol Sulfate 3 ML AMPUL.NEB INHALATION (05:50)
[2022-07-13 05:58] LABS: Absolute Lymphocyte Count 1.19 X10^3/uL (0.83-4.51); Absolute Neutrophil Count 9.7 X10^3/uL (2.0-7.7); Basophil# 0.01 X10^3/uL; Basophil% 0.1 % (0-1); Eosinophil# 0.16 X10^3/uL; Eosinophils% 1.4 % (0-5); Hematocrit 44.8 % (37-47); Hemoglobin 13.4 g/dL (12.0-15.0); Lymphocyte # 1.19 X10^3/ul (0.83-4.51); Lymphocyte % 10.4 % (19-41); Mean Corp Hgb Conc 29.9 g/dL (32-36); Mean Corpuscular Hgb 28.4 pg (27.0-32.0); Mean Corpuscular Volume 94.9 fL (81-99); Mean Platelet Vol. 9.7 fl (6.2-12.0); Monocyte# 0.39 X10^3/uL; Monocyte% 3.4 % (0-10); NRBC Flagged by Analyzer 0.2 % (0-5); Neutrophil # 9.67 X10^3/uL (2.7-7.7); Neutrophil % 84.1 % (47-70); Platelet Count 342 K/mm3 (150-450); RBC Distribution Width CV 15.1 % (11.6-14.6); RBC Distribution Width SD 52.4 fl (35.1-43.9); Red Blood Count 4.72 M/mm3 (4.2-5.4); White Blood Count 11.5 K/mm3 (4.4-11.0)
[2022-07-13 06:11] LABS: Anion Gap 10 (5-15); BUN 28 mg/dL (7-18); BUN/Creat Ratio 37.7 RATIO (10-20); Calcium,Total 9.1 mg/dL (8.5-10.1); Chloride 101 mmol/L (98-107); Creatinine, Serum 0.74 mg/dL (0.55-1.02); EST Glomerular Filtration Rate 82 mL/min (>60); Est Glom Filt Rate - Afr Amer 99 mL/min (>60); Glucose 202 mg/dL (74-106); Potassium 3.3 mmol/L (3.5-5.1); Sodium Level 141 mmol/L (136-145); Troponin-I HS 5 pg/mL (3.0-54.0)
[2022-07-13 06:41] VITALS: BP 119/71; PULSE 68; RESP 24; O2SAT 94
[2022-07-13 06:58] VITALS: O2SAT 92
[2022-07-13 07:22] VITALS: BP 143/78; PULSE 73; RESP 18; TEMP 36.6; O2SAT 98
== END 2022-07-13 07:34 | disposition home or self-care (01) ==
PROVIDERS: Emergency Provider Emergency Medicine; PCP Family Medicine; Visit Provider Emergency Medicine
DX: J18.9 Pneumonia, unspecified organism (principal); I48.91 Unspecified atrial fibrillation; E78.5 Hyperlipidemia, unspecified; R07.89 Other chest pain; R53.81 Other malaise; J98.11 Atelectasis; I10 Essential (primary) hypertension; R09.02 Hypoxemia
CPT/HCPCS: 71046; 80048; 84484; 85025; 87428; 93005; 94640; 99252; 99285; G0463